=== PATIENT | female | born 1970 | race Caucasian/White ===

== ENCOUNTER → 2016-12-02 | Outpatient (REF) | payer OTHER ==
[~2016-12-02] MED LIST: /ACETCOD3T OR; /ADVA50050 IN; /PANT40TA OR; ACTO45TA OR; CYCLOBENZAPRINE PO; FURO20TA PO; IBUP600T OR; JANUVIA PO; LEXAPRO OR; LISI2.5T OR; METFORMIN PO; SIMV40TA2 OR; SINGULAR PO; VENTAER IN; VICO5TAB OR; [UNRECOGNIZED DRUG - OTHER] PO
[2016-12-02 12:11] LABS: ALBUMIN 3.8 GM/DL (3.2-5.2); ALBUMIN/GLOBULIN RATIO 1.36 (1.00-1.93); ALKALINE PHOSPHATASE 81 U/L (45-117); ALT/SGPT 30 U/L (12-78); ANION GAP 7 MEQ/L (8-16); AST/SGOT 15 U/L (15-37); BILIRUBIN,TOTAL 0.6 MG/DL (0.2-1.0); BLOOD UREA NITROGEN 13 MG/DL (7-18); CALCIUM LEVEL 8.8 MG/DL (8.5-10.1); CARBON DIOXIDE LEVEL 26 MEQ/L (21-32); CHLORIDE LEVEL 104 MEQ/L (98-107); CHOLESTEROL LEVEL 181 MG/DL (<200); CREATININE FOR GFR 0.69 MG/DL (0.55-1.02); GLOMERULAR FILTRATION RATE > 60.0 (>58); GLUCOSE, FASTING 177 MG/DL (70-105); POTASSIUM SERUM 4.4 MEQ/L (3.5-5.1); SODIUM LEVEL 137 MEQ/L (136-145); TOTAL PROTEIN 6.6 GM/DL (6.4-8.2); TRIGLYCERIDES LEVEL 213 MG/DL (<150)
== END ==
LOC: M SFHCCLAY 08:16
PROVIDERS: ATTEND Family Medicine
DX: E78.2 Mixed hyperlipidemia (principal); I10 Essential (primary) hypertension

== ENCOUNTER → 2017-02-01 | Outpatient (REF) | payer OTHER ==
[2017-02-01 12:42] LABS: BASO # 0.1 K/mm3 (0.0-0.2); BASO % 1.1 % (0.0-1.0); EOS # 0.2 K/mm3 (0.0-0.50); EOS % 2.1 % (0.0-3.0); LARGE UNSTAINED CELL # 0.1 K/mm3 (0.0-0.4); LARGE UNSTAINED CELL % 1.5 % (0.0-4.0); LYMPH # 2.6 K/mm3 (1.5-4.5); MEAN CORPUSCULAR HEMOGLOBIN 28.9 pg (27.0-33.0); MONO # 0.4 K/mm3 (0.0-0.8); MONO % 5.3 % (0.0-5.0); NEUTROPHILS # 3.9 K/mm3 (1.8-7.7); PLATELET COUNT, AUTOMATED 258 k/mm3 (150-450); RED CELL DISTRIBUTION WIDTH 13.1 % (11.5-14.5); WHITE BLOOD COUNT 7.2 K/mm3 (4.0-10.0)
[2017-02-01 13:40] LABS: ERYTHROCYTE SEDIMENTATION RATE 8 mm/hr (0-20)
== END ==
LOC: M LABDRAW1 11:38
PROVIDERS: ATTEND Orthopaedic Surgery
DX: S50.02XA Contusion of left elbow, initial encounter (principal); Y92.89 Other specified places as the place of occurrence of the external cause; X58.XXXA Exposure to other specified factors, initial encounter; Y93.89 Activity, other specified; Y99.8 Other external cause status

== ENCOUNTER → 2017-02-03 | Outpatient (CLI) | payer OTHER ==
--- NOTE | 2017-02-03 15:25 | REP ---
MAXILLOFACIAL CT WITHOUT CONTRAST: HISTORY: Chronic maxillary sinusitis. The right frontal sinus is hypoplastic. Mucosal thickening is present in the maxillary sinuses. There is complete opacification of the right maxillary sinus. Minimal mucosal thickening is present in the left maxillary sinus. The remaining sinuses are clear. Mucosal thickening involves the osteomeatal units. The middle and inferior nasal turbinates are partially paradoxical. There is mild deviation of the nasal septum to the right. A spur is present arising from the right side of the nasal septum. The spur abuts the right inferior nasal turbinate. The cribriform plate and medial field of the orbits and optic canals are intact. The carotid canals form a segment of the posterolateral field of the sphenoid sinus. IMPRESSION: Sinus mucosal thickening as described above. Signed by Eric Hinton MD 02/03/2017 03:27 P
== END ==
LOC: M RAD 14:50
PROVIDERS: ATTEND Specialist
DX: J32.0 Chronic maxillary sinusitis (principal)

== ENCOUNTER → 2017-05-18 | Outpatient (CLI) | payer OTHER ==
[~2017-05-18] MED LIST changes: +ALBU17IN INH; +BASA100I SC; +BREO1INH INH; +BUSP10TA PO; +ESCI20TA PO; +GABA-282 PO; +GLYB5TA PO; +LISI2.5T3 PO; +METF500T13 PO; +MIRA0.12 PO; +MONT10TA2 PO; +PANT40TA2 PO; +SIMV80TA PO; +TIZA4CAP3 PO; +VICT18IN SC
[2017-05-18 13:35] LABS: ANION GAP 8 MEQ/L (8-16); BLOOD UREA NITROGEN 14 MG/DL (7-18); CALCIUM LEVEL 9.2 MG/DL (8.5-10.1); CARBON DIOXIDE LEVEL 22 MEQ/L (21-32); CHLORIDE LEVEL 103 MEQ/L (98-107); CREATININE FOR GFR 0.74 MG/DL (0.55-1.02); GLOMERULAR FILTRATION RATE > 60.0 (>58); GLUCOSE, FASTING 372 MG/DL (70-105); POTASSIUM SERUM 4.4 MEQ/L (3.5-5.1); SODIUM LEVEL 133 MEQ/L (136-145)
--- NOTE | 2017-05-19 13:23 | ECGEPIP ---
Stationary ECG Study [facility] Test Date: 2017-05-18 Pat Name: MADHAVI DAVE Department: Room: - Gender: F Email Specialist: RAMOS : 1970 Requested By: TESSY MARQUEZ Order Number: [id number] Reading MD: Wilbert Trent Measurements Intervals [place] Rate: 91 P: 62 MO: 135 QRS: 52 QRSD: 102 T: 50 QT: 358 QTc: 441 Interpretive Statements SINUS RHYTHM POSSIBLE LEFT ATRIAL ENLARGEMENT Poor R-wave progression. Poor R-wave progression new compared with 01/17/2012. Electronically Signed On 05-19-2017 13:23:20 EDT by Wilbert Trent
== END ==
LOC: M LAB 12:17
PROVIDERS: ATTEND Anesthesiology
DX: Z01.818 Encounter for other preprocedural examination (principal); E78.00 Pure hypercholesterolemia, unspecified; E11.9 Type 2 diabetes mellitus without complications; K21.9 Gastro-esophageal reflux disease without esophagitis; F32.9 Major depressive disorder, single episode, unspecified; J45.909 Unspecified asthma, uncomplicated

== ENCOUNTER → 2017-05-20 | Day surgery (SDC) | payer OTHER ==
[~2017-05-20] VITALS: Ht 167.6 cm; Wt 96.6 kg
[~2017-05-20] MED LIST changes: +ALBUTEROL SULFATE 2.5 MG/0.5 ML INH NEB SOLN As Ordered ONE; +ALBUTEROL SULFATE 2.5 MG/0.5 ML INH NEB SOLN INH ONE; +EPINEPHrine 1MG/ML INJ 30ML MD-VIAL As Ordered ONE; +EPINEPHrine INJ 1 MG/ML 1ML AMP As Ordered ONE; +HYDROmorphone HCL 1 MG/ML SYRINGE (J1170) IV PRN; +HYDROmorphone HCL 2 MG/ML 1ML VIAL (J1170) As Ordered ONE; +IBUPROFEN 800 MG TAB PO PRN; +LABETALOL HCL 100 MG/20 ML VIAL As Ordered ONE; +LIDOCAINE 2% INJ 100 MG/5 ML SDV (FOR ANES.) As Ordered ONE; +LIDOCAINE W/EPINEPHRINE 1% 20ML VIAL As Ordered ONE; +LR 1,000 ML IV ONE; +LR 1,000 ML IV SCH; +METHYLENE BLUE 0.5% (5MG/ML) 10 ML AMP (PROVAYBLUE)(Q9968 PER 1MG) As Ordered ONE; +MIDAZOLAM INJ 2 MG/2 ML VIAL (J2250) As Ordered ONE; +ONDANSETRON 4MG/2ML VIAL (J2405) As Ordered ONE; +ONDANSETRON 4MG/2ML VIAL (J2405) IV PRN; +OXYMETAZOLINE NASAL SPRAY (AFRIN) As Ordered ONE; +PERCOCET 5MG/325MG TAB PO PRN; +PROPOFOL 200 MG/20 ML VIAL As Ordered ONE; +ROCURONIUM BROMIDE 50 MG/5 ML VIAL/SYRINGE As Ordered ONE; +SUGAMMADEX SODIUM 500 MG/5 ML VIAL (BRIDION) As Ordered ONE; +dexameTHASONE 4 MG/ML 1ML VIAL (J1100) As Ordered ONE; +fentaNYL 100 MCG/2 ML INJECTION (J3010) As Ordered ONE
[2017-05-20] MEDS: LABETALOL HCL 100 MG/20 ML VIAL IV SCH ×4 (14:35→14:50)
[2017-05-20] MEDS: fentaNYL 100 MCG/2 ML INJECTION (J3010) IV PRN ×4 (14:40→14:55)
[2017-05-20 14:50] VITALS: BP 159/77
[2017-05-20] MEDS: PERCOCET 5MG/325MG TAB PO PRN ×2 (15:15→15:45)
[2017-05-20 17:40] VITALS: BP 159/79
--- NOTE | 2017-05-24 14:04 | RO ---
DATE OF PROCEDURE: 05/20/2017 PREOPERATIVE DIAGNOSES: 1. Chronic maxillary sinusitis. 2. Deviated septum. POSTOPERATIVE DIAGNOSES: 1. Chronic maxillary sinusitis. 2. Deviated septum. PROCEDURE: Septoplasty, then bilateral endoscope ethmoidectomy with maxillary antrostomy. SURGEON: Dr. Yogesh Hernandez DBA: ANESTHESIA: INDICATIONS: A 46-year-old with asthma presents with continued problems with chronic sinusitis with recurring infections and a CT scan demonstrating complete opacification of the right maxillary sinus, obstruction of the ostiomeatal complex on both sides. DESCRIPTION OF PROCEDURE: Satisfactory general endotracheal anesthesia administered. Pharyngeal pack placed. Nose prepared for surgery by placing cotton-soaked pledgets with Afrin solution into the nasal cavity bilaterally. 1% Xylocaine with 1:100,000 epinephrine used to inject nasal septum. Her septal deviation was completely into the right nasal cavity with the septum being juxtaposed to the right middle turbinate and lateral nasal wall. A Kaden incision was made on the left side of the nose. A mucoperichondrial flap and envelope was created on the left side of the nasal septum and carried down to the junction of the bony and cartilaginous septum. This was then with an elevator, and an envelope was then created on the right side of the septum. A Rafael scissors was used to make a cut high in the perpendicular plate in the midportion of the vomer, and a central segment of the bony septum was resected. Next, with the round knife on the [place] elevator, a strip of cartilage was resected from the floor of the nose, mobilizing the quadrilateral cartilage and creating a swinging door. Then, a central segment of cartilaginous septum was resected, preserving a 1 cm dorsal and caudal strut. Double-action rongeur was used to take down deflected portions of the perpendicular plate, as well. Finally, the maxillary crest spur was taken down after elevating mucoperiosteum off both sides of it with a chisel. A segment of the resected cartilage was morselized and placed back into the septal envelope. The incision was closed using an interrupted #5-0 chromic suture. Then, a #4-0 plain suture was placed in a eehb-tiz-eoyyn fashion through the two leaves of mucoperichondrium to appose them. Completing the septum surgery, endoscopic surgery was started by first preparing the nose with cotton-soaked pledgets with Afrin solution in the nasal cavity. First, surgery was performed on the right side. 1% Xylocaine with 1:100,000 epinephrine used to inject the lateral nasal wall of middle turbinate. The middle turbinate on the right side was actually quite atrophic. It was also markedly paradoxically bent into the uncinate and lateral nasal wall because it was so atrophic and thin from the constant pressure of the septum against it. It was elected to do a partial resection of the middle turbinate on the right to prevent lateralization later. The uncinate process was resected with the microdebrider. Marked inflammatory changes were found here. The ethmoidal bullae was then resected. The natural maxillary sinus ostia was obliterated by edematous mucosa; it was cannulated with a side suction, and then it was opened widely using combination of the side-biting forceps and the microdebrider. Once in the maxillary sinus, the appearance of the mucosa was hyperplastic and markedly edematous, mucosa filling most of the maxillary sinus. A good antrostomy was created to allow this to be ventilated. The ethmoidectomy was completed by removing remnants of uncinate process superiorly and opening superiorly at the region of the supraorbital ethmoid cell. Adrenaline pledgets were placed on the right side while an identical procedure was performed on the left with left inflammatory changes seen on the left side, and a complete ethmoidectomy and maxillary antrostomy was done without incident. Adrenaline pledgets were placed on this side as well. When these were removed, NasoPore packing was placed into each side of the nose. Pharyngeal pack was removed. The throat was suctioned. The patient was then awakened, extubated, and sent to recovery room in satisfactory position. She will be discharged on Percocet for pain, doxycycline 100 mg twice a day, and she will be seen back in the office in 3 days.
== END | disposition home or self-care (01) ==
LOC: M SDC 09:04
PROVIDERS: ATTEND Specialist
DX: J32.0 Chronic maxillary sinusitis (principal); J34.2 Deviated nasal septum; J45.909 Unspecified asthma, uncomplicated; E11.9 Type 2 diabetes mellitus without complications; K21.9 Gastro-esophageal reflux disease without esophagitis; I10 Essential (primary) hypertension; E78.00 Pure hypercholesterolemia, unspecified; M54.2 Cervicalgia; F32.9 Major depressive disorder, single episode, unspecified; Z79.899 Other long term (current) drug therapy; Z79.84 Long term (current) use of oral hypoglycemic drugs; Z90.710 Acquired absence of both cervix and uterus; Z72.0 Tobacco use

== ENCOUNTER → 2017-06-02 | Outpatient (REF) | payer OTHER ==
[~2017-06-02] MED LIST changes: -ALBUTEROL SULFATE 2.5 MG/0.5 ML INH NEB SOLN As Ordered ONE; -ALBUTEROL SULFATE 2.5 MG/0.5 ML INH NEB SOLN INH ONE; -EPINEPHrine 1MG/ML INJ 30ML MD-VIAL As Ordered ONE; -EPINEPHrine INJ 1 MG/ML 1ML AMP As Ordered ONE; -HYDROmorphone HCL 1 MG/ML SYRINGE (J1170) IV PRN; -HYDROmorphone HCL 2 MG/ML 1ML VIAL (J1170) As Ordered ONE; -IBUPROFEN 800 MG TAB PO PRN; -LABETALOL HCL 100 MG/20 ML VIAL As Ordered ONE; -LIDOCAINE 2% INJ 100 MG/5 ML SDV (FOR ANES.) As Ordered ONE; -LIDOCAINE W/EPINEPHRINE 1% 20ML VIAL As Ordered ONE; -LR 1,000 ML IV ONE; -LR 1,000 ML IV SCH; -METHYLENE BLUE 0.5% (5MG/ML) 10 ML AMP (PROVAYBLUE)(Q9968 PER 1MG) As Ordered ONE; -MIDAZOLAM INJ 2 MG/2 ML VIAL (J2250) As Ordered ONE; -ONDANSETRON 4MG/2ML VIAL (J2405) As Ordered ONE; -ONDANSETRON 4MG/2ML VIAL (J2405) IV PRN; -OXYMETAZOLINE NASAL SPRAY (AFRIN) As Ordered ONE; -PERCOCET 5MG/325MG TAB PO PRN; -PROPOFOL 200 MG/20 ML VIAL As Ordered ONE; -ROCURONIUM BROMIDE 50 MG/5 ML VIAL/SYRINGE As Ordered ONE; -SUGAMMADEX SODIUM 500 MG/5 ML VIAL (BRIDION) As Ordered ONE; -dexameTHASONE 4 MG/ML 1ML VIAL (J1100) As Ordered ONE; -fentaNYL 100 MCG/2 ML INJECTION (J3010) As Ordered ONE
[2017-06-02 12:55] LABS: ALBUMIN 3.5 GM/DL (3.2-5.2); ALBUMIN/GLOBULIN RATIO 1.25 (1.00-1.93); ALKALINE PHOSPHATASE 74 U/L (45-117); ALT/SGPT 37 U/L (12-78); ANION GAP 13 MEQ/L (8-16); AST/SGOT 19 U/L (15-37); BILIRUBIN,TOTAL 0.6 MG/DL (0.2-1.0); BLOOD UREA NITROGEN 13 MG/DL (7-18); CALCIUM LEVEL 8.8 MG/DL (8.5-10.1); CARBON DIOXIDE LEVEL 22 MEQ/L (21-32); CHLORIDE LEVEL 100 MEQ/L (98-107); CHOLESTEROL LEVEL 191 MG/DL (<200); CREATININE FOR GFR 0.62 MG/DL (0.55-1.02); FREE T4 0.95 NG/DL (0.76-1.46); GLOMERULAR FILTRATION RATE > 60.0 (>58); GLUCOSE, FASTING 131 MG/DL (70-105); POTASSIUM SERUM 3.8 MEQ/L (3.5-5.1); SODIUM LEVEL 135 MEQ/L (136-145); TOTAL PROTEIN 6.3 GM/DL (6.4-8.2); TRIGLYCERIDES LEVEL 175 MG/DL (<150)
== END ==
LOC: M SFHCCLAY 08:34
PROVIDERS: ATTEND Family Medicine
DX: E78.2 Mixed hyperlipidemia (principal); E07.9 Disorder of thyroid, unspecified

== ENCOUNTER → 2018-08-04 | Outpatient (REF) | payer OTHER ==
[2018-08-04 13:08] LABS: CREATININE FOR GFR 0.71 MG/DL (0.55-1.30); GLOMERULAR FILTRATION RATE > 60.0 (>58)
[2018-08-04 13:08] LABS: BLOOD UREA NITROGEN 18 MG/DL (7-18)
== END ==
LOC: M LABDRAW1 10:28
DX: M47.22 Other spondylosis with radiculopathy, cervical region (principal)

== ENCOUNTER 2019-10-22 15:11 | Emergency (ER) | payer OTHER ==
[~2019-10-22] VITALS: Ht 167.6 cm; Wt 86.4 kg
[~2019-10-22 15:11] MED LIST changes: -/ACETCOD3T OR; -/ADVA50050 IN; -/PANT40TA OR; +ACET1TAB16 OR; +ADVA1AER2 IN; -GABA-282 PO; +GABA-843 PO; +LEXA1TAB OR; -LEXAPRO OR; +LISI-1046 PO; -LISI2.5T3 PO; -PANT40TA2 PO; +PANT40TA3 PO; +PROT1TAB2 OR; -SIMV80TA PO; +SIMV80TA13 PO; +TIZA4CAP PO; -TIZA4CAP3 PO
[2019-10-22] MEDS ORDERED: POTA10CA32 (15:38)
[2019-10-22] MEDS ORDERED: DICL100T89 (15:38)
[2019-10-22] MEDS ORDERED: [UNRECOGNIZED DRUG - CODE] (15:38)
[2019-10-22] MEDS ORDERED: HYDR-3716 (15:38)
[2019-10-22] MEDS ORDERED: VITA2000 (15:38)
[2019-10-22] MEDS ORDERED: TIZA4TAB4 (15:38)
[2019-10-22] MEDS ORDERED: METH750T2 (15:38)
[2019-10-22] MEDS ORDERED: GABA600T4 (15:38)
[2019-10-22] MEDS ORDERED: FLUT1BLS4 (15:38)
[2019-10-22] MEDS ORDERED: MELO15TA28 (15:38)
[2019-10-22] MEDS ORDERED: NORCO, ANEXSIA 5/325MG TABLET (HYDROcodone/ACETAMINOPHEN) PO ONE (16:15)
[2019-10-22] MEDS ORDERED: PERCOCET 5MG/325MG TAB PO ONE (16:15)
[2019-10-22] MEDS ORDERED: BACLOFEN 10 MG TAB PO ONE (16:15)
[2019-10-22] MEDS ORDERED: BACL10TA2 PO (17:02)
[2019-10-22 17:13] VITALS: BP 122/73
== END 2019-10-22 17:16 | disposition home or self-care (01) ==
LOC: M ED 15:11
DX: M54.9 Dorsalgia, unspecified (principal); G89.29 Other chronic pain; M51.9 Unspecified thoracic, thoracolumbar and lumbosacral intervertebral disc disorder; E11.9 Type 2 diabetes mellitus without complications; I10 Essential (primary) hypertension; J45.909 Unspecified asthma, uncomplicated; M46.92 Unspecified inflammatory spondylopathy, cervical region; F17.210 Nicotine dependence, cigarettes, uncomplicated; Z79.899 Other long term (current) drug therapy; Z79.84 Long term (current) use of oral hypoglycemic drugs

== ENCOUNTER 2020-11-28 11:14 | Emergency (ER) | payer OTHER ==
[~2020-11-28] VITALS: Ht 167.6 cm; Wt 87.6 kg
[~2020-11-28 11:14] MED LIST changes: +BACL10TA2 PO; +DICL100T89; -ESCI20TA PO; +ESCI20TA16 PO; +FLUT1BLS4; +GABA-282 PO; -GABA-843 PO; +GABA600T4; -GLYB5TA PO; +GLYB5TAB6 PO; +HYDR-3716; -LISI-1046 PO; +LISI2.5T2 PO; +MELO15TA28; +METH-1165; +MONT10TA10 PO; -MONT10TA2 PO; +PANT40TA29 PO; -PANT40TA3 PO; +POTA10CA32; +TIZA4TAB4; +VITA200031; +[UNRECOGNIZED DRUG - CODE]
--- OUTSIDE RECORDS SUMMARY | 2020-11-28 11:22 | CCD | Continuity of Care Document ---
Author Author [facility] Address [address] [place] [address] Phone Care Team Providers Care Oil Agent Name Role Phone Carmel PLATT PCP Allergies, Adverse Reactions, Alerts No known allergies. Medications No medication information available. Problems No problem information available. Procedures Procedure Date Performed Status CHEST 1 VIEW September 08, 2020 completed BRAIN W/O CONTRAST September 08, 2020 completed Relevant Diagnostic Tests and/or Laboratory Data Laboratory Results Test Date/Time Result Interpretation Reference Range Result Co mment Performing Site White Blood Count September 09, 2020 1:12am 11.5 4.0-10 .0 [facility], [address] [place] [address] Red Blood Count September 09, 2020 1:12am 4.64 4.00-5.5 0 [facility], [address] [place] [address]18 Hemoglobin September 09, 2020 1:12am 13.2 12.0-16.0 [facility], [address] [facility] [address] Hematocrit September 09, 2020 1:12am 38.6 36.0-48.8 [facility], [address] [place] [address]16 Mean Corpuscular Volume September 09, 2020 1:12am 83.2 80-96 [facility], [address] [facility] [address] Mean Corpuscular Hemoglobin September 09, 2020 1:12am 28.4 27.0-31.0 [facility], [address] [facility] [address] Mean Corpuscular Hgb Concent Diff September 09, 2020 1:12am 34.2 32.0-36.0 [facility], [address] [place] [address] Red Cell Distribution Width September 09, 2020 1:12am 13.3 10.0-14.5 [facility], [address] [place] [address] Platelet Count September 09, 2020 1:12am 198 172-450 [facility], [address] [place] [address] Mean Platelet Volume September 09, 2020 1:12am 8.8 9.0 -13.0 [facility], [address] [place] [address] Granulocytes % (Auto) September 09, 2020 1:12am 88.5 50 -80.0 [facility], [address] [place] [address] Immature Granulocytes % September 09, 2020 1:12am 0.1 0.0-0.2 [facility], [address] [facility] [address] Lymphocytes % September 09, 2020 1:12am 8.4 25.0-50.0 [facility], [address] [facility] [address] Monocytes % September 09, 2020 1:12am 2.7 2.0-10.0 [facility], [address] [facility] [address] Eosinophils % September 09, 2020 1:12am 0.1 0-5.0 [facility], [address] [facility] [address] Basophils % September 09, 2020 1:12am 0.2 0.0-2.0 [facility], [address] [facility] [address] Granulocytes # September 09, 2020 1:12am 10.2 2.0-8.00 [facility], [address] [facility] [address] Immature Granulocytes # September 09, 2020 1:12am 0.0 0.0-0.2 [facility], [address] [facility] [address] Lymphocytes # September 09, 2020 1:12am 1.0 1.0-5.0 [facility], [address] [facility] [address] Monocytes # September 09, 2020 1:12am 0.3 0.10-1.20 [facility], [address] [facility] [address] Eosinophils # September 09, 2020 1:12am 0.0 0.0-0.5 [facility], [address] [facility] [address] Basophils # September 09, 2020 1:12am 0.0 0.0-0.2 [facility], [address] [facility] [address] Prothrombin Time September 08, 2020 7:42am 9.9 9.1-11. 6 [facility], [address] [facility] [address] INR International Normalized Ratio September 08, 2020 7:42am 0.95 0.87-1.06 [facility], [address] [facility] [address] Partial Thromboplastin Time - [place] September 08, 2020 7:42am 21.6 21.2-27.3 [facility], [address] [facility] [address] Urine Color September 08, 2020 2:24pm [facility], [address] [facility] [address] Urine Appearance September 08, 2020 2:24pm CLEAR [facility], [address] [facility] 98977 Urine Glucose September 08, 2020 2:24pm 500 NEGATIVE [facility], [address] [facility] 170[address] Urine Bilirubin September 08, 2020 2:24pm NEGATIVE NEGATIVE [facility], [address] [facility] [address] Urine Ketones September 08, 2020 2:24pm NEGATIVE NEGATIVE [facility], [address] [facility] [address] Specific [place] September 08, 2020 2:24pm 1.020 1.001-1 .035 [facility], [address] [facility] [address] Urine Blood September 08, 2020 2:24pm NEGATIVE NEGATIVE [facility], [address] [facility] 339[address] Urine pH September 08, 2020 2:24pm 6.5 5.0-9.0 [facility], [address] [facility] [address]75[address] Urine Protein September 08, 2020 2:24pm NEGATIVE NEGATIVE [facility], [address] [facility] [address]395 Urine Urobilinogen September 08, 2020 2:24pm NORMAL(0.2-1) 0 -1 [facility], [address] [facility] [address] Urine Nitrite September 08, 2020 2:24pm NEGATIVE NEGATIVE [facility], [address] [facility] 6[address] Urine Leukocyte Esterase September 08, 2020 2:24pm NEGATIVE NEGATIVE [facility], [address] [facility] [address]18[address] Glucose Level September 09, 2020 1:12am 269 74-106 [facility], [address] [facility] [address] Lactic Acid Level September 08, 2020 11:06am 2.2 0.4-2 .0 [facility], [address] [place] [address] Blood Urea Nitrogen September 09, 2020 1:12am 11 7-18 [facility], [address] [place] [address]809 Creatinine September 09, 2020 1:12am 0.9 0.6-1.0 [facility], [address] [place] [address] 11440 Sodium Level September 09, 2020 1:12am 139 136-145 [facility], [address] [facility] [address] Potassium Level September 09, 2020 1:12am 4.7 3.5-5.1 [facility], [address] [place] [address] Chloride Level September 09, 2020 1:12am 105 98-107 [facility], [address] [place] [address] 29025 Carbon Dioxide Level September 09, 2020 1:12am 21 21- 32 [facility], [address] [facility] [address] Calcium Level September 09, 2020 1:12am 8.2 8.5-10.1 [facility], [address] [place] [address] Anion Gap September 09, 2020 1:12am 13.0 5-12 [facility], [address] [place] [address]67 Estimated GFR (MDRD) September 09, 2020 1:12am 67 GFR IS CALCULATED IN mL/min/1.73m2 NORMAL FUNCTION: >90MILDLY DECREASED: 60-89MILDY TO MODERATELY DECREASED: 45-59 MODERATELY TO SEVERELY DECREASED: 30-44SEVERELY DECREASED: 15-29RENAL FAILURE: <15 [facility], [address] [facility] [address] Aspartate Amino Transf (AST/SGOT) September 09, 2020 1:12am 23 15-37 [facility], [address] [facility] [address] Alanine Aminotransferase (ALT/SGPT) September 09, 2020 1:12am 34 12-78 [facility], [address] [facility] [address] Alkaline Phosphatase September 09, 2020 1:12am 68 46- 116 [facility], [address] [facility] 8[address] Total Bilirubin September 09, 2020 1:12am 0.9 0.2-1.0 [facility], [address] [place] [address]337 Total Protein September 09, 2020 1:12am 6.6 6.4-8.2 [facility], [address] [facility] [address] Albumin September 09, 2020 1:12am 3.2 3.4-5.0 [facility], [address] [facility] 40295 Lipase September 08, 2020 7:42am 99 73-393 [facility], [address] [facility] [address]608 Troponin I September 08, 2020 7:42am < 0.017 0.0-0.056 [facility], [address] [place] [address]8717 Thyroid Stimulating Hormone (TSH) September 08, 2020 7:42am 1.93 0.36-3.74 [facility], [address] [place] [address]62 Magnesium Level September 08, 2020 7:42am 1.7 1.8-2.4 [facility], [address] [place] [address]654 Free Thyroxine September 08, 2020 7:42am 1.10 0.76-1.46 [facility], [address] [place] [address]75 Urine Amphetamine Screen September 08, 2020 2:24pm NEGATIVE <1000 ng/mL [facility], [address] [place] [address] Urine Marijuana (THC) Screen September 08, 2020 2:24pm NEGATIVE <50 ng/mL [facility], [address] [facility] [address] Methylenedioxymethamphetamine (MDMA September 08, 2020 2:24pm NEGAT JOSE E <500 ng/mL [facility] [address] Urine Barbiturates Screen September 08, 2020 2:24pm NEGATIVE <300 ng/mL [facility], [address] [facility] [address] Urine Phencyclidine (PCP) Prelim September 08, 2020 2:24pm NEGATIVE <25 ng/mL [facility], [address] [facility] [address] Propoxyphene Screen September 08, 2020 2:24pm NEGATIVE <300 ng/mL [facility], [address] [facility] 8[address] Urine Cocaine Screen September 08, 2020 2:24pm NEGATIVE <30 0 ng/mL [facility], [address] [facility] 795[address] Urine Opiates Screen September 08, 2020 2:24pm NEGATIVE <30 0 ng/mL [facility], [address] [facility] [address] Oxycodone Screen September 08, 2020 2:24pm NEGATIVE <100 ng /mL [facility], [address] [place] [address] Urine Tricyclic Antidepressants September 08, 2020 2:24pm NEGATIVE <1000 ng/mL IF A NEGATIVE RESULT IS OBTAINED AND ING ESTION OF TRICYCLICANTIDEPRESSANTS IS SUSPECTED, A SERUM SAMPLE SHOULD BEOBTAINED AND TESTED USING AN APPROPRIATE METHOD. [facility], [address] [place] [address] Urine Benzodiazepines Screen September 08, 2020 2:24pm NEGATIVE <300 ng/mL THESE TESTS ARE PERFORMED USING AN IMMUNOASSAY FOR THEQUALITATIVE DETERMINATION OF THE PRESENCE OF THE MAJORMETABOLITES OF DRUGS OF ABUSE. THESE TESTS ARE ONLY ASCREENING AND NOT CONFIRMATORY. CLINICAL CONSIDERATION ANDPROFESSIONAL JUDGMENT MUST BE APPLIED TO ANY DRUG OF ABUSETEST RESULT. [facility], [address] [facility] [address] B-Type Natriuretic Peptide September 08, 2020 7:42am 52 0-125 [facility], [address] [place] [address] Adenovirus (PCR) September 08, 2020 7:50am Not Detected Not [facility], [address] [place] [address] Coronavirus Type 229E (PCR) September 08, 2020 7:50am Not Detected Not [facility], [address] [place] [address] Coronavirus Type HKU1 (PCR) September 08, 2020 7:50am Not Detected Not [facility], [address] [facility] [address] Coronavirus Type NL63 (PCR) September 08, 2020 7:50am Not Detected Not [facility], [address] [facility] [address] Coronavirus Type OC43 (PCR) September 08, 2020 7:50am Not Detected Not [facility], [address] [facility] [address] Coronavirus (COVID-19)(PCR) September 08, 2020 7:50am Not Detected Not [facility], [address] [facility] [address] Human Metapneumovirus (PCR) September 08, 2020 7:50am Not Detected Not [facility], [address] [facility] 6[address]14 Rhinovirus (PCR) September 08, 2020 7:50am Not Detected Not [facility], [address] [facility] [address] Influenza Type A (RT-PCR) September 08, 2020 7:50am Not Detected Not [facility], [address] [facility] [address] Influenza Type B (RT-PCR) September 08, 2020 7:50am Not Detected Not [facility], [address] [facility] [address] Parainfluenza Type 1 (PCR) September 08, 2020 7:50am Not Detected Not [facility], [address] [facility] [address]65 Parainfluenza Type 2 (PCR) September 08, 2020 7:50am Not Detected Not [facility], [address] [facility] 48298 Parainfluenza Type 3 (PCR) September 08, 2020 7:50am Not Detected Not [facility], [address] [facility] 8[address]74 Parainfluenza Type 4 (PCR) September 08, 2020 7:50am Not Detected Not [facility], [address] [facility] 9[address]98 Respiratory Syncytial Virus (PCR) September 08, 2020 7:50am Not Detec karey Not [facility], [address] [facility] [address] Bordetella parapertussis DNA (PCR) September 08, 2020 7:50am Not Dete cted Not [facility], [address] [facility] [address]257 Bordetella pertussis DNA (PCR) September 08, 2020 7:50am Not Detected Not [facility], [address] [facility] [address] Chlamydia pneumoniae September 08, 2020 7:50am Not Detected Not [facility], [address] [facility] [address] Mycoplasma pneumoniae September 08, 2020 7:50am Not Detected Not The Above results have been determined by using the [employer] (acquired by [employer] FilmArray system.FilmArray is an automated in vitro diagnostic system thatutilizes nested multiplex Polymerase Chain Reaction (PCR)and high-resolution melting analysis to detect and identifymultiple nucleic acid targets from clinical specimens. [facility], [address] [facility] [address] Blood Culture (LAB) September 08, 2020 7:59am SENT TO [facility], [address] [place] [address] Diagnostic Imaging Reports Report Dictated Date/Time Dictated By Status PS360 TEMPLATE September 08, 2020 8:19am JULIA RUTLEDGE Patient Name: MADHAVI DAVE Unit#: [id number] Rad#: [id number] : 72 Status: OSMAR Cramer MD: AKASH WOLFE Room/Bed Sex: F Property Management Intern: Manuela Montejo Date: 09/08/20 Report #: [id number] Signed - BRAIN W/O CONTRAST ORIGINAL REPORT DATE OF EXAMINATION: 09/08/2020 12:34 EST BRAIN W/O CONTRAST HISTORY: Dizziness TECHNIQUE: This CT exam was performed using the following dose reduction techniques: automatic exposure control, adjustment of mA and/or kV according to the patient's size, and use of iterative reconstruction technique. Standard contiguous axial spiral imaging was obtained from the skull base through the vertex without contrast administration and with coronal reformatting. FINDINGS: BRAIN: Basilar cisterns and ventricles appear normal. No space occupying lesions, intracerebral edema, or any signs of mass effects are noted. Base of the skull appears normal. IMPRESSION: Unremarkable CT scan of brain. Incidentally noted is some mucoperiosteal thickening of the sphenoid sinus consistent with chronic sphenoid sinusitis. Electronically signed in PS360 by: Julia Rut[place] M.D. 09/08/2020 13:20 EST PS360 TEMPLATE September 08, 2020 8:37am JULIA RUTLEDGE compl eted Patient Name: MADHAVI DAVE Unit#: [id number] Rad#: [id number] : 72 Status: OSMAR Cramer MD: AKASH WOLFE Room/Bed Sex: Giorgi Property Management Intern: Brittani Woods Date: 09/08/20 Report #: [id number] Signed - CHEST 1 VIEW ORIGINAL REPORT DATE OF EXAMINATION: 09/08/2020 12:26 EST CHEST 1 VIEW HISTORY: Dizziness TECHNIQUE: Single frontal radiograph of chest COMPARISON: 04/11/2020 FINDINGS: No evidence of focal consolidation, pneumothorax or large pleural effusion. Lungs are clear. Mediastinal structures are unremarkable. No aggressive osseous lesions. IMPRESSION: No focal consolidation. Electronically signed in PS360 by: Julia [place] M.D. 09/08/2020 13:37 EST Health Concerns No known health concerns documented Chief Complaint and Reason for Visit Reason for Visit HYPOTENSION, ORTHOSTATIC HYP OTENSION,SIDE EFFECTS Encounters Encounter Location(s) Arrival/Admit Date Discharge/Depart Date Provider(s) Discharged Inpatient [facility] September 08, 2020 7:12 am September 09, 2020 4:20am TIMMY PATEL V Assessments No Assessments Information Available Functional Status No Functional Status information available Goals No Goals Information Available Immunizations Immunization Event Date Not Given Reason Dose Number Hr Shared Services Consultant Lot Number Vaccine Information Statement (VIS) Detail Mental Status No Mental Status Information Available Medical Equipment No Medical Equipment Information available Insurance Providers Guarantor MADHAVI DAVE Address [address] [place] [address] Contact Info. Home Phone: Payer Policy Id Coverage Id Subscriber's Name Subscriber Id Effect jose e Date Expiration Date [employer] [id number] MADHAVI DAVE [birth year] Social History Assigned Sex Female Vital Signs No vital signs result information available.
--- OUTSIDE RECORDS SUMMARY | 2020-11-28 11:22 | CCD | Continuity of Care Document ---
Author Maral Garcia M.D. Organization Unknown Address [address] [place] [address] Phone [phone] Care Team Providers Care Onion Farmer Name Role Phone KatyaglHakan zambrano COMMUNITY DEVELOPMENT MANAGER-Robina AUTM [phone] Problems Active Problems Provider Date Restless legs Barbara Dumont M.D. Onset: 05/28/2020 Periodic limb movement disorder Barbara Dumont M.D. Onset: 0 05/28/2020 Disorders of initiating and maintaining sleep Yusuf Chen Onset: 05/28/2020 Low back pain Barbara Dumont M.D. Onset: 05/28/2020 Spondylolysis Barbara Dumont M.D. Onset: 05/28/2020 Type 2 diabetes mellitus with diabetic polyneuropathy Barbara Dumont M.D. Onset: 05/28/2020 Chronic tension-type headache Barbara Dumont M.D. Onset: 12/2019 Migraine without aura, not refractory Barbara Dumont M.D. On set: 10/01/2020 Social History Type Date Description Comments Sex Unknown Tobacco Use Start: Unknown Light tobacco smoker (10 or fewe r cigarettes/day) Allergies, Adverse Reactions, Alerts Description No Known Drug Allergies Medications Active Medications SIG Qnty Indications Ordering Provide r Date Topiramate 100mg Tablets 1 po qhs 30tabs Barbara Dumont M.D. 10/01/2020 Trazodone HCL 100mg Tablets half or 1 tab by mouth every night at bedtime 30tabs Barbara Dumont M.D. 10/01/2020 Neupro 8mg/24HR Patches 24HR apply 1 patch to the skin daily for 24 hours. 90units Barbara Dumont M.D. 05/28/2020 Lexapro 20mg Tablets 1 by thee th qhs. Unknown History Medications Topiramate 50mg Tablets Take 1/2 Tablet By Mouth AT Bedtime For 1 Week Then 1 Tablet AT Bedtime For 1 Week Then Take 2 Tablets AT Bedtime 60tabs Barbara Dumont M.D. 07/09/2020 - 10/01/2020 Immunizations Description No Information Available Vital Signs Date Vital Result Comment 05/28/2020 9:50am BP Systolic 120 mmHg BP Diastolic 70 mmHg Heart Rate 66 /min Respiratory Rate 14 /min Height 66 inches 5'6" Weight 178.00 lb BMI (Body Mass Index) 28.7 kg/m2 [place] Body Weight 130 lb Results Test Acquired Date Facility Test Result H/L Range Note Laboratory test finding 06/11/2020 [facility] Ferritin 24 ng/mL 8-252 1 Rheumatoid Factor Screen NEGATIVE Negative 2 Erythrocyte Sedimentation Rate 7 mm/hr 0-20 3 Iron Profile 06/11/2020 [facility] Fe 55 g/dL 50-170 Tibc 419 g/dL 250-450 Sat 13 % Low 20-50 Laboratory test finding 06/11/2020 [facility] Ceruloplasmin 28.3 mg/dL 19.0-39.0 4 Vitamin B12 And Folate 06/11/2020 [facility] VB12 514 pg/mL 232-1245 Fol 15.0 ng/mL >3.0 5 Laboratory test finding 06/11/2020 [facility] Lead, Blood (Adult) <1 g/dL 0-4 6 Jill W/Reflex If Positive Negative Negative 7 Serum Protein Electrophoresis 06/11/2020 [facility] Petp 6.5 g/dL 6.0-8.5 Pealb 3.8 g/dL 2.9-4.4 Pea1g 0.2 g/dL 0.0-0.4 Pea2g 0.9 g/dL 0.4-1.0 Pebg 1.1 g/dL 0.7-1.3 Pegg 0.5 g/dL 0.4-1.8 Pems Not Observed g/dL Not Observed Petg 2.7 g/dL 2.2-3.9 Peagr 1.4 0.7-1.7 Pepn Comment . 8 Laboratory test finding 06/11/2020 [facility] Mercury, Blood 1.0 ug/L 0.0-14.9 9 Vitamin E(Alpha Tocopherol) 10.4 mg/L 7.0-25.1 10 Copper, Serum 116 g/dL 72-166 11 Vitamin B6 3.9 ug/L 2.0-32.8 12 Vit. B1, Whole Blood 159.7 nmol/L 66.5-200.0 13 1 FAX [phone] FAX [phone] FAX [phone] Performed at: [address] [id number] Lead Level Designer: Peg Booker MD, Phone: [phone] 5 A serum folate concentration of less than 3.1 ng/mL is considered to represent clinical deficiency. 6 Analysis by inductively coup led plasma/mass spectrometry (ICP/MS) Environmental Exposure: WHO Recommendation <20 Occupational Exposure: OSHA Lead Std 40 LAURA 30 Detection Limit = 1 Performed at: [address] [id number] Lead Level Designer: Peg Booker MD, Phone: [phone] 7 Performed at: [address] [id number] Lead Level Designer: Peg Booker MD, Phone: [phone] 8 Protein electrophoresis scan will follow via computer, mail, or cotton washer delivery. Performed at: [address] [id number] Lead Level Designer: Peg Booker MD, Phone: [phone] 9 Environmental Exposure: <15 .0 Occupational Exposure: LAURA - Inorganic Mercury: 15.0 Detection Limit = 1.0 Performed at: [address] [id number] Lead Level Designer: Talia Walden MD, Phone: [phone] 10 Test(s) 728004-Wry. B1, Whol e Blood was developed and its performance characteristics determined by [facility]. It has not been cleared or approved by the Food and Drug Administration. 11 Detection Limit = 5 Performed at: [address] [id number] Lead Level Designer: Talia Walden MD, Phone: [phone] 12 Performed at: [address] [id number] Lead Level Designer: Talia Walden MD, Phone: [phone] 13 Performed at: [address] [id number] Lead Level Designer: Talia Walden MD, Phone: [phone] Procedures Date Code Description Status 06/02/2020 44071 Nerve Conduction 11-12 Studies C ompleted 06/02/2020 66107 Needle Electromyography Complete , Five Or More Muscles Studied Completed 06/02/2020 44673 Needle Electromyography Complete , Five Or More Muscles Studied Completed Medical Devices Description No Information Available Encounters Type Date Location Provider Dx Diagnosis Office Visit 10/01/2020 1:45p Main office - [place] Yusuf Chen G25.81 Restless legs syndrome G47.61 Periodic limb movement disor сергей F51.01 Primary insomnia G44.221 Chronic tension-type headach e, intractable G43.009 Migraine w/o aura, not intra ctable, w/o status migrainosus Office Visit 07/09/2020 11:30a Main office - [place] Yusuf Chen G25.81 Restless legs syndrome G47.61 Periodic limb movement disor сергей F51.01 Primary insomnia E11.42 Type 2 diabetes mellitus wit h diabetic polyneuropathy M54.5 Low back pain M43.06 Spondylolysis, lumbar region G44.221 Chronic tension-type headach e, intractable Office Visit 05/28/2020 9:30a Main office - [place] Yusuf Chen G25.81 Restless legs syndrome G47.61 Periodic limb movement disor сергей F51.01 Primary insomnia E11.42 Type 2 diabetes mellitus wit h diabetic polyneuropathy M54.5 Low back pain M43.06 Spondylolysis, lumbar region Assessments Date Code Description Provider 10/01/2020 G25.81 Restless legs syndrome Barbara Hernández i, M.D. 10/01/2020 G47.61 Periodic limb movement disorder Barbara Dumont M.D. 10/01/2020 F51.01 Primary insomnia Artemio Chen 10/01/2020 G44.221 Chronic tension-type headache, i ntractable Barbara Dumnot M.D. 10/01/2020 G43.009 Migraine without aur a, not intractable, without status migrainosus Barbara Dumont M.D. 07/09/2020 G25.81 Restless legs syndrome Barbara Hernández i, M.D. 07/09/2020 G47.61 Periodic limb movement disorder Barbara Dumont M.D. 07/09/2020 F51.01 Primary insomnia Artemio Chen 07/09/2020 E11.42 Type 2 diabetes mellitus with di abetic polyneuropathy Barbara Dumont M.D. 07/09/2020 M54.5 Low back pain Barbara Dumont M.D. 07/09/2020 M43.06 Spondylolysis, lumbar region Lana Dumont M.D. 07/09/2020 G44.221 Chronic tension-type headache, i ntractable Barbara Dumont M.D. 06/02/2020 G60.9 Hereditary and idiopathic neurop athy, unspecified Barbara Dumont M.D. 06/02/2020 M54.16 Radiculopathy, lumbar region Lana Dumont M.D. 05/28/2020 G25.81 Restless legs syndrome Barbara Hernández i, M.D. 05/28/2020 G47.61 Periodic limb movement disorder Barbara Dumont M.D. 05/28/2020 F51.01 Primary insomnia Artemio Chen 05/28/2020 E11.42 Type 2 diabetes mellitus with di abetic polyneuropathy Barbara Dumont M.D. 05/28/2020 M54.5 Low back pain Barbara Dumont M.D. 05/28/2020 M43.06 Spondylolysis, lumbar region Lana Dumont M.D. Plan of Treatment Future Appointment(s):* 12/09/2020 12:45 pm - Barbara Dumont M.D. at Main office - [place] Functional Status Description No Information Available Mental Status Description No Information Available Referrals Refer to Dr Reason for Referral Status Appt Date Barbara Dumont M.D. Created [facility] [address] [place] [address] [phone]
--- OUTSIDE RECORDS SUMMARY | 2020-11-28 11:22 | CCD | Continuity of Care Document ---
Author Author Maral GLASS MD Organization Unknown Address [address], [address] [place] [address] Phone [phone] Care Team Providers Care Sea Captain Name Role Phone Lucas Le MD [facility] [phone] Problems Active Problems Provider Date Headache [facility] [place] Onset: 10/29/2019 Diabetes mellitus [facility] [place] Onset: 10/29/2019 Social History Type Date Description Comments Sex Unknown ETOH Use Denies alcohol use Tobacco Use Reviewed: 01/08/20 Heavy tobacco smoker (more than 10 cigarettes/day) 1ppd for 30yrs Recreational Drug Use Denies Drug Use Smoking Status Reviewed: 01/08/20 Heavy tobacco smoker (more than 10 cigarettes/day) 1ppd for 30yrs Allergies, Adverse Reactions, Alerts Description No Known Drug Allergies Medications Active Medications SIG Qnty Indications Ordering Provide r Date Metformin HCL ER 750mg Tablets ER 24HR Take 1 Tablet By Mouth Three Times A Day With Evening Meal Unknown Glyburide 5mg Tablets Take One Tablet By Mouth Two Times A Day With Meals Unknown Pantoprazole Sodium 40mg Tablets D R Take One Tablet By Mouth Twice A Day Unknown Neupro 3mg/24HR Patches 24HR Apply 1 Patch To The Skin Once A Day Unknown 0 Fluticasone Propionate/Salmeterol Diskus 100-50mcg/Dose Aerosol Inhale One puff By Mouth Twice A Day Unknown Vitamin D3 50mcg (1999 Ut) Capsule s Take One Capsule By Mouth Every Day Unknown 0 Gabapentin 600mg Tablets Take One Tablet By Mouth Three Times A Day Unknown Meloxicam 15mg Tablets Take 1 Tablet By Mouth Once A Day Unknown Tizanidine HCL 4mg Tablets Take One Tablet By Mouth Three Times A Day Needed Unknown Tramadol HCL 50mg Tablets Unknown Ibuprofen 800mg Tablets take one tabet three times a day Unknown Acidophilus 100mg Capsules 1 by mouth every day Unknown Potassium Chloride ER 10Meq Tablet s ER 1 by mouth every day Unknown Multi Vitamin Daily Tablets 1 by mouth every day Unknown Ventolin HFA 108(90Base) mcg/Act A erosol inhale 2 puff by inhalation route every 4 - 6 hours needed Unknown Immunizations Description No Information Available Vital Signs Date Vital Result Comment 01/08/2020 9:27am Height 66 inches 5'6" Weight 194.00 lb BMI (Body Mass Index) 31.3 kg/m2 BP Systolic 143 mmHg BP Diastolic 86 mmHg Heart Rate 78 /min Respiratory Rate 18 /min 11/05/2019 10:08am Height 66 inches 5'6" Weight 190.00 lb BMI (Body Mass Index) 30.7 kg/m2 BP Systolic 137 mmHg BP Diastolic 84 mmHg Heart Rate 84 /min Body Temperature 98.0 F Body Temperature 36.7 C Respiratory Rate 18 /min Results Description No Information Available Procedures Description No Information Available Medical Devices Description No Information Available Encounters Description No Information Available Assessments Description No Information Available Plan of Treatment 01/08/2020 - Gareth Glass MD* M51.16 Intervertebral disc disorders with radiculopathy, lumbar region* Comments:* Maral Gilman is a 49-year-old woman who presents to the clinic today for evaluation of L3-4, lumbar disc herniation with spinal canal stenosis and worsening lumbar radiculopathy. Today, she reports improvement in her back pain with 10-12 sessions of physical therapy. She reports her leg pain has resolved completely. Recommended her to use pain cream and pain patches to help with her pain. Encouraged her to continue doing daily exercises and gradually resume normal activities. Advised her to wear lumbar braces while working and standing for prolonged hours. Informed her that she can resume work from 01/09/2020 without any restrictions. She was discharged from our care. She will follow up with us on an as needed basis. Patient was in agreement with the above treatment plan. The patient was seen and evaluated by Elizabeth eMndoza, Nurse Practitioner in collaboration with Gareth Glass MD. Functional Status Description No Information Available Mental Status Description No Information Available Referrals Description No Information Available
--- OUTSIDE RECORDS SUMMARY | 2020-11-28 11:22 | CCD | Continuity of Care Document ---
Author Maral Garcia M.D. Organization Unknown Address [address] [place] [address] Phone [phone] Care Team Providers Care Continuity Editor Name Role Phone KatyaglHakan zambrano PRODUCTION MACHINE OPERATOR-Robina AUTM [phone] Problems Active Problems Provider Date Restless legs [...] lb BMI (Body Mass Index) 28.7 kg/m2 [place] Body Weight 130 lb Results Test Acquired Date Facility Test Result H/L Range Note Laboratory test finding 06/11/2020 [facility] Ferritin 24 ng/mL 8-252 1 Rheumatoid Factor Screen NEGATIVE Negative 2 Erythrocyte Sedimentation Rate 7 mm/hr 0-20 3 Iron Profile 06/11/2020 [facility] Fe 55 g/dL 50-170 Tibc 419 g/dL 250-450 Sat 13 % Low 20-50 Laboratory test finding 06/11/2020 [facility] Ceruloplasmin 28.3 mg/dL 19.0-39.0 4 Vitamin B12 And Folate 06/11/2020 [facility] VB12 514 pg/mL 232-1245 Fol 15.0 ng/mL >3.0 5 Laboratory test finding 06/11/2020 [facility] Lead, Blood (Adult) <1 g/dL 0-4 6 Jill W/Reflex If Positive Negative Negative 7 Serum Protein Electrophoresis 06/11/2020 [facility] Petp 6.5 g/dL 6.0-8.5 Pealb 3.8 g/dL 2.9-4.4 Pea1g 0.2 g/dL 0.0-0.4 Pea2g 0.9 g/dL 0.4-1.0 Pebg 1.1 g/dL 0.7-1.3 Pegg 0.5 g/dL 0.4-1.8 Pems Not Observed g/dL Not Observed Petg 2.7 g/dL 2.2-3.9 Peagr 1.4 0.7-1.7 Pepn Comment . 8 Laboratory test finding 06/11/2020 [facility] Mercury, Blood 1.0 ug/L 0.0-14.9 9 Vitamin E(Alpha Tocopherol) 10.4 mg/L 7.0-25.1 10 Copper, Serum 116 g/dL 72-166 11 Vitamin B6 3.9 ug/L 2.0-32.8 12 Vit. B1, Whole Blood 159.7 nmol/L 66.5-200.0 13 1 FAX [phone] FAX [phone] FAX [phone] Performed at: [address] [id number] Milk Route Deliverer: Peg Booker MD, Phone: [phone] 5 A serum folate concentration of less than 3.1 ng/mL is considered to represent clinical deficiency. 6 Analysis by inductively coup led plasma/mass spectrometry (ICP/MS) Environmental Exposure: WHO Recommendation <20 Occupational Exposure: OSHA Lead Std 40 LAURA 30 Detection Limit = 1 Performed at: [address] [id number] Milk Route Deliverer: Peg Booker MD, Phone: [phone] 7 Performed at: [address] [id number] Milk Route Deliverer: Peg Booker MD, Phone: [phone] Protein electrophoresis scan will follow via computer, mail, or yard switcher delivery. Performed at: [address] [id number] Milk Route Deliverer: Peg Booker MD, Phone: [phone] 9 Environmental Exposure: <15 .0 Occupational Exposure: LAURA - Inorganic Mercury: 15.0 Detection Limit = 1.0 Performed at: [address] [id number] Milk Route Deliverer: Talia Walden MD, Phone: [phone] Test(s) 959859-Ohm. B1, Whol e Blood was developed and its performance characteristics determined by [facility]. It has not been cleared or approved by the Food and Drug Administration. 11 Detection Limit = 5 Performed at: [address] [id number] Milk Route Deliverer: Talia Walden MD, Phone: [phone] 12 Performed at: [address] [id number] Milk Route Deliverer: Talia Walden MD, Phone: [phone] 13 Performed at: [address] [id number] Milk Route Deliverer: Talia Walden MD, Phone: [phone] Procedures Date Code Description Status 06/02/2020 12697 Nerve Conduction 11-12 Studies C ompleted 06/02/2020 47289 Needle Electromyography Complete , Five Or More Muscles Studied Completed 06/02/2020 29399 Needle Electromyography Complete , Five Or More Muscles Studied Completed Medical Devices Description No Information Available Encounters Type Date Location Provider Dx Diagnosis Office Visit 10/01/2020 1:45p Main office - [place] Yusuf Chen G25.81 Restless legs syndrome G47.61 Periodic limb movement disor сергей F51.01 Primary insomnia G44.221 Chronic tension-type headach e, intractable G43.009 Migraine w/o aura, not intra ctable, w/o status migrainosus Office Visit 07/09/2020 11:30a Main office - [place] Yusuf Chen G25.81 Restless legs syndrome G47.61 Periodic limb movement disor сергей F51.01 Primary insomnia E11.42 Type 2 diabetes mellitus wit h diabetic polyneuropathy M54.5 Low back pain M43.06 Spondylolysis, lumbar region G44.221 Chronic tension-type headach e, intractable Office Visit 05/28/2020 9:30a Main office - [place] Yusuf Chen G25.81 Restless legs syndrome G47.61 [...] tension-type headache, i ntractable Barbara Dumont M.D. 10/01/2020 G43.009 Migraine without aur a, [...] region Lana Dumont M.D. Plan of Treatment No Information Available Functional Status Description No Information Available Mental Status Description No Information Available Referrals Refer to Dr Reason for Referral Status Appt Date Barbara Dumont M.D. Created [facility] [address] [place] [address] [phone]
--- OUTSIDE RECORDS SUMMARY | 2020-11-28 11:23 | CCD ---
Author Author [facility] er Organization [facility] er Address Unknown Phone Unavailable Care Team Providers Care Tamping Machine Operator Road Forms Name Role Phone Glendy Carpenter Unavailable PROBLEMS Type Condition ICD9-CM Code [id number] Code Onset Dates Condition S tatus SNOMED Code Notes Problem S/P coronary artery stent placement Z95.5 Acti ve 714534275 Problem Obesity (BMI 30-39.9) E66.9 Active 327251942 Problem Type 2 diabetes mellitus wit h other circulatory complication, without long-term current use of insulin E11.59 Active 440 02246 Problem Hyperlipidemia, unspecified hyperlipidemia type E7 8.5 Active 58593718 Problem Coronary artery disease invo lving [place] coronary artery of [place] heart, angina presence unspecified I25.10 Active 4 98355902 Problem Chronic obstructive pulmonary disease, unspecified COPD ty pe J44.9 Active 26574538 ALLERGIES No Known Allergies ENCOUNTERS from 1971 to 2020-09-08 Encounter Location Date Provider Diagnosis [facility] Card[facility] - [address] [facility] [address] [place] [address] Aug, Glendy Pauline IMMUNIZATIONS No Information SOCIAL HISTORY Tobacco Use: Social History Observation Description Date Details (start date - stop date) Current Smoker Sex Assigned At : Social History Observation Description Sex Assigned At Unknown Alcohol Screen (Audit-C) Question Answer Notes Did you have a drink containing alcohol in the past year? No Points 0 Interpretation Negative Tobacco Use/Smoking Question Answer Notes Patient is a current smoker How many cigarettes a day do you smoke? 6-10 How often do you smoke cigarettes? every day REASON FOR REFERRAL No Information VITAL SIGNS No information MEDICATIONS Medication SIG (Take, Route, Frequency, Duration) Start Date En d Date Status GlyBURIDE 5 MG 1 tablet with breakfast or t he first main meal of the day Orally twice a day Active Clopidogrel Bisulfate 75 MG 1 tablet Orally Once a day for 30 day(s ) Active Neupro 3 MG/24HR 1 patch to skin Transdermal Once a day for 30 day( s) Active Lipitor 80 MG 1 tablet Orally Once a day for 30 day(s) Active Tizanidine HCl 4 MG 2 tabs Orally Three times a day Active Aspir-Low 81 MG 1 tablet Orally Once a day for 30 day(s) Active MetFORMIN HCl ER 750 MG 1 tablet with evening meal Orally three soy moses day Active Fentanyl 12 MCG/HR 1 patch to skin Transdermal Active Pantoprazole Sodium 40 MG 1 tablet Orally Once a day for 30 day(s) Active Saline Mist [place] 0.65 % 2 sprays in each nostril as needed Nasally every 2 hrs Active Topiramate 100 MG 1 tablet Orally Once a day for 30 day(s) Active Daily Vitamin - 1 tablet Orally Once a day for 30 day(s) Active Tramadol HCl 100 MG 1 tablet at bedtime Orally Once a day Active Metoprolol Tartrate 25 MG 1 tablet with food Orally Twice a day for 30 day(s) Active Montelukast Sodium 10 MG 1 tablet Orally Once a day for 30 day(s) Active TraMADol HCl ER (Biphasic) 200 MG 1 tablet Orally Once a day Active Methocarbamol 750 MG 1 tablet Orally three times a day Active Nitroglycerin 0.4 MG as directed Sublingual Active Mobic 15 MG 1 tablet Orally Once a day for 30 day(s) Active Fluticasone-Salmeterol 100-50 MCG/DOSE as directed Inhalation Active Gabapentin 800 MG 1 tablet Orally three times a day Active Ventolin HFA 90 MCG/ACT 1 puff as needed Inhalation every 4 hrs Active Vitamin D-3 25 MCG (1000 UT) as directed Orally Active Potassium Chloride 10 MEQ/100ML as directed Intravenous Active Levothyroxine Sodium 100 MCG 1 tablet in the morning o n an empty stomach Orally Once a day for 30 day(s) Active Acidophilus Probiotic Blend - as directed Orally Active PROCEDURES No Information RESULTS No Results REASON FOR VISIT No Information MEDICAL (GENERAL) HISTORY Type Description Date Medical History asthma Medical History depression Medical History nstemi with stenting Medical History diabetes Medical History acid reflucx Medical History hypertension Surgical History No Surgical history information Hospitalization History [facility] 04/2020 [place] No Information Health Concerns No Information MEDICAL EQUIPMENT No Information MENTAL STATUS No Information FUNCTIONAL STATUS No Information ASSESSMENTS No Information PLAN OF TREATMENT No Information Insurance Providers Payer Name Payer Address Payer Phone Insured Name Patient Relati onship to Insured Coverage Start Date Coverage End Date [facility] [address] [facility] 12 [phone] Maral Gilman self
--- OUTSIDE RECORDS SUMMARY | 2020-11-28 11:23 | CCD ---
Author Author [facility] er Organization [facility] er Address Unknown Phone Unavailable Care Team Providers Care Instrument Assembly Supervisor Name Role Phone Glendy Carpenter Unavailable PROBLEMS Type Condition ICD9-CM Code [id number] Code Onset Dates Condition S tatus SNOMED Code Notes Problem S/P coronary artery stent placement Z95.5 Acti ve 131437608 Problem Obesity (BMI 30-39.9) E66.9 Active 256684965 Problem Type 2 diabetes mellitus wit h other circulatory complication, without long-term current use of insulin E11.59 Active 440 57524 Problem Hyperlipidemia, unspecified hyperlipidemia type E7 8.5 Active 10480291 Problem Coronary artery disease invo lving [place] coronary artery of [place] heart, angina presence unspecified I25.10 Active 4 90426720 Problem Chronic obstructive pulmonary disease, unspecified COPD ty pe J44.9 Active 08056510 ALLERGIES No Known Allergies ENCOUNTERS from 1971 to 2020-09-07 Encounter Location Date Provider Diagnosis [facility] Cardiology - [address] [facility] [address] [place] [address] Aug, Glendy Pauline IMMUNIZATIONS No Information SOCIAL [...] day for 30 day(s) Active Saline Mist [place] 0.65 % 2 sprays in each nostril [...] Information RESULTS No Results REASON FOR VISIT Needs call back from office MEDICAL (GENERAL) HISTORY Type Description Date Medical History asthma Medical History depression Medical History nstemi with stenting Medical History diabetes Medical History acid reflucx Medical History hypertension Surgical History No Surgical history information Hospitalization History [facility] 04/2020 [place] No Information Health Concerns No Information MEDICAL EQUIPMENT No Information MENTAL STATUS No Information FUNCTIONAL STATUS No Information ASSESSMENTS No Information PLAN OF TREATMENT No Information Insurance Providers Payer Name Payer Address Payer Phone Insured Name Patient Relati onship to Insured Coverage Start Date Coverage End Date [facility] [address] [facility] 12 [phone] Maral Gilman self
--- OUTSIDE RECORDS SUMMARY | 2020-11-28 11:26 | CCD ---
Author Author [facility] Organization [facility] Address Unknown Phone Unavailable Care Team Providers Care Account Development Representative Name Role Phone AIDEN, AKASH PA Unavailable Unavailable AIDEN, AKASH PA Unavailable Unavailable AIDEN, AKASH PA Unavailable Unavailable AIDEN, AKASH PA Unavailable Unavailable AIDEN, AKASH PA Unavailable Unavailable AIDEN, AKASH PA Unavailable Unavailable AIDEN, AKASH PA Unavailable Unavailable AIDEN, AKASH PA Unavailable Unavailable AIDEN, AKASH PA Unavailable Unavailable AIDEN, AKASH PA Unavailable Unavailable AIDEN, AKASH PA Unavailable Unavailable AIDEN, AKASH PA Unavailable Unavailable AIDEN, AKASH PA Unavailable Unavailable AIDEN, AKASH PA Unavailable Unavailable AIDEN, AKASH PA Unavailable Unavailable Cristina LE M.D. Unavailable Unavailable Cristina LE M.D. Unavailable Unavailable Cristina LE M.D. Unavailable Unavailable Cristina LE M.D. Unavailable Unavailable Cristina LE M.D. Unavailable Unavailable Cristina LE M.D. Unavailable Unavailable Cristina LE M.D. Unavailable Unavailable Cristina LE M.D. Unavailable Unavailable Cristina LE M.D. Unavailable Unavailable Cristina LE M.D. Unavailable Unavailable Cristina LE M.D. Unavailable Unavailable Cristina LE M.D. Unavailable Unavailable Cougler, S Hakan SALES AND MARKETING REPRESENTATIVE Unavailable Unavailable Cougler, S Hakan SALES AND MARKETING REPRESENTATIVE Unavailable Unavailable Cougler, S Hakan SALES AND MARKETING REPRESENTATIVE Unavailable Unavailable Cougler, S Hakan SALES AND MARKETING REPRESENTATIVE Unavailable Unavailable Cougler, S Hakan SALES AND MARKETING REPRESENTATIVE Unavailable Unavailable Cougler, S Hakan SALES AND MARKETING REPRESENTATIVE Unavailable Unavailable Cougler, S Hakan SALES AND MARKETING REPRESENTATIVE Unavailable Unavailable Cougler, S Hakan SALES AND MARKETING REPRESENTATIVE Unavailable Unavailable Cougler, S Hakan SALES AND MARKETING REPRESENTATIVE Unavailable Unavailable Cougler, S Hakan SALES AND MARKETING REPRESENTATIVE Unavailable Unavailable Cougler, S Hakan SALES AND MARKETING REPRESENTATIVE Unavailable Unavailable Cougler, S Hakan SALES AND MARKETING REPRESENTATIVE Unavailable Unavailable Cougler, S Hakan SALES AND MARKETING REPRESENTATIVE Unavailable Unavailable Cougler, S Hakan SALES AND MARKETING REPRESENTATIVE Unavailable Unavailable Cougler, S Hakan SALES AND MARKETING REPRESENTATIVE Unavailable Unavailable Cougler, S Hakan SALES AND MARKETING REPRESENTATIVE Unavailable Unavailable Cougler, S Hakan SALES AND MARKETING REPRESENTATIVE Unavailable Unavailable Cougler, S Hakan SALES AND MARKETING REPRESENTATIVE Unavailable Unavailable Cougler, S Hakan SALES AND MARKETING REPRESENTATIVE Unavailable Unavailable Cougler, S Hakan SALES AND MARKETING REPRESENTATIVE Unavailable Unavailable Cougler, S Hakan SALES AND MARKETING REPRESENTATIVE Unavailable Unavailable Cougler, S Hakan SALES AND MARKETING REPRESENTATIVE Unavailable Unavailable Cougler, S Hakan SALES AND MARKETING REPRESENTATIVE Unavailable Unavailable Cougler, S Hakan SALES AND MARKETING REPRESENTATIVE Unavailable Unavailable Cougler, S Hakan SALES AND MARKETING REPRESENTATIVE Unavailable Unavailable Cougler, S Hakan SALES AND MARKETING REPRESENTATIVE Unavailable Unavailable Cougler, S Hakan SALES AND MARKETING REPRESENTATIVE Unavailable Unavailable Cougler, S Hakan SALES AND MARKETING REPRESENTATIVE Unavailable Unavailable Cougler, S Hakan SALES AND MARKETING REPRESENTATIVE Unavailable Unavailable Cougler, S Hakan SALES AND MARKETING REPRESENTATIVE Unavailable Unavailable Cougler, S Hakan SALES AND MARKETING REPRESENTATIVE Unavailable Unavailable Cougler, S Hakan SALES AND MARKETING REPRESENTATIVE Unavailable Unavailable Cougler, S Hakan SALES AND MARKETING REPRESENTATIVE Unavailable Unavailable Cougler, S Hakan SALES AND MARKETING REPRESENTATIVE Unavailable Unavailable Cougler, S Hakan SALES AND MARKETING REPRESENTATIVE Unavailable Unavailable Cougler, S Hakan SALES AND MARKETING REPRESENTATIVE Unavailable Unavailable Cougler, S Hakan SALES AND MARKETING REPRESENTATIVE Unavailable Unavailable Cougler, S Hakan SALES AND MARKETING REPRESENTATIVE Unavailable Unavailable Cougler, S Hakan SALES AND MARKETING REPRESENTATIVE Unavailable Unavailable Mignon Smith MD Unavailable Unavailable Mignon Smith MD Unavailable Unavailable Mignon Smith MD Unavailable Unavailable Mignon Smith MD Unavailable Unavailable Mignon Smith MD Unavailable Unavailable Mignon Smith MD Unavailable Unavailable Mignon Smith MD Unavailable Unavailable Mignon Smith MD Unavailable Unavailable Mignon Smith MD Unavailable Unavailable Mcneill Washington PA Unavailable Unavailable Mcneill Washington PA Unavailable Unavailable Mcneill Washington PA Unavailable Unavailable Mcneill Washington PA Unavailable Unavailable Mcneill, Washington PA Unavailable Unavailable Mcneill, Washington PA Unavailable Unavailable Mcneill, Washington PA Unavailable Unavailable Mcneill, Washington PA Unavailable Unavailable Mcneill, Washington PA Unavailable Unavailable Mcneill, Washington PA Unavailable Unavailable Mcneill, Washington PA Unavailable Unavailable Mcneill, [place] PA Unavailable Unavailable DIDI, S LUIZ SALES AND MARKETING REPRESENTATIVE Unavailable Unavailable DIDI, S LUIZ SALES AND MARKETING REPRESENTATIVE Unavailable Unavailable DIDI, S LUIZ SALES AND MARKETING REPRESENTATIVE Unavailable Unavailable DIDI, S LUIZ SALES AND MARKETING REPRESENTATIVE Unavailable Unavailable DIDI, S LUIZ SALES AND MARKETING REPRESENTATIVE Unavailable Unavailable DIDI, S LUIZ SALES AND MARKETING REPRESENTATIVE Unavailable Unavailable DIDI, S LUIZ SALES AND MARKETING REPRESENTATIVE Unavailable Unavailable DIDI, S LUIZ SALES AND MARKETING REPRESENTATIVE Unavailable Unavailable DIDI, S LUIZ SALES AND MARKETING REPRESENTATIVE Unavailable Unavailable DIDI, S LUIZ SALES AND MARKETING REPRESENTATIVE Unavailable Unavailable DIDI, S LUIZ SALES AND MARKETING REPRESENTATIVE Unavailable Unavailable DIDI, S LUIZ SALES AND MARKETING REPRESENTATIVE Unavailable Unavailable DIDI, S LUIZ SALES AND MARKETING REPRESENTATIVE Unavailable Unavailable DIDI, S LUIZ SALES AND MARKETING REPRESENTATIVE Unavailable Unavailable DIDI, S LUIZ SALES AND MARKETING REPRESENTATIVE Unavailable Unavailable DIDI, S LUIZ SALES AND MARKETING REPRESENTATIVE Unavailable Unavailable DIDI, S LUIZ SALES AND MARKETING REPRESENTATIVE Unavailable Unavailable DIDI, S LUIZ SALES AND MARKETING REPRESENTATIVE Unavailable Unavailable DIDI, S LUIZ SALES AND MARKETING REPRESENTATIVE Unavailable Unavailable DIDI, S LUIZ SALES AND MARKETING REPRESENTATIVE Unavailable Unavailable DIDI, S LUIZ SALES AND MARKETING REPRESENTATIVE Unavailable Unavailable DIDI, S LUIZ SALES AND MARKETING REPRESENTATIVE Unavailable Unavailable DIDI, S LUIZ SALES AND MARKETING REPRESENTATIVE Unavailable Unavailable DIDI, S LUIZ SALES AND MARKETING REPRESENTATIVE Unavailable Unavailable DIDI, S LUIZ SALES AND MARKETING REPRESENTATIVE Unavailable Unavailable Sherrie Ayala MD Unavailable Unavailable Sherrie Ayala MD Unavailable Unavailable Sherrie Ayala MD Unavailable Unavailable Sherrie Ayala MD Unavailable Unavailable Sherrie Ayala MD Unavailable Unavailable Sherrie Ayala MD Unavailable Unavailable Sherrie Ayala MD Unavailable Unavailable Sherrie Ayala MD Unavailable Unavailable Sherrie Ayala MD Unavailable Unavailable Sherrie Ayala MD Unavailable Unavailable Sherrie Ayala MD Unavailable Unavailable Niels, Shubekchha Unavailable Unavailable Niels, Shubekchha Unavailable Unavailable SERGIO BIRCH MD Unavailable Unavailable SERGIO BIRCH MD Unavailable Unavailable SERGIO BIRCH MD Unavailable Unavailable SERGIO BIRCH MD Unavailable Unavailable SERGIO BIRCH MD Unavailable Unavailable SERGIO BIRCH MD Unavailable Unavailable SERGIO BIRCH MD Unavailable Unavailable SERGIO IBRCH MD Unavailable Unavailable SERGIO BIRCH MD Unavailable Unavailable SERGIO BIRCH MD Unavailable Unavailable SERGIO BIRCH MD Unavailable Unavailable SERGIO BIRCH MD Unavailable Unavailable SERGIO BIRCH MD Unavailable Unavailable SERGIO BIRCH MD Unavailable Unavailable SERGIO BIRCH MD Unavailable Unavailable SERGIO BIRCH MD Unavailable Unavailable SERGIO BIRCH MD Unavailable Unavailable SERGIO BIRCH MD Unavailable Unavailable SERGIO BIRCH MD Unavailable Unavailable SERGIO BIRCH MD Unavailable Unavailable SERGIO BIRCH MD Unavailable Unavailable SERGIO BIRCH MD Unavailable Unavailable SERGIO BIRCH MD Unavailable Unavailable SERGIO BIRCH MD Unavailable Unavailable SERGIO BIRCH MD Unavailable Unavailable SERGIO BIRCH MD Unavailable Unavailable SERGIO BIRCH MD Unavailable Unavailable SERGIO BIRCH MD Unavailable Unavailable Dombek-Lang, V Shanique MD Unavailable Unavailable Dombek-Lang, V Shanique MD Unavailable Unavailable Dombek-Lang, V Shanique MD Unavailable Unavailable Dombek-Lang, V Shanique MD Unavailable Unavailable Dombek-Lang, V Shanique MD Unavailable Unavailable Dombek-Lang, V Shanique MD Unavailable Unavailable Dombek-Lang, V Shanique MD Unavailable Unavailable Dombek-Lang, V Shanique MD Unavailable Unavailable Dombek-Lang, V Shanique MD Unavailable Unavailable Dombek-Lang, V Shanique MD Unavailable Unavailable Dombek-Lang, V Shanique MD Unavailable Unavailable Dombek-Lang, V Shanique MD Unavailable Unavailable Dombek-Lang, V Shanique MD Unavailable Unavailable Dombek-Lang, V Shanique MD Unavailable Unavailable Dombek-Lang, V Shanique MD Unavailable Unavailable Dombek-Lang, V Shanique MD Unavailable Unavailable Dombek-Lang, V Shanique MD Unavailable Unavailable Dombek-Lang, V Shanique MD Unavailable Unavailable Dombek-Lang, V Shanique MD Unavailable Unavailable Dombek-Lang, V Shanique MD Unavailable Unavailable Dombek-Lang, V Shanique MD Unavailable Unavailable Dombek-Lang, V Shanique MD Unavailable Unavailable Dombek-Lang, V Shanique MD Unavailable Unavailable Dombek-Lang, V Shanique MD Unavailable Unavailable Dombek-Lang, V Shanique MD Unavailable Unavailable Dombek-Lang, V Shanique MD Unavailable Unavailable Dombek-Lang, V Shanique MD Unavailable Unavailable Dombek-Lang, V Shanique MD Unavailable Unavailable Dombek-Lang, V Shanique MD Unavailable Unavailable Dombek-Lang, V Shanique MD Unavailable Unavailable Dombek-Lang, V Shanique MD Unavailable Unavailable Bhaskar Kelly MD Unavailable Unavailable Bhaskar Kelly MD Unavailable Unavailable Bhaskar Kelly MD Unavailable Unavailable Bhaskar Kelly MD Unavailable Unavailable Bhaskar Kelly MD Unavailable Unavailable RYAN, HUA BALJIT PA Unavailable Unavailable RYAN, HUA BALJIT PA Unavailable Unavailable RYAN, HUA BALJIT PA Unavailable Unavailable RYAN, HUA BALJIT PA Unavailable Unavailable RYAN, HUA BALJIT PA Unavailable Unavailable RYAN, HUA BALJIT PA Unavailable Unavailable RYAN, HUA BALJIT PA Unavailable Unavailable RYAN, HUA BALJIT PA Unavailable Unavailable RYAN, HUA BALJIT PA Unavailable Unavailable RYAN, HUA BALJIT PA Unavailable Unavailable RYAN, HUA BALJIT PA Unavailable Unavailable RYAN, HUA BALJIT PA Unavailable Unavailable RYAN, HUA BALJIT PA Unavailable Unavailable RYAN, HUA BALJIT PA Unavailable Unavailable RYAN, HUA BALJIT PA Unavailable Unavailable RYAN, HUA BALJIT PA Unavailable Unavailable RYAN, HUA BALJIT PA Unavailable Unavailable RYAN, HUA BALJIT PA Unavailable Unavailable RYAN, HUA BALJIT PA Unavailable Unavailable RYAN, HUA BALJIT PA Unavailable Unavailable RYAN, HUA BALJIT PA Unavailable Unavailable Pinas, Shakir DO Unavailable Unavailable Pinas, Shakir DO Unavailable Unavailable Luis, Shakir DO Unavailable Unavailable Luis, Shakir DO Unavailable Unavailable Luis, Shakir DO Unavailable Unavailable Lucho TRUONG MD Unavailable Unavailable Lucho TRUONG MD Unavailable Unavailable Lucho TRUONG MD Unavailable Unavailable Lucho TRUONG MD Unavailable Unavailable Lucho TRUONG MD Unavailable Unavailable Lucho TRUONG MD Unavailable Unavailable Lucho TRUONG MD Unavailable Unavailable Lucho TRUONG MD Unavailable Unavailable Lucho TRUONG MD Unavailable Unavailable Lucho TRUONG MD Unavailable Unavailable Lucho TRUONG MD Unavailable Unavailable Lucho TRUONG MD Unavailable Unavailable Lucho TRUONG MD Unavailable Unavailable Lucho TRUONG MD Unavailable Unavailable Lucho TRUONG MD Unavailable Unavailable Lucho TRUONG MD Unavailable Unavailable Lucho RTUONG MD Unavailable Unavailable Lucho TRUONG MD Unavailable Unavailable TRUONG, Lucho MCKENZIE MD Unavailable Unavailable TRUONG, L JONAH VASQUEZ Unavailable Unavailable TRUONG, L JONAH VASQUEZ Unavailable Unavailable TRUONG, L JONAH VASQUEZ Unavailable Unavailable TRUONG, L JONAH VASQUEZ Unavailable Unavailable TRUONG, L JONAH VASQUEZ Unavailable Unavailable TRUONG, L JONAH VASQUEZ Unavailable Unavailable TRUONG, L JONAH VASQUEZ Unavailable Unavailable TRUONG, L JONAH VASQUEZ Unavailable Unavailable TRUONG, L JONAH VASQUEZ Unavailable Unavailable TRUONG, L JONAH VASQUEZ Unavailable Unavailable TRUONG, L JONAH VASQUEZ Unavailable Unavailable TRUONG, L JONAH VASQUEZ Unavailable Unavailable TRUONG, L JONAH VASQUEZ Unavailable Unavailable TRUONG, L JONAH VASQUEZ Unavailable Unavailable TRUONG, L JONAH VASQUEZ Unavailable Unavailable TRUONG, L JONAH VASQUEZ Unavailable Unavailable TRUONG, L JONAH VASQUEZ Unavailable Unavailable TRUONG, L JONAH VASQUEZ Unavailable Unavailable TRUONG, L JONAH VASQUEZ Unavailable Unavailable TRUONG, L JONAH VASQUEZ Unavailable Unavailable TRUONG, L JONAH VASQUEZ Unavailable Unavailable TRUONG, L JONAH VASQUEZ Unavailable Unavailable TRUONG, L JONAH VASQUEZ Unavailable Unavailable Ricardo, Fatou Unavailable Unavailable Ricardo, Fatou Unavailable Unavailable Ricardo, Fatou Unavailable Unavailable Ricardo, Fatou Unavailable Unavailable Ricardo, Fatou Unavailable Unavailable Luis Daniel SALEH MD Unavailable Unavailable Luis Daniel SALEH MD Unavailable Unavailable Luis Daniel SALEH MD Unavailable Unavailable Luis Daniel SALEH MD Unavailable Unavailable Luis Daniel SALEH MD Unavailable Unavailable Luis Daniel SALEH MD Unavailable Unavailable Luis Daniel SALEH MD Unavailable Unavailable Luis Daniel SALEH MD Unavailable Unavailable Luis Daniel SALEH MD Unavailable Unavailable Luis Daniel SALEH MD Unavailable Unavailable Luis Daniel SALEH MD Unavailable Unavailable Luis Daniel SALEH MD Unavailable Unavailable Luis Daniel SALEH MD Unavailable Unavailable Luis Daniel SALEH MD Unavailable Unavailable Luis Daniel SALEH MD Unavailable Unavailable Luis Daniel SALEH MD Unavailable Unavailable Luis Daniel SALEH MD Unavailable Unavailable Luis Daniel SALEH MD Unavailable Unavailable Luis Daniel SALEH MD Unavailable Unavailable Luis Daniel SALEH MD Unavailable Unavailable Luis Daniel SALEH MD Unavailable Unavailable Luis Daniel SALEH MD Unavailable Unavailable Luis Daniel SALEH MD Unavailable Unavailable Luis Daniel SALEH MD Unavailable Unavailable Luis Daniel SALEH MD Unavailable Unavailable Luis Daniel SALEH MD Unavailable Unavailable Luis Daniel SALEH MD Unavailable Unavailable Luis Daniel SALEH MD Unavailable Unavailable Luis Daniel SALEH MD Unavailable Unavailable Luis Daniel SALEH MD Unavailable Unavailable Luis Daniel SALEH MD Unavailable Unavailable Luis Daniel SALEH MD Unavailable Unavailable Luis Daniel SALEH MD Unavailable Unavailable Luis Daniel SALEH MD Unavailable Unavailable Luis Daniel SALEH MD Unavailable Unavailable Luis Daniel SALEH MD Unavailable Unavailable Luis Daniel SALEH MD Unavailable Unavailable Luis Daniel SALEH MD Unavailable Unavailable Luis Daniel SALEH MD Unavailable Unavailable Luis Daniel SALEH MD Unavailable Unavailable Luis Daniel SALEH MD Unavailable Unavailable Luis Daniel SALEH MD Unavailable Unavailable Luis Daniel SALEH MD Unavailable Unavailable Luis Daniel SALEH MD Unavailable Unavailable Luis Daniel SALEH MD Unavailable Unavailable Luis Daniel SALEH MD Unavailable Unavailable Luis Daniel SALEH MD Unavailable Unavailable Luis Daniel SALEH MD Unavailable Unavailable Luis Daniel SALEH MD Unavailable Unavailable Luis Daniel SALEH MD Unavailable Unavailable Luis Daniel SALEH MD Unavailable Unavailable Luis Daniel SALEH MD Unavailable Unavailable Luis Daniel SALEH MD Unavailable Unavailable Luis Daniel SALEH MD Unavailable Unavailable Luis Daniel SALEH MD Unavailable Unavailable Luis Daniel SALEH MD Unavailable Unavailable Luis Daniel SALEH MD Unavailable Unavailable Luis Daniel SALEH MD Unavailable Unavailable Luis Daniel SALEH MD Unavailable Unavailable Luis Daniel SALEH MD Unavailable Unavailable Luis Daniel SALEH MD Unavailable Unavailable Luis Daniel SALEH MD Unavailable Unavailable Luis Daniel SALEH MD Unavailable Unavailable Luis Daniel SALEH MD Unavailable Unavailable Luis Daniel SALEH MD Unavailable Unavailable Luis Daniel SALEH MD Unavailable Unavailable Luis Daniel SALEH MD Unavailable Unavailable Luis Daniel SALEH MD Unavailable Unavailable Luis Daniel SALEH MD Unavailable Unavailable AIDEN, AKASH PA Unavailable Unavailable AIDEN, AKASH PA Unavailable Unavailable AIDEN, AKASH PA Unavailable Unavailable AIDEN, AKASH PA Unavailable Unavailable AIDEN, AKASH PA Unavailable Unavailable AIDEN, AKASH PA Unavailable Unavailable AIDEN, AKASH PA Unavailable Unavailable AIDEN, AKASH PA Unavailable Unavailable AIDEN, AKASH PA Unavailable Unavailable AIDEN, AKASH PA Unavailable Unavailable AIDEN, AKASH PA Unavailable Unavailable AIDEN, AKASH PA Unavailable Unavailable AIDEN, AKASH PA Unavailable Unavailable AIDEN, AKASH PA Unavailable Unavailable AIDEN, AKASH PA Unavailable Unavailable Radha Lovell MD Unavailable Unavailable Radha Lovell MD Unavailable Unavailable Radah Lovell MD Unavailable Unavailable Radha Lovell MD Unavailable Unavailable Radha Lovell MD Unavailable Unavailable Radha Lovell MD Unavailable Unavailable Radha Lovell MD Unavailable Unavailable Radha Lovell MD Unavailable Unavailable Radha Lovell MD Unavailable Unavailable Radha Lovell MD Unavailable Unavailable Radha Lovell MD Unavailable Unavailable Radha Lovell MD Unavailable Unavailable Radha Lovell MD Unavailable Unavailable Radha Lovell MD Unavailable Unavailable Radha Lovell MD Unavailable Unavailable Radha Lovell MD Unavailable Unavailable Radha Lovell MD Unavailable Unavailable Radha Lovell MD Unavailable Unavailable Radha Lovell MD Unavailable Unavailable Radha Lovell MD Unavailable Unavailable Radha Lovell MD Unavailable Unavailable Radha Lovell MD Unavailable Unavailable Radha Lovell MD Unavailable Unavailable Radha Lovell MD Unavailable Unavailable Radha Lovell MD Unavailable Unavailable Radha Lovell MD Unavailable Unavailable Radha Lovell MD Unavailable Unavailable Radha Lovell MD Unavailable Unavailable Radha Lovell MD Unavailable Unavailable Radha Lovell MD Unavailable Unavailable Radha Lovell MD Unavailable Unavailable Radha Lovell MD Unavailable Unavailable Radha Lovell MD Unavailable Unavailable Radha Lovell MD Unavailable Unavailable Radha Lovell MD Unavailable Unavailable Radha Lovell MD Unavailable Unavailable Radha Lovell MD Unavailable Unavailable Radha Lovell MD Unavailable Unavailable Radha Lovell MD Unavailable Unavailable Radha Lovell MD Unavailable Unavailable Radha Lovell MD Unavailable Unavailable Radha Lovell MD Unavailable Unavailable Radha Lovell MD Unavailable Unavailable Slezka, Vojtech MD Unavailable Unavailable Slezka, Vojtech MD Unavailable Unavailable Slezka, Vojtech MD Unavailable Unavailable Slezka, Vojtech MD Unavailable Unavailable Slezka, Vojtech MD Unavailable Unavailable Slezka, Vojtech MD Unavailable Unavailable Slezka, Vojtech MD Unavailable Unavailable Slezka, Vojtech MD Unavailable Unavailable Slezka, Vojtech MD Unavailable Unavailable Slezka, Vojtech MD Unavailable Unavailable Slezka, Vojtech MD Unavailable Unavailable Slezka, Vojtech MD Unavailable Unavailable Slezka, Vojtech MD Unavailable Unavailable Slezka, Vojtech MD Unavailable Unavailable Slezka, Vojtech MD Unavailable Unavailable CANUTE, W EDUARDO MD Unavailable Unavailable CANUTE, W EDUARDO MD Unavailable Unavailable CANUTE, W EDUARDO MD Unavailable Unavailable CANUTE, W EDUARDO MD Unavailable Unavailable CANUTE, W EDUARDO MD Unavailable Unavailable CANUTE, W EDUARDO MD Unavailable Unavailable CANUTE, W EDUARDO MD Unavailable Unavailable CANUTE, W EDUARDO MD Unavailable Unavailable CANUTE, W EDUARDO MD Unavailable Unavailable CANUTE, W EDUARDO MD Unavailable Unavailable CANUTE, W EDUARDO MD Unavailable Unavailable CANUTE, W EDUARDO MD Unavailable Unavailable CANUTE, W EDUARDO MD Unavailable Unavailable CANUTE, W EDUARDO MD Unavailable Unavailable CANUTE, W EDUARDO MD Unavailable Unavailable CANUTE, W EDUARDO MD Unavailable Unavailable CANUTE, W EDUARDO MD Unavailable Unavailable CANUTE, W EDUARDO MD Unavailable Unavailable CANUTE, W EDUARDO MD Unavailable Unavailable CANUTE, W EDUARDO MD Unavailable Unavailable CANUTE, W EDUARDO MD Unavailable Unavailable CANUTE, W EDUARDO MD Unavailable Unavailable CANUTE, W EDUARDO MD Unavailable Unavailable CANUTE, W EDUARDO MD Unavailable Unavailable CANUTE, W EDUARDO MD Unavailable Unavailable CANUTE, W EDUARDO MD Unavailable Unavailable CANUTE, W EDUARDO MD Unavailable Unavailable CANUTE, W EDUARDO MD Unavailable Unavailable CANUTE, W EDUARDO MD Unavailable Unavailable CANUTE, W EDUARDO MD Unavailable Unavailable CANUTE, W EDUARDO MD Unavailable Unavailable CANUTE, W EDUARDO MD Unavailable Unavailable CANUTE, W EDUARDO MD Unavailable Unavailable CANUTE, W EDUARDO MD Unavailable Unavailable CANUTE, W EDUARDO MD Unavailable Unavailable CANUTE, W EDUARDO MD Unavailable Unavailable CANUTE, W EDUARDO MD Unavailable Unavailable CANUTE, W EDUARDO MD Unavailable Unavailable CANUTE, W EDUARDO MD Unavailable Unavailable CANUTE, W EDUARDO MD Unavailable Unavailable CANUTE, W EDUARDO MD Unavailable Unavailable CANUTE, W EDUARDO MD Unavailable Unavailable CANUTE, W EDUARDO MD Unavailable Unavailable CANUTE, W EDUARDO MD Unavailable Unavailable CANUTE, W EDUARDO MD Unavailable Unavailable CANUTE, W EDUARDO MD Unavailable Unavailable CANUTE, W EDUARDO MD Unavailable Unavailable CANUTE, W EDUARDO MD Unavailable Unavailable CANUTE, W EDUARDO MD Unavailable Unavailable CANUTE, W EDUARDO MD Unavailable Unavailable CANUTE, W EDUARDO MD Unavailable Unavailable CANUTE, W EDUARDO MD Unavailable Unavailable CANUTE, W EDUARDO MD Unavailable Unavailable CANUTE, W EDUARDO MD Unavailable Unavailable CANUTE, W EDUARDO MD Unavailable Unavailable CANUTE, W EDUARDO MD Unavailable Unavailable CANUTE, W EDUARDO MD Unavailable Unavailable CANUTE, W EDUARDO MD Unavailable Unavailable CANUTE, W EDUARDO MD Unavailable Unavailable CANUTE, W EDUARDO MD Unavailable Unavailable CANUTE, W EDUARDO MD Unavailable Unavailable CANUTE, W EDUARDO MD Unavailable Unavailable CANUTE, W EDUARDO MD Unavailable Unavailable CANUTE, W EDUARDO MD Unavailable Unavailable CANUTE, W EDUARDO MD Unavailable Unavailable CANUTE, W EDUARDO MD Unavailable Unavailable CANUTE, W EDUARDO MD Unavailable Unavailable CANUTE, W EDUARDO MD Unavailable Unavailable CANUTE, W EDUARDO MD Unavailable Unavailable CANUTE, W EDUARDO MD Unavailable Unavailable CANUTE, W EDUARDO MD Unavailable Unavailable CANUTE, W EDUARDO MD Unavailable Unavailable CANUTE, W EDUARDO MD Unavailable Unavailable CANUTE, W EDUARDO MD Unavailable Unavailable CANUTE, W EDUARDO MD Unavailable Unavailable CANUTE, W EDUARDO MD Unavailable Unavailable CANUTE, W EDUARDO MD Unavailable Unavailable CANUTE, W EDUARDO MD Unavailable Unavailable CANUTE, W EDUARDO MD Unavailable Unavailable CANUTE, W EDUARDO MD Unavailable Unavailable CANUTE, W EDUARDO MD Unavailable Unavailable CANUTE, W EDUARDO MD Unavailable Unavailable CANUTE, W EDUARDO MD Unavailable Unavailable CANUTE, W EDUARDO MD Unavailable Unavailable CANUTE, W EDUARDO MD Unavailable Unavailable CANUTE, W EDUARDO MD Unavailable Unavailable CANUTE, W EDUARDO MD Unavailable Unavailable CANUTE, W EDUARDO MD Unavailable Unavailable CANUTE, W EDUARDO MD Unavailable Unavailable CANUTE, W EDUARDO MD Unavailable Unavailable CANUTE, W EDUARDO MD Unavailable Unavailable CANUTE, W EDUARDO MD Unavailable Unavailable CANUTE, W EDUARDO MD Unavailable Unavailable CANUTE, W EDUARDO MD Unavailable Unavailable CANUTE, W EDUARDO MD Unavailable Unavailable CANUTE, W EDUARDO MD Unavailable Unavailable Virgilio VASQUEZ, Reid VASQUEZ Unavailable [phone] Virgilio VASQUEZ, Reid VASQUEZ Unavailable [phone] Virgilio VASQUEZ, Reid VASQUEZ Unavailable [phone] Virgilio VASQUEZ, Reid VASQUEZ Unavailable [phone] Virgilio VASQUEZ, Reid VASQUEZ Unavailable [phone] Virgilio VASQUEZ, Reid VASQUEZ Unavailable [phone] Virgilio VASQUEZ, Reid VASQUEZ Unavailable [phone] Virgilio VASQUEZ, Reid VASQUEZ Unavailable [phone] Shawn Lorenz MD Unavailable Unavailable Shawn Lorenz MD Unavailable Unavailable Shawn Lorenz MD Unavailable Unavailable Shawn Lorenz MD Unavailable Unavailable Shawn Lorenz MD Unavailable Unavailable Shawn Lorenz MD Unavailable Unavailable Shawn Lorenz MD Unavailable Unavailable Shawn Lorenz MD Unavailable Unavailable Shawn Lorenz MD Unavailable Unavailable Shawn Lorenz MD Unavailable Unavailable Shawn Lorenz MD Unavailable Unavailable Shawn Lorenz MD Unavailable Unavailable Shawn Lorenz MD Unavailable Unavailable Siria, L Krystina SALES AND MARKETING REPRESENTATIVE Unavailable Unavailable Siria, L Krystina SALES AND MARKETING REPRESENTATIVE Unavailable Unavailable Siria, L Krystina SALES AND MARKETING REPRESENTATIVE Unavailable Unavailable Siria, L Krystina SALES AND MARKETING REPRESENTATIVE Unavailable Unavailable Siria, L Krystina SALES AND MARKETING REPRESENTATIVE Unavailable Unavailable Siria, L Krystina SALES AND MARKETING REPRESENTATIVE Unavailable Unavailable Siria, L Krystina SALES AND MARKETING REPRESENTATIVE Unavailable Unavailable Siria, L Krystina SALES AND MARKETING REPRESENTATIVE Unavailable Unavailable Siria, L Krystina SALES AND MARKETING REPRESENTATIVE Unavailable Unavailable Siria, L Krystina SALES AND MARKETING REPRESENTATIVE Unavailable Unavailable Siria, L Krystina SALES AND MARKETING REPRESENTATIVE Unavailable Unavailable Jepma, W Eric DO Unavailable Unavailable Jepma, W Eric DO Unavailable Unavailable Jepma, W Eric DO Unavailable Unavailable Jepma, W Eric DO Unavailable Unavailable Jepma, W Eric DO Unavailable Unavailable Jepma, W Eric DO Unavailable Unavailable Jepma, W Eric DO Unavailable Unavailable Jepma, W Eric DO Unavailable Unavailable Jepma, W Eric DO Unavailable Unavailable Jepma, W Eric DO Unavailable Unavailable Jepma, W Eric DO Unavailable Unavailable Jepma, W Eric DO Unavailable Unavailable Jepma, W Eric DO Unavailable Unavailable Jepma, W Eric DO Unavailable Unavailable Jepma, W Eric DO Unavailable Unavailable Jepma, W Eric DO Unavailable Unavailable Jepma, W Eric DO Unavailable Unavailable Jepma, W Eric DO Unavailable Unavailable Jepma, W Eric DO Unavailable Unavailable Jepma, W Eric DO Unavailable Unavailable Jepma, W Eric DO Unavailable Unavailable Jepma, W Eric DO Unavailable Unavailable Jepma, W Eric DO Unavailable Unavailable Jepma, W Eric DO Unavailable Unavailable Jepma, W Eric DO Unavailable Unavailable Jepma, W Eric DO Unavailable Unavailable Jepma, W Eric DO Unavailable Unavailable Jepma, W Eric DO Unavailable Unavailable Jepma, W Eric DO Unavailable Unavailable Jepma, W Eric DO Unavailable Unavailable Jepma, W Eric DO Unavailable Unavailable Jepma, W Eric DO Unavailable Unavailable Jepma, W Eric DO Unavailable Unavailable Jepma, W Eric DO Unavailable Unavailable Jepma, W Eric DO Unavailable Unavailable Jepma, W Eric DO Unavailable Unavailable Jepma, W Eric DO Unavailable Unavailable Jepma, W Eric DO Unavailable Unavailable Jepma, W Eric DO Unavailable Unavailable Jepma, W Eric DO Unavailable Unavailable Jepma, W Eric DO Unavailable Unavailable Jepma, W Eric DO Unavailable Unavailable Jepma, W Eric DO Unavailable Unavailable Jepma, W Eric DO Unavailable Unavailable Jepma, W Eric DO Unavailable Unavailable Jepma, W Eric DO Unavailable Unavailable Jepma, W Eric DO Unavailable Unavailable Jepma, W Eric DO Unavailable Unavailable Jepma, W Eric DO Unavailable Unavailable Jepma, W Eric DO Unavailable Unavailable Jepma, W Eric DO Unavailable Unavailable Jepma, W Eric DO Unavailable Unavailable Jepma, W Eric DO Unavailable Unavailable Jepma, W Eric DO Unavailable Unavailable Jepma, W Eric DO Unavailable Unavailable Jepma, W Eric DO Unavailable Unavailable Jepma, W Eric DO Unavailable Unavailable Jepma, W Eric DO Unavailable Unavailable Jepma, W Eric DO Unavailable [facility]available [facility] Unavailable Barbara Dumont MD Unavailable Unavailable Barbara Dumont MD Unavailable Unavailable Barbara Dumont MD Unavailable Unavailable Barbara Dumont MD Unavailable Unavailable Barbara Dumont MD Unavailable Unavailable Barbara Dumont MD Unavailable Unavailable Barbara Dumont MD Unavailable Unavailable Barbara Dumont MD Unavailable Unavailable Barbara Dumont MD Unavailable Unavailable Barbara Dumont MD Unavailable Unavailable Barbara Dumont MD Unavailable Unavailable Barbara Dumont MD Unavailable Unavailable Barbara Dumont MD Unavailable Unavailable Ali, Barbara MD Unavailable Unavailable Ali, Barbara MD Unavailable Unavailable Ali, Barbara MD Unavailable Unavailable Ali, Barbara MD Unavailable Unavailable Ali, Barbara MD Unavailable Unavailable Ali, Barbara MD Unavailable Unavailable Ali, Barbara MD Unavailable Unavailable Ali, Barbara MD Unavailable Unavailable Ali, Barbara MD Unavailable Unavailable Ali, Barbara MD Unavailable Unavailable Ali, Barbara MD Unavailable Unavailable Ali, Barbara MD Unavailable Unavailable Ali, Barbara MD Unavailable Unavailable Ali, Barbara MD Unavailable Unavailable Ali, Barbara MD Unavailable Unavailable Ali, Barbara MD Unavailable Unavailable Ali, Barbara MD Unavailable Unavailable Ali, Barbara MD Unavailable Unavailable Ali, Barbara MD Unavailable Unavailable Ali, Barbara MD Unavailable Unavailable Ali, Barbara MD Unavailable Unavailable Ali, Barbara MD Unavailable Unavailable Ali, Barbara MD Unavailable Unavailable Ali, Barbara MD Unavailable Unavailable Ali, Barbara MD Unavailable Unavailable Ali, Barbara MD Unavailable Unavailable Ali, Barbara MD Unavailable Unavailable Ali, Barbara MD Unavailable Unavailable Ali, Barbara MD Unavailable Unavailable Ali, Barbara MD Unavailable Unavailable Ali, Barbara MD Unavailable Unavailable Ali, Barbara MD Unavailable Unavailable Ali, Barbara MD Unavailable Unavailable Ali, Barbara MD Unavailable Unavailable Ali, Barbara MD Unavailable Unavailable Ali, Barbara MD Unavailable Unavailable DAWNA, 0000{ Unavailable Unavailable Re-disclosure Warning The records that you are about to access may contain information from federally-assisted alcohol or drug abuse programs. If such information is present, then the following federally mandated warning applies: This information has been disclosed to you from records protected by federal confidentiality rules (42 CFR part 2). The federal rules prohibit you from making any further disclosure of this information unless further disclosure is expressly permitted by the written consent of the person to whom it pertains or as otherwise permitted by 42 CFR part 2. A general authorization for the release of medical or other information is NOT sufficient for this purpose. The Federal rules restrict any use of the information to criminally investigate or prosecute any alcohol or drug abuse patient.The records that you are about to access may contain highly sensitive health information, the redisclosure of which is protected by Article 27-F of the [facility] Public Health law. If you continue you may have access to information: Regarding HIV / AIDS; Provided by facilities licensed or operated by the [facility] Office of Mental Health; or Provided by the [facility] Office for People With Developmental Disabilities. If such information is present, then the following [facility] mandated warning applies: This information has been disclosed to you from confidential records which are protected by state law. State law prohibits you from making any further disclosure of this information without the specific written consent of the person to whom it pertains, or as otherwise permitted by law. Any unauthorized further disclosure in violation of state law may result in a fine or alf sentence or both. A general authorization for the release of medical or other information is NOT sufficient authorization for further disc losure. Allergies and Adverse Reactions Type Description Substance Reaction Status Data Source(s ) Propensity to adverse reactions JUSTIN FLAVOR Justin Flavor Active [facility] Drug allergy Drug allergy No Known Allergies [facility] Family History Family Member Name Family Member Gender Family Member Status Date o f Status Description Data Source(s) Unknown Unknown Problem [facility] ([facility], ) Unknown Unknown Problem [facility] ) Unknown Unknown Problem [facility] ) Unknown Unknown Problem [facility] ) Unknown Unknown Problem [facility] ) Unknown Unknown Problem [facility] ([facility] ) Unknown Unknown Problem [facility] ([facility] ) Unknown Female Problem [facility] ([facility] ) Unknown Female Problem [facility] ([facility] ) Encounters Encounter Providers Location Date Indications Data Source(s ) Outpatient Attender: Reid Poole MD [facility]-[id number] 0 11/14/2020 02:39:00 PM [facility] - 11/14/2020 02:40:00 PM [facility] Patient discharged. Outpatient Attender: Hakan Dixon NP ER-RAD 10/28/2020 07:59:00 AM [facility] Outpatient Att[facility]: [id number] 12/18/2019 07:36:00 AM [facility] - 10/17/2020 07:37:00 AM [facility] Patient discharged. Outpatient Attender: LUCAS LE M.D. [facility]CPSOMP[facility] 10/09 12:59:00 PM [facility] - 10/09/2020 01:00:[address] [facility] Patient discharged. Outpatient Attender: Barbara Dumont MD Main office - [place] 10/01/2020 12:45:00 PM EST [facility] ([facility] Inpatient Attender: Shanique Kelly MDAttender: AKASH WOLFE PAAdmitter: Shanique Kelly MDReferrer: Hakan Dixon NP EMERGENCY ROOM-OBS UNIT 09/08/2020 06:18:00 PM EST - 09/09/2020 09:20:00 AM [facility] Patient discharged. Outpatient Attender: AKASH WOLFE PAConsultant: [facility] [id number] 09/08/2020 01:08:00 PM [facility] Inpatient Attender: Shawn Lorenz MDAtt jennifer: Sherrie Ayala MDAdmitter: Shawn Lorenz MD [id number] 09/05/2020 08:28:00 PM EDT - 09/07/2020 07:23:[address] [facility] Patient discharged. Emergency Attender: Shakir Smith DO CPSCAORT-ED 020 11:48:00 AM EDT - 09/05/2020 05:15:00 PM EDT CHEST PAIN; SOB [facility] CHEST PAIN; SOB Patient discharged. Outpatient Attender: Reid Poole MD CPSCAORT-[id number] 1 09:30:00 AM EDT [facility] Outpatient [address] [facility] [address] [place] [place] [address] 09/03/2020 12:00:00 AM EDT eCW1 ([facility]) Outpatient [address] [facility] [address] [place] [address] 09/03/2020 12:00:00 AM EDT eCW1 ([facility]) Outpatient [address] [facility] [address] [place] [address] 08/20/2020 12:00:00 AM EDT eCW1 ([facility]) Outpatient [address] [facility] [address] [place] [address] 08/14/2020 12:00:00 AM EDT eCW1 ([facility]) Outpatient [id number] 08/06/2020 03:24:[address] [facility] Outpatient Attender: Hakan Dixon NPReferrer: Mignon Le CPSCAORT-CARPD 07/16/2020 12:49:00 PM EDT - 07/16/2020 12:50:00 PM EDT I21.4 [facility] I21.4 Patient discharged. Outpatient Attender: Barbara Dumont MD Main office - [place] 07/09/2020 11:30:00 [facility] Outpatient Attender: Barbara Dumont MDReferrer: Hakan hernandez SALES AND MARKETING REPRESENTATIVE EMERGENCY ROOM-LABOTHPROV 06/11/2020 08:32:00 AM EDT - 06/11/2020 08:32:00 AM [facility] Outpatient Attender: Hakan Dixon NPReferrer: Jose Juan Dixon SALES AND MARKETING REPRESENTATIVE EMERGENCY ROOM-LABOTHPROV 06/11/2020 08:28:00 AM EDT - 06/11/2020 08:28:00 AM [facility] Outpatient Attender: Barbara Dumont MD Main office - [place] 05/28/2020 09:30:[facility] Attender: Radha ALEJO-SJP.GREG 05/07 12:00:00 AM EDT - 05/21/2020 04:21:[address] [facility] Outpatient Attender: Radha JOHNSONGREG-SJPDawsonGREG 04/08 12:00:00 AM EDT - 04/28/2020 10:36:[address] [facility] Outpatient Attender: LUCAS LE M.D. CPSCAORT-CPSOMP 04/22 07:26:00 AM EDT - 04/22/2020 07:27:00 AM EDT [facility] Patient discharged. Inpatient Attender: Priyanka Tai tender: Fatou Olsonttender: SERGIO BIRCH MDAdmitter: Fatou Silva [id number] 04/11/2020 08:04:25 PM EDT - 04/13/2020 02:55:[address] [facility] Patient discharged. Inpatient Attender: Shanique Kelly MDAttender: Washington Mcneill PAAdmitter: Shanique Kelly MDReferrer: Hakan Dixon NP EMERGENCY ROOM-2N 2019 09:45:00 AM EDT - 04/11/2020 05:50:00 PM EDT [facility] Patient discharged. Outpatient Attender: Krystina Beverly [facility] 03/07 01:45:00 PM EDT - 03/25/2020 [facility]46[facility] Attender: LUCAS LE M.D. [facility] 02/19 08:39:00 AM EDT - 02/20/2020 08:40:00 AM EDT [facility] Patient discharged. Outpatient Attender: LUCAS LE M.D. [facility] 01/22 12:31:00 PM EDT - 01/23/2020 12:32:00 PM EDT [facility] Patient discharged. Outpatient Attender: LUCAS LE M.D. [facility]-CPSGNPMC 01/21 07:36:00 AM EDT - 01/22/2020 07:37:00 AM EDT [facility] Patient discharged. Outpatient Attender: Hakan Dixon NPReferrer: Jose Juan Dixon NP EMERGENCY ROOM-LABOTHPROV 12/11/2019 08:28:00 AM EST - 12/11/2019 08:28:00 AM [facility] Outpatient Attender: Hakan Dixon NPReferrer: Jose Juan Dixon NP EMERGENCY ROOM-LABOTHPROV 11/22/2019 08:41:00 AM EST - 11/22/2019 08:41:00 AM [facility] Outpatient Attender: LUIZ TOLBERT NP 07:18:00 AM EST - 12/21/2019 02:35:00 PM [facility] Patient discharged. Outpatient Attender: LUIZ TOLBERT NPAttender: EDUARDO GLASS MD 11/06/2019 01:14:00 PM EST - 11/06/2019 12:00:00 AM EST [facility] Patient discharged. Outpatient Attender: PHOEBE SALEH MD 10/29/2019 12:37 :00 PM EST LOW BACK PAIN, CERVICALGIA [facility] LOW BACK PAIN, CERVICALGIA Outpatient Attender: DenisPedro Pablo GAMBOADAWNA 10/29/2019 12:37:00 PM E [facility] Outpatient Attender: LUCAS MONTOYACAORT-SDCLOC 019 02:14:00 PM EST - 10/25/2019 03:06:00 PM EST BULGING LUMBAR DISC [facility] BULGING LUMBAR DISC Patient discharged. Outpatient Attender: LUCAS MONTOYACAZULEYKA-IMACN 019 09:29:00 AM EST - 10/24/2019 09:30:00 AM EST BULGING LUMBAR DISC [facility] BULGING LUMBAR DISC Patient discharged. Outpatient Attender: LUCAS MONTOYACAZULEYKA-CPSOMPMC 10/15 10:05:00 AM EST - 10/15/2019 10:06:00 AM EST [facility] Patient discharged. Emergency Attender: BALJIT DAVIS PAReferrer: Eric medrano DO 10/02/2019 12:13:00 PM EST - 10/02/2019 01:30:00 PM EST [facility] Patient discharged. Outpatient Attender: LUCAS LE M.D. CPSCAZULEYKA-IMAPD 019 04:01:00 PM EST - 09/25/2019 04:02:00 PM EST M48.02 [facility] M48.02 Patient discharged. Outpatient Attender: LUCAS LE M.D. -SDCSDC 019 01:41:00 PM EST - 09/18/2019 03:55:00 PM EST LUMBAR FACET ARTHROPATHY [facility] LUMBAR FACET ARTHROPATHY Patient discharged. Outpatient Attender: LUCAS LE M.D. CPSCAORT-CPSGNSUR 09/18 03:42:[address] [facility] Outpatient Attender: Hakan Dixon NPReferrer: Eric Kelley 07/19/2019 03:00:00 PM EDT - 07/19/2019 03:00:00 PM EDT [facility] Emergency Attender: BALJIT DAVIS PAReferrer: Eric medrano DO 01/12/2017 10:45:00 AM EST - 01/12/2017 10:52:00 AM EST [facility] Outpatient Attender: JONAH CARBAJALeferrer: Eric Le O 05/21/2014 01:09:00 PM EDT [facility] Immunizations Vaccine Date Status Description Data Source(s) New in 2011. IIV4 09/07/2020 12:00:00 AM EDT completed Fl u Vaccine =>6MOS Quad Pres-Free 09/07/2020 [facility] Medications Medication Brand Name Start Date Product Form Dose Route Admi nistrative Instructions Pharmacy Instructions Status Indications Reaction Description Data Source(s) 750 mg 11/19/2020 12:00:00 AM EST tablet 90 TAKE ONE TABLET BY MOUTH THREE TIMES A DAY TAKE ONE TABLET BY MOUTH THREE TIMES A DAY SOLD: 11/20/2020 [facility] 25 mg 11/16/2020 12:00:00 AM EST tablet 180 TAKE ONE TABLET BY MOUTH TWICE A DAY TAKE ONE TABLET BY MOUTH TWICE A DAY SOLD: 11/20/2020 [facility] 12 mcg/hr 11/12/2020 12:00:00 AM EST patch 72 hour 10 APPLY 1 PATCH TO CLEAN, DRY SKIN FOR 72 HOURS THEN REMOVE, DISPOSE OF PROPERLY AND APPLY A NEW PATCH ON A DIFFERENT, CLEAN DRY SKIN SITE MAXIMUM DAILY DOSE = ONE PER 72 HOURS APPLY 1 PATCH TO CLEAN, DRY SKIN FOR 72 HOURS THEN REMOVE, DISPOSE OF PROPERLY AND APPLY A NEW PATCH ON A DIFFERENT, CLEAN DRY SKIN SITE MAXIMUM DAILY DOSE = ONE PER 72 HOURS SOLD: 11/13/2020 [facility] 1,000 mg 10/17/2020 12:00:00 AM EST tablet extended release 12 hr 60 TAKE ONE TABLET BY MOUTH TWICE A DAY TAKE ONE TABLET BY MOUTH TWICE A DAY SOLD: 11/20/2020 [facility] 875-125 mg 10/17/2020 12:00:00 AM EST tablet 20 TAKE ONE TABLET BY MOUTH EVERY 12 HOURS FOR 10 DAYS TAKE ONE TABLET BY MOUTH EVERY 12 HOURS FOR 10 DAYS SOLD: 10/17/2020 [facility] 1,000 mg 10/17/2020 12:00:00 AM EST tablet extended release 12 hr 60 TAKE ONE TABLET BY MOUTH TWICE A DAY TAKE ONE TABLET BY MOUTH TWICE A DAY SOLD: 10/20/2020 [facility] gabapentin 800 MG Oral Tablet GABAPENTIN 10/10/2020 12:00:00 AM EST ta blet 90 TAKE ONE TABLET BY MOUTH THREE TIMES A DAY TAKE ONE TABLET BY MOUTH THREE TIMES A DAY SOLD: 11/13/2020 [facility] gabapentin 800 MG Oral Tablet GABAPENTIN 10/10/2020 12:00:00 AM EST ta blet 90 TAKE ONE TABLET BY MOUTH THREE TIMES A DAY TAKE ONE TABLET BY MOUTH THREE TIMES A DAY SOLD: 10/14/2020 [facility] 12 mcg/hr 10/08/2020 12:00:00 AM EST patch 72 hour 10 APPLY 1 PATCH TO CLEAN, DRY SKIN FOR 72 HOURS THEN REMOVE, DISPOSE OF PROPERLY AND APPLY A NEW PATCH ON A DIFFERENT, CLEAN DRY SKIN SITE MAXIMUM DAILY DOSE = 1 PATCH EVERY 72 HOURS APPLY 1 PATCH TO CLEAN, DRY SKIN FOR 72 HOURS THEN REMOVE, DISPOSE OF PROPERLY AND APPLY A NEW PATCH ON A DIFFERENT, CLEAN DRY SKIN SITE MAXIMUM DAILY DOSE = 1 PATCH EVERY 72 HOURS SOLD: 10/14/2020 [facility] Trazodone Hydrochloride 100 MG Oral Tablet TRAZODONE HCL 10/03/2020 12:00:00 AM EST tablet 30 TAKE 1/2 OR 1 TABLET BY MOUT H EVERY NIGHT AT BEDTIME TAKE 1/2 OR 1 TABLET BY MOUTH EVERY NIGHT AT BEDTIME SOLD: 10/05/2020 [facility] Trazodone Hydrochloride 100 MG Oral Tablet TRAZODONE HCL 10/03/2020 12:00:00 AM EST tablet 30 TAKE 1/2 OR 1 TABLET BY MOUT H EVERY NIGHT AT BEDTIME TAKE 1/2 OR 1 TABLET BY MOUTH EVERY NIGHT AT BEDTIME SOLD: 11/04/2020 [facility] 100 mg 10/03/2020 12:00:00 AM EST tablet 30 TAKE ONE TABLET BY MOUTH EVERY DAY AT BEDTIME MAXIMUM DAILY DOSE = 1 TAKE ONE TABLET BY MOUTH EVERY DAY AT BEDTIME MAXIMUM DAILY DOSE = 1 SOLD: 10/05/2020 [facility] 100 mg 10/03/2020 12:00:00 AM EST tablet 30 TAKE ONE TABLET BY MOUTH EVERY DAY AT BEDTIME MAXIMUM DAILY DOSE = 1 TAKE ONE TABLET BY MOUTH EVERY DAY AT BEDTIME MAXIMUM DAILY DOSE = 1 SOLD: 11/04/2020 [facility] topiramate 100 MG Oral Tablet Topiramate 10/01/2020 12:00:00 AM EST ORAL active [facility] ([facility]) Trazodone Hydrochloride 100 MG Oral Tablet Trazodone HCL 10/01/2020 12:00:00 AM EST ORAL [facility] tizanidine 4 MG Oral Tablet TIZANIDINE HCL 09/26/2020 12:00:00 AM EST tablet 90 TAKE ONE TABLET BY MOUTH THREE TIMES A DAY TAKE ONE TA BLET BY MOUTH THREE TIMES A DAY SOLD: 09/27/2020 [facility] 500 mg 09/26/2020 12:00:00 AM EST tablet extended release 24 hr 180 TAKE ONE TABLET BY MOUTH TWICE A DAY WITH EVENING MEAL TAKE ONE TABLET BY MOUTH TWICE A DAY WITH EVENING MEAL SOLD: 09/27/2020 [facility] 150 mg 09/26/2020 12:00:00 AM EST tablet 1 TAKE ONE TABLET BY MOUTH NOW TAKE ONE TABLET BY MOUTH NOW SOLD: 09/27/2020 [facility] Metformin hydrochloride 500 MG Oral Tablet METFORMIN HCL 09/26/2020 12:00:00 AM EST tablet 180 TAKE ONE TABLET BY MOUTH TWI CE A DAY WITH A MEAL TAKE ONE TABLET BY MOUTH TWICE A DAY WITH A MEAL SOLD: 09/27/2020 [facility] montelukast 10 MG Oral Tablet MONTELUKAST SODIUM 09/25/2020 12:0 0:00 AM EST tablet 90 TAKE ONE TABLET BY MOUTH EVERY D AY TAKE ONE TABLET BY MOUTH EVERY DAY SOLD: 09/27/2020 [facility] 90 mcg/actuation 09/24/2020 12:00:00 AM EST HFA aerosol inha ler 18 INHALE 2 PUFFS BY MOUTH EVERY 4 HOURS NEEDED INHALE 2 PUFFS BY MOUTH EVERY 4 HOURS NEEDED SOLD: 11/20/2020 [facility] 90 mcg/actuation 09/24/2020 12:00:00 AM EST HFA aerosol inha ler 18 INHALE 2 PUFFS BY MOUTH EVERY 4 HOURS NEEDED INHALE 2 PUFFS BY MOUTH EVERY 4 HOURS NEEDED SOLD: 09/27/2020 [facility] 90 mcg/actuation 09/24/2020 12:00:00 AM EST HFA aerosol inha ler 18 INHALE 2 PUFFS BY MOUTH EVERY 4 HOURS NEEDED INHALE 2 PUFFS BY MOUTH EVERY 4 HOURS NEEDED SOLD: 10/14/2020 [facility] 90 mcg/actuation 09/24/2020 12:00:00 AM EST HFA aerosol inha ler 18 INHALE 2 PUFFS BY MOUTH EVERY 4 HOURS NEEDED INHALE 2 PUFFS BY MOUTH EVERY 4 HOURS NEEDED SOLD: 11/04/2020 [facility] 72 HR Fentanyl 0.012 MG/HR Transdermal P atch fentaNYL (DURAGESIC) 12 MCG/HR 1 patch fentaNYL (DURAGESIC) 12 MCG/HR 1 patch 09/09/2020 12:00:00 AM ES T 1 {patch} Transdermal active 1 patch, Transdermal, Administer over 72 Hours, Every 72 hours, First dose on Tue09/09/20 at 0000, For [address] [facility] Medication administered onsite 500 mg 09/09/2020 12:00:00 AM EST tablet 7 TAKE ONE TABLET BY MOUTH EVERY DAY TAKE ONE TABLET BY MOUTH EVERY DAY SOLD: 09/09/2020 [facility] 500 mg 09/09/2020 12:00:00 AM EST tablet 14 TAKE ONE TABLET BY MOUTH TWICE A DAY TAKE ONE TABLET BY MOUTH TWICE A DAY SOLD: 09/09/2020 [facility] 500 mg 09/08/2020 12:00:00 AM EST tablet extended release 12 hr 60 TAKE ONE TABLET BY MOUTH TWICE A DAY TAKE ONE TABLET BY MOUTH TWICE A DAY SOLD: 10/14/2020 [facility] 500 mg 09/08/2020 12:00:00 AM EST tablet extended release 12 hr 60 TAKE ONE TABLET BY MOUTH TWICE A DAY TAKE ONE TABLET BY MOUTH TWICE A DAY SOLD: 11/13/2020 [facility] 500 mg 09/08/2020 12:00:00 AM EST tablet extended release 12 hr 60 TAKE ONE TABLET BY MOUTH TWICE A DAY TAKE ONE TABLET BY MOUTH TWICE A DAY SOLD: 09/09/2020 [facility] 12 HR ranolazine 500 MG Extended Release Oral Tablet ranolazine (RANEXA) 12 hr tablet 500 mg ranolazine (RANEXA) 12 hr tablet 500 mg 09/07/2020 05: 00:00 PM EST 500 mg Oral active 500 mg, Oral, 2 times daily, First dose on Tue09/07/[address] [facility] Medication administered onsite sodium chloride 0.9% (NS) infusion 0119-5971-28 09/07/2020 04:00:00 P M EST Intravenous completed at 100 mL/hr, Intravenous, Continuous, Starting Tue09/07/20 at 1600, For 2 hours, Post-op [facility] Medication administered onsite iopamidol (ISOVUE-370) 76 % [id number] 09/07/2020 02:49:12 PM EST active As needed, Starting 09/07/20 at 1449, Intra-Procedu re [facility] Medication administered onsite heparin (porcine) injection 41003-613-77 09/07/2020 02:42:07 PM EST active As needed, Starting 09/07/20 at 1442, Intra-Procedure [facility] Medication administered onsite 4 ML Verapamil hydrochloride 2.5 MG/ML Injection verap alice (ISOPTIN) injection verapamil (ISOPTIN) injection 09/07/2020 02:41:45 PM EST active As needed, Starting 09/07/20 at 1441, Intra-Procedure [facility] Medication administered onsite lidocaine 1 % injection [id number] 09/07/2020 02:38:28 PM EST active As needed, Starting 09/07/20 at 1438, Intra-Procedure [facility] Medication administered onsite 2 ML Midazolam 1 MG/ML Injection midazolam (VERSED) in jection midazolam (VERSED) injection 09/07/2020 02:37:03 PM EST active As needed, Starting 09/07/20 at 1437, Intra-Procedure [facility] Medication administered onsite fentaNYL Citrate (PF) (SUBLIMAZE) injection [id number] 09/07/2020 02:36:49 PM EST active As neede d, Starting 09/07/20 at 1436, Intra-Procedure [facility] Medication administered onsite normal saline flush 0.9 % injection 3 mL [id number] 09/07/2020 02:00:00 PM EST 3 mL Intravenous active 3 mL , Intravenous, PROTOCOL, First dose on 09/07/20 at 1400, Pre-op
flush per protocol, D/C Main IV fluid if appropriate
[facility] Medication administered onsite normal saline flush 0.9 % injection 3 mL [id number] 09/07/2020 02:00:00 PM EST 3 mL Intravenous active 3 mL , Intravenous, Every 8 hours (scheduled), First dose on 09/07/20 at 1400, Pre-op
Rapid push positive pressure flushing shall be performed with a 10 cc normal saline syringe to check the PATENCY of a PIV site prior to any infusion therapy initiation unless resistance is met.
[facility] Medication administered onsite normal saline flush 0.9 % injection 3 mL [id number] 09/07/2020 02:00:00 PM EST 3 mL Intravenous active 3 mL , Intravenous, Every 8 hours (scheduled), First dose on 09/07/20 at 1400, Pre-op
Rapid push positive pressure flushing shall be performed with a 10 cc normal saline syringe to check the PATENCY of a PIV site prior to any infusion therapy initiation unless resistance is met.
[facility] Medication administered onsite sodium chloride 0.9% (NS) infusion [id number] 09/07/2020 11:00:00 AM EST 100 mL/h Intravenous active at 100 m L/hr, 100 mL/hr, Intravenous, Continuous, Starting 09/07/20 at 1100, Pre-op
Start two hours prior to scheduled start time
[facility] Medication administered onsite Acetaminophen 325 MG Oral Tablet acetaminophen (TYLENO L) 325 MG tablet 650 mg acetaminophen (TYLENOL) 325 MG tablet 650 mg 09/07/2020 10:26:38 AM EST 650 mg Oral active 650 mg, Or al, Every 4 hours PRN, headaches, and non cardiac pain, Starting 09/07/20 at 1026, Pre-op
"Maximum dose of acetaminophen is 4,000 mg from all sources in [address] hours."
[facility] Medication administered onsite 10 ML Atropine Sulfate 0.1 MG/ML Prefill ed Syringe atropine sulfate injection 0.5 mg atropine sulfate injection 0.5 mg 09/07/2020 10:26:38 AM EST 0.5 mg active 0.5 mg, Intrave nous Push, Every 5 min PRN, other, As needed, for heart rate less than 60 BPM and the patient is hemodynamically unstable and/or SBP is less than 90mmHg, Starting 09/07/20 at 1026, For 1 day, Pre-op
Not to exceed a total of 3 mg or 0.04 mg/kg.Max of [address]
[facility] Medication administered onsite Escitalopram 10 MG Oral Tablet escitalopram (LEXAPRO) tablet 20 mg escitalopram (LEXAPRO) tablet 20 mg 09/07/2020 09:00:00 AM EST 20 mg Oral active 20 mg, Oral, Daily, First dose on 09/07/[address] [facility] Medication administered onsite 12 HR ranolazine 500 MG Extended Release Oral Tablet ranolazine (RANEXA) 500 MG 12 hr tablet ranolazine (RANEXA) 500 MG 12 hr tablet 09/07/2020 12:00:00 AM EDT 500 mg Oral active Take 1 tablet (5 00 mg total) by mouth 2 (two) times a day [facility] topiramate 100 MG Oral Tablet topiramate (TOPAMAX) tab let 100 mg topiramate (TOPAMAX) tablet 100 mg 09/06/2020 09:00:00 PM EDT 100 mg Oral active 100 mg, Oral, Nightly, First dose on 09/06/20 at 2100
For administration and preparation considerations, refer to Hazardous Drugs in the Workplace Policy on Intranet.
[facility] Medication administered onsite Aspirin 81 MG Delayed Release Oral Tablet aspirin EC t ablet 81 mg aspirin EC tablet 81 mg 09/06/2020 09:00:00 AM EDT 81 mg Oral activ e 81 mg, Oral, Daily, First dose on 09/06/[address] [facility] Medication administered onsite Cholecalciferol 1000 UNT Oral Tablet Vit pozo D (CHOLECALCIFEROL) tablet 2,000 Units Vitamin D (CHOLECALCIFEROL) tablet 2,000 Units 09/06/2020 09 :00:00 AM EDT 2000 U Oral active 2,000 Units, Ora l, Daily, First dose on 09/06/[address] [facility] Medication administered onsite Metoprolol Tartrate 50 MG Oral Tablet me toprolol tartrate (LOPRESSOR) tablet 50 mg metoprolol tartrate (LOPRESSOR) tablet 50 mg 09/06/2020 09:00:00 AM EDT 50 mg Oral active 50 mg, Ora l, 2 times daily, First dose on 09/06/[address] [facility] Medication administered onsite heparin (porcine) injection 5,000 Units [id number] 09/06/20 09:00:00 AM EDT 5000 U Subcutaneous active 5,000 Units , Subcutaneous, Every 12 hours (scheduled), First dose on 09/06/20 at 0900
If platelet count is less than 100,000 or hematocrit is less than 30, or if there is a 5 point decrease in hematocrit, do not give the dose and call physician/designee.
[facility] Medication administered onsite pantoprazole 40 MG Delayed Release Oral Tablet pantoprazole (PROTONIX) EC tablet 40 mg pantoprazole (PROTONIX) EC tablet 40 mg 09/06/2020 09:00:00 AM E DT 40 mg Oral active Gastroesophageal Reflux Diseas e 40 mg, Oral, Daily, Indications: Gastroesophageal Reflux Disease, First dose on 09/06/[address] [facility] Gastroesophageal Reflux Disease Medication administered onsite clopidogrel 75 MG Oral Tablet clopidogrel (PLAVIX) tab let 75 mg clopidogrel (PLAVIX) tablet 75 mg 09/06/2020 09:00:00 AM EDT 75 mg Oral active 75 mg, Oral, Daily, First dose on 09/06/[address] [facility] Medication administered onsite Insulin Lispro 100 UNT/ML Injectable Jaky ution insulin lispro (HumaLOG) injection 1-6 Units insulin lispro (HumaLOG) injection 1-6 Units 0 08:00:00 AM EDT Subcutaneous active 1-6 Units, Subcutaneous, MEALSS, First dose on 09/06/20 at 0800
Frail 3 units Nutritional and Correction Insulin ScaleBlood Glucose (mg/dl) <70 start hypoglycemiaprotocolGlucose Eats >=50% Eats <50%Eats Nothing (mg/dl) of meal of mealor [id number] units 1 units 0 [id number]- 1703 units 2 units 0 [id number] units 2 units 1 gcvqu228- 2704 units 3 units 1 [id number] units 3 units 2 nemom020- 3705 units 4 units 2 -8120 units 4 units 3 units>420 call MD6 units 5 units 3 unitsTest glucose within 30 minutes of insulin administration.Administer insulin within 15 minutes (before or after) of the patient starting to eat.For patients that are NPO, use theNPO (correction) scale to cover POC glucose at 08:00, 12:00, 17:00.
[facility] Medication administered onsite ferrous sulfate 325 MG Oral Tablet ferrous sulfate tab let 325 mg ferrous sulfate tablet 325 mg 09/06/2020 07:00:00 AM EDT 325 mg Oral acti ve 325 mg, Oral, Daily with breakfast, First dose on 09/06/20 at 0700
Separate from antacids as far as possible.Take with food, do not crush
[facility] Medication administered onsite Levothyroxine Sodium 0.05 MG Oral Tablet levothyroxine (SYNTHROID, LEVOTHROID) tablet 100 mcg levothyroxine (SYNTHROID, LEVOTHROID) tablet 100 mcg 1 06:00:00 AM EDT 100 ug Oral active 100 mcg, Oral, Daily (0600), First dose on 09/06/[address] [facility] Medication administered onsite 600 mg 09/06/2020 12:00:00 AM EDT tablet 90 TAKE ONE TABLET BY MOUTH THREE TIMES A DAY TAKE ONE TABLET BY MOUTH THREE TIMES A DAY SOLD: 11/13/2020 [facility] 600 mg 09/06/2020 12:00:00 AM EDT tablet 90 TAKE ONE TABLET BY MOUTH THREE TIMES A DAY TAKE ONE TABLET BY MOUTH THREE TIMES A DAY SOLD: 10/14/2020 [facility] 600 mg 09/06/2020 12:00:00 AM EDT tablet 90 TAKE ONE TABLET BY MOUTH THREE TIMES A DAY TAKE ONE TABLET BY MOUTH THREE TIMES A DAY SOLD: 09/09/2020 [facility] Nitroglycerin 0.4 MG Sublingual Tablet n itroglycerin (NITROSTAT) SL tablet 0.4 mg nitroglycerin (NITROSTAT) SL tablet 0.4 mg 09/05/2020 11:31:26 P M EDT 0.4 mg Sublingual active 0.4 mg, S ublingual, Every 5 min PRN, chest pain, Starting 09/05/20 at 2331
May administer up to 3 doses per episode.
[facility] Medication administered onsite 60 ACTUAT formoterol fumarate 0.005 MG/A CTUAT / mometasone furoate 0.2 MG/ACTUAT Metered Dose Inhaler mometasone-formoterol (DULERA) 200-5 MCG/ACT inhaler 2 puff mometasone-formoterol (DULERA) 200-5 MCG/ACT inhaler 2 puff 09/05/2020 11:00:00 PM EDT 2 {puff} Inhalation active 2 pu ff, Inhalation, 2 times daily, First dose on Tue09/05/[address] [facility] Medication administered onsite 24 HR Rotigotine 0.0833 MG/HR Transderma l Patch rotigotine (NEUPRO) 2 MG/24HR 4 patch rotigotine (NEUPRO) 2 MG/24HR 4 patch 09/05/2020 11:00:00 PM EDT 4 {patch} Transdermal active 4 patch, Transdermal, Every 24 hours (relative), First dose on Tue09/05/[address] [facility] Medication administered onsite gabapentin 600 MG Oral Tablet gabapentin (NEURONTIN) t ablet 300 mg gabapentin (NEURONTIN) tablet 300 mg 09/05/2020 11:00:00 PM EDT 300 mg Oral active 300 mg, Oral, 3 times daily, First dose on 09/05/ [address] [facility] Medication administered onsite montelukast 10 MG Oral Tablet montelukast (SINGULAIR) tablet 10 mg montelukast (SINGULAIR) tablet 10 mg 09/05/2020 11:00:00 PM EDT 10 mg Oral active 10 mg, Oral, Nightly, First dose on Tue09/05/[address] [facility] Medication administered onsite atorvastatin 80 MG Oral Tablet atorvastatin (LIPITOR) tablet 80 mg atorvastatin (LIPITOR) tablet 80 mg 09/05/2020 11:00:00 PM EDT 80 mg Oral active 80 mg, Oral, Daily, First dose on Tue09/05/[address] [facility] Medication administered onsite magnesium sulfate 1 g in dextrose 5% infusion (premix) [id number] 09/05/2020 11:00:00 PM EDT 1 g Intravenous completed 1 g, Intravenous, at 200 mL/hr, Once, Tue09/05/20 at 2300, For [address] [facility] Medication administered onsite normal saline flush 0.9 % injection 3 mL [id number] 09/05/2020 10:00:00 PM EDT 3 mL Intravenous active 3 mL , Intravenous, Every 8 hours (scheduled), First dose on Tue09/05/20 at 2200
flush per protocol, D/C Main IV fluid if appropriate
[facility] Medication administered onsite Influenza Vac Split Quad injection 0.5 mL [id number] 09/05/2020 1 0:00:00 PM EDT 0.5 mL Intramuscular completed 0.5 mL , Intramuscular, During hospitalization, Tue09/05/20 at 2200, For [address] [facility] Medication administered onsite ondansetron (ZOFRAN) injection 4 mg [id number] 09/05/2020 08:46:4 4 PM EDT 4 mg Intravenous active 4 mg, In travenous, Every 6 hours PRN, nausea, vomiting, Starting Tue09/05/[address] [facility] Medication administered onsite Acetaminophen 325 MG Oral Tablet acetaminophen (TYLENO L) 325 MG tablet 650 mg acetaminophen (TYLENOL) 325 MG tablet 650 mg 09/05/2020 08:46:40 PM EDT 650 mg Oral aborted 650 mg, Or al, Every 8 hours PRN, mild pain (1-3), headaches, Starting Tue09/05/20 at 2046
"Maximum dose of acetaminophen is 4,000 mg from all sources in [address] hours."
[facility] Medication administered onsite 12 mcg/hr 09/02/2020 12:00:00 AM EDT patch 72 hour 10 APPLY 1 PATCH TO THE SKIN EVERY 72 HOURS MAXIMUM DAILY DOSE = 1 PATCH EVERY 3 DAYS APPLY 1 PATCH TO THE SKIN EVERY 72 HOURS MAXIMUM DAILY DOSE = 1 PATCH EVERY 3 DAYS SOLD: 09/09/2020 [facility] 50 mg 09/01/2020 12:00:00 AM EDT tablet 60 TAKE 1/2 TABLET BY MOUTH AT BEDTIME FOR 7 DAYS THEN 1 TABLET AT BEDTIME FOR 7 DAYS THEN 2 TABLETS AT BEDTIME TAKE 1/2 TABLET BY MOUTH AT BEDTIME FOR 7 DAYS THEN 1 TABLET AT BEDTIME FOR 7 DAYS THEN 2 TABLETS AT BEDTIME SOLD: 09/09/2020 [facility] 8 mg/24 hour 08/05/2020 12:00:00 AM EDT patch 24 hour 90 APPLY 1 PATCH TO THE SKIN DAILY MAXIMUM DAILY DOSE = 1 APPLY 1 PATCH TO THE SKIN DAILY MAXIMUM DAILY DOSE = 1 SOLD: 08/05/2020 [facility] 12 mcg/hr 07/23/2020 12:00:00 AM EDT patch 72 hour 10 APPLY ONE PATCH TO THE SKIN EVERY 72 HOURS. MAXIMUM DAILY DOSE = 1 PATCH EVERY 3 DAYS APPLY ONE PATCH TO THE SKIN EVERY 72 HOURS. MAXIMUM DAILY DOSE = 1 PATCH EVERY 3 DAYS SOLD: 07/27/2020 [facility] 100-50 mcg/dose 07/10/2020 12:00:00 AM EDT blister with justin ce 180 INHALE ONE PUFF BY MOUTH TWICE A DAY INHALE ONE PUFF BY MOUTH TWICE A DAY SOLD: 10/14/2020 [facility] 100-50 mcg/dose 07/10/2020 12:00:00 AM EDT blister with justin ce 180 INHALE ONE PUFF BY MOUTH TWICE A DAY INHALE ONE PUFF BY MOUTH TWICE A DAY SOLD: 07/13/2020 [facility] topiramate 50 MG Oral Tablet Topiramate 07/09/2020 12:00:00 AM EDT completed [facility] ([facility], ) 50 mg 07/09/2020 12:00:00 AM EDT tablet 60 TAKE 1/2 TABLET BY MOUTH AT BEDTIME FOR 1 WEEK THEN 1 TABLET AT BEDTIME FOR 1 WEEK THEN TAKE 2 TABLETS AT BEDTIME TAKE 1/2 TABLET BY MOUTH AT BEDTIME FOR 1 WEEK THEN 1 TABLET AT BEDTIME FOR 1 WEEK THEN TAKE 2 TABLETS AT BEDTIME SOLD: 07/10/2020 [facility] 50 mg 07/09/2020 12:00:00 AM EDT tablet 60 TAKE 1/2 TABLET BY MOUTH AT BEDTIME FOR 1 WEEK THEN 1 TABLET AT BEDTIME FOR 1 WEEK THEN TAKE 2 TABLETS AT BEDTIME TAKE 1/2 TABLET BY MOUTH AT BEDTIME FOR 1 WEEK THEN 1 TABLET AT BEDTIME FOR 1 WEEK THEN TAKE 2 TABLETS AT BEDTIME SOLD: 08/08/2020 [facility] 750 mg 07/04/2020 12:00:00 AM EDT tablet 90 TAKE ONE TABLET BY MOUTH THREE TIMES A DAY TAKE ONE TABLET BY MOUTH THREE TIMES A DAY SOLD: 10/14/2020 [facility] 750 mg 07/04/2020 12:00:00 AM EDT tablet 90 TAKE ONE TABLET BY MOUTH THREE TIMES A DAY TAKE ONE TABLET BY MOUTH THREE TIMES A DAY SOLD: 07/10/2020 [facility] 750 mg 07/04/2020 12:00:00 AM EDT tablet 90 TAKE ONE TABLET BY MOUTH THREE TIMES A DAY TAKE ONE TABLET BY MOUTH THREE TIMES A DAY SOLD: 09/09/2020 [facility] 750 mg 07/04/2020 12:00:00 AM EDT tablet 90 TAKE ONE TABLET BY MOUTH THREE TIMES A DAY TAKE ONE TABLET BY MOUTH THREE TIMES A DAY SOLD: 08/08/2020 [facility] 12 mcg/hr 06/20/2020 12:00:00 AM EDT patch 72 hour 10 APPLY ONE PATCH TO THE SKIN EVERY 72 HOURS MAXIMUM DAILY DOSE = 1 PATCH/72 HOURS APPLY ONE PATCH TO THE SKIN EVERY 72 HOURS MAXIMUM DAILY DOSE = 1 PATCH/72 HOURS SOLD: 06/24/2020 [facility] 30 gauge 06/13/2020 12:00:00 AM EDT misc 100 USE TWO TIMES A DAY DIRECTED USE TWO TIMES A DAY DIRECTED SOLD: 06/18/2020 [facility] 30 gauge 06/13/2020 12:00:00 AM EDT misc 100 USE TWO TIMES A DAY DIRECTED USE TWO TIMES A DAY DIRECTED SOLD: 09/24/2020 [facility] 30 gauge 06/13/2020 12:00:00 AM EDT misc 100 USE TWO TIMES A DAY DIRECTED USE TWO TIMES A DAY DIRECTED SOLD: 08/05/2020 [facility] 30 gauge 06/13/2020 12:00:00 AM EDT misc 100 USE TWO TIMES A DAY DIRECTED USE TWO TIMES A DAY DIRECTED SOLD: 11/13/2020 [facility] pantoprazole 40 MG Delayed Release Oral Tablet PANTOPRAZOLE SODIUM 06/06/2020 12:00:00 AM EDT tablet,delayed release (DR/EC) 180 T FLOWER ONE TABLET BY MOUTH TWICE A DAY TAKE ONE TABLET BY MOUTH TWICE A DAY SOLD: 09/09/2020 [facility] 15 mg 06/06/2020 12:00:00 AM EDT tablet 30 TAKE ONE TABLET BY MOUTH EVERY DAY TAKE ONE TABLET BY MOUTH EVERY DAY SOLD: 06/09/2020 [facility] 750 mg 06/06/2020 12:00:00 AM EDT tablet extended release 24 hr 270 TAKE ONE TABLET BY MOUTH THREE TIMES A DAY WITH MEALS TAKE ONE TABLET BY MOUTH THREE TIMES A DAY WITH MEALS SOLD: 06/09/2020 [facility] 90 mcg/actuation 06/06/2020 12:00:00 AM EDT HFA aerosol inha ler 18 INHALE TWO PUFFS BY MOUTH EVERY 4 HOURS NEEDED INHALE TWO PUFFS BY MOUTH EVERY 4 HOURS NEEDED SOLD: 09/09/2020 [facility] 90 mcg/actuation 06/06/2020 12:00:00 AM EDT HFA aerosol inha ler 18 INHALE TWO PUFFS BY MOUTH EVERY 4 HOURS NEEDED INHALE TWO PUFFS BY MOUTH EVERY 4 HOURS NEEDED SOLD: 08/22/2020 [facility] 100 mcg 06/06/2020 12:00:00 AM EDT tablet 90 TAKE ONE TABLET BY MOUTH EVERY MORNING ON EMPTY STOMACH TAKE ONE TABLET BY MOUTH EVERY MORNING O N EMPTY STOMACH SOLD: 06/09/2020 [facility] 5 mg 06/06/2020 12:00:00 AM EDT tablet 180 TAKE 1 TABLET BY MOUTH TWO TIMES A DAY. TAKE THE FIRST TABLET WITH BREAKFAST OR THE FIRST MAIN MEAL OF THE DAY. TAKE 1 TABLET BY MOUTH TWO TIMES A DAY. TAKE THE FIRST TABLET WITH BREAKFAST OR THE FIRST MAIN MEAL OF THE DAY. SOLD: 09/09/2020 [facility] 15 mg 06/06/2020 12:00:00 AM EDT tablet 30 TAKE ONE TABLET BY MOUTH EVERY DAY TAKE ONE TABLET BY MOUTH EVERY DAY SOLD: 10/14/2020 [facility] 24 HR Metformin hydrochloride 750 MG Extended Release Oral T ablet METFORMIN HCL 06/06/2020 12:00:00 AM EDT tablet extended release 24 hr 270 TAKE ONE TABLET BY MOUTH THREE TIMES A DAY WITH MEALS TAKE ONE TABLET BY MOUTH THREE TIMES A D AY WITH MEALS SOLD: 09/09/2020 [facility] 15 mg 06/06/2020 12:00:00 AM EDT tablet 30 TAKE ONE TABLET BY MOUTH EVERY DAY TAKE ONE TABLET BY MOUTH EVERY DAY SOLD: 11/13/2020 [facility] 15 mg 06/06/2020 12:00:00 AM EDT tablet 30 TAKE ONE TABLET BY MOUTH EVERY DAY TAKE ONE TABLET BY MOUTH EVERY DAY SOLD: 07/10/2020 [facility] 100 mcg 06/06/2020 12:00:00 AM EDT tablet 90 TAKE ONE TABLET BY MOUTH EVERY MORNING ON EMPTY STOMACH TAKE ONE TABLET BY MOUTH EVERY MORNING O N EMPTY STOMACH SOLD: 09/09/2020 [facility] 2.5 mg /3 mL (0.083 %) 06/06/2020 12:00:00 AM EDT solu tion for nebulization 225 INHALE THE CONTENTS OF ONE VIAL VIA NEBU LIZER EVERY 4 HOURS NEEDED INHALE THE CONTENTS OF ONE VIAL VIA NEBULIZER EVERY 4 HOURS NEEDED SOLD: 06/09/2020 [facility] 40 mg 06/06/2020 12:00:00 AM EDT tablet,delayed release (DR/EC) 180 TAKE ONE TABLET BY MOUTH TWICE A DAY TAKE ONE TABLET BY MOUTH TWICE A DAY SOLD: 06/09/2020 [facility] Escitalopram 20 MG Oral Tablet ESCITALOPRAM OXALATE 06/06/2020 1 2:00:00 AM EDT tablet 90 TAKE ONE TABLET BY MOUTH EVERY D AY TAKE ONE TABLET BY MOUTH EVERY DAY SOLD: 06/09/2020 [facility] 90 mcg/actuation 06/06/2020 12:00:00 AM EDT HFA aerosol inha ler 18 INHALE TWO PUFFS BY MOUTH EVERY 4 HOURS NEEDED INHALE TWO PUFFS BY MOUTH EVERY 4 HOURS NEEDED SOLD: 08/05/2020 [facility] 90 mcg/actuation 06/06/2020 12:00:00 AM EDT HFA aerosol inha ler 18 INHALE TWO PUFFS BY MOUTH EVERY 4 HOURS NEEDED INHALE TWO PUFFS BY MOUTH EVERY 4 HOURS NEEDED SOLD: 07/04/2020 [facility] 15 mg 06/06/2020 12:00:00 AM EDT tablet 30 TAKE ONE TABLET BY MOUTH EVERY DAY TAKE ONE TABLET BY MOUTH EVERY DAY SOLD: 09/09/2020 [facility] 5 mg 06/06/2020 12:00:00 AM EDT tablet 180 TAKE 1 TABLET BY MOUTH TWO TIMES A DAY. TAKE THE FIRST TABLET WITH BREAKFAST OR THE FIRST MAIN MEAL OF THE DAY. TAKE 1 TABLET BY MOUTH TWO TIMES A DAY. TAKE THE FIRST TABLET WITH BREAKFAST OR THE FIRST MAIN MEAL OF THE DAY. SOLD: 06/09/2020 [facility] 90 mcg/actuation 06/06/2020 12:00:00 AM EDT HFA aerosol inha ler 18 INHALE TWO PUFFS BY MOUTH EVERY 4 HOURS NEEDED INHALE TWO PUFFS BY MOUTH EVERY 4 HOURS NEEDED SOLD: 07/18/2020 [facility] Escitalopram 20 MG Oral Tablet ESCITALOPRAM OXALATE 06/06/2020 1 2:00:00 AM EDT tablet 90 TAKE ONE TABLET BY MOUTH EVERY D AY TAKE ONE TABLET BY MOUTH EVERY DAY SOLD: 09/09/2020 [facility] 90 mcg/actuation 06/06/2020 12:00:00 AM EDT HFA aerosol inha ler 18 INHALE TWO PUFFS BY MOUTH EVERY 4 HOURS NEEDED INHALE TWO PUFFS BY MOUTH EVERY 4 HOURS NEEDED SOLD: 06/09/2020 [facility] 15 mg 06/06/2020 12:00:00 AM EDT tablet 30 TAKE ONE TABLET BY MOUTH EVERY DAY TAKE ONE TABLET BY MOUTH EVERY DAY SOLD: 08/08/2020 [facility] 125 mcg (5,000 unit) 06/05/2020 12:00:00 AM EDT tablet 30 TAKE ONE TABLET BY MOUTH EVERY DAY TAKE ONE TABLET BY MOUTH EVERY DAY SOLD: 06/09/2020 [facility] 125 mcg (5,000 unit) 06/05/2020 12:00:00 AM EDT tablet 30 TAKE ONE TABLET BY MOUTH EVERY DAY TAKE ONE TABLET BY MOUTH EVERY DAY SOLD: 11/13/2020 [facility] 125 mcg (5,000 unit) 06/05/2020 12:00:00 AM EDT tablet 30 TAKE ONE TABLET BY MOUTH EVERY DAY TAKE ONE TABLET BY MOUTH EVERY DAY SOLD: 08/08/2020 [facility] 125 mcg (5,000 unit) 06/05/2020 12:00:00 AM EDT tablet 30 TAKE ONE TABLET BY MOUTH EVERY DAY TAKE ONE TABLET BY MOUTH EVERY DAY SOLD: 07/10/2020 [facility] 125 mcg (5,000 unit) 06/05/2020 12:00:00 AM EDT tablet 30 TAKE ONE TABLET BY MOUTH EVERY DAY TAKE ONE TABLET BY MOUTH EVERY DAY SOLD: 10/14/2020 [facility] 125 mcg (5,000 unit) 06/05/2020 12:00:00 AM EDT tablet 30 TAKE ONE TABLET BY MOUTH EVERY DAY TAKE ONE TABLET BY MOUTH EVERY DAY SOLD: 09/09/2020 [facility] 8 mg/24 hour 05/28/2020 12:00:00 AM EDT patch 24 hour 30 APPLY ONE PATCH TO THE SKIN DAILY FOR 24 HOURS MAXIMUM DAILY DOSE = 1 APPLY ONE PATCH TO THE SKIN DAILY FOR 24 HOURS MAXIMUM DAILY DOSE = 1 SOLD: 07/04/2020 [facility] 24 HR Rotigotine 0.333 MG/HR Transdermal Patch [Neupro] Neup ro 05/28/2020 12:00:00 AM EDT active M [facility] ([facility], ) 8 mg/24 hour 05/28/2020 12:00:00 AM EDT patch 24 hour 30 APPLY ONE PATCH TO THE SKIN DAILY FOR 24 HOURS MAXIMUM DAILY DOSE = 1 APPLY ONE PATCH TO THE SKIN DAILY FOR 24 HOURS MAXIMUM DAILY DOSE = 1 SOLD: 06/03/2020 [facility] 12 mcg/hr 05/21/2020 12:00:00 AM EDT patch 72 hour 10 APPLY 1 PATCH TRANSDERMALLY EVERY 72 HOURS MAXIMUM DAILY DOSE = 1 EVERY 72 HOURS APPLY 1 PATCH TRANSDERMALLY EVERY 72 HOURS MAXIMUM DAILY DOSE = 1 EVERY 72 HOURS SOLD: 05/22/2020 [facility] 25 mg 05/20/2020 12:00:00 AM EDT tablet 180 TAKE ONE TABLET BY MOUTH TWICE A DAY TAKE ONE TABLET BY MOUTH TWICE A DAY SOLD: 05/22/2020 [facility] 25 mg 05/20/2020 12:00:00 AM EDT tablet 180 TAKE ONE TABLET BY MOUTH TWICE A DAY TAKE ONE TABLET BY MOUTH TWICE A DAY SOLD: 08/19/2020 [facility] atorvastatin 80 MG Oral Tablet ATORVASTATIN CALCIUM 05/19/2020 1 2:00:00 AM EDT tablet 90 TAKE ONE TABLET BY MOUTH EVERY D AY TAKE ONE TABLET BY MOUTH EVERY DAY SOLD: 05/22/2020 [facility] 80 mg 05/19/2020 12:00:00 AM EDT tablet 90 TAKE ONE TABLET BY MOUTH EVERY DAY TAKE ONE TABLET BY MOUTH EVERY DAY SOLD: 08/19/2020 [facility] atorvastatin 80 MG Oral Tablet atorvastatin (LIPITOR) 80 MG tablet atorvastatin (LIPITOR) 80 MG tablet 05/19/2020 12:00:00 AM EDT 80 mg Oral active Take 1 tablet (80 mg total) by mouth daily [facility] Metoprolol Tartrate 25 MG Oral Tablet me toprolol tartrate (LOPRESSOR) 25 MG tablet metoprolol tartrate (LOPRESSOR) 25 MG tablet 05/19/2020 12:0 0:00 AM EDT 25 mg Oral active Take 1 tablet (2 5 mg total) by mouth 2 (two) times a day [facility] 80 mg 05/19/2020 12:00:00 AM EDT tablet 90 TAKE ONE TABLET BY MOUTH EVERY DAY TAKE ONE TABLET BY MOUTH EVERY DAY SOLD: 11/20/2020 [facility] gabapentin 800 MG Oral Tablet GABAPENTIN 04/23/2020 12:00:00 AM EDT ta blet 90 TAKE ONE TABLET BY MOUTH THREE TIMES A DAY TAKE ONE TABLET BY MOUTH THREE TIMES A DAY SOLD: 06/03/2020 [facility] gabapentin 800 MG Oral Tablet GABAPENTIN 04/23/2020 12:00:00 AM EDT ta blet 90 TAKE ONE TABLET BY MOUTH THREE TIMES A DAY TAKE ONE TABLET BY MOUTH THREE TIMES A DAY SOLD: 05/02/2020 [facility] gabapentin 800 MG Oral Tablet GABAPENTIN 04/23/2020 12:00:00 AM EDT ta blet 90 TAKE ONE TABLET BY MOUTH THREE TIMES A DAY TAKE ONE TABLET BY MOUTH THREE TIMES A DAY SOLD: 07/04/2020 [facility] 12 mcg/hr 04/22/2020 12:00:00 AM EDT patch 72 hour 10 APPLY 1 PATCH TO THE SKIN ONCE EVERY 72 HOURS MAXIMUM DAILY DOSE = 1 PATCH PER 72 HOURS APPLY 1 PATCH TO THE SKIN ONCE EVERY 72 HOURS MAXIMUM DAILY DOSE = 1 PATCH PER 72 HOURS SOLD: 04/22/2020 [facility] gabapentin 600 MG Oral Tablet gabapentin (NEURONTIN) 6 00 MG tablet gabapentin (NEURONTIN) 600 MG tablet 04/22/2020 12:00:00 AM EDT 600 mg Oral active Take 600 mg by mouth 3 (three) times a day [facility] Metformin hydrochloride 500 MG Oral Tablet metFORMIN ( GLUCOPHAGE) 500 MG tablet metFORMIN (GLUCOPHAGE) 500 MG tablet 04/15/2020 12:00:00 AM EDT 750 m g Oral active Take 1.5 tablets (750 mg tot al) by mouth 3 (three) times a day [facility] 81 mg 04/14/2020 12:00:00 AM EDT tablet,chewable 30 CHEW ONE TABLET BY MOUTH EVERY DAY CHEW ONE TABLET BY MOUTH EVERY DAY SOLD: 05/13/2020 [facility] 81 mg 04/14/2020 12:00:00 AM EDT tablet,chewable 30 CHEW ONE TABLET BY MOUTH EVERY DAY CHEW ONE TABLET BY MOUTH EVERY DAY SOLD: 04/15/2020 [facility] 81 mg 04/14/2020 12:00:00 AM EDT tablet,chewable 30 CHEW ONE TABLET BY MOUTH EVERY DAY CHEW ONE TABLET BY MOUTH EVERY DAY SOLD: 06/12/2020 [facility] 81 mg 04/14/2020 12:00:00 AM EDT tablet,chewable 30 CHEW ONE TABLET BY MOUTH EVERY DAY CHEW ONE TABLET BY MOUTH EVERY DAY SOLD: 07/13/2020 [facility] 81 mg 04/14/2020 12:00:00 AM EDT tablet,chewable 30 CHEW ONE TABLET BY MOUTH EVERY DAY CHEW ONE TABLET BY MOUTH EVERY DAY SOLD: 09/17/2020 [facility] Aspirin 81 MG Chewable Tablet aspirin 81 MG chewable t ablet aspirin 81 MG chewable tablet 04/14/2020 12:00:00 AM EDT 81 mg Oral ac tive Chew 1 tablet (81 mg total) daily [facility] 81 mg 04/14/2020 12:00:00 AM EDT tablet,chewable 30 CHEW ONE TABLET BY MOUTH EVERY DAY CHEW ONE TABLET BY MOUTH EVERY DAY SOLD: 10/17/2020 [facility] 81 mg 04/14/2020 12:00:00 AM EDT tablet,chewable 30 CHEW ONE TABLET BY MOUTH EVERY DAY CHEW ONE TABLET BY MOUTH EVERY DAY SOLD: 08/12/2020 [facility] clopidogrel 75 MG Oral Tablet clopidogrel (PLAVIX) 75 MG tablet clopidogrel (PLAVIX) 75 MG tablet 04/14/2020 12:00:00 AM EDT 75 mg Oral active Take 1 tablet (75 mg total) by mouth daily [facility] clopidogrel 75 MG Oral Tablet clopidogrel (PLAVIX) tab let 75 mg clopidogrel (PLAVIX) tablet 75 mg 04/13/2020 09:00:00 AM EDT 75 mg Oral active 75 mg, Oral, Daily, First dose on Tue04/13/20 at 0900, Post-op
May begin the same day
[facility] Medication administered onsite 75 mg 04/13/2020 12:00:00 AM EDT tablet 30 TAKE ONE TABLET BY MOUTH EVERY DAY TAKE ONE TABLET BY MOUTH EVERY DAY SOLD: 08/12/2020 [facility] 75 mg 04/13/2020 12:00:00 AM EDT tablet 30 TAKE ONE TABLET BY MOUTH EVERY DAY TAKE ONE TABLET BY MOUTH EVERY DAY SOLD: 05/13/2020 [facility] 75 mg 04/13/2020 12:00:00 AM EDT tablet 30 TAKE ONE TABLET BY MOUTH EVERY DAY TAKE ONE TABLET BY MOUTH EVERY DAY SOLD: 04/13/2020 [facility] 25 mg 04/13/2020 12:00:00 AM EDT tablet 60 TAKE ONE TABLET BY MOUTH TWICE A DAY TAKE ONE TABLET BY MOUTH TWICE A DAY SOLD: 04/13/2020 [facility] 75 mg 04/13/2020 12:00:00 AM EDT tablet 30 TAKE ONE TABLET BY MOUTH EVERY DAY TAKE ONE TABLET BY MOUTH EVERY DAY SOLD: 11/20/2020 [facility] 75 mg 04/13/2020 12:00:00 AM EDT tablet 30 TAKE ONE TABLET BY MOUTH EVERY DAY TAKE ONE TABLET BY MOUTH EVERY DAY SOLD: 06/12/2020 [facility] 75 mg 04/13/2020 12:00:00 AM EDT tablet 30 TAKE ONE TABLET BY MOUTH EVERY DAY TAKE ONE TABLET BY MOUTH EVERY DAY SOLD: 07/13/2020 [facility] 75 mg 04/13/2020 12:00:00 AM EDT tablet 30 TAKE ONE TABLET BY MOUTH EVERY DAY TAKE ONE TABLET BY MOUTH EVERY DAY SOLD: 10/17/2020 [facility] 75 mg 04/13/2020 12:00:00 AM EDT tablet 30 TAKE ONE TABLET BY MOUTH EVERY DAY TAKE ONE TABLET BY MOUTH EVERY DAY SOLD: 09/17/2020 [facility] atorvastatin 80 MG Oral Tablet atorvastatin (LIPITOR) 80 MG tablet atorvastatin (LIPITOR) 80 MG tablet 04/13/2020 12:00:00 AM EDT 80 mg Oral active Take 1 tablet (80 mg total) by mouth daily [facility] Nitroglycerin 0.4 MG Sublingual Tablet n itroglycerin (NITROSTAT) 0.4 MG SL tablet nitroglycerin (NITROSTAT) 0.4 MG SL tablet 04/13/2020 12:00:00 A M EDT 0.[address] 1 t ablet (0.4 mg total) under the tongue every 5 (five) minutes as needed for chest pain [facility] Metoprolol Tartrate 25 MG Oral Tablet me toprolol tartrate (LOPRESSOR) 25 MG tablet metoprolol tartrate (LOPRESSOR) 25 MG tablet 04/13/2020 12:0 0:00 AM EDT 25 mg Oral active Take 1 tablet (2 5 mg total) by mouth 2 (two) times a day [facility] 0.4 mg 04/13/2020 12:00:00 AM EDT tablet, sublingual 25 PLACE ONE TABLET UNDER THE TONGUE EVERY 5 MINUTES FOR UP TO 3 DOSES NEEDED FOR CHEST PAIN. IF CHEST PAIN STILL PERSISTS CONTACT [address] ONE TABLET UNDER THE TONGUE EVERY 5 MINUTES FOR UP TO 3 DOSES NEEDED FOR CHEST PAIN. IF CHEST PAIN STILL PERSISTS CONTACT 911 SOLD: 04/13/2020 [facility] atorvastatin 80 MG Oral Tablet ATORVASTATIN CALCIUM 04/13/2020 1 2:00:00 AM EDT tablet 30 TAKE ONE TABLET BY MOUTH EVERY D AY TAKE ONE TABLET BY MOUTH EVERY DAY SOLD: 04/13/2020 [facility] Nitroglycerin 0.02 MG/MG Topical Ointmen t nitroglycerin (NITROSTAT) 2 % ointment 1 inch nitroglycerin (NITROSTAT) 2 % ointment 1 inch 04/12/20 20 06:00:00 PM EDT 1 g Topical aborted 1 inch ( 1 g), Topical, Every 6 hours (scheduled), First dose on 04/12/20 at 1800
1 inch = [address]
[facility] Medication administered onsite Morphine Sulfate (PF) injection 2 mg [id number] 04/12/2020 04:00: 00 PM EDT 2 mg Intravenous completed 2 mg, In travenous, Once, 04/12/20 at 1600, For [address] [facility] Medication administered onsite normal saline flush 0.9 % injection 3 mL [id number] 04/12/2020 02:00:00 PM EDT 3 mL Intravenous active 3 mL , Intravenous, Every 8 hours (scheduled), First dose on 04/12/20 at 1400, Pre-op
Rapid push positive pressure flushing shall be performed with a 10 cc normal saline syringe to check the PATENCY of a PIV site prior to any infusion therapy initiation unless resistance is met.
[facility] Medication administered onsite normal saline flush 0.9 % injection 3 mL [id number] 04/12/2020 02:00:00 PM EDT 3 mL Intravenous active 3 mL , Intravenous, PROTOCOL, First dose on 04/12/20 at 1400, Pre-op
flush per protocol, D/C Main IV fluid if appropriate
[facility] Medication administered onsite normal saline flush 0.9 % injection 3 mL [id number] 04/12/2020 02:00:00 PM EDT 3 mL Intravenous active 3 mL , Intravenous, Every 8 hours (scheduled), First dose on 04/12/20 at 1400, Pre-op
Rapid push positive pressure flushing shall be performed with a 10 cc normal saline syringe to check the PATENCY of a PIV site prior to any infusion therapy initiation unless resistance is met.
[facility] Medication administered onsite Morphine Sulfate (PF) injection 2 mg [id number] 04/12/2020 02:00: 00 PM EDT 2 mg Intravenous completed 2 mg, In travenous, Once, 04/12/20 at 1400, For [address] [facility] Medication administered onsite Aspirin 81 MG Chewable Tablet aspirin chewable tablet 81 mg aspirin chewable tablet 81 mg 04/12/2020 02:00:00 PM EDT 81 mg Oral activ e 81 mg, Oral, Daily, First dose on 04/12/20 at 1400, Post-op
D/C any prior aspirin order
[facility] Medication administered onsite sodium chloride 0.9% (NS) infusion [id number] 04/12/2020 02:00:00 P M EDT Intravenous completed at 100 mL/hr, Intravenous, Continuous, Starting 04/12/20 at 1400, For 5 hours, Post-op [facility] Medication administered onsite Acetaminophen 325 MG Oral Tablet acetaminophen (TYLENO L) 325 MG tablet 650 mg acetaminophen (TYLENOL) 325 MG tablet 650 mg 04/12/2020 01:20:14 PM EDT 650 mg Oral active 650 mg, Or al, Every 4 hours PRN, headaches, and non cardiac pain, Starting 04/12/20 at 1320, Post-op
"Maximum dose of acetaminophen is 4,000 mg from all sources in 24 hours."
[facility] Medication administered onsite Nitroglycerin 0.4 MG Sublingual Tablet n itroglycerin (NITROSTAT) SL tablet 0.4 mg nitroglycerin (NITROSTAT) SL tablet 0.4 mg 04/12/2020 01:20:14 P M EDT 0.4 mg Sublingual active 0.4 mg, S ublingual, Every 5 min PRN, chest pain, Starting 04/12/20 at 1320, Post-op
May administer every 5 minutes for 3 doses and call cardio lab MD.
[facility] Medication administered onsite iopamidol (ISOVUE-370) 76 % [id number] 04/12/2020 12:38:50 PM EDT active As needed, Starting 04/12/20 at 1238, Intra-Procedur e [facility] Medication administered onsite 1 ML heparin sodium, porcine 1000 UNT/ML Injection hep gaudencio (porcine) injection heparin (porcine) injection 04/12/2020 11:41:42 AM EDT active As needed, Starting 04/12/20 at 1141, Intra-Procedure [facility] Medication administered onsite 4 ML Verapamil hydrochloride 2.5 MG/ML Injection verap alice (ISOPTIN) injection verapamil (ISOPTIN) injection 04/12/2020 11:41:34 AM EDT active As needed, Starting 04/12/20 at 1141, Intra-Procedure [facility] Medication administered onsite lidocaine 1 % injection [id number] 04/12/2020 11:40:26 AM EDT active As needed, Starting 04/12/20 a t 1140, Intra-Procedure [facility] Medication administered onsite 2 ML Midazolam 1 MG/ML Injection midazolam (VERSED) in jection midazolam (VERSED) injection 04/12/2020 11:35:07 AM EDT active As needed, Starting 04/12/20 at 1135, Intra-Procedure [facility] Medication administered onsite fentaNYL Citrate (PF) (SUBLIMAZE) injection [id number] 04/12/2020 11:34:55 AM EDT active As neede d, Starting 04/12/20 at 1134, Intra-Procedure [facility] Medication administered onsite Alprazolam 0.5 MG Oral Tablet ALPRAZolam (XANAX) table t 0.5 mg ALPRAZolam (XANAX) tablet 0.5 mg 04/12/2020 11:00:00 AM EDT 0.5 mg Oral completed 0.5 mg, Oral, Once, 04/12/20 at 1100, For 1 dose
If first dose does not help with anxiety, prior to cath lab technologist
[facility] Medication administered onsite Aspirin 81 MG Chewable Tablet aspirin chewable tablet 81 mg aspirin chewable tablet 81 mg 04/12/2020 10:00:00 AM EDT 81 mg Oral abort ed 81 mg, Oral, Daily, First dose on 04/12/[address] [facility] Medication administered onsite clopidogrel 75 MG Oral Tablet clopidogrel (PLAVIX) tab let 75 mg clopidogrel (PLAVIX) tablet 75 mg 04/12/2020 10:00:00 AM EDT 75 mg Oral aborted 75 mg, Oral, Daily, First dose on 04/12/[address] [facility] Medication administered onsite Metoprolol Tartrate 25 MG Oral Tablet me toprolol tartrate (LOPRESSOR) tablet 25 mg metoprolol tartrate (LOPRESSOR) tablet 25 mg 04/12/2020 09:00:00 AM EDT 25 mg Oral active 25 mg, Ora l, 2 times daily, First dose on 04/12/20 at 0900
Hold for HR less than 60 or SBP less than [address]
[facility] Medication administered onsite meloxicam 7.5 MG Oral Tablet meloxicam (MOBIC) tablet 15 mg meloxicam (MOBIC) tablet 15 mg 04/12/2020 09:00:00 AM EDT 15 mg Oral activ e 15 mg, Oral, Daily, First dose on 04/12/[address] [facility] Medication administered onsite 24 HR Rotigotine 0.0833 MG/HR Transderma l Patch rotigotine (NEUPRO) 2 MG/24HR 1 patch rotigotine (NEUPRO) 2 MG/24HR 1 patch 04/12/2020 09:00:00 AM EDT 1 {patch} Transdermal active 1 patch, Transdermal, Daily, First dose on 04/12/[address] [facility] Medication administered onsite pantoprazole 40 MG Delayed Release Oral Tablet pantoprazole (PROTONIX) EC tablet 40 mg pantoprazole (PROTONIX) EC tablet 40 mg 04/12/2020 09:00:00 AM E DT 40 mg Oral active Gastroesophageal Reflux Diseas e 40 mg, Oral, Daily, Indications: Gastroesophageal Reflux Disease, First dose on 04/12/[address] [facility] Gastroesophageal Reflux Disease Medication administered onsite Insulin Lispro 100 UNT/ML Injectable Jaky ution insulin lispro (HumaLOG) injection 1-6 Units insulin lispro (HumaLOG) injection 1-6 Units 0 08:00:00 AM EDT Subcutaneous active 1-6 Units, Subcutaneous, MEALSS, First dose on 04/12/20 at 0800
Frail 3 units Nutritional and Correction Insulin ScaleBlood Glucose (mg/dl) <70 start hypoglycemiaprotocolGlucose Eats >=50% Eats <50%Eats Nothing (mg/dl) of meal of mealor [id number] units 1 units 0 [id number]- 1703 units 2 units 0 [id number] units 2 units 1 ogggr740- 2704 units 3 units 1 mcyev450-1593 units 3 units 2 zygjy639- 3705 units 4 units 2 zjefv015-1763 units 4 units 3 units>420 call MD6 units 5 units 3 unitsTest glucose within 30 minutes of insulin administration.Administer insulin within 15 minutes (before or after) of the patient starting to eat.For patients that are NPO, use theNPO (correction) scale to cover POC glucose at 08:00, 12:00, 17:00.
[facility] Medication administered onsite 60 ACTUAT formoterol fumarate 0.005 MG/A CTUAT / mometasone furoate 0.2 MG/ACTUAT Metered Dose Inhaler mometasone-formoterol (DULERA) 200-5 MCG/ACT inhaler 2 puff mometasone-formoterol (DULERA) 200-5 MCG/ACT inhaler 2 puff 04/12/2020 08:00:00 AM EDT 2 {puff} Inhalation active 2 puff, Inhalation, 2 times daily, First dose on 04/12/[address] [facility] Medication administered onsite gabapentin 600 MG Oral Tablet gabapentin (NEURONTIN) t ablet 600 mg gabapentin (NEURONTIN) tablet 600 mg 04/12/2020 06:00:00 AM EDT 600 mg Oral active 600 mg, Oral, 3 times daily, First dose on Tue04/12/[address] [facility] Medication administered onsite Albuterol 0.83 MG/ML Inhalant Solution a lbuterol (PROVENTIL) nebulizer solution 2.5 mg albuterol (PROVENTIL) nebulizer solution 2.5 mg 2019 01:59:59 AM EDT 2.5 mg active 2.5 mg, Nebulization, Every 4 hours PRN, wheezing, shortness of breath, Starting 04/12/[address] [facility] Medication administered onsite 72 HR Fentanyl 0.012 MG/HR Transdermal P atch fentaNYL (DURAGESIC) 12 MCG/HR 1 patch fentaNYL (DURAGESIC) 12 MCG/HR 1 patch 04/12/2020 12:00:00 AM ED T 1 {patch} Transdermal active 1 patch, Transdermal, Administer over 72 Hours, Every 72 hours, First dose on Tue04/12/20 at 0000, For [address] [facility] Medication administered onsite atorvastatin 40 MG Oral Tablet atorvastatin (LIPITOR) tablet 40 mg atorvastatin (LIPITOR) tablet 40 mg 04/11/2020 11:00:00 PM EDT 40 mg Oral active 40 mg, Oral, Daily, First dose on Tue04/11/[address] [facility] Medication administered onsite normal saline flush 0.9 % injection 3 mL [id number] 04/11/2020 11:00:00 PM EDT 3 mL Intravenous active 3 mL , Intravenous, Every 8 hours (scheduled), First dose on Tue04/11/20 at 2300
Rapid push positive pressure flushing shall be performed with a 10 cc normal saline syringe to check the PATENCY of a PIV site prior to any infusion therapy initiation unless resistance is met.
[facility] Medication administered onsite 2 ML Metoclopramide 5 MG/ML Prefilled Sy ringe metoclopramide (REGLAN) injection 10 mg metoclopramide (REGLAN) injection 10 mg 04/11/2020 10:30:42 PM E DT 10 mg Intravenous active 10 mg, I ntravenous, Every 6 hours PRN, for Nausea/Vomiting not relieved by zofran, Starting Tue04/11/[address] [facility] Medication administered onsite ondansetron (ZOFRAN) injection 4 mg [id number] 04/11/2020 10:30:4 1 PM EDT 4 mg Intravenous active 4 mg, In travenous, Every 4 hours PRN, nausea, vomiting, Starting Tue04/11/[address] [facility] Medication administered onsite 500 ML heparin sodium, porcine 50 UNT/ML Injection heparin infusion 25,000 units in 500 mL 0.45% NaCl heparin infusion 25,000 units in 500 mL 0.45% NaCl 04/11/2020 09:00:00 PM EDT 13.6 U/kg/h Intravenous abort ed 13.6 Units/kg/hr 85.8 kg (23.3376 mL/hr, rounded to 23.3 mL/hr), Intravenous, at 23.3 mL/hr, Continuous, Starting Tue04/11/20 at 2100
For Cardiac/BridgeaPTT (seconds) Heparin Dose (weight based)< 34 Bolus: 60 units/kg IV (Maximum bolus: 5,000 units) and increase infusion 3 units/kg/hr IV34 - 50 Bolus: 30 units/kg IV (Maximum bolus: 5,000 units) and increase infusion 2 units/kg/hr IV50.1 - 58 No bolus. Increase infusion 1 unit/kg/hr IV58.1 - 87 Therapeutic, No Gfnbxy54.1 - 97 Decrease infusion 1 unit/kg/hr IV 97.1 - 110Hold infusion for 30 minutes & decrease infusion 2 units/kg/hr IV> 110 Call MD if patient is bleeding. Hold infusion for 60 minutes & decrease infusion 3 units/kg/hr IVInitial heparin IV infusion rate:Do not exceed 1000 units/hr or 12 units/kg/hr initially (whichever is less)Infuse this medication only through single port tubing (SmartSite Infusion Set ref [id number]). Medication and tubing is to be discarded if infusion off for [address]
[facility] Medication administered onsite 1 ML heparin sodium, porcine 1000 UNT/ML Injection heparin (porcine) injection 100-5,000 Units heparin (porcine) injection 100-5,000 Units 04/11/2020 08:40:09 PM EDT Intravenous aborted 100- 5,000 Units, Intravenous, As needed, other, Starting Tue04/11/20 at 2040
Round dose to nearest 100 unitsaPTT:< 34 Bolus: 60 units/kg IV (Maximum bolus: 5,000 units) 34 - 50 Bolus: 30 units/kg IV (Maximum bolus: 5,000 units)
[facility] Medication administered onsite montelukast 10 MG Oral Tablet MONTELUKAST SODIUM 03/26/2020 12:0 0:00 AM EDT tablet 90 TAKE 1 TABLET BY MOUTH ONCE A DAY TAKE 1 TABLET BY MOUTH ONCE A DAY SOLD: 06/24/2020 [facility] montelukast 10 MG Oral Tablet MONTELUKAST SODIUM 03/26/2020 12:0 0:00 AM EDT tablet 90 TAKE 1 TABLET BY MOUTH ONCE A DAY TAKE 1 TABLET BY MOUTH ONCE A DAY SOLD: 03/27/2020 [facility] 12 mcg/hr 03/23/2020 12:00:00 AM EDT patch 72 hour 10 APPLY 1 PATCH TO THE SKIN EVERY 72 HOURS MAXIMUM DAILY DOSE = 1 PATCH PER 72 HOURS APPLY 1 PATCH TO THE SKIN EVERY 72 HOURS MAXIMUM DAILY DOSE = 1 PATCH PER 72 HOURS SOLD: 03/23/2020 [facility] 600 mg 03/18/2020 12:00:00 AM EDT tablet 90 TAKE ONE TABLET BY MOUTH THREE TIMES A DAY TAKE ONE TABLET BY MOUTH THREE TIMES A DAY SOLD: 04/15/2020 [facility] 600 mg 03/18/2020 12:00:00 AM EDT tablet 90 TAKE ONE TABLET BY MOUTH THREE TIMES A DAY TAKE ONE TABLET BY MOUTH THREE TIMES A DAY SOLD: 05/13/2020 [facility] 600 mg 03/18/2020 12:00:00 AM EDT tablet 90 TAKE ONE TABLET BY MOUTH THREE TIMES A DAY TAKE ONE TABLET BY MOUTH THREE TIMES A DAY SOLD: 07/13/2020 [facility] 600 mg 03/18/2020 12:00:00 AM EDT tablet 90 TAKE ONE TABLET BY MOUTH THREE TIMES A DAY TAKE ONE TABLET BY MOUTH THREE TIMES A DAY SOLD: 06/12/2020 [facility] 600 mg 03/18/2020 12:00:00 AM EDT tablet 90 TAKE ONE TABLET BY MOUTH THREE TIMES A DAY TAKE ONE TABLET BY MOUTH THREE TIMES A DAY SOLD: 03/20/2020 [facility] 600 mg 03/18/2020 12:00:00 AM EDT tablet 90 TAKE ONE TABLET BY MOUTH THREE TIMES A DAY TAKE ONE TABLET BY MOUTH THREE TIMES A DAY SOLD: 08/08/2020 [facility] BLOOD SUGAR DIAGNOSTIC 03/13/2020 12:00:00 AM EDT strip 100 USE DIRECTED TWO TIMES A DAY USE DIRECTED TWO TIMES A DAY SOLD: 03/20/2020 [facility] BLOOD SUGAR DIAGNOSTIC 03/13/2020 12:00:00 AM EDT strip 100 USE DIRECTED TWO TIMES A DAY USE DIRECTED TWO TIMES A DAY SOLD: 10/14/2020 [facility] BLOOD SUGAR DIAGNOSTIC 03/13/2020 12:00:00 AM EDT strip 100 USE DIRECTED TWO TIMES A DAY USE DIRECTED TWO TIMES A DAY SOLD: 07/04/2020 [facility] BLOOD SUGAR DIAGNOSTIC 03/13/2020 12:00:00 AM EDT strip 100 USE DIRECTED TWO TIMES A DAY USE DIRECTED TWO TIMES A DAY SOLD: 05/13/2020 [facility] BLOOD SUGAR DIAGNOSTIC 03/13/2020 12:00:00 AM EDT strip 100 USE DIRECTED TWO TIMES A DAY USE DIRECTED TWO TIMES A DAY SOLD: 08/22/2020 [facility] 33 gauge 03/12/2020 12:00:00 AM EDT misc 100 USE DIRECTED TWO TIMES A DAY USE DIRECTED TWO TIMES A DAY SOLD: 03/13/2020 [facility] 33 gauge 03/12/2020 12:00:00 AM EDT misc 100 USE DIRECTED TWO TIMES A DAY USE DIRECTED TWO TIMES A DAY SOLD: 05/02/2020 [facility] 2.5 mg /3 mL (0.083 %) 03/12/2020 12:00:00 AM EDT solu tion for nebulization 75 INHALE 1 VIAL VIA NEBULIZER EVERY 4 HOUR S NEEDED INHALE 1 VIAL VIA NEBULIZER EVERY 4 HOURS NEEDED SOLD: 03/13/2020 [facility] Albuterol 0.83 MG/ML Inhalant Solution a lbuterol (PROVENTIL) (2.5 MG/3ML) 0.083% nebulizer solution albuterol (PROVENTIL) (2.5 MG/3ML) 0.083 % nebulizer solution 03/12/2020 12:00:00 AM EDT 2.5 mg active Take 2.5 mg by nebulization every 6 (six) hours as needed for shortness of breath [facility] 90 mcg/actuation 03/12/2020 12:00:00 AM EDT HFA aerosol inha ler 18 INHALE TWO PUFFS BY MOUTH EVERY 4 HOURS NEEDED INHALE TWO PUFFS BY MOUTH EVERY 4 HOURS NEEDED SOLD: 03/13/2020 [facility] Levothyroxine Sodium 0.1 MG Oral Tablet levothyroxine (SYNTHROID, LEVOTHROID) 100 MCG tablet levothyroxine (SYNTHROID, LEVOTHROID) 100 MCG tablet 0 03/11/2020 12:00:00 AM EDT 100 ug Oral active Take 100 mcg by mouth daily [facility] BLOOD-GLUCOSE METER 03/09/2020 12:00:00 AM EDT misc 1 USE DIRECTED TWO TIMES A DAY USE DIRECTED TWO TIMES A DAY SOLD: 03/09/2020 [facility] 24 HR Metformin hydrochloride 750 MG Ext ended Release Oral Tablet metFORMIN (GLUCOPHAGE-XR) 750 MG 24 hr tablet metFORMIN (GLUCOPHAGE-XR) 750 MG 24 hr tablet 02/25/2020 12:00:00 AM EDT 750 mg Oral active Take 750 mg by mouth 3 (three) times a day [facility] 12 mcg/hr 02/22/2020 12:00:00 AM EDT patch 72 hour 9 APPLY ONE PATCH TO THE SKIN EVERY 72 HOURS MAXIMUM DAILY DOSE = 1 PATCH EVERY 3 DAYS APPLY ONE PATCH TO THE SKIN EVERY 72 HOURS MAXIMUM DAILY DOSE = 1 PATCH EVERY 3 DAYS SOLD: 02/26/2020 [facility] 100 mg 02/20/2020 12:00:00 AM EDT tablet extended release 24 hr 30 TAKE ONE TABLET BY MOUTH EVERY DAY WITH FOOD OR MILK TAKE ONE TABLET BY MOUTH EVERY DAY WITH FOOD OR MILK SOLD: 02/21/2020 [facility] 750 mg 02/20/2020 12:00:00 AM EDT tablet 90 TAKE ONE TABLET BY MOUTH THREE TIMES A DAY TAKE ONE TABLET BY MOUTH THREE TIMES A DAY SOLD: 02/21/2020 [facility] gabapentin 800 MG Oral Tablet GABAPENTIN 02/20/2020 12:00:00 AM EDT ta blet 90 TAKE ONE TABLET BY MOUTH THREE TIMES A DAY TAKE ONE TABLET BY MOUTH THREE TIMES A DAY SOLD: 02/21/2020 [facility] 100 mcg 01/30/2020 12:00:00 AM EDT tablet 30 TAKE 1 TABLET BY MOUTH ONCE IN THE MORNING ON AN EMPTY STOMACH TAKE 1 TABLET BY MOUTH ONCE IN THE MORNI NG ON AN EMPTY STOMACH SOLD: 02/03/2020 [facility] 100 mcg 01/30/2020 12:00:00 AM EDT tablet 30 TAKE 1 TABLET BY MOUTH ONCE IN THE MORNING ON AN EMPTY STOMACH TAKE 1 TABLET BY MOUTH ONCE IN THE MORNI NG ON AN EMPTY STOMACH SOLD: 03/13/2020 [facility] 5-325 mg 01/28/2020 12:00:00 AM EDT tablet 60 TAKE 1 TABLET BY MOUTH TWO TIMES A DAY NEEDED MAXIMUM DAILY DOSE = 2 TABLETS TAKE 1 TABLET BY MOUTH TWO TIMES A DAY NEEDED MAXIMUM DAILY DOSE = 2 TABLETS SOLD: 01/30/2020 [facility] 100 mg 01/24/2020 12:00:00 AM EDT tablet extended release 24 hr 30 TAKE ONE TABLET BY MOUTH EVERY DAY WITH FOOD OR MILK TAKE ONE TABLET BY MOUTH EVERY DAY WITH FOOD OR MILK SOLD: 01/30/2020 [facility] 100 mg 01/24/2020 12:00:00 AM EDT tablet extended release 24 hr 30 TAKE ONE TABLET BY MOUTH EVERY DAY WITH FOOD OR MILK TAKE ONE TABLET BY MOUTH EVERY DAY WITH FOOD OR MILK SOLD: 05/13/2020 [facility] 100 mg 01/24/2020 12:00:00 AM EDT tablet extended release 24 hr 30 TAKE ONE TABLET BY MOUTH EVERY DAY WITH FOOD OR MILK TAKE ONE TABLET BY MOUTH EVERY DAY WITH FOOD OR MILK SOLD: 03/09/2020 [facility] 100 mg 01/24/2020 12:00:00 AM EDT tablet extended release 24 hr 30 TAKE ONE TABLET BY MOUTH EVERY DAY WITH FOOD OR MILK TAKE ONE TABLET BY MOUTH EVERY DAY WITH FOOD OR MILK SOLD: 04/13/2020 [facility] 750 mg 01/23/2020 12:00:00 AM EDT tablet 90 TAKE ONE TABLET BY MOUTH THREE TIMES A DAY TAKE ONE TABLET BY MOUTH THREE TIMES A DAY SOLD: 05/02/2020 [facility] 750 mg 01/23/2020 12:00:00 AM EDT tablet 90 TAKE ONE TABLET BY MOUTH THREE TIMES A DAY TAKE ONE TABLET BY MOUTH THREE TIMES A DAY SOLD: 03/27/2020 [facility] 750 mg 01/23/2020 12:00:00 AM EDT tablet 90 TAKE ONE TABLET BY MOUTH THREE TIMES A DAY TAKE ONE TABLET BY MOUTH THREE TIMES A DAY SOLD: 01/30/2020 [facility] 750 mg 01/23/2020 12:00:00 AM EDT tablet 90 TAKE ONE TABLET BY MOUTH THREE TIMES A DAY TAKE ONE TABLET BY MOUTH THREE TIMES A DAY SOLD: 02/26/2020 [facility] 100 mg 12/28/2019 12:00:00 AM EST tablet extended release 24 hr 30 TAKE ONE TABLET BY MOUTH EVERY DAY WITH FOOD OR MILK TAKE ONE TABLET BY MOUTH EVERY DAY WITH FOOD OR MILK SOLD: 01/30/2020 [facility] 100 mg 12/28/2019 12:00:00 AM EST tablet extended release 24 hr 30 TAKE ONE TABLET BY MOUTH EVERY DAY WITH FOOD OR MILK TAKE ONE TABLET BY MOUTH EVERY DAY WITH FOOD OR MILK SOLD: 01/01/2020 [facility] 100 mg 12/28/2019 12:00:00 AM EST tablet extended release 24 hr 30 TAKE ONE TABLET BY MOUTH EVERY DAY WITH FOOD OR MILK TAKE ONE TABLET BY MOUTH EVERY DAY WITH FOOD OR MILK SOLD: 04/13/2020 [facility] 100 mg 12/28/2019 12:00:00 AM EST tablet extended release 24 hr 30 TAKE ONE TABLET BY MOUTH EVERY DAY WITH FOOD OR MILK TAKE ONE TABLET BY MOUTH EVERY DAY WITH FOOD OR MILK SOLD: 03/09/2020 [facility] 3 mg/24 hour 12/25/2019 12:00:00 AM EST patch 24 hour 30 APPLY ONE PATCH TO THE SKIN EVERY DAY APPLY ONE PATCH TO THE SKIN EVERY DAY SOLD: 05/17/2020 [facility] 3 mg/24 hour 12/25/2019 12:00:00 AM EST patch 24 hour 30 APPLY ONE PATCH TO THE SKIN EVERY DAY APPLY ONE PATCH TO THE SKIN EVERY DAY SOLD: 03/11/2020 [facility] 100-50 mcg/dose 12/25/2019 12:00:00 AM EST blister with justin ce 180 INHALE ONE PUFF BY MOUTH TWICE A DAY INHALE ONE PUFF BY MOUTH TWICE A DAY SOLD: 04/13/2020 [facility] 100-50 mcg/dose 12/25/2019 12:00:00 AM EST blister with justin ce 180 INHALE ONE PUFF BY MOUTH TWICE A DAY INHALE ONE PUFF BY MOUTH TWICE A DAY SOLD: 01/01/2020 [facility] 3 mg/24 hour 12/25/2019 12:00:00 AM EST patch 24 hour 30 APPLY ONE PATCH TO THE SKIN EVERY DAY APPLY ONE PATCH TO THE SKIN EVERY DAY SOLD: 01/01/2020 [facility] 125 mcg (5,000 unit) 11/30/2019 12:00:00 AM EST tablet 30 TAKE ONE TABLET BY MOUTH EVERY DAY TAKE ONE TABLET BY MOUTH EVERY DAY SOLD: 12/03/2019 [facility] 100 mcg 11/23/2019 12:00:00 AM EST tablet 30 TAKE ONE TABLET BY MOUTH EVERY MORNING ON AN EMPTY STOMACH TAKE ONE TABLET BY MOUTH EVERY MORNING O N AN EMPTY STOMACH SOLD: 01/01/2020 [facility] 100 mcg 11/23/2019 12:00:00 AM EST tablet 30 TAKE ONE TABLET BY MOUTH EVERY MORNING ON AN EMPTY STOMACH TAKE ONE TABLET BY MOUTH EVERY MORNING O N AN EMPTY STOMACH SOLD: 11/24/2019 [facility] 5 mg 11/04/2019 12:00:00 AM EST tablet 180 TAKE 1 TABLET BY MOUTH TWO TIMES A DAY TAKE 1 TABLET BY MOUTH TWO TIMES A DAY SOLD: 11/06/2019 [facility] 5 mg 11/04/2019 12:00:00 AM EST tablet 180 TAKE 1 TABLET BY MOUTH TWO TIMES A DAY TAKE 1 TABLET BY MOUTH TWO TIMES A DAY SOLD: 02/26/2020 [facility] 200 mg 10/30/2019 12:00:00 AM EST tablet extended release 24 hr 30 TAKE 1 TABLET BY MOUTH ONCE A DAY MAXIMUM DAILY DOSE = 1 TABLET TAKE 1 TABLET BY MOUTH ONCE A DAY MAXIMUM DAILY DOSE = 1 TABLET SOLD: 10/30/2019 [facility] 10 mg 10/23/2019 12:00:00 AM EST tablet 90 TAKE ONE TABLET BY MOUTH THREE TIMES A DAY TAKE ONE TABLET BY MOUTH THREE TIMES A DAY SOLD: 10/24/2019 [facility] 4 mg 10/15/2019 12:00:00 AM EST tablets,dose pack 21 USE DIRECTED USE DIRECTED SOLD: 10/15/2019 [facility] 7.5-325 mg 10/15/2019 12:00:00 AM EST tablet 45 TAKE ONE TABLET BY MOUTH THREE TIMES A DAY NEEDED MAXIMUM DAILY DOSE = 3 TAKE ONE TABLET BY MOUTH THREE TIMES A DAY NEEDED MAXIMUM DAILY DOSE = 3 SOLD: 10/15/2019 [facility] 500 mg 10/06/2019 12:00:00 AM EST tablet 360 TAKE TWO TABLETS BY MOUTH TWICE A DAY TAKE TWO TABLETS BY MOUTH TWICE A DAY SOLD: 10/06/2019 [facility] 5-325 mg 10/02/2019 12:00:00 AM EST tablet 18 TAKE ONE TABLET BY MOUTH EVERY 4-6 HOURS NEEDED FOR PAIN MAXIMUM DAILY DOSE = 6 TAKE ONE TABLET BY MOUTH EVERY 4-6 HOURS NEEDED FOR PAIN MAXIMUM DAILY DOSE = 6 SOLD: 10/02/2019 [facility] 600 mg 09/06/2019 12:00:00 AM EDT tablet 90 TAKE ONE TABLET BY MOUTH THREE TIMES A DAY TAKE ONE TABLET BY MOUTH THREE TIMES A DAY SOLD: 11/08/2019 [facility] 600 mg 09/06/2019 12:00:00 AM EDT tablet 90 TAKE ONE TABLET BY MOUTH THREE TIMES A DAY TAKE ONE TABLET BY MOUTH THREE TIMES A DAY SOLD: 12/11/2019 [facility] 600 mg 09/06/2019 12:00:00 AM EDT tablet 90 TAKE ONE TABLET BY MOUTH THREE TIMES A DAY TAKE ONE TABLET BY MOUTH THREE TIMES A DAY SOLD: 10/11/2019 [facility] 600 mg 09/06/2019 12:00:00 AM EDT tablet 90 TAKE ONE TABLET BY MOUTH THREE TIMES A DAY TAKE ONE TABLET BY MOUTH THREE TIMES A DAY SOLD: 02/20/2020 [facility] 600 mg 09/06/2019 12:00:00 AM EDT tablet 90 TAKE ONE TABLET BY MOUTH THREE TIMES A DAY TAKE ONE TABLET BY MOUTH THREE TIMES A DAY SOLD: 01/11/2020 [facility] 100 mg 09/04/2019 12:00:00 AM EDT tablet extended release 24 hr 30 TAKE ONE TABLET BY MOUTH EVERY DAY WITH FOOD OR MILK TAKE ONE TABLET BY MOUTH EVERY DAY WITH FOOD OR MILK SOLD: 12/04/2019 [facility] 750 mg 09/04/2019 12:00:00 AM EDT tablet 90 TAKE ONE TABLET BY MOUTH THREE TIMES A DAY TAKE ONE TABLET BY MOUTH THREE TIMES A DAY SOLD: 11/06/2019 [facility] 750 mg 09/04/2019 12:00:00 AM EDT tablet 90 TAKE ONE TABLET BY MOUTH THREE TIMES A DAY TAKE ONE TABLET BY MOUTH THREE TIMES A DAY SOLD: 12/04/2019 [facility] 750 mg 09/04/2019 12:00:00 AM EDT tablet 90 TAKE ONE TABLET BY MOUTH THREE TIMES A DAY TAKE ONE TABLET BY MOUTH THREE TIMES A DAY SOLD: 10/06/2019 [facility] 100 mg 09/04/2019 12:00:00 AM EDT tablet extended release 24 hr 30 TAKE ONE TABLET BY MOUTH EVERY DAY WITH FOOD OR MILK TAKE ONE TABLET BY MOUTH EVERY DAY WITH FOOD OR MILK SOLD: 10/09/2019 [facility] 100 mg 09/04/2019 12:00:00 AM EDT tablet extended release 24 hr 30 TAKE ONE TABLET BY MOUTH EVERY DAY WITH FOOD OR MILK TAKE ONE TABLET BY MOUTH EVERY DAY WITH FOOD OR MILK SOLD: 11/06/2019 [facility] 750 mg 08/03/2019 12:00:00 AM EDT tablet extended release 24 hr 90 TAKE 1 TABLET BY MOUTH THREE TIMES A DAY WITH EVENING MEAL TAKE 1 TABLET BY MOUTH THREE TIMES A DAY WITH EVENING MEAL SOLD: 11/22/2019 [facility] 750 mg 08/03/2019 12:00:00 AM EDT tablet extended release 24 hr 90 TAKE 1 TABLET BY MOUTH THREE TIMES A DAY WITH EVENING MEAL TAKE 1 TABLET BY MOUTH THREE TIMES A DAY WITH EVENING MEAL SOLD: 10/24/2019 [facility] 750 mg 08/03/2019 12:00:00 AM EDT tablet extended release 24 hr 90 TAKE 1 TABLET BY MOUTH THREE TIMES A DAY WITH EVENING MEAL TAKE 1 TABLET BY MOUTH THREE TIMES A DAY WITH EVENING MEAL SOLD: 02/26/2020 [facility] 1.5 mg/0.5 mL 08/01/2019 12:00:00 AM EDT pen injector 6 INJECT 1 SYRINGE UNDER THE SKIN ONCE A WEEK INJECT 1 SYRINGE UNDER THE SKIN ONCE A WEEK SOLD: 10/15/2019 [facility] 3 mg/24 hour 06/14/2019 12:00:00 AM EDT patch 24 hour 30 APPLY 1 PATCH TO THE SKIN ONCE A DAY APPLY 1 PATCH TO THE SKIN ONCE A DAY SOLD: 11/22/2019 [facility] 3 mg/24 hour 06/14/2019 12:00:00 AM EDT patch 24 hour 30 APPLY 1 PATCH TO THE SKIN ONCE A DAY APPLY 1 PATCH TO THE SKIN ONCE A DAY SOLD: 10/24/2019 [facility] 50 mcg (2,000 unit) 05/16/2019 12:00:00 AM EDT capsule 30 TAKE ONE CAPSULE BY MOUTH EVERY DAY TAKE ONE CAPSULE BY MOUTH EVERY DAY SOLD: 01/21/2020 [facility] 50 mcg (2,000 unit) 05/16/2019 12:00:00 AM EDT capsule 30 TAKE ONE CAPSULE BY MOUTH EVERY DAY TAKE ONE CAPSULE BY MOUTH EVERY DAY SOLD: 12/21/2019 [facility] Cholecalciferol 2000 UNT Oral Capsule 50 mcg (2,000 un it) CHOLECALCIFEROL (VITAMIN D3) 05/16/2019 12:00:00 AM EDT capsule 30 T FLOWER ONE CAPSULE BY MOUTH EVERY DAY TAKE ONE CAPSULE BY MOUTH EVERY DAY SOLD: 02/21/2020 [facility] 50 mcg (2,000 unit) 05/16/2019 12:00:00 AM EDT capsule 30 TAKE ONE CAPSULE BY MOUTH EVERY DAY TAKE ONE CAPSULE BY MOUTH EVERY DAY SOLD: 10/24/2019 [facility] 50 mcg (2,000 unit) 05/16/2019 12:00:00 AM EDT capsule 30 TAKE ONE CAPSULE BY MOUTH EVERY DAY TAKE ONE CAPSULE BY MOUTH EVERY DAY SOLD: 11/22/2019 [facility] 50 mcg (2,000 unit) 05/16/2019 12:00:00 AM EDT capsule 30 TAKE ONE CAPSULE BY MOUTH EVERY DAY TAKE ONE CAPSULE BY MOUTH EVERY DAY SOLD: 03/20/2020 [facility] 50 mcg (2,000 unit) 05/16/2019 12:00:00 AM EDT capsule 30 TAKE ONE CAPSULE BY MOUTH EVERY DAY TAKE ONE CAPSULE BY MOUTH EVERY DAY SOLD: 04/22/2020 [facility] buspirone hydrochloride 10 MG Oral Tablet busPIRone (B USPAR) 10 MG tablet busPIRone (BUSPAR) 10 MG tablet 09/28/2016 12:00:00 AM EST aborted TAKE ONE TABLET BY MOUTH BEFORE BEDTIME [facility] Diclofenac Sodium 50 MG Delayed Release Oral Tablet diclofenac (VOLTAREN) 50 MG EC tablet diclofenac (VOLTAREN) 50 MG EC tablet 100 mg Oral aborted Take 100 mg by mouth 2 (two) times a day [facility] 24 HR Rotigotine 0.125 MG/HR Transdermal Patch Rotigotine (NEUPRO) 3 MG/24HR PT24 Rotigotine (NEUPRO) 3 MG/24HR PT24 [address] 3 mg on the skin daily [facility] potassium chloride (KLOR-CON) 20 MEQ packet [id number] 10 meq Oral aborted Take 10 mEq by mouth 2 (two) soy es a day [facility] tramadol hydrochloride 50 MG Oral Tablet traMADol (ULT CHASE) 50 MG tablet traMADol (ULTRAM) 50 MG tablet 200 mg Oral aborted Take 200 mg [address] mouth daily [facility] Metformin hydrochloride 500 MG Oral Tablet metFORMIN ( GLUCOPHAGE) 500 MG tablet metFORMIN (GLUCOPHAGE) 500 MG tablet 750 mg Oral a borted Take 750 mg by mouth 3 (three) times a day 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 [id number] [facility] MEDICAID [id number] Dara [id number] [facility] MEDICAID [id number] [facility] MEDICAID [id number] S [id number] [facility] MEDICAID [id number] S [id number] [facility] MEDICAID [id number] S [id number] [facility](MCAID) O [id number] S [id number] [facility] HEA [id number] S [id number] [facility] COMMUNITY PL [id number] S [id number] [facility] Community Plan Commercial [id number] Self [id number] [place] Part [place] [id number] Self [id number] [facility] Community Plan Medigap Part B [id number] Self [id number] [facility] Community Plan Commercial [id number] Self [id number] [facility] [id number] [facility] [id number] [facility] [id number] [facility] Community Plan Commercial [id number] Self [id number] ANSI-Medicaid [id number] ANSI-Medicaid [id number] ANSI-Medicaid [id number] ANSI-Medicaid [id number] ANSI-Medicaid [id number] ANSI-Medicaid [id number] [facility] Community Plan Commercial [id number] Self [id number] [facility] Community Plan Commercial [id number] Self [id number] [facility] Community Plan Commercial [id number] Self [id number] [facility] Community Plan Commercial [id number] Self [id number] ANSI-Medicaid [id number] ANSI-Medicaid [id number] ANSI-Medicaid [id number] [facility] Community Plan Commercial [id number] Self [id number] [facility] Community Plan Commercial [id number] Self [id number] [facility] Community Plan Commercial [id number] Self [id number] [facility] MEDICAID PRISCILLA HMO [id number] S [id number] Hmo Blue Option/Medicaid Health Maintenance Organization (HMO) VYT2 [id number] Self [id number] [facility]/MCR Health Maintenance Organization (HMO) [id number] Self [id number] [facility] Community Plan Commercial [id number] Self [id number] [facility] Community Plan Commercial [id number] Self [id number] [employer] Blue Option/Medicaid Health Maintenance Organization (HMO) VYT2 [id number] Self [id number] [facility]/MCR Health Maintenance Organization (HMO) [id number] Self [id number] [employer] Blue Option/Medicaid Health Maintenance Organization (HMO) VYT2 [id number] Self [id number] [facility] Health Maintenance Organization (HMO) [id number] Self [id number] [employer] Blue Option/Medicaid Health Maintenance Organization (HMO) VYT2 [id number] Self [id number] [facility]/MCR Health Maintenance Organization (HMO) [id number] Self [id number] [facility] Community Plan Commercial [id number] Self [id number] [facility] Community Plan Commercial [id number] Self [id number] [facility] COMMUNITY PLAN MCDHMO [id number] SP [id number] [employer] Blue Option/Medicaid Health Maintenance Organization (HMO) VYT2 [id number] Self [id number] [facility]/MCR Health Maintenance Organization (HMO) [id number] Self [id number] [employer] Blue Option/Medicaid Health Maintenance Organization (HMO) VYT2 [id number] Self [id number] [facility]/M[facility] Health Maintenance Organization (HMO) [id number] Self [id number] [employer] Blue Option/Medicaid Health Maintenance Organization (HMO) VYT2 [id number] Self [id number] [facility] Health Maintenance Organization (HMO) [id number] Self [id number] [employer] Blue Option/Medicaid Health Maintenance Organization (HMO) VYT2 [id number] Self [id number] [facility]/M[facility] Health Maintenance Organization (HMO) [id number] Self [id number] [employer] Blue Option/Medicaid Health Maintenance Organization (HMO) VYT2 [id number] Self [id number] [facility]/MCR Health Maintenance Organization (HMO) [id number] Self [id number] [employer] Blue Option/Medicaid Health Maintenance Organization (HMO) VYT2 [id number] Self [id number] [facility] Health Maintenance Organization (HMO) [id number] Self [id number] [facility] Community Plan Commercial [id number] Self [id number] [facility] Community Plan Commercial [id number] Self [id number] [facility] Community Plan Commercial [id number] Self [id number] [facility] Community Plan Commercial [id number] Self [id number] [facility] COMMUNITY PLAN MCDHMO [id number] SP [id number] [facility] Community Plan Commercial [id number] Self [id number] [employer] Blue Option/Medicaid Health Maintenance Organization (HMO) VYT2 [id number] Self [id number] [facility]/MCR Health Maintenance Organization (HMO) [id number] Self [id number] [facility] Community Plan Commercial [id number] Self [id number] Hmo Blue Option/Medicaid Health Maintenance Organization (HMO) VYT2 [id number] Self [id number] [facility]/MCR Health Maintenance Organization (HMO) [id number] Self [id number] [employer] Blue Option/Medicaid Health Maintenance Organization (HMO) 302/802 Self 302/802 [facility] Health Maintenance Organization (HMO) Self [facility] Community Plan Commercial Self UH I [id number] Self [id number] [place] Self BLUE CROSS PEDROZA PLAN [id number] SP [id number] [facility] HMO [id number] S [id number] HMO BLUE [id number] SP [id number] Problems, Conditions, and Diagnoses Code Display Name Description Problem Type Effective Dates Data Source(s) 834750564 Migraine without aura, not refractory Mi graine without aura, not refractory Problem 10/01/2020 12:00:00 AM EST MOI ([facility] ) F17.210 Continuous dependence on cigarette smoki ng Continuous dependence on cigarette smoking [id number] 09/05/2020 12:00:[address] [facility] Z79.899 Polypharmacy Polypharmacy [id number] 09/05/2020 12:00:[address] [facility] I20.0 Unstable angina Unstable angina [id number] 09/05/2020 12:0 0:[address] [facility] R51.9 Headache Headache [id number] 09/05/2020 12:00:[address] [facility] I25.10 Coronary artery disease invo lving [place] coronary artery of [place] heart without angina pectoris Coronary artery disease involving [place] coronary artery of [place] heart without angina pectoris [id number] 09/05/2020 12:00:[address] [facility] 207173988 Chronic tension-type headache Chronic tension-type hea dache Problem 07/09/2020 12:00:00 AM EDT MEDLYNN ([facility], ) J44.9 [id number] Chronic obstructive pulmonary di sease, unspecified COPD type Problem 07/01/2020 12:00:00 AM EDT eCW1 ([facility]) I25.10 [id number] Coronary artery dise ase involving [place] coronary artery of [place] heart, angina presence unspecified Problem 07/01/2020 12:00:0 0 AM EDT eCW1 ([facility]) E78.5 87153727 Hyperlipidemia, unspecified hyperlipidemi a type Problem 07/01/2020 12:00:00 AM EDT eCW1 ([facility]) E11.59 74329347 Type 2 diabetes oumou itus with other circulatory complication, without long-term current use of insulin Problem 07/01/2020 12:00:00 AM EDT eCW1 ([facility]) E66.9 202500031 Obesity (BMI 30-39.9) Problem 07/01/2020 12: 00:00 AM EDT eCW1 ([facility]) Z95.5 123001024 S/P coronary artery stent placement Probl em 07/01/2020 12:00:00 AM EDT eCW1 ([facility]) Type 2 diabetes mellitus with diabetic p olyneuropathy Type 2 diabetes mellitus with diabetic polyneuropathy Problem 05/28/2020 12:00:00 AM EDT MED ENT ([facility]) 369645245 Spondylolysis Spondylolysis Problem 05/28/2020 12:00:00 AM EDT MEDENT ([facility]) 532481560 Low back pain Low back pain Problem 05/28/2020 12:00:00 AM EDT MEDENT ([facility]) 352438599 Disorders of initiating and maintaining sleep Disorders of initiating and maintaining sleep Problem 05/28/2020 12:00:00 AM EDT MEDENT ([facility]) 062214222 Periodic limb movement disorder Periodic limb mo vement disorder Problem 05/28/2020 12:00:00 AM EDT MEDENT ([facility]) 72926411 Restless legs Restless legs Problem 05/28/2020 12:00:00 AM EDT MEDENT ([facility]) R51.9 Acute intractable headache Acute intractable headache 19594125 05/21/2020 12:00:[address] [facility] E66.9 Obesity (BMI 30-39.9) Obesity (BMI 30-39.9) 37492914 04/12/2020 12:00:[address] [facility] E11.9 DM (diabetes mellitus) DM (diabetes mellitus) 99814364 04/11/2020 12:00:[address] [facility] I10 HTN (hypertension) HTN (hypertension) 53148371 0 12:00:[address] [facility] R07.9 Chest pain Chest pain 97846108 04/11/2020 12:00:[address] [facility] R79.89 Elevated troponin Elevated troponin 42065520 04/11/2020 12:00:[address] [facility] G89.29 Chronic pain Chronic pain 53495221 04/11/2020 12:00:[address] [facility] Z72.0 Tobacco abuse Tobacco abuse 53818772 04/11/2020 12:00:[address] [facility] K21.9 GERD (gastroesophageal reflux disease) G ERD (gastroesophageal reflux disease) 60171748 04/11/2020 12:00:[address] [facility] J44.9 COPD (chronic obstructive pulmonary dise ase) COPD (chronic obstructive pulmonary disease) 47812280 04/11/2020 12:00:[address] [facility] E78.5 HLD (hyperlipidemia) HLD (hyperlipidemia) 04865223 04/11/2020 12:00:[address] [facility] 71871973 Diabetes mellitus Diabetes mellitus Problem 10/29/2019 12:00:00 AM EST MEDENT ([facility]) 20027801 Headache Headache Problem 10/29/2019 12:00:00 AM ES T MEDENT ([facility]) J32.0 Chronic maxillary sinusitis CHRONIC MAXILLARY SINUSITI S Diagnosis 10/28/2020 07:59:00 AM [facility] R90.82 White matter disease, unspecified WHITE MATTER D ISEASE, UNSPECIFIED Diagnosis 10/28/2020 07:59:00 AM [facility] R93.0 Abnormal findings on diagnos tic imaging of skull and head, not elsewhere classified ABNORMAL FINDINGS ON DX IMAGING OF SKULL AND HEAD, Diagnosis 10/28/2020 07:59:00 AM [facility] I21.4 Non-ST elevation (NSTEMI) myocardial inf arction NON-ST ELEVATION (NSTEMI) MYOCARDIAL INF Diagnosis 10/28/2020 07:59:00 AM [facility] nadeen R51.9 HEADACHE, UNSPECIFIED HEADACHE, UNSPECIFIED Diagnosis 10/28/2020 07:59:00 AM [facility] Z95.5 Presence of coronary angioplasty implant and graft PRESENCE OF CORONARY ANGIOPLASTY IMPLANT AND GRAFT Diagnosis 09/08/2020 06:18:00 PM [facility] Z53.20 Procedure and treatment not carried out because of patient's decision for unspecified reasons PROC/TRTMT NOT CRD OUT BEC PT DECISION FOR UNSP RE Diagnosis 09/08/2020 06:18:00 PM [facility] Z79.899 Other alf (current) drug therapy 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) DRUG THERAPY Diagnosis 09/08/2020 06:18:00 PM [facility] Z79.84 PENITENTIARY (CURRENT) USE OF ORAL HYPOGLYC EMIC DRUGS PENITENTIARY (CURRENT) USE OF ORAL HYPOGLYCEMIC DRUGS Diagnosis 09/08/2020 06:18:00 PM [facility] Z79.1 halfway (current) use of non-steroidal anti-inflammatories (NSAID) ELECTRIC METER TESTER HELPER (CURRENT) USE OF NON-STEROIDAL NON-INFLA Diagnosis 09/08/20 20 06:18:00 PM [facility] Z79.51 intermodal dispatcher (current) use of inhaled stero ids ELECTRIC METER TESTER HELPER (CURRENT) USE OF INHALED STEROIDS Diagnosis 09/08/2020 06:18:00 PM [facility] Z79.82 halfway (current) use of aspirin ELECTRIC METER TESTER HELPER (CU RRENT) USE OF ASPIRIN Diagnosis 09/08/2020 06:18:00 PM [facility] Z79.01 intermodal dispatcher (current) use of anticoagulant s PENITENTIARY (CURRENT) USE OF ANTICOAGULANTS Diagnosis 09/08/2020 06:18:00 PM [facility] Z59.0 Homelessness HOMELESSNESS Diagnosis 09/08/2020 06:18:00 P M [facility] Z20.828 Contact with and (suspected) exposure to other viral communicable diseases CONTACT W AND EXPOSURE TO OTH VIRAL COMMUNICABLE D Diagnosis 09/08/2020 06:18:00 PM [facility] F17.210 Nicotine dependence, cigarettes, uncompl icated NICOTINE DEPENDENCE, CIGARETTES, UNCOMPLICATED Diagnosis 09/08/2020 06:18:00 PM [facility] I10 Essential (primary) hypertension ESSENTIAL (PRIMARY) H YPERTENSION Diagnosis 09/08/2020 06:18:00 PM [facility] E78.00 PURE HYPERCHOLESTEROLEMIA, UNSPECIFIED P URE HYPERCHOLESTEROLEMIA, UNSPECIFIED Diagnosis 09/08/2020 06:18:00 PM [facility] E11.9 Type 2 diabetes mellitus without complic ations TYPE 2 DIABETES MELLITUS WITHOUT COMPLICATIONS Diagnosis 09/08/2020 06:18[facility] J44.9 Chronic obstructive pulmonary disease, u nspecified CHRONIC OBSTRUCTIVE PULMONARY DISEASE, UNSPECIFIED Diagnosis 09/08/2020 06:18:00 PM [facility] I95.9 Hypotension, unspecified HYPOTENSION, UNSPECIFIED Diag nosis 09/08/2020 06:18:00 PM [facility] R42 Dizziness and giddiness DIZZINESS AND GIDDINESS Diagno sis 09/08/2020 06:18:00 PM [facility] I20.0 Unstable angina Unstable angina Diagnosis 09/05/2020 08:2 8:[address] [facility] I20.9 Angina pectoris, unspecified Angina pectoris, unspecif ied Diagnosis 09/05/2020 08:28:[address] [facility] Z79.899 Other alf (current) drug therapy O THER PENITENTIARY (CURRENT) DRUG THERAPY Diagnosis 09/05/2020 11:48:00 AM EDT [facility] Z79.82 halfway (current) use of aspirin ELECTRIC METER TESTER HELPER (CU RRENT) USE OF ASPIRIN Diagnosis 09/05/2020 11:48:00 AM EDT [facility] Z79.84 intermodal dispatcher (current) use of oral hypoglyc emic drugs PENITENTIARY (CURRENT) USE OF ORAL HYPOGLYCEMIC DRUGS Diagnosis 09/05/2020 11:48:00 AM EDT [facility] F17.210 Nicotine dependence, cigarettes, uncompl icated NICOTINE DEPENDENCE, CIGARETTES, UNCOMPLICATED Diagnosis 09/05/2020 11:48:00 AM EDT [facility] Z95.5 Presence of coronary angioplasty implant and graft PRESENCE OF CORONARY ANGIOPLASTY IMPLANT AND GRAFT Diagnosis 09/05/2020 11:48:00 AM EDT [facility] J45.909 Unspecified asthma, uncomplicated UNSPECIFIED THMA, UNCOMPLICATED Diagnosis 09/05/2020 11:48:00 AM T [facility] E11.9 Type 2 diabetes mellitus without complic ations TYPE 2 DIABETES MELLITUS WITHOUT COMPLICATIONS Diagnosis 09/05/2020 11:48:00 AM EDT [facility] I51.9 Heart disease, unspecified HEART DISEASE, UNSPECIFIED Diagnosis 09/05/2020 11:48:00 AM EDT [facility] I10 Essential (primary) hypertension ESSENTIAL (PRIMARY) H YPERTENSION Diagnosis 09/05/2020 11:48:00 AM EDT [facility] I20.0 Unstable angina UNSTABLE ANGINA Diagnosis 09/05/2020 11:4 8:00 AM [facility] I37.1 Nonrheumatic pulmonary valve insufficien cy NONRHEUMATIC PULMONARY VALVE INSUFFICIENCY Diagnosis 07/16/2020 12:49:00 PM EDT [facility] I34.0 Nonrheumatic mitral (valve) insufficienc y NONRHEUMATIC MITRAL (VALVE) INSUFFICIENCY Diagnosis 07/16/2020 12:49:00 PM EDT [facility] I21.4 Non-ST elevation (NSTEMI) myocardial inf arction NON-ST ELEVATION (NSTEMI) MYOCARDIAL INFARCTION Diagnosis 07/16/2020 12:49:00 PM EDT [facility] G62.9 Polyneuropathy, unspecified POLYNEUROPATHY, UNSPECIFIE D Diagnosis 06/11/2020 08:32:00 AM [facility] G25.81 Restless legs syndrome RESTLESS LEGS SYNDROME Diagnosi s 06/11/2020 08:32:00 AM [facility] G90.09 Other idiopathic peripheral autonomic ne uropathy OTHER IDIOPATHIC PERIPHERAL AUTONOMIC NE Diagnosis 06/11/2020 08:32:00 AM [facility] D64.9 Anemia, unspecified ANEMIA, UNSPECIFIED Diagnosis 0 06/11/2020 08:32:00 AM [facility] I21.4 Non-ST elevation (NSTEMI) myocardial inf arction NON-ST ELEVATION (NSTEMI) MYOCARDIAL INFARCTION Diagnosis 06/11/2020 08:28:00 AM [facility] E66.9 Obesity, unspecified OBESITY, UNSPECIFIED Diagnosis 06/11/2020 08:28:00 AM [facility] E03.9 Hypothyroidism, unspecified HYPOTHYROIDISM, UNSPECIFIE D Diagnosis 06/11/2020 08:28:00 AM [facility] E78.5 Hyperlipidemia, unspecified HYPERLIPIDEMIA, UNSPECIFIE D Diagnosis 06/11/2020 08:28:00 AM [facility] Z72.0 Tobacco use Tobacco use Diagnosis 05/21/2020 03:24:[address] [facility] J44.9 Chronic obstructive pulmonary disease, u nspecified Chronic obstructive pulmonary disease, u Diagnosis 05/21/2020 03:24:[address] [facility] E11.9 Type 2 diabetes mellitus without complic ations Type 2 diabetes mellitus without complic Diagnosis 05/21/2020 03:24:[address] [facility] I10 Essential (primary) hypertension Essential (primary) h ypertension Diagnosis 05/21/2020 03:24:[address] [facility] E78.2 Mixed hyperlipidemia Mixed hyperlipidemia Diagnosis 05/21/2020 03:24:[address] [facility] I25.10 Atherosclerotic heart diseas e of [place] coronary artery without angina pectoris Atherosclerotic heart disease of [place] Diagnosis 05/21/2020 03:24:[address] [facility] R51 Headache Headache Diagnosis 05/21/2020 03:24:[address] [facility] I21.4 Non-ST elevation (NSTEMI) myocardial inf arction Non-ST elevation (NSTEMI) myocardial inf Diagnosis 04/11/2020 08:04:[address] [facility] E78.01 Familial hypercholesterolemia Familial hypercholestero lemia Diagnosis 04/11/2020 08:04:[address] [facility] E11.65 Type 2 diabetes mellitus with hyperglyce mnoa Type 2 diabetes mellitus with hyperglyce Diagnosis 04/11/2020 08:04:[address] [facility] R79.89 Other specified abnormal findings of blo od chemistry Other specified abnormal findings of blo Diagnosis 04/11/2020 08:04:25 PM EDT [facility] E83.42 Hypomagnesemia HYPOMAGNESEMIA Diagnosis 04/11/2020 09:45: 00 AM [facility] R07.89 Other chest pain OTHER CHEST PAIN Diagnosis 04/11/2020 09 :45:00 AM [facility] Z68.32 Body mass index (BMI) 32.0-32.9, adult B RAJAN [place] INDEX (BMI) 32.0-32.9, ADULT Diagnosis 11/22/2019 08:41:00 AM [facility] E55.9 Vitamin D deficiency, unspecified VITAMIN D DEFI CIENCY, UNSPECIFIED Diagnosis 11/22/2019 08:41:00 AM [facility] M54.5 Low back pain LOW BACK PAIN Diagnosis 11/08/2019 08:22:00 AM [facility] Z53.8 Procedure and treatment not carried out for other reasons PROCEDURE AND TREATMENT NOT CARRIED OUT FOR OTHER REASONS Diagnosis 10/25/2019 02:14:[address] [facility] M51.26 Other intervertebral disc displacement, lumbar region OTHER INTERVERTEBRAL DISC DISPLACEMENT, LUMBAR REGION Diagnosis 2018 09:29:[address] [facility] M51.06 Intervertebral disc disorders with myelo jayant, lumbar region INTERVERTEBRAL DISC DISORDERS WITH MYELOPATHY, LUM Diagnosis 12:13:00 PM [facility] M51.17 Intervertebral disc disorders with radic ulopathy, lumbosacral region INTVRT DISC DISORDERS W RADICULOPATHY, LUMBOSACRAL Diagnosis 12:13:00 PM [facility] M53.3 Sacrococcygeal disorders, not elsewhere classified SACROCOCCYGEAL DISORDERS, NOT ELSEWHERE CLASSIFIED Diagnosis 10/02/2019 12:13:00 PM [facility] Surgeries/Procedures Procedure Description Date Indications Data Source(s) GLUC BLD GLUC MNTR DEV CLEARED FDA SPEC HOME USE POCT GLUCOSE Routine 09/07/2020 4:14 PM EST 09/07/2020 09:14:00 PM [facility] CARDIAC CATHETERIZATION CARDIAC CATHETERIZATION Routine 09/07/2020 2:49 PM EST Unstable angina 09/07/2020 07:49:56 PM [facility] Unstable angina [facility] Unstable angina GLUC BLD GLUC MNTR DEV CLEARED FDA SPEC HOME USE POCT GLUCOSE Routine 09/07/2020 12:55 PM EST 09/07/2020 05:55:00 PM [facility] THROMBOPLASTIN TIME PARTIAL PLASMA/WHOLE BLOOD APTT Routine 09/07/2020 10:39 AM EST 09/07/2020 03:39:00 PM [facility] PROTHROMBIN TIME PROTIME-INR Routine 09/07/2020 10:39 AM EST 09/07/2020 03:39:00 PM [facility] GLUC BLD GLUC MNTR DEV CLEARED FDA SPEC HOME USE POCT GLUCOSE Routine 09/07/2020 9:04 AM EST 09/07/2020 02:04:00 PM [facility] BLOOD COUNT COMPLETE AUTOMATED CBC Timed 09/07/2020 4:35 A M EST 09/07/2020 09:35:00 AM [facility] BASIC METABOLIC PANEL CALCIUM TOTAL BASIC METABOLIC PANEL Timed 09/07/2020 4:35 AM EST 09/07/2020 09:35:00 AM [facility] GLUC BLD GLUC MNTR DEV CLEARED FDA SPEC HOME USE POCT GLUCOSE Routine 09/06/2020 6:29 PM EDT 09/06/2020 10:29:[address] [facility] GLUC BLD GLUC MNTR DEV CLEARED FDA SPEC HOME USE POCT GLUCOSE Routine 09/06/2020 12:23 PM EDT 09/06/2020 04:23:[address] [facility] BLOOD COUNT COMPLETE AUTOMATED CBC Timed 09/06/2020 5:49 A M EDT 09/06/2020 09:49:[address] [facility] BASIC METABOLIC PANEL CALCIUM TOTAL BASIC METABOLIC PANEL Timed 09/06/2020 5:49 AM EDT 09/06/2020 09:49:00 AM EDT [facility] ECG ROUTINE ECG W/LEAST 12 LDS TRCG ONLY W/O I&R ECG 12-LEAD Routine 09/06/2020 3:50 AM EDT 09/06/2020 07:50:[address] [facility] TROPONIN QUANTITATIVE TROPONIN I Timed 09/05/2020 11:13 PM EDT 09/06/2020 03:13:[address] [facility] DRUG SCR QUAL 1 DRUG CLASS METH EA DRUG CLASS URINE TOX SCREEN Add-On 09/05/2020 10:04 PM EDT 09/06/2020 02:04:[address] [facility] URNLS DIP STICK/TABLET RGNT AUTO W/O MICROSCOPY URINALYSIS W/O MICRO Routine 09/05/2020 10:04 PM EDT 09/06/2020 02:04:[address] [facility] NT PRO BNP NT PRO BNP Routine 09/05/2020 9:18 PM EDT 09/06/2020 01:18:[address] [facility] TROPONIN QUANTITATIVE TROPONIN I Timed 09/05/2020 9:18 PM EDT 09/06/2020 01:18:[address] [facility] THROMBOPLASTIN TIME PARTIAL PLASMA/WHOLE BLOOD APTT Routine 09/05/2020 9:18 PM EDT 09/06/2020 01:18:00 AM EDT [facility] PROTHROMBIN TIME PROTIME-INR Routine 09/05/2020 9:18 PM EDT 09/06/2020 01:18:[address] [facility] BLOOD COUNT COMPLETE AUTO&AUTO DIFRNTL WBC COUNT CBC AND DIFFER ENTIAL Routine 09/05/2020 9:18 PM EDT 09/06/2020 01:18:[address] [facility] BLOOD TYPING ABO TYPE AND SCREEN Routine 09/05/2020 9:18 PM EDT 09/06/2020 01:18:[address] [facility] GONADOTROPIN CHORIONIC QUALITATIVE HCG, SERUM, QUALITATIVE STAT 09/05/2020 9:18 PM EDT 09/06/2020 01:18:00 AM EDT [facility] THYROID STIMULATING HORMONE TSH TSH Routine 09/05/2020 9:18 PM EDT 09/06/2020 01:18:00 AM EDT [facility] MAGNESIUM MAGNESIUM Routine 09/05/2020 9:18 PM EDT 09/06/2020 01:18:[address] [facility] COMPREHENSIVE METABOLIC PANEL COMPREHENSIVE METABOLIC PANEL STA T 09/05/2020 9:18 PM EDT 09/06/2020 01:18:00 AM EDT [facility] GLUC BLD GLUC MNTR DEV CLEARED FDA SPEC HOME USE POCT GLUCOSE Routine 09/05/2020 9:00 PM EDT 09/06/2020 01:00:[address] [facility] ECG ROUTINE ECG W/LEAST 12 LDS TRCG ONLY W/O I&R ECG 12-LEAD Routine 09/05/2020 8:48 PM EDT 09/06/2020 12:48:[address] [facility] CT HEAD/BRAIN W/O CONTRAST MATERIAL CT HEAD/BRAIN W/O DYE 12:00:00 AM EDT [facility] [address] X-RAY EXAM CHEST 1 VIEW 09/05/2020 12:00:00 AM EDT [facility] ECG ROUTINE ECG W/LEAST 12 LDS TRCG ONLY W/O I&R ELECTROCARD IOGRAM TRACING 09/05/2020 12:00:00 AM EDT [facility] Non-covered item or service NON-COVERED ITEM OR SERVICE 08/09 12:00:00 AM EDT [facility] Injection, morphine sulfate, up to 10 mg 09/05/2020 12 :00:00 AM EDT [facility] THER PROPH/DX NJX IV PUSH SINGLE/1ST SBST/DRUG THER/PROPH/DI AG INJ IV PUSH 09/05/2020 12:00:00 AM EDT [facility] EMERGENCY DEPT VISIT HIGH SEVERITY&THREAT FUNCJ EMERGENCY DE PT VISIT 09/05/2020 12:00:00 AM EDT [facility] Needle electromyography, each extremity, with related paraspinal areas, when performed, done with nerve conduction, amplitude and latency/velocity study; complete, five or more muscles studied, innervated by three or more nerves or four or more spinal levels (list separately in addition to the code for primary procedure). 06/02/2020 12:00:00 AM EDT [facility] ([facility], ) Needle electromyography, each extremity, with related paraspinal areas, when performed, done with nerve conduction, amplitude and latency/velocity study; complete, five or more muscles studied, innervated by three or more nerves or four or more spinal levels (list separately in addition to the code for primary procedure). 06/02/2020 12:00:00 AM EDT [facility] ([facility], ) Nerve Conduction 11-12 Studies 06/02/2020 12:00:00 AM EDT [facility] ([facility], ) CMB CMB STAT 04/13/2020 12:54 PM EDT 04/13/20 20 04:54:[address] [facility] CREATINE KINASE MB FRACTION ONLY CKMB STAT 04/13/2020 12:54 PM EDT 04/13/2020 04:54:00 PM EDT [facility] GLUC BLD GLUC MNTR DEV CLEARED FDA SPEC HOME USE POCT GLUCOSE Routine 04/13/2020 12:28 PM EDT 04/13/2020 04:28:[address] [facility] DUPLEX SCAN EXTRACRANIAL ART COMPL BI STUDY US CAROTID BILA TERAL Pending Discharge 04/13/2020 11:33 AM EDT 04/13/2020 03:33:[address] [facility] GLUC BLD GLUC MNTR DEV CLEARED FDA SPEC HOME USE POCT GLUCOSE Routine 04/13/2020 8:01 AM EDT 04/13/2020 12:01:[address] [facility] CMB CMB STAT 04/13/2020 7:21 AM EDT 04/13/20 20 11:21:[address] [facility] CREATINE KINASE MB FRACTION ONLY CKMB Timed 04/13/2020 7:21 AM EDT 04/13/2020 11:21:00 AM EDT [facility] ECG ROUTINE ECG W/LEAST 12 LDS TRCG ONLY W/O I&R ECG 12-LEAD Routine 04/13/2020 4:49 AM EDT 04/13/2020 08:49:[address] [facility] BLOOD COUNT COMPLETE AUTOMATED CBC Routine 04/13/2020 4:25 A M EDT 04/13/2020 08:25:00 AM EDT [facility] BASIC METABOLIC PANEL CALCIUM TOTAL BASIC METABOLIC PANEL Routi ne 04/13/2020 4:25 AM EDT 04/13/2020 08:25:00 AM EDT [facility] GLUC BLD GLUC MNTR DEV CLEARED FDA SPEC HOME USE POCT GLUCOSE Routine 04/12/2020 6:29 PM EDT 04/12/2020 10:29:[address] [facility] CMB CMB Timed 04/12/2020 3:52 PM EDT 04/12/20 20 07:52:[address] [facility] CREATINE KINASE MB FRACTION ONLY CKMB Timed 04/12/2020 3:52 PM EDT 04/12/2020 07:52:00 PM EDT [facility] ECG ROUTINE ECG W/LEAST 12 LDS TRCG ONLY W/O I&R ECG 12-LEAD Routine 04/12/2020 3:34 PM EDT 04/12/2020 07:34:[address] [facility] GLUC BLD GLUC MNTR DEV CLEARED FDA SPEC HOME USE POCT GLUCOSE Routine 04/12/2020 3:26 PM EDT 04/12/2020 07:26:[address] [facility] ECG ROUTINE ECG W/LEAST 12 LDS TRCG ONLY W/O I&R ECG 12-LEAD Routine 04/12/2020 1:25 PM EDT 04/12/2020 05:25:[address] [facility] CARDIAC CATHETERIZATION CARDIAC CATHETERIZATION Routine 04/12/2020 12:38 PM EDT Elevated troponin 04/12/2020 04:38:39 PM EDT Elevated troponin [facility] Elevated troponin GLUC BLD GLUC MNTR DEV CLEARED FDA SPEC HOME USE POCT GLUCOSE Routine 04/12/2020 10:29 AM EDT 04/12/2020 02:29:[address] [facility] DRUG SCR QUAL 1 DRUG CLASS METH EA DRUG CLASS DRUGS O F ABUSE, URINE (STAT, ER/INPATIENT) Routine 04/12/2020 5:51 AM EDT 04/12/2020 0 9:51:[address] [facility] TROPONIN QUANTITATIVE TROPONIN I Routine 04/12/2020 4:49 AM EDT 04/12/2020 08:49:[address] [facility] THROMBOPLASTIN TIME PARTIAL PLASMA/WHOLE BLOOD APTT Routine 04/12/2020 4:49 AM EDT 04/12/2020 08:49:00 AM EDT [facility] BLOOD COUNT COMPLETE AUTOMATED CBC Routine 04/12/2020 4:49 A M EDT 04/12/2020 08:49:00 AM EDT [facility] BASIC METABOLIC PANEL CALCIUM TOTAL BASIC METABOLIC PANEL Routi ne 04/12/2020 4:49 AM EDT 04/12/2020 08:49:00 AM EDT [facility] TROPONIN QUANTITATIVE TROPONIN I Timed 04/12/2020 1:27 AM EDT 04/12/2020 05:27:[address] [facility] NT PRO BNP NT PRO BNP Routine 04/11/2020 9:51 PM EDT 04/12/2020 01:51:[address] [facility] TROPONIN QUANTITATIVE TROPONIN I Timed 04/11/2020 9:51 PM EDT 04/12/2020 01:51:[address] [facility] THROMBOPLASTIN TIME PARTIAL PLASMA/WHOLE BLOOD APTT Routine 04/11/2020 9:51 PM EDT 04/12/2020 01:51:00 AM EDT [facility] BLOOD COUNT COMPLETE AUTO&AUTO DIFRNTL WBC COUNT CBC AND DIFFER ENTIAL STAT 04/11/2020 9:51 PM EDT 04/12/2020 01:51:[address] [facility] GONADOTROPIN CHORIONIC QUALITATIVE HCG, SERUM, QUALITATIVE STAT 04/11/2020 9:51 PM EDT 04/12/2020 01:51:00 AM EDT [facility] THYROID STIMULATING HORMONE TSH TSH Routine 04/11/2020 9:51 PM EDT 04/12/2020 01:51:00 AM EDT [facility] LIPOPROTEIN DIRECT MEASUREMENT LDL CHOLESTEROL LDL CHOLESTEROL, DIRECT Routine 04/11/2020 9:51 PM EDT 04/12/2020 01:51:[address] [facility] HEMOGLOBIN GLYCOSYLATED A1C HEMOGLOBIN A1C Routine 04/11/2020 9:51 PM EDT 04/12/2020 01:51:00 AM EDT [facility] LIPID PANEL LIPID PANEL Routine 04/11/2020 9:51 PM EDT 04/12/2020 01:51:[address] [facility] COMPREHENSIVE METABOLIC PANEL COMPREHENSIVE METABOLIC PANEL STA T 04/11/2020 9:51 PM EDT 04/12/2020 01:51:00 AM EDT [facility] ECG ROUTINE ECG W/LEAST 12 LDS W/I&R ECG 12-LEAD Routine 04/11/2020 8:18 PM EDT 04/12/2020 12:18:37 AM EDT [facility] Results ID Date Data Source [id number] 11/06/2020 05:59:00 PM EST [facility] Name Value Range Interpretation Code Description Data Ashley rce(s) Supporting Document(s) Respiratory specimen severe acute respir atory syndrome coronavirus 2 (SARS-CoV-2) RNA [facility] This [facility] was ordered by HanoverErnesto griffin and reported by [facility]. ID Date Data Source [id number] 10/30/2020 11:14:00 AM EST [facility] Exam Number: [id number] OF EXAMINATIO N: 10/28/2020LEXISCAN NUCLEAR STRESS TESTINDICATION: Non-STEMIFINDINGS:Baseline EKG shows normal sinus rhythm at 72 beats per minute.Baseline blood pressure is 100/69 mmHg. The patient was given 0.4 mgof intravenous Lexiscan over 10 seconds. The peak heart rate was 98beats per minute. Blood pressure in response to the intravenousLexiscan was 100/57 mmHg. The patient complained of 3 out of 10 chestpain which resolved spontaneously within the next 2 minutes intorecovery. There were no diagnostic ST-T wave changes. There were noarrhythmias noted.IMPRESSION:No diagnostic ST-T waves with intravenous Lexiscan. The patient deniedchest pain.Nuclear scan images with results to follow.DATE OF EXAMINATION: 10/28/2020NUCLEAR PART OF LEXISCAN NUCLEAR STRESS TESTTECHNIQUE:Nuclear stress images were obtained with intravenous administration of32.35 MCI Cardiolite immediately following the vasodilator. Restredistribution images were obtained with intravenous administration of10.98 MCI of Cardiolite.INTERPRETATION:1. The left ventricular ejection fraction on gated SPECT stress imagesis 71 % and on gated SPECT rest images is 68 %.2. Left ventricle size and wall motion is normal.3. There is no evidence of transient ischemic dilatation. T.i.d. ratiois 1.014. Stress and rest nuclear images do not show any evidence ofsignificant reversible myocardial perfusion defects.CONCLUSION:There is no evidence of significant inducible ischemia on lexiscannuclear stress test. LV ejection fraction is 71% on gated SPECT stressimages..Electronically signed in PS360 by: Hussain Estrada MD,MPH,FAC10/30/2020 11:02 EST Reported By: - HUSSAIN ESTRADA MD Signed By: HUSSAIN ESTRADA MD Name Value Range Interpretation Code Description Data Ashley rce(s) Supporting Document(s) ID Date Data Source [id number] 10/28/2020 11:34:00 AM EST [facility] Exam Number: [id number] OF EXAMINATIO N: 10/28/2020LEXISCAN NUCLEAR STRESS TESTINDICATION: Non-STEMIFINDINGS:Baseline EKG shows normal sinus rhythm at 72 beats per minute.Baseline blood pressure is 100/69 mmHg. The patient was given 0.4 mgof intravenous Lexiscan over 10 seconds. The peak heart rate was 98beats per minute. Blood pressure in response to the intravenousLexiscan was 100/57 mmHg. The patient complained of 3 out of 10 chestpain which resolved spontaneously within the next 2 minutes intorecovery. There were no diagnostic ST-T wave changes. There were noarrhythmias noted.IMPRESSION:No diagnostic ST-T waves with intravenous Lexiscan.Nuclear scan images with results to follow.DATE OF EXAMINATION: 10/28/2020NUCLEAR PART OF LEXISCAN NUCLEAR STRESS TESTTECHNIQUE:Nuclear stress images were obtained with intravenous administration of32.35 MCI Cardiolite immediately following the vasodilator. Restredistribution images were obtained with intravenous administration of10.98 MCI of Cardiolite.INTERPRETATION:1. The left ventricular ejection fraction on gated SPECT stress imagesis 71 % and on gated SPECT rest images is 68 %.2. Left ventricle size and wall motion is normal.3. There is no evidence of transient ischemic dilatation. T.i.d. ratiois 1.014. Stress and rest nuclear images do not show any evidence ofsignificant reversible myocardial perfusion defects.CONCLUSION:There is no evidence of significant inducible ischemia on lexiscannuclear stress test. LV ejection fraction is 71% on gated SPECT stressimages..Electronically signed in PS360 by: Hussain Estrada MD,MPH,FAC10/28/2020 11:22 EST Reported By: - HUSSAIN ESTRADA MD Signed By: HUSSAIN ESTRADA MD Name Value Range Interpretation Code Description Data Ashley rce(s) Supporting Document(s) ID Date Data Source [id number] 10/28/2020 08:59:00 AM EST [facility] nadeen Exam Number: [id number] OF EXAMINATIO N: 10/28/2020 8:03 ESTMRI BRAIN W/0 FOL BY W/ CONTRHISTORY: Frequent headachesMulti-echo, multiplanar imaging of the brain was obtained withsupplemental pre and post contrast enhanced T1 weighted images. .Ventricles and sulci are normal in size and appear symmetrical. Thereare no enhancing intra or extra-axial lesions. There is no mass effector midline shift. Posterior fossa structures appear normal. 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 This may also be seen withmigraine.Incidentally noted is severe chronic right maxillary and mild chronicleft maxillary sinusitisElectronically signed in PS360 by: Julia Garza M.D. 10/28/20208:47 EST Reported By: Laura GARZA M.D. Signed By: Telma GARZA M.D. Name Value Range Interpretation Code Description Data Ashley rce(s) Supporting Document(s) ID Date Data Source [id number] 09/05/2020 10:00:00 AM EDT [facility] Name: MADHAVI DAVE [facility] Rec #: [id number] [birth year] : 1970 Age/Sex: 49F Date of Service: 09/05/20 DISPOSITION SUMMARY Discharge Summary [facility] Name:Madhavi Dave Emergency Department Age:49 yrs Sex:Female :1970 Arrival:09/05/2020 10:00 Departure Date09/13/2020 Departure Time15:04 Private MD: Outcome: Discharge Location: Home/Self Care Condition: Good Chief Complaint: Diagnosis: [employer] unavailable, see scanned chart Prescriptions: Custom Notes: Attending Physician: Shakir Smith DO Private MD: Mid Level Provider: Orders: Discharge Instruction: Disposition Documents, Medication Reconciliation Name Value Range Interpretation Code Description Data Ashley rce(s) Supporting Document(s) ID Date Data Source [id number] 09/05/2020 10:00:00 AM [facility] Name: MADHAVI DAVE [facility] Rec #: [id number] 06 : 1970 Age/Sex: 49F Date of Service: 09/05/20 PHYSICIAN CHART Chart has not been started yet Name Value Range Interpretation Code Description Data Ashley rce(s) Supporting Document(s) ID Date Data Source [id number] 09/05/2020 10:00:00 AM [facility] Name: MADHAVI DAVE [facility] Rec #: [id number] 06 : 1970 Age/Sex: 49F Date of Service: 09/05/20 NURSE CHART Chart has not been started yet Name Value Range Interpretation Code Description Data Ashley rce(s) Supporting Document(s) ID Date Data Source [id number] 09/09/2020 06:55:00 AM [facility] TSYSORDER [id number] Name Value Range Interpretation Code Description Data [facility](s) Supporting Document(s) GLUCOSE 269 mg/dL 74-106 H [facility] BLOOD UREA NITROGEN 11 mg/dL 7-18 [facility] ital CREATININE 0.9 mg/dL 0.6-1.0 [facility] SODIUM 139 mmol/L 136-145 [facility] POTASSIUM 4.7 mmol/L 3.5-5.1 [facility] CHLORIDE 105 mmol/L 98-107 [facility] CO2 21 mmol/L 21-32 [facility] CALCIUM 8.2 mg/dL 8.5-10.1 [facility] ANION GAP 13.0 mmol/L 5-12 H [facility] GLOMERULAR FILTRATION RATE 67 mL/min [facility] GFR IS CALCULATED IN mL/min/1.73m2 RORY L FUNCTION: >90MILDLY DECREASED: 60-89MILDY TO MODERATELY DECREASED: 45-59 MODERATELY TO SEVERELY DECREASED: 30-44SEVERELY DECREASED: 15-29RENAL FAILURE: <15 AST 23 U/L 15-37 [facility] ALT 34 U/L 12-78 [facility] ALKALINE PHOSPHATASE 68 U/L 46-116 [facility] TOTAL BILIRUBIN 0.9 mg/dL 0.2-1.0 [facility] TOTAL PROTEIN 6.6 g/dl 6.4-8.2 [facility] [facility] ALBUMIN 3.2 gm/dL 3.4-5.0 L [facility] ID Date Data Source [id number] 09/09/2020 06:26:00 AM [facility] TSYSORDER [id number] Name Value Range Interpretation Code Description Data [facility](s) Supporting Document(s) WHITE BLOOD COUNT 11.5 K/mm3 4.0-10.0 [facility] RED BLOOD COUNT 4.64 M/mm3 4.00-5.50 [facility] HEMOGLOBIN 13.2 gm/dL 12.0-16.0 [facility] HEMATOCRIT 38.6 % 36.0-48.8 [facility] MEAN CELL VOLUME 83.2 fl 80-96 [facility] MEAN CORPUSCULAR HEMOGLOBIN 28.4 pg 27.0-31.0 [facility] MEAN CORPUSCULAR HGB CONC 34.2 g/dl 32.0-36.0 [facility] RED CELL DISTRIBUTION WIDTH 13.3 % 10.0-14.5 [facility] PLATELET COUNT 198 K/mm3 172-450 [facility] MEAN PLATELET VOLUME 8.8 fl 9.0-13.0 L [facility] GRAN % 88.5 % 50-80.0 H [facility] IG% 0.1 % 0.0-0.2 [facility] LYMPH % 8.4 % 25.0-50.0 L [facility] MONO % 2.7 % 2.0-10.0 [facility] EOS % 0.1 % 0-5.0 [facility] BASO % 0.2 % 0.0-2.0 [facility] GRAN # 10.2 K/mm3 2.0-8.00 H [facility] IG# 0.0 K/mm3 0.0-0.2 [facility] LYMPH # 1.0 K/mm3 1.0-5.0 [facility] MONO # 0.3 K/mm3 0.10-1.20 [facility] EOS # 0.0 K/mm3 0.0-0.5 [facility] BASO # 0.0 K/mm3 0.0-0.2 [facility] ID Date Data Source [id number] 09/08/2020 10:56:00 PM EST [facility] l Name Value Range Interpretation Code Description Data Ashley rce(s) Supporting Document(s) URINE AMPHETAMINES NEGATIVE <1000 ng/mL [facility] THC,URINE NEGATIVE <50 ng/mL [facility] MDMA NEGATIVE <500 ng/mL [facility] URINE BARBITURATES NEGATIVE <300 ng/mL [facility] ital PCP,URINE NEGATIVE <25 ng/mL [facility] PROPOXYPHENE NEGATIVE <300 ng/mL [facility] COCAINE, URINE NEGATIVE <300 ng/mL [facility] URINE,OPIATES NEGATIVE <300 ng/mL [facility] OXYCODONE URINE NEGATIVE <100 ng/mL [facility] l URINE,TCA NEGATIVE <1000 ng/mL [facility] IF A NEGATIVE RESULT IS OBTAINED AND ING ESTION OF TRICYCLICANTIDEPRESSANTS IS SUSPECTED, A SERUM SAMPLE SHOULD BEOBTAINED AND TESTED USING AN APPROPRIATE METHOD. URINE BENZODIAZEPINES NEGATIVE <300 ng/mL [facility] ospital THESE TESTS ARE PERFORMED USING AN IMMU NOASSAY FOR THEQUALITATIVE DETERMINATION OF THE PRESENCE OF THE MAJORMETABOLITES OF DRUGS OF ABUSE. THESE TESTS ARE ONLY ASCREENING AND NOT CONFIRMATORY. CLINICAL CONSIDERATION ANDPROFESSIONAL JUDGMENT MUST BE APPLIED TO ANY DRUG OF ABUSETEST RESULT. ID Date Data Source [id number] REFLEX 09/08/2020 09:31:00 PM [facility] ital TSYSORDER [id number] Name Value Range Interpretation Code Description Data Ashley rce(s) Supporting Document(s) URINE COLOR. [facility] URINE APPEARANCE CLEAR [facility] URINE GLUCOSE (UA) 500 mg/dL NEGATIVE [facility] URINE BILIRUBIN NEGATIVE NEGATIVE [facility] URINE KETONE NEGATIVE mg/dL NEGATIVE [facility] SPECIFIC GRAVITY,URINE 1.020 1.001-1.035 [facility] URINE BLOOD NEGATIVE NEGATIVE [facility] PH,URINE 6.5 5.0-9.0 [facility] URINE PROTEIN NEGATIVE mg/dL NEGATIVE [facility] URINE UROBILINOGEN NORMAL(0.2-1) mg/dL 0-1 [facility] URINE NITRATE NEGATIVE NEGATIVE [facility] URINE LEUKOCYTE ESTERASE NEGATIVE NEGATIVE [facility] ID Date Data Source [id number] 09/08/2020 04:35:00 PM [facility] l TSYSORDER [id number] Name Value Range Interpretation Code Description Data Ashley rce(s) Supporting Document(s) LACTIC ACID 2.2 mmol/L 0.4-2.0 H [facility] ID Date Data Source [id number] 09/08/2020 01:43:00 PM EST [facility] l DATE OF EXAMINATION: 09/08/2020 12:26 EST CHEST 1 VIEW HISTORY: Dizziness TECHNIQUE: Single frontal radiograph of chest COMPARISON: 04/11/2020 FINDINGS: No evidence of focal consolidation, pneumothorax or large pleural effusion.Lungs are clear. Mediastinal structures are unremarkable. No aggressive osseouslesions. IMPRESSION: No focal consolidation. Electronically signed in PS360 by: Julia Garza M.D. 09/08/2020 13:37 EST Name Value Range Interpretation Code Description Data Ashley rce(s) Supporting Document(s) ID Date Data Source [id number] 09/08/2020 01:25:00 PM [facility] DATE OF EXAMINATION: 09/08/2020 12:34 ES T BRAIN W/O CONTRAST HISTORY: Dizziness TECHNIQUE: This CT exam was performed using the following dose reduction techniques:automatic exposure control, adjustment of mA and/or kV according to thepatient's size, and use of iterative reconstruction technique. Standard contiguous axial spiral imaging was obtained from the skull basethrough the vertex without contrast administration and with coronalreformatting. FINDINGS: BRAIN: Basilar cisterns and ventricles appear normal. No space occupyinglesions, intracerebral edema, or any signs of mass effects are noted. Base ofthe skull appears normal. IMPRESSION: Unremarkable CT scan of brain. Incidentally noted is some mucoperiostealthickening of the sphenoid sinus consistent with chronic sphenoid sinusitis. Electronically signed in PS360 by: Julia Garza M.D. 09/08/2020 13:20 EST Name Value Range Interpretation Code Description Data Ashley rce(s) Supporting Document(s) ID Date Data Source [id number] 09/08/2020 01:11:[address] [facility] Name Value Range Interpretation Code Description Data Ashley rce(s) Supporting Document(s) EKG [facility] KQJGRt5zHpCHWxVru4GwXzMsANBrHE0uzfn7Q9N8pKSjD3YpvVZpt0nqO2LiT8FuBWRkGMDKQF7VzZOz jb2 [file] uCOSKHWDX33MEeD5KHJp1eVNFhBbMlNBDOPQNPDlrm fHe4KTbEDJOGGFX6ArnQELMSZkUAKVJtdzrvReSxptpEEMUbfKJcR4B6I6cP536vjAEJSJX3GidvXjjS 4InmEdhDEVfUBQO1nKoZ2lZLJyCfm9U2iC+SeCuMVAJDzkbUfnKNKgHjWQL3tjY00bxwgz/lNCUZJJPE nFTvJXRHspl6LM+qdqWobvGFSZIDX3yAR2mj0zUwhH xtPL89U3PM1omLVUiNT6W9CpiGv6sNyTjRpUQFvsMTTu7ILaE+eRhPRzUgh6FdyOxFI73bBwIfEufj0F eL/GPrDRBf6mFDnItadrkHEEIyUziPbBJi6N8tmdh91u7u86XNTGvSgnD8WYK7uXATwX8ZAbf2PqC+Di bDxqJO51wruLufpVNKfQwPd/5mbnPqtXVOJ0/KWIHr vQC96S9GZdGrguhihpB1nUU/behg5vRWXeCrxLqEO1XelZc15bVNiVGhsR8x2NPBvVN9hvyGwGWLwkfe FVBdRUTWJEU0dARpCuPPRSL3tPKoHsFDQHA4tUVfTkWqFyHQqIvvmImct+xdEjIi0CUoSx7hqQ6vo/9f doCe1XF/+1Fklfh7HTAxeGRfnlLk6JkZXGFgmgGe3M 9G+CFW18tR/4uWaiU5lrV64Hr1gS4mQJmBhzENhlgfnWVZw/RK/0A0ss5saMjuGPhs+wlCtcv6B0hzws CTa0EJ8HjflO9y6febweyazxG/xzC5wn/9+Zwqz4OPIMI/rdAeH/axUNs+V/ABGDcMHFawcKn6eZ1oo4 pCo9rracBd1l+o4fwiylOq04R3/C7s/16Y+PvU/rod puller/ [file] Ptqz/Zw928/DS4YCo7M44ok41NZ7Yz7k7QDqn61cP4 8xDNxnsZLrdnMMiYLd6QuMbfmFagy3gh+Dwlm5mUyyQ/NX2yE3/ats/9Wo3TFPOlJszDjpsQirTDxcTF 0RYxnc80M1Tveekc2pgUHt6x+x50G66djwQ+Gkud2kkd3kvq7hve4zSYwQwg+/e9y9d+CYjqPYsFdZl/ eRTp0AqSy93BmE43gWm/bkIuFT/fBU9hrQ1cosZuWt sWpZgq09XEs5Tlk+fVJUsVQGoyIybc6xPayxyr7cF9AulgTQbKS63aEkifP3W6gVKG7smjHan19UMCcs Rncsc4ZD+dKuQy5tBzWgxgzyAUm9hL5hh01kTcqtJb8m19M3KUm6sAEQm8R+d9i4M661bq8p+qyJ8rz8 Rq2e/Guew3XO9GdMTk0u89WsY7Pp8s/IZqlzprpGhq ie/UvFD5ny6FcBDwfV8n6YvP5Nc2Mg7HiOAdu39ZYejeCKi/dnPHj7jpdL9HJYXIDu8jNeEzdssfUd83 yRAY0q8lX+sY7vtsz5v2X2/ZuN4L2iNBOSy3ERuI3MMCuJ8uLnn3VHLBaLLJ5WGZQjmGiOiB9O2szudU FXD+jfLbuUvfyhIYGYy8EvZw1m7Yout+Cu5443wr79 VYfURVe04OW4r/BZl/j1WvkpGVSp66CIcnDiK4Gygrcz41Iqvg2VVKX1wGD21slJ6z8ME1PuWq9ITZbO b8THp56kAf6ierDs3p4Edgo44gIblxnkCek5Ewng/r6aJ6r+Yq6rmVwlmDV/aiB7gOmX0yyQisVcJWOM Génesis+6qYBrbUHLFmX+8bRH4n9sFRM7JaUXsaSIr6Qfz [file] QnAoVmTq0z9GUksz3fFq1jl/+puty/ENd/qi53zW+s4D1gao/3O/R4v03Bk/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+pk1ADWZha37hUIveI x8yMzjKDMpJK2y84oDepei1PooWOIKWqTLRBgq6xknrAolfBi9I1v0OmmSFniR8q4riwg6uADEjv8Y16 0u0fszgWpMa487eOj/g0h6hB7Hqlrcu+c2bNK26Qku pu6eCR5jFuuIAL5IfBD/krglrEva4DT6c6M9R6lyz+O/LW+/dlL13cvV3iVsU+3Vyt+PvVr5e/qTp22P fEgh0vdfVLPrD0qv5w/BonpaH91RkSxo+DmnNG394T7t6t9qb5NAKM/ChCbpWAitthhWC6drFGcDfduB 8+9qA340V59aub7b1gLujAH+1fGTV/pXaQfSXmVbpX 4eh14iii0cs/6FKq3aes6vl52EI/Michael/x0xsw60D+uZ8yW5XWl3/5+HmABVuABPIENuOdjN/vqLh8ds0 [file] HsHgw4EeS3FPrnOVOBGy== ID Date Data Source [id number] 09/14/2020 07:14:00 AM EST [facility] Name Value Range Interpretation Code Description Data Ashley rce(s) Supporting Document(s) [facility] ID Date Data Source [id number] 09/08/2020 12:50:00 PM EST [facility] Name Value Range Interpretation Code Description Data Ashley rce(s) Supporting Document(s) SARS COV2 TRP [facility] This lab was ordered by [facility] and reported by [facility]. ID Date Data Source [id number] 09/08/2020 01:59:00 PM EST [facility] TSYSORDER [id number] Name Value Range Interpretation Code Description Data Ashley rce(s) Supporting Document(s) Adenovirus Not Detected Detected Not [facility] Coronavirus 229E Not Detected Detected Not R [facility] Coronavirus HKU1 Not Detected Detected Not R [facility] Coronavirus NL63 Not Detected Detected Not [facility] Coronavirus OC43 Not Detected Detected Not [facility] Sars Cov 2 Not Detected Detected [facility] Metapneumovirus Not Detected Detected Not [facility] Human Rhinovirus Not Detected Detected Not [facility] Influenza A Not Detected Detected Not [facility] Influenza B Not Detected Detected Not [facility] Parainfluenza Virus 1 Not Detected Detected Not [facility] Parainfluenza Virus 2 Not Detected Detected Not [facility] Parainfluenza Virus 3 Not Detected Detected Not [facility] Parainfluenza Virus 4 Not Detected Detected Not [facility] Respiratory Syncytial Virus Not Detected Detected Not [facility] Bordetella parapertus ([id number]) Not Detected Detected Not [facility] Bordetella pertussis (ptxP) Not Detected Detected Not [facility] Chlamydia pneumoniae Not Detected Detected Not [facility] Mycoplasma pneumoniae Not Detected Detected Not [facility] The Above results have been determined b y using the [employer] FilmArray system.FilmArray is an automated in vitro diagnostic system thatutilizes nested multiplex Polymerase Chain Reaction (PCR)and high-resolution melting analysis to detect and identifymultiple nucleic acid targets from clinical specimens. ID Date Data Source [id number] 09/14/2020 07:14:00 AM EST [facility] Name Value Range Interpretation Code Description Data Ashley rce(s) Supporting Document(s) [facility] ID Date Data Source [id number] 09/08/2020 01:29:00 PM EST [facility] TSYSORDER [id number] Name Value Range Interpretation Code Description Data Ashley rce(s) Supporting Document(s) FREE T4 1.10 ng/dL 0.76-1.46 [facility] ID Date Data Source [id number] 09/08/2020 01:29:00 PM EST [facility] TSYSORDER [id number] Name Value Range Interpretation Code Description Data Ashley rce(s) Supporting Document(s) TSH 1.93 uIU/mL 0.36-3.74 [facility] ID Date Data Source [id number] 09/08/2020 01:27:00 PM EST [facility] TSYSORDER [id number] Name Value Range Interpretation Code Description Data Ashley rce(s) Supporting Document(s) PARTIAL THROMBOPLASTIN TIME 21.6 SECONDS 21.2-27.3 [facility] ID Date Data Source [id number] 09/08/2020 01:27:00 PM EST [facility] TSYSORDER [id number] Name Value Range Interpretation Code Description Data Ashley rce(s) Supporting Document(s) PROTHROMBIN TIME (PATIENT) 9.9 SECONDS 9.1-11.6 [facility] INR 0.95 0.87-1.06 [facility] ID Date Data Source [id number] 09/08/2020 01:24:00 PM EST [facility] TSYSORDER [id number] Name Value Range Interpretation Code Description Data Ashley rce(s) Supporting Document(s) B-TYPE NATRIURETIC PEPTIDE 52 pg/ml 0-125 [facility] ID Date Data Source [id number] 09/08/2020 01:24:00 PM EST [facility] TSYSORDER [id number] Name Value Range Interpretation Code Description Data Ashley rce(s) Supporting Document(s) LIPASE 99 U/L 73-393 [facility] ID Date Data Source [id number] 09/08/2020 01:23:00 PM EST [facility] TSYSORDER [id number] Name Value Range Interpretation Code Description Data Ashley rce(s) Supporting Document(s) LACTIC ACID 2.9 mmol/L 0.4-2.0 H [facility] ID Date Data Source [id number] 09/08/2020 12:56:00 PM EST [facility] TSYSORDER [id number] Name Value Range Interpretation Code Description Data Ashley rce(s) Supporting Document(s) WHITE BLOOD COUNT 9.1 K/mm3 4.0-10.0 [facility] 5.09 M/mm3 4.00-5.50 [facility] HEMOGLOBIN 14.5 gm/dL 12.0-16.0 [facility] HEMATOCRIT 41.3 % 36.0-48.8 [facility] MEAN CELL VOLUME 81.1 fl 80-96 [facility] MEAN CORPUSCULAR HEMOGLOBIN 28.5 pg 27.0-31.0 [facility] MEAN CORPUSCULAR HGB CONC 35.1 g/dl 32.0-36.0 [facility] RED CELL DISTRIBUTION WIDTH 13.0 % 10.0-14.5 [facility] PLATELET COUNT 239 K/mm3 172-450 [facility] MEAN PLATELET VOLUME 8.6 fl 9.0-13.0 L [facility] pital GRAN % 86.6 % 50-80.0 H [facility] IG% 0.1 % 0.0-0.2 [facility] LYMPH % 7.3 % 25.0-50.0 L [facility] MONO % 5.3 % 2.0-10.0 [facility] EOS % 0.4 % 0-5.0 [facility] BASO % 0.3 % 0.0-2.0 [facility] GRAN # 7.9 K/mm3 2.0-8.00 [facility] IG# 0.0 K/mm3 0.0-0.2 [facility] LYMPH # 0.7 K/mm3 1.0-5.0 L [facility] MONO # 0.5 K/mm3 0.10-1.20 [facility] EOS # 0.0 K/mm3 0.0-0.5 [facility] BASO # 0.0 K/mm3 0.0-0.2 [facility] ID Date Data Source [id number] 09/08/2020 01:24:00 PM [facility] TSYSORDER [id number] Name Value Range Interpretation Code Description Data Ashley rce(s) Supporting Document(s) MAGNESIUM 1.7 mg/dL 1.8-2.4 L [facility] ID Date Data Source [id number] 09/08/2020 01:24:00 PM [facility] TSYS[facility] [id number] Name Value Range Interpretation Code Description Data Ashley rce(s) Supporting Document(s) TROPONIN I < 0.017 ng/mL 0.0-0.056 [facility] ID Date Data Source [id number] 09/08/2020 01:24:00 PM [facility] TSYSORDER [id number] Name Value Range Interpretation Code Description Data Ashley rce(s) Supporting Document(s) GLUCOSE 275 mg/dL 74-106 H [facility] BLOOD UREA NITROGEN 14 mg/dL 7-18 [facility] ital CREATININE 0.9 mg/dL 0.6-1.0 [facility] SODIUM 134 mmol/L 136-145 L [facility] POTASSIUM 4.4 mmol/L 3.5-5.1 [facility] CHLORIDE 99 mmol/L 98-107 [facility] CO2 23 mmol/L 21-32 [facility] CALCIUM 9.1 mg/dL 8.5-10.1 [facility] ANION GAP 12.0 mmol/L 5-12 [facility] GLOMERULAR FILTRATION RATE 67 mL/min [facility] GFR IS CALCULATED IN mL/min/1.73m2 RORY L FUNCTION: >90MILDLY DECREASED: 60-89MILDY TO MODERATELY DECREASED: 45-59 MODERATELY TO SEVERELY DECREASED: 30-44SEVERELY DECREASED: 15-29RENAL FAILURE: <15 AST 22 U/L 15-37 [facility] ALT 39 U/L 12-78 [facility] ALKALINE PHOSPHATASE 81 U/L 46-116 [facility] pital TOTAL BILIRUBIN 1.4 mg/dL 0.2-1.0 H [facility] TOTAL PROTEIN 7.7 g/dl 6.4-8.2 [facility] ALBUMIN 4.1 gm/dL 3.4-5.0 [facility] ID Date Data Source [id number] 09/08/2020 05:52:[address] [facility] Name Value Range Interpretation Code Description Data Ashley rce(s) Supporting Document(s) EKG [facility] COICXe1hXzZTUaHod1NkPgUqHFKeOI8vmwm8R7Q9oLUkL4KbcZRjl1yfE1EvA8UhSXAnICJIYK8SrIKz jb2 [file] pCXNHEZHE86FJsA0RUKw3sCVLzWbSxOPDKSLMUIjup rBk6NZvMEHVJRQR0CepSXOQIUtMYJNOihlmrYlCxkrcNOXImkYAfA4W8U9fT163lcXFZWAG5HendAnqM 5UfwUvaDBWeHMCF5eCtZ2gPAJhDlb8P4vG+SdEfIQMVLjcmNcdEBTiLvVGE3qpX93jmxku/lNCUZJJPE mDJcMFFZanq2YC+vumVjiqIINAURV3oPS1rd0uPspZ cuOA53E2SO1hfNCDsMR2F2UmvTq9uMlFqNcDZMzaOAMz3ALgK+wTcYRzFix3ViwMvLH55qSjGrSsup4N eL/NHgOUJn3hQHtQpgyxjBHFTjRxeOxKAu7F6hizl01p2c76UZFTkFjjG6FPP4nTIKkT3LSro1EbB+Di uVykGB00jduMjubQMLoQuMm/4vpxBffUUNK2/KWIHr lUV99Z3DCpUlgfxnlqL9tZM/aeef8vYPZjNamXmJW5SsgUl95qXHnTZkaD6u5FMOeOT0ixhQdIYAcrad ZMMlHADAPAO5eVUzAgYJAWJ9wJGlWhOSFUM2vTDdYpKsPkOHcMolmWdxy+ooYlKi6ZNdHe6feA0si/9f quEs7UA/+1Fxqpk3UAUhcEMyfxKh9BkGCKDpweJb5U 9G+TER86sQ/7dWinL0szT99Cr4aX3uUQoZnqWYxzjosGVSt/RK/9I8sz4vmTvsQIps+gcVvpe1G0klka LXx3XA2CcpzN8t7wctfxylkvX/xzC5wn/9+Grvg3QPKZG/rdAeH/axUNs+V/GIPTqVZYiasQh8nH0cf8 mDt8bguqWq7o+g1tfdbqDv25U2/C7s/16Y+PvU/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/ [file] Ptqz/Zw928/FK8WPo0V01vc61EW5Zn0x1SJmk35pW6 8eTFiccDFabaCXsQDn9KeLchbYhka6qq+Nfld0jRvfZ/NX2yE3/ats/0Ee7NRYHfGogLiizZbiRVmlSM 4LIpow23U7Xylcrr7nePJw3t+z24O74jnqV+Jeua0pap0qim6xkp0hQIpBqs+/e9y9d+CYjqPYsFdZl/ rQKn2PwIb79NgC81dRg/bkIuFT/qDQ5euC7fzaLlGg pUrRlq81WLz9Nsp+wQZQfVWBomVbkw1hOekbby0kV8NqwsDLcEK24jOktiB1Q5zGFE9xjfLvp29KJTyc Yegui3DZ+nZxMp1mVlFcmykeZPa0cK6nr46rGsyjZi6p75V6GHq6jJHXa6H+g6p6J514xo4f+wtL7ts5 Rq2e/Ivhm5GL1PiCYa3n00JaW9Wt2i/IZqlzprpGhq ie/WhYW9qo6SzABkkJ1i2MyV8Hb9Jd2AbJGfa59KEnymYLq/flGRg8qyaS3BQXNRQi7oUrUcpgwfDi91 kEQK8x7aL+dF1yrhu1k3X8/SsE4Z9eXEHBb0IUeK4JDAqR8rSap7YFHOeNCW1OOMVysKrZtW9D3iliuY FXD+ixQlnVrrzkZOTLt6HhGu3y6Llij+Ad2053sx64 YPnPPDc23YX7d/BZl/g2RuzeUFDe68MAyeUfS9Gdnxcm24Stnv0NNHY9gIA73zhP2c3CA8YyPj9SJJoX s9PNb24jVm9xvgLq1w4Esbo44hFoksjbShj7Fuhs/r6aJ6r+My1zcUxqnKE/yvW0aGjT9vjYomEuJYFH Génesis+6qYBrbUHLFmX+5dHB6v4sZVS5YdHYnsZQd3Qac [file] SwWzEeZh5s0GLqtk0kKg8ze/+puty/ENd/qi53zW+n0A0zxu/3O/Y3j36Bs/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+qg2VTMVyt55wOMhvN l9oUwfBLJzBB1n10pFndrs3WhxSVZVBuIDZTyd4spvxWogzKt8B1o9ZdlOVvhU4p3vjxa8mYEZiq7A75 9g8jjhpHjNo742cUx/l4i3aE7Wsnxkq+g6kRO21Dji ne2sNY0zImvCFF1VpVE/xzymjBrl8BJ1k7R6K4ryy+O/LW+/hnL14qfY7fTxX+3Vyt+PvVr5e/qTp22P nUdw6dmaNVAuQ1vq4y/VotlmU06IgPxi+AcqKG989G5b5q4tz8YDGC/DbZnqDRsvrtqDN6fgBCiQofrP 8+2vH612X69oki7w2fWvxMP+1fGTV/pXaQfSXmVbpX 7id44zcr3kf/3JCa6tkb6ob23FV/Michael/g6wuo61F+dH3mV6CPv3/5+HmABVuABPIENuOdjN/bsOg4mm5 [file] CjAwMDAwMDAyOTggMDAwMDAgbiAKMDAwMDAwMDQwOS WyFKNeSQCcNBgsYSTtYFSeWOGkXUMfIBWtGS6eXrBpWQEuJAM6CRBnFYKqZSJwgrPCDYDyBAPnXId6KE FxCUMyFPDfPUwhICTkOEPnVPG9UOUvUUIlYU0cIaInMSAeJJI4LjDdDWZfGZBcrsVASIUcBCNmWMY9Ww WsBAYcKVPuKNfhKDBhABHdMWlmELMqIUNfAS3xWuWv GCThTAObWDtyQKUhVCIluaJWABAyPFSuUVPmRbChRAFjKSPcFCjvINPlHVPqQPB1QMIuXVPfIT2rYdKa WZRuBIS3EMpcIKXgGOGklzDTOLTrEHEsGHuaOSZoUYWyBZKfLQcfLWDcCPUzPHP3VUNdFMTzFA4lZnMz RDRwETRhYAZeFaH5NfZoPrOWkHKmrUzjdst3YLpbC3 z8NSQtBHavIY6mxkEtWWQuPqvpPa9jrIO2THLaDotIQe1Pw5ZzieC5xxBjQzBjZVE7PoHhGI3R ID Date Data Source [id number] 09/07/2020 04:16:07 PM EST [facility] Name Value Range Interpretation Code Description Data Ashley rce(s) Supporting Document(s) POC NOVA GLU 172 mg/dL (70-99) [facility] [place] [facility] CLINICAL STAFF ID Date Data Source [id number] 09/07/2020 02:56:[address] [facility] Name Value Range Interpretation Code Description Data Ashley rce(s) Supporting Document(s) &PDF [facility] MVYXBj5aRxWWMfFa91/ABMgaEEKeo7GxJEjgLNk1RPmmBRZdQ5KndVuaWJKCOx3WAsbQLF7PRFFwCCLv waW [file] ICAgICAgICAgICAgICAgICAgICAgICAgICAgICAgIC AgICAgICAgICAgICAgICAgICAgICAgICANCiAgICAgICAgICAgICAgICAgICAgICAgICAgICAgICAgIC AgICAgICAgICAgICAgICAgICAgICAgICAgICAgICAgICAgICAgICAgICAgICAgICAgICAgICAgICAgIC AgICAgICANCiAgICAgICAgICAgICAgICAgICAgICAg ICAgICAgICAgICAgICAgICAgICAgICAgICAgICAgICAgICAgICAgICAgICAgICAgICAgICAgICAgICAg ICAgICAgICAgICAgICAgICANCiAgICAgICAgICAgICAgICAgICAgICAgICAgICAgICAgICAgICAgICAg ICAgICAgICAgICAgICAgICAgICAgICAgICAgICAgIC AgICAgICAgICAgICAgICAgICAgICAgICAgICANCiAgICAgICAgICAgICAgICAgICAgICAgICAgICAgIC AgICAgICAgICAgICAgICAgICAgICAgICAgICAgICAgICAgICAgICAgICAgICAgICAgICAgICAgICAgIC AgICAgICAgICANCiAgICAgICAgICAgICAgICAgICAg ICAgICAgICAgICAgICAgICAgICAgICAgICAgICAgICAgICAgICAgICAgICAgICAgICAgICAgICAgICAg ICAgICAgICAgICAgICAgICAgICANCiAgICAgICAgICAgICAgICAgICAgICAgICAgICAgICAgICAgICAg ICAgICAgICAgICAgICAgICAgICAgICAgICAgICAgIC AgICAgICAgICAgICAgICAgICAgICAgICAgICAgICANCiAgICAgICAgICAgICAgICAgICAgICAgICAgIC AgICAgICAgICAgICAgICAgICAgICAgICAgICAgICAgICAgICAgICAgICAgICAgICAgICAgICAgICAgIC AgICAgICAgICAgICANCiAgICAgICAgICAgICAgICAg ICAgICAgICAgICAgICAgICAgICAgICAgICAgICAgICAgICAgICAgICAgICAgICAgICAgICAgICAgICAg ICAgICAgICAgICAgICAgICAgICAgICANCiAgICAgICAgICAgICAgICAgICAgICAgICAgICAgICAgICAg ICAgICAgICAgICAgICAgICAgICAgICAgICAgICAgIC AgICAgICAgICAgICAgICAgICAgICAgICAgICAgICAgICANCjw/bXOxB5gciKWzhgQ9U9bdUr3SMj8ARX 5uq2HdLFWnBOvkmiEoFckUAuZvFTYxMapCBkf2JMcmSS3ZuPNlD7FzL5AvXEohHX5UKAPpOCCwfHQqJS FuWSBoMbL7ELKjSZwzOT9IiTUxGMqtXJBjIPEoHnAv NTJsOOMyIYBbWQJqXXVFAV7FQnEhV8BlzK68CWXJDb8+TFvadfJbKovLDqI5IMDdn7FdFSv3OU7UDLWq Cxhht1MiCnfxSESXYFxpGM8LCUB9YXK0VNHbMa3UJQHuC634bdEzIF6GBl2CIyTzPV4ycd5BTcdyJWOv KunIFqw0ATsrRK0CbONwZOkUeGMbAQ33fjyWIeXxD5 Hev6DwEwP7IVSmUwRoRLuxBUAoEAvexuUcbPXsOFpmLN0QPKZejxEdIiFcFNJAPOb+Qx2EFC5rt5YqRG qqORUnKD9swf7VYBeIAxMpF0P7uEVdO0O0WVjyEt0DVTTaFIGuYlNnIVDXFSwvEF3RMU3qxpN4WJ1FwN SpINDiGAQjaZLbJIu0B64mqUXkQBwhJR8BOPE+Frederick+ Wd8GTIRlGICzSMNbIdVnXZDTWrEcR8FlT2XOo7DnN6EaLT16dJhbqfPyRHqsJF0NYQ6bRIXtAYPUMS2Z hBCeaP9ylzTnPdCxHOFACtQvQ46dpOFmIPVlVTR1BGYgRk5TYHEtJ0OrenMiyUdksfWuRXRdAOIGLS9Q PPuzzbJmvROxwKcpVH87zBfjKS2QDe3XVnErDP4zry 3ZeWYsBn0ANMZjCE7YPTLqNLGyWYXfENL9YTHdZrAiVFfmKSRjAHPuOFR7IGDdBCZsUE0YCcOpJMJiHi giYSNtREVpWMSevk3VZHSfJGE1UMZpQXTwFPJqUHFsLWgzNCCnDEQfZDt8VWOnUZCoSU7IIyDaLDVmTR SfZuBmTOJlVQBfgi9ZVMXrEIIaNaHpUMYaTHGlEQQe AKttTBOzBTT3JUR8MZMhJJFkAB1ETzHrVOViQLUbYFOzKYGiPOWnig3TBKKbTBTtGuD6VPWvEBAxFVWv ALbxFJXnNQI9JUU8XFTwQQCtZM7LUdOsIEGlBNd5JmBmCYRmAMAyvp2DASEnCDQrXABqKwKhMJSbVDXl DWfxZMDsXTU7OHw9KTShGITiUV5XPtJwRRQlXVo2IQ FzTWRvGZSisf2WARHeMEAjPZx1PsYxBHFrRVSwNObhFPJvTMPtIEQ5YHDvCNYdKM7EYrJvSDVvTUNyEb gnXPBwDLSaom8UIHGbWASxWMSuJHBbDDUeJUMgQJlhLHJeHIY7ZAW0EWTpDZOjUU2AOkSlJODqJvP9Ep ZyALSmRDWews8RSPEdNFTqTnDnGEJzYLVdPTNnZPfa XGKiUMJ8TLHsWHIjFTEjZN1LPoMiRNFjEFm3NWLfQIUcPWVbye3HOEEqAAI1FcF9LyBdHZLkSATlLFmn PMTnLMW3GepsMVTwRINyVI2JKeTlHHPcUlbnOxenYQAiPTKakk0IVBViNYJ5DRL9ZGJjGOOkVGPoQCjv TMBfYSW2Dsj8PWAqBBFfPN2NSgZtRTotTGMCJhg3QR cfO6f9NMCsLR3PB7Zux0XyVgvrGFURXBtnQU5jlnThQKViCe5PK0oYVzwlJAUcHAQfY6D2CQB8EPI4RC ooFqHdSAsiVYu1BAT1CH5qLVB3UEA5HIZeTNWnDalpEVRpA9JhFXBxKYW6DdX8GXH5OdRqKB9CJy5UYc A8RWR0dACrBf4OJzq3YDVCTuSmSX0YUHo= ID Date Data Source [id number] 09/07/2020 12:56:34 PM EST [facility] Name Value Range Interpretation Code Description Data Ashley rce(s) Supporting Document(s) POC NOVA GLU 195 mg/dL (70-99) H [facility] [place] [facility] CLINICAL STAFF ID Date Data Source [id number] 09/07/2020 11:31:24 AM EST Lab [facility] Name Value Range Interpretation Code Description Data Ashley rce(s) Supporting Document(s) PT 10.3 s (9.2-11.9) [facility] INR 0.98 [facility] SUGGESTED THERAPEUTIC RANGES USING INR F ORSTABILIZED ANTICOAGULATED PATIENTS:STANDARD DOSE THERAPY INR 2.0-3.0 DVT, PE, PREVENT DVT OR EMBOLISMHIGH DOSE THERAPY INR 2.5-3.5 PREVENT EMBOLISM FROM MECHANICAL HEART VALVE ID Date Data Source [id number] 09/07/2020 11:31:24 AM EST [facility] Name Value Range Interpretation Code Description Data Ashley rce(s) Supporting Document(s) APTT 26.7 s (22.0-34.3) [facility] ID Date Data Source [id number] 09/07/2020 10:07:21 AM EST [facility] NT INFORMATIONPatient MRN Name Date of Age Gend*PT [id number] Madhavi Dave 1970 49 years F OBSPT Location Admission Date/Time Visit ID Attending [id number] 09/05/202027 --- Shawn Lorenz MD([id number]) EPI ID CSN Admitting Provider [id number] Sherrie Ayala MD([id number]) [facility] DISCHARGE SUMMARYPatient Name: Madhavi Dave of : 1970 Age 49 yearsPrimary Physician: Hakan Dixon NP PCP Aefpdeovi Date: 09/05/2020 Discharge Date:She will be discharged from [facility] to [facility] Diagnoses:Principal Problem: Unstable anginaActive Problems: HTN (hypertension) DM (diabetes mellitus) HLD (hyperlipidemia) COPD (chronic obstructive pulmonary disease) GERD (gastroesophageal reflux disease) Chronic pain Obesity (BMI 30-39.9) Coronary artery disease involving upper [place] coronary artery of upper matt[place]oni heartwithout angina pectoris Headache Polypharmacy Continuous dependence on cigarette smokingDischarge Medications:Current Discharge Medication ListCONTINUE these medications which have NOT CHANGED Detailsalbuterol (PROVENTIL HFA;VENTOLIN HFA) 108 (90 Base) MCG/ACT inhaler Inhale 2puffs every 4 (four) hours as needed for wheezingalbuterol (PROVENTIL) (2.5 MG/3ML) 0.083% nebulizer solution Take 2.5 mg bynebulization every 6 (six) hours as needed for shortness of breathaspirin EC 81 MG EC tablet Take 81 mg by mouth dailyatorvastatin (LIPITOR) 80 MG tablet Take 1 tablet (80 mg total) by mouth dailyQty: 90 tablet, Refills: 2Cholecalciferol 50 MCG (2000 UT) TABS Take 2,000 Units by mouth dailyclop idogrel (PLAVIX) 75 MG tablet Take 1 tablet (75 mg total) by mouth dailyQty: 30 tablet, Refills: 11escitalopram (LEXAPRO) 20 MG tablet Take 20 mg by mouth dailyfentaNYL (DURAGESIC) 12 MCG/HR Place 1 patch on the skin every third dayferrous sulfate 325 (65 FE) MG tablet Take 325 mg by mouth daily with breakfastfluticasone-salmeterol (ADVAIR) 100-50 MCG/DOSE DISKUS Inhale 1 puff 2 (two)times a dayfurosemide (LASIX) 20 MG tablet Take 20 mg by mouth daily as needed (forswelling)gabapentin (NEURONTIN) 600 MG tablet Take 600 mg by mouth 3 (three) times a dayglyBURIDE (DIABETA) 5 MG tablet Take 5 mg by mouth dailyLactobacillus (ACIDOPHILUS) 100 MG CAPS Take 1 capsule by mouth dailylevothyroxine (SYNTHROID, LEVOTHROID) 100 MCG tablet Take 100 mcg by mouth dailyloratadine (CLARITIN) 10 MG tablet Take 10 mg by mouth 2 (two) times a daymeloxicam (MOBIC) 15 MG tablet Take 15 mg by mouth dailymetFORMIN (GLUCOPHAGE-XR) 750 MG 24 hr tablet Take 750 mg by mouth 3 (three)times a daymethocarbamol (ROBAXIN) 750 MG tablet Take 750 mg by mouth 3 (three) times a daymetoprolol tartrate (LOPRESSOR) 25 MG tablet Take 1 tablet (25 mg total) bymouth 2 (two) times a dayQty: 180 tablet, Refills: 1montelukast (SINGULAIR) 10 MG tablet Take 10 mg by mouth nightlyMultiple Vitamins-Calcium (ONE-A-DAY WOMENS PO) Take 1 tablet by mouth dailynitroglycerin (NITROSTAT) 0.[address] 1 tablet (0.4 mg total) underthe tongue every 5 (five) minutes as needed for chest painQty: 30 tablet, Refills: 0pantoprazole (PROTONIX) 40 MG tablet Take 40 mg by mouth dailypotassium chloride SA (K-DUR,KLOR-CON) 10 MEQ tablet Take 10 mEq by mouth dailyRotigotine (NEUPRO) 8 MG/24HR PT24 Place 8 mg on the skin dailytiZANidine (ZANAFLEX) 4 MG tablet Take 8 mg by mouth 3 (three) times a day asneeded (for muscle spasms)topiramate (TOPAMAX) 50 MG tablet Take 100 mg by mouth dailytraMADol (ULTRAM-ER) 200 MG 24 hr tablet Take 200 mg by mouth daily as neededfor painFollow Up Instructions:The patient was given an after visit summary.Patient will follow up with PCP in 3-7 days.Cardiology call to scheduleItems needing special attention:Follow-up CBC BMP with PCPBrief Hospital Course:In summary this is a 49-year-old female with history of CAD st atus post PCI inJune 2019 who transferred from outside facility for unstable angina troponinsare negative she has intermittent chest pain ongoing for a few weeks otherwiseno other issues patient endorses chronic pain and she is being managed as anoutpatient by her PCP she does have a multitude of other issues includingcoronary artery disease as mentioned before, essential hypertension, diabetestype 2, hypothyroidism, COPD, neuropathy, tobacco abuse and dependence, GERD,obesity with BMI of 30.70, chronic headaches, polypharmacyDue to her risk factors cardiology was consulted plans for cardiaccatheterization todayPatient on clinical assessment does not endorse any chest pain at the currenttimePatient will proceed with cardiac catheterization if negative we will proceedwith discharging her and she can follow-up with her primary care provider andcardiologist as an outpatientAddendum on September 07, 2020Patient ended up staying due to delay in cardiac catheterizationShe will be proceeding for cardia c catheterization today further planning willdepend on cardiac catheter resultsPatient seen and examined today complaining of intermittent chest pain pressurein the center of her chestDuring my encounter she did not have any symptomatology however she reportedthat she did have some pain yesterdayWe will await further results from cardiac catheterization her symptomatologymight be explained by GERD however I think is crucial at this point to proceedwith cathDischarge Exam:Blood Pressure: BP: 126/71 Pulse: Heart Rate: 57Temperature: Temp: 97.8 F Respirations: Resp: 16Admission Weight: Weight: 86.3 kg (190 lb 3.2 oz) O2 Saturation: SpO2: 98 %Discharge Weight: Weight: 86.3 kg (190 lb 3.2 oz) BMI: Body mass index is 30.7kg/m .Physical Exam General alert oriented x3 chronically ill female HEENT normocephalic atraumatic Lungs decreased breath sounds bilateral bases Heart S1-S2 heard Abdomen soft, non-tender, non-distended, no organomegaly or masses Musculoskeletal no edema Neuro mental status, speech normal, alert and oriented [id number] Pertinent Findings: Patient with chronic pain-she is managed by per herPCPDiagnostics:Procedures:Pending cardiac catheterization if negative will proceed with dischargeConsultants:CardiologyRecent Labs:BMP:Lab ResultsComponent Value Date NA 138 09/07/2020 K 4.6 09/07/2020 CL 107 09/07/2020 CO2 26 09/07/2020 ANIONGAP 5 (L) 09/07/2020 CALCIUM 9.1 09/07/2020 GLU 252 (H) 09/07/2020 BUN 18 09/07/2020 CREATININE 0.79 09/07/2020 GFRAA >60 09/07/2020 GFRNONAA >60 09/07/2020Cardiac:Lab ResultsComponent Value Date TROPONINI <0.05 09/05/2020 PROBNP 129 (H) 09/05/2020CBC with Diff:Lab ResultsComponent Value Date WBC 8.2 09/07/2020 RBC 5.09 09/07/2020 HGB 14.9 09/07/2020 HCT 42.5 09/07/2020 MCV 83.4 09/07/2020 MCH 29.3 09/07/2020 MCHC 35.2 09/07/2020 RDW 14.1 09/07/2020 PLT 288 09/07/2020 MPV 6.9 (L) 09/07/2020 LYMPHOPCT 45.2 09/05/2020 MONOPCT 6.4 09/05/2020 EOSPCT 1.8 09/05/2020 BASOPCT 1.5 09/05/2020 NEUTROABS 3.5 09/05/2020 MONOABS 0.5 09/05/2020 BASOSABS 0.1 09/05/2020HgbA1c:Lab ResultsComponent Value Date HGBA1C 9.4 (H) 04/11/2020Hyperlipidemia:Lab Re sultsComponent Value Date CHOL 188 06/11/2020 TRIG 103 06/11/2020 HDL 54 06/11/2020 CHOLHDL 8.0 04/11/2020 LDLCALC 113 06/11/2020Thyroid:Lab ResultsComponent Value Date TSH 3.056 09/05/2020 TSH 3.17 06/11/2020Shawn Lorenz MD10:05 AMTotal time spent for discharge on date of discharge: 40 minutes Name Value Range Interpretation Code Description Data Ashley rce(s) Supporting Document(s) ID Date Data Source [id number] 09/07/2020 09:05:30 AM EST [facility] Name Value Range Interpretation Code Description Data Ashley rce(s) Supporting Document(s) POC NOVA GLU 233 mg/dL (70-99) H [facility] CLINICAL STAFF ID Date Data Source [id number] 09/07/2020 06:12:30 AM EST [facility] Name Value Range Interpretation Code Description Data Ashley rce(s) Supporting Document(s) SODIUM 138 mmol/L (136-145) [facility] POTASSIUM 4.6 mmol/L (3.6-5.2) [facility] CHLORIDE 107 mmol/L (100-108) [facility] CO2 26 mmol/L (22-31) [facility] ANION GAP 5 mmol/L (7-16) L [facility] UREA NITROGEN 18 mg/dL (7-24) [facility] CREATININE 0.79 mg/dL (0.60-1.00) [facility] BUN/CREAT RATIO 22.8 RATIO (10.0-20.0) H [facility] GLUCOSE 252 mg/dL (70-99) H [facility] CALCIUM 9.1 mg/dL (8.4-10.2) [facility] GFR >60 ml/min/1.73m2 (>59) [facility] GFR ( AMER) >60 ml/min/1.73m2 (>59) [facility] GFR INTERPRETATION [facility] --NORMAL KIDNEY FUNCTION OR MILD DISEASE - GFR >OR= 60CHRONIC KIDNEY DISEASE - GFR 15 - 59RENAL FAILURE - GFR <15 Est. GFR calculation based on the MDRDstudy equation, which assumes a steadystate for creatinine. Est. GFR should notbe used for medication dosing. ID Date Data Source [id number] 09/07/2020 05:48:56 AM EST [facility] Name Value Range Interpretation Code Description Data Ashley rce(s) Supporting Document(s) WBC 8.2 10*3/uL (4.1-11.0) [facility] RBC 5.09 10*6/uL (4.00-5.40) [facility] HGB 14.9 g/dL (12.0-16.0) [facility] HCT 42.5 % (36.0-47.0) [facility] PERFORMED AT [address] [place] [address] [address] [place] [address] MCV 83.4 fL (80.0-95.0) [facility] MCH 29.3 pg (27.0-32.0) [facility] MCHC 35.2 g/dL (32.0-36.0) [facility] RDW 14.1 % (10.5-14.5) [facility] PLT 288 10*3/uL (150-450) [facility] MPV 6.9 fL (7.1-10.7) L [facility] ID Date Data Source [id number] 09/06/2020 06:41:13 PM EDT [facility] Name Value Range Interpretation Code Description Data Ashley rce(s) Supporting Document(s) POC NOVA GLU 204 mg/dL (70-99) H [facility] CLINICAL STAFF ID Date Data Source [id number] 09/06/2020 12:24:35 PM EDT [facility] Name Value Range Interpretation Code Description Data Ashley rce(s) Supporting Document(s) POC NOVA GLU 197 mg/dL (70-99) H [facility] CLINICAL STAFF ID Date Data Source [id number] 09/06/2020 09:15:53 AM EDT [facility]PAT[facility] NT INFORMATIONPatient MRN Name Date of Age Gend*PT [id number] Madhavi Dave 1970 49 years F OBSPT Location Admission Date/Time Visit ID Attending [id number] 09/05/202027 --- Shawn Lorenz MD([id number]) EPI ID CSN Admitting Provider [id number] Sherrie Ayala MD([id number]) [facility] DISCHARGE SUMMARYPatient Name: Madhavi Dave of : 1970 Age 49 yearsPrimary Physician: Hakan Dixon NP PCP Cqkqnvhjc Date: 09/05/2020 Discharge Date:She will be discharged from [facility] to [facility] Diagnoses:Principal Problem: Unstable anginaActive Problems: HTN (hypertension) DM (diabetes mellitus) HLD (hyperlipidemia) COPD (chronic obstructive pulmonary disease) GERD (gastroesophageal reflux disease) Chronic pain Obesity (BMI 30-39.9) Coronary artery disease involving upper [place] coronary artery of upper [place] heartwithout angina pectoris Headache Polypharmacy Continuous dependence on cigarette smokingDischarge Medications:Current Discharge Medication ListCONTINUE these medications which have NOT CHANGED Detailsaspirin EC 81 MG EC tablet Take 81 mg by mouth dailyferrous sulfate 325 (65 FE) MG tablet Take 325 mg by mouth daily with breakfastRotigotine (NEUPRO) 8 MG/24HR PT24 Place on the skintopiramate (TOPAMAX) 50 MG tablet Take 100 mg by mouth dailyalbuterol (PROVENTIL HFA;VENTOLIN HFA) 108 (90 Base) MCG/ACT inhaler Inhale 2puffs every 4 (four) hours as needed for wheezingalbuterol (PROVENTIL) (2.5 MG/3ML) 0.083% nebulizer solution as neededatorvastatin (LIPITOR) 80 MG tablet Take 1 tablet (80 mg total) by mouth dailyQty: 90 tablet, Refills: 2busPIRone (BUSPAR) 10 MG tablet TAKE ONE TABLET BY MOUTH BEFORE BEDTIMECholecalciferol 50 MCG (2000 UT) TABS Take 2,000 Units by mouth dailyclopidogrel (PLAVIX) 75 MG tablet Take 1 tablet (75 mg total) by mouth dailyQty: 30 tablet, Refills: 11escitalopram (LEXAPRO) 20 MG tablet TAKE ONE TABLET BY MOUTH EVERY DAYfentaNYL (DURAGESIC) 12 MCG/HR Place 1 patch on the skin every third dayfluticasone-salmeterol (ADVAIR) 100-50 MCG/DOSE DISKUS Inhale 1 puff 2 (two)times a dayfurosemide (LASIX) 20 MG tablet Take 20 mg by mouthgabapentin (NEURONTIN) 800 MG tabletglyBURIDE (DIABETA) 5 MG tablet Take 5 mg by mouth dailyLactobacillus (ACIDOPHILUS) 100 MG CAPS Take by mouthlevothyroxine (SYNTHROID, LEVOTHROID) 100 MCG tablet Take 1 tablet by mouthdailyloratadine (CLARITIN) 10 MG tablet TAKE ONE TABLET BY MOUTH EVERY DAYmeloxicam (MOBIC) 15 MG tablet Take 15 mg by mouth dailymetFORMIN (GLUCOPHAGE-XR) 750 MG 24 hr tablet Take 1 tablet by mouth 3 (three)times a daym ethocarbamol (ROBAXIN) 750 MG tablet Take 750 mg by mouth 3 (three) times a daymetoprolol tartrate (LOPRESSOR) 25 MG tablet Take 1 tablet (25 mg total) bymouth 2 (two) times a dayQty: 180 tablet, Refills: 1montelukast (SINGULAIR) 10 MG tablet Take 10 mg by mouth nightlyMultiple Vitamins-Calcium (ONE-A-DAY WOMENS PO) Take by mouthnitroglycerin (NITROSTAT) 0.[address] 1 tablet (0.4 mg total) underthe tongue every 5 (five) minutes as needed for chest painQty: 30 tablet, Refills: 0pantoprazole (PROTONIX) 40 MG tablet Take 40 mg by mouth dailypotassium chloride SA (K-DUR,KLOR-CON) 10 MEQ tablet Take 10 mEq by mouth dailytiZANidine (ZANAFLEX) 4 MG tablet Take 8 mg by mouth 3 (three) times a daytraMADol (ULTRAM-ER) 200 MG 24 hr tablet Take 200 mg by mouth dailyFollow Up Instructions:The patient was given an after visit summary.Patient will follow up with PCP in 3-7 days.Cardiology call to scheduleItems needing special attention:Follow-up CBC BMP with PCPBrief Hospital Course:In summary zuleika lazcano is a 49-year-old female with history of CAD status post PCI inJ2019 who transferred from outside facility for unstable angina troponinsare negative she has intermittent chest pain ongoing for a few weeks otherwiseno other issues patient endorses chronic pain and she is being managed as anoutpatient by her PCP she does have a multitude of other issues includingcoronary artery disease as mentioned before, essential hypertension, diabetestype 2, hypothyroidism, COPD, neuropathy, tobacco abuse and dependence, GERD,obesity with BMI of 30.70, chronic headaches, polypharmacyDue to her risk factors cardiology was consulted plans for cardiaccatheterization todayPatient on clinical assessment does not endorse any chest pain at the currenttimePatient will proceed with cardiac catheterization if negative we will proceedwith discharging her and she can follow-up with her primary care provider andcardiologist as an outpatientDischarge Exam:Blood Pressure: BP: 138/72 Pulse: Heart Rate: 62Temperature: Temp: 97.5 F Respirations: Resp: 16Admission Weight: Weight: 86.3 kg (190 lb 3.2 oz) O2 Saturation: SpO2: 96 %Discharge Weight: Weight: 86.3 kg (190 lb 3.2 oz) BMI: Body mass index is 30.7kg/m .Physical Exam General alert, chronically ill , in no apparent distress HEENT Normal Lungs decreased breath sounds bilateral bases Heart regular rate and rhythm Abdomen soft, non-tender, non-distended, no organomegaly or masses Musculoskeletal negative Neuro mental status, speech normal, alert and oriented [id number] Pertinent Findings: Patient with chronic pain-she is managed by per herPCPDiagnostics:Procedures:Pending cardiac catheterization if negative will proceed with dischargeConsultants:CardiologyRecent Labs:BMP:Lab ResultsComponent Value Date NA 139 09/06/2020 K 4.4 09/06/2020 CL 109 (H) 09/06/2020 CO2 20 (L) 09/06/2020 ANIONGAP 10 09/06/2020 CALCIUM 8.4 09/06/2020 GLU 223 (H) 09/06/2020 BUN 14 09/06/2020 CREATININE 0.58 (L) 09/06/2020 GFRAA >60 09/06/2020 GFRNONAA > 60 09/06/2020Cardiac:Lab ResultsComponent Value Date TROPONINI <0.05 09/05/2020 PROBNP 129 (H) 09/05/2020CBC with Diff:Lab ResultsComponent Value Date WBC 7.5 09/06/2020 RBC 4.83 09/06/2020 HGB 14.1 09/06/2020 HCT 40.2 09/06/2020 MCV 83.4 09/06/2020 MCH 29.2 09/06/2020 MCHC 35.0 09/06/2020 RDW 14.1 09/06/2020 PLT 251 09/06/2020 MPV 7.0 (L) 09/06/2020 LYMPHOPCT 45.2 09/05/2020 MONOPCT 6.4 09/05/20 20 EOSPCT 1.8 09/05/2020 BASOPCT 1.5 09/05/2020 NEUTROABS 3.5 09/05/2020 MONOABS 0.5 09/05/2020 BASOSABS 0.1 09/05/2020HgbA1c:Lab ResultsComponent Value Date HGBA1C 9.4 (H) 04/11/2020Hyperlipidemia:Lab ResultsComponent Value Date CHOL 188 06/11/2020 TRIG 103 06/11/2020 HDL 54 06/11/2020 CHOLHDL 8.0 04/11/2020 LDLCALC 113 06/11/2020Thyroid:Lab ResultsComponent Value Date TSH 3.056 09/05/2020 TSH 3.17 06/11/2020Shawn Lorenz MD9:11 AMTotal time spent for discharge on date of discharge: 40 minutes Name Value Range Interpretation Code Description Data Ashley rce(s) Supporting Document(s) ID Date Data Source [id number] 09/06/2020 08:26:35 AM EDT [facility] NT INFORMATIONPatient MRN Name Date of Age Gend*PT [id number] Madhavi Dave 1970 49 years F OBSPT Location Admission Date/Time Visit ID Attending [id number] 09/05/202027 --- Shawn Lorenz MD([id number]) EPI ID CSN Admitting Provider [id number] Sherrie Ayala MD([id number])Cardiology ConsultName: Madhavi Dave Gender: femaleDate of : 1970 Age: 49 yearsDate/Time of Admit: 09/05/2020 8:28 PM Code Status: Full CodePrimary Care ProviderReferring Physician: Lottie José MDCurrent HistoryReason for consultation: Unstable angina with progressive worsening of chestpain and patient known to have CAD status post drug-eluting stent placements toLAD and RCA in April 2020Chief Complaint: Several types of chest pain but more importantly progressiveburning type mid retrosternal chest painHPI:This patient is a 49 years female who has been complaining from progressiveburning type chest pain located in the mid retrosternal area and associated withleft arm numbness over the last few months but definitely worse in the last 2weeks. Has seen her acute coordinator recently who sent her [facility] the local [facility]and [facility] with diagnosis of unstable angina for thepurpose of repeating cardiac catheterization. Earlier in April patient presentedwith similar symptoms and had undergone cardiac catheterization which resultedin resolution of the symptoms at least for few weeks after that some of thesymptoms returned and usually resolved with regular nitroglycerin, howeveraccording the patient more recently the symptoms are more persistent and hasincreased in quality severity and duration. She denied associated shortness ofbreath, palpitations, dizziness or syncope. Unfortunately, patient continues tosmoke cigarettes, she stated that she had reduced her smoking from 2 packs to1/2 pack a day. She refuses to quit other than using gradual reduction. Shestated that she has been compliant fully with taking her medications asprescribed.Review of Systems General Denies fever or chills, admits to fatigue HEENT Denies any sudden loss or change of vision. Denies sore throat. Respiratory Denies hemoptysis or cough Hematology Denies easy bruising or bleeding GI Denies melena or hematemesis. MS admits to various musculoskeletal aches and pains Neuro Denies localized weakness. Admits to headaches Psych Denies depression or anxiety. Endo Denies polyuria or polydipsia. Denies dysuria or hematuriaPast HistoryPast Medical History:Diagnosis Date COPD (chronic obstructive pulmonary disease) CT Head 05/23/2020 without constrast, no acute abnormality Depression DM (diabetes mellitus) GERD (gastroesophageal reflux disease) Headache HLD (hyperlipidemia) HTN (hypertension) Intervertebral disc disease Lumbar radiculopathy SciaticaPast Surgical History:Procedure Laterality Date CARDIAC CATHETERIZATION N/A 04/12/2020 Procedure: Left heart cath; Surgeon: Felipe Piña MD; Laterality: N/A; CARDIAC CATHETERIZATION N/A 04/12/2020 Procedure: Coronary angiography; Surgeon: Felipe Piña MD; Laterality:N/A; CARDIAC CATHETERIZATION N/A 04/12/2020 Procedure: Left ventriculography; Surgeon: Felipe Piña MD; Laterality:N/A; CARDIAC CATHETERIZATION N/A 04/12/2020 Procedure: Percutaneous coronary intervention; Surgeon: Felipe Piña MD;Laterality: N/A; CARPAL TUNNEL RELEASE SECTION HYSTERECTOMY SPINE SURGERYFamily HistoryProblem Relation Age of Onset Coronary artery disease Mother Hypertension Mother Coronary artery disease Father Hypertension Father Diabetes Father Stroke Father Heart failure Sister Diabetes Sister Hyperlipidemia Sister COPD Brother Coronary artery disease BrotherSocial HistorySocioeconomic History Marital status: Spouse name: Not on file Number of children: Not on file Years of education: Not on file Highest education level: Not on fileOccupational History Occupation: DisabilitySocial Needs Financial resource strain: Not on file Food insecurity: Worry: Not on file Inability: Not on file Transportation needs: Medical: Not on file Non-medical: Not on fileTobacco Use Smoking status: Current Every Day Smoker Packs/day: 2.00 Years: 35.00 Pack years: 70.00 Types: Cigarettes Smokeless tobacco: Never UsedSubstance and Sexual Activity Alcohol use: Not Currently Drug use: Not Currently Sexual activity: Not on fileLifestyle Physical activity: Days per week: Not on file Minutes per session: Not on file Stress: Not on fileRelationships Social connections: Talks on phone: Not on file Gets together: Not on file Attends yarsanism service: Not on file Active member of club or organization: Not on file Attends meetings of clubs or organizations: Not on file Relationship status: Not on file Intimate partner violence: Fear of current or ex partner: Not on file Emotionally abused: Not on file Physically abused: Not on file Forced sexual activity: Not on fileOther Topics Concern Not on fileSocial History Narrative Patient has not been able to return to work since her heart attackMedications and AllergiesALLERGIES/SENSITIVITIES: [place] flavorNo current facility-administered medications on file prior to encounter.Current Outpatient Medications on File Prior to EncounterMedication Sig aspirin EC 81 MG EC tablet Take 81 mg by mouth daily ferrous sulfate 325 (65 FE) MG tablet Take 325 mg by mouth daily withbreakfast Rotigotine (NEUPRO) 8 MG/24HR PT24 Place on the skin topiramate (TOPAMAX) 50 MG tablet Take 100 mg by mouth daily albuterol (PROVENTIL HFA;VENTOLIN HFA) 108 (90 Base) MCG/ACT inhaler Inhale 2puffs every 4 (four) hours as needed for wheezing albuterol (PROVENTIL) (2.5 MG/3ML) 0.083% nebulizer solution as needed atorvastatin (LIPITOR) 80 MG tablet Take 1 tablet (80 mg total) by mouth daily busPIRone (BUSPAR) 10 MG tablet TAKE ONE TABLET BY MOUTH BEFORE BEDTIME Cholecalciferol 50 MCG (2000 UT) TABS Take 2,000 Units by mouth daily clopidogrel (PLAVIX) 75 MG tablet Take 1 tablet (75 mg total) by mouth daily escitalopram (LEXAPRO) 20 MG tablet TAKE ONE TABLET BY MOUTH EVERY DAY fentaNYL (DURAGESIC) 12 MCG/HR Place 1 patch on the skin every third day fluticasone-salmeterol (ADVAIR) 100-50 MCG/DOSE DISKUS Inhale 1 puff 2 (two)times a day furosemide (LASIX) 20 MG tablet Take 20 mg by mouth gabapentin (NEURONTIN) 800 MG tablet glyBURIDE (DIABETA) 5 MG tablet Take 5 mg by mouth daily Lactobacillus (ACIDOPHILUS) 100 MG CAPS Take by mouth levothyroxine (SYNTHROID, LEVOTHROID) 100 MCG tablet Take 1 tablet by mouthdaily loratadine (CLARITIN) 10 MG tablet TAKE ONE TABLET BY MOUTH EVERY DAY meloxicam (MOBIC) 15 MG tablet Take 15 mg by mouth daily metFORMIN (GLUCOPHAGE-XR) 750 MG 24 hr tablet Take 1 tablet by mouth 3 (three)times a day methocarbamol (ROBAXIN) 750 MG tablet Take 750 mg by mouth 3 (three) times aday metoprolol tartrate (LOPRESSOR) 25 MG tablet Take 1 tablet (25 mg total) bymouth 2 (two) times a day montelukast (SINGULAIR) 10 MG tablet Take 10 mg by mouth nightly Multiple Vitamins-Calcium (ONE-A-DAY WOMENS PO) Take by mouth nitroglycerin (NITROSTAT) 0.[address] 1 tablet (0.4 mg total) underthe tongue every 5 (five) minutes as needed for chest pain pantoprazole (PROTONIX) 40 MG tablet Take 40 mg by mouth daily potassium chloride SA (K-DUR,KLOR-CON) 10 MEQ tablet Take 10 mEq by mouthdaily tiZANidine (ZANAFLEX) 4 MG tablet Take 8 mg by mouth 3 (three) times a day traMADol (ULTRAM-ER) 200 MG 24 hr tablet Take 200 mg by mouth dailyScheduled Meds: aspirin EC 81 mg Oral Daily atorvastatin 80 mg Oral Daily clopidogrel 75 mg Oral Daily [START ON 09/09/2020] fentaNYL 1 patch Transdermal Q72H ferrous sulfate 325 mg Oral Daily with breakfast gabapentin 300 mg Oral TID heparin (porcine) 5,000 Units Subcutaneous Q12H NORAH Influenza Vac Split Quad 0.5 mL Intramuscular During hospitalization insulin lispro 1-6 Units Subcutaneous With meals sliding scale levothyroxine 100 mcg Oral Daily metoprolol tartrate 50 mg Oral BID mometasone-formoterol 2 puff Inhalation RTBID montelukast 10 mg Oral Nightly normal saline flush 3 mL Intravenous Q8H NORAH pantoprazole 40 mg Oral Daily rotigotine 4 patch Transdermal Q24H topiramate 100 mg Oral Nightly Vitamin D 2,000 Units Oral DailyContinuous Infusions:PRN Meds:.acetaminophen, nitroglycerin, ondansetronPhysicalBMI: Body mass index is 30.7 kg/m .Blood Pressure: BP: 138/72 Pulse: Heart Rate: 62Temperature: Temp: 97.5 F Respirations: Resp: 16Admission Weight: Weight: 86.3 kg (190 lb 3.2 oz) O2 Saturation: SpO2: 96 %Physical Exam General Pleasant, comfortable HEENT Eyes no conjunctival pallor or icterus. Mouth is moist, normal mucousmembranes. Neck no JVD, no thyromegaly or lymphadenopathy Chest Tenderness not similar to her burning pain is present on palpation Respiratory Lungs clear to auscultation, no rales or wheezing, no use ofaccessory muscle noted with breathing CVS Heart normal S1and S2, no murmurs, clicks, or gallops. PMI is notdev iated. Carotids normal upstroke, no bruits.Abdominal aorta is normal size. No abdominal bruits.Peripheral pulses are 2+and equal bilaterally in all extremities. GI Soft, non-tender, non-distended, no palpable HSM, bowel sounds are present. Musculoskeletal No abnormal kyphoscoliosis or chest wall deformity Neuro Alert, orientedx3, mood and affects are normal Derm No rashes, or ulcers Extremeties No edema, no significant varicosity.DiagnosticsLabBMP:Lab ResultsComponent Value Date NA 139 09/06/2020 K 4.4 09/06/2020 CL 109 (H) 09/06/2020 CO2 20 (L) 09/06/2020 ANIONGAP 10 09/06/2020 CALCIUM 8.4 09/06/2020 GLU 223 (H) 09/06/2020 BUN 14 09/06/2020 CREATININE 0.58 (L) 09/06/2020 GFRAA >60 09/06/2020 GFRNONAA >60 09/06/2020Cardiac:Lab ResultsComponent Value Date TROPONINI <0.05 09/05/2020 PROBNP 129 (H) 09/05/2020CBC with Diff:Lab ResultsComponent Value Date WBC 7.5 09/06/2020 RBC 4.83 09/06/2020 HGB 14.1 09/06/2020 HCT 40.2 09/06/2020 MCV 83.4 09/06/2020 MCH 29.2 09/06/2020 MCHC 35.0 09/06/2020 RDW 14.1 09/06/2020 PLT 251 09/06/2020 MPV 7.0 (L) 09/06/2020 LYMPHOPCT 45.2 09/05/2020 MONOPCT 6.4 09/05/2020 EOSPCT 1.8 09/05/2020 BASOPCT 1.5 09/05/2020 NEUTROABS 3.5 09/05/2020 MONOABS 0.5 09/05/2020 BASOSABS 0.1 09/05/2020CMP:Lab ResultsComponent Value Date NA 139 09/06/2020 K 4.4 09/06/2020 CL 109 (H) 09/06/2020 CO2 20 (L) 09/06/2020 ANIONGAP 10 09/06/2020 BUN 14 09/06/2020 CREATININE 0.58 (L) 09/06/2020 BCR 24.1 (H) 09/06/2020 GLU 223 (H) 09/06/2020 CALCIUM 8.4 09/06/2020 ALBUMIN 3.5 09/05/2020 GLOB 2.8 09/05/2020 AGRC 1.3 09/05/2020 ALKPHOS 70 09/05/2020 LABBILI 0.7 09/05/2020 AST 15 09/05/2020 ALT 28 09/05/2020 GFRAA >60 09/06/2020 GFRNONAA >60 09/06/2020HgbA1c:Lab ResultsComponent Value Date HGBA1C 9.4 (H) 04/11/2020Hyperlipidemia:Lab ResultsComponent Value Date CHOL 188 06/11/2020 TRIG 103 06/11/2020 HDL 54 06/11/2020 CHOLHDL 8.0 04/11/2020 LDLCALC 113 06/11/2020Liver Functions:Lab ResultsComponent Value Date LABBILI 0.7 09/05/2020 ALKPHOS 70 09/05/2020 ALT 28 09/05/2020 AST 15 09/05/2020 ALBUMIN 3.5 09/05/2020Magnesium:Lab ResultsComponent Value Date MG 1.6 (L) 09/05/2020Thyroid:Lab ResultsComponent Value Date TSH 3.056 09/05/2020 TSH 3.17 06/11/2020Imaging/Testing:Cardiac catheterization . Critical hazy stenosis of the mid right coronary artery probably culprit ofthe current event status post successful drug-eluting stent placement.2. Severe proximal and mid LAD stenosis with true bifurcation lesion to thediagonal and critical hazy lesion in the more distal LAD status postintervention with drug-eluting stent placement in [place] fashion involving theproximal diagonal and the proximal and mid LAD with final kissing balloonangioplasty. At the end of the procedure there was slow flow to a small septaland complaints of chest pain.3. Preserved left ventricular systolic function.4. Right radial access.EKG: Normal sinus rhythm, normal EKG no significant change among various EKGsAssessment & PlanPrincipal Problem: Unstable anginaActive Problems: HTN (hypertension) DM (diabetes mellitus) HLD (hyperlipidemia) COPD (chronic obstructive pulmonary disease) GERD (gastroesophageal reflux disease) Chronic pain Obesity (BMI 30- 39.9) Coronary artery disease involving upper [place] coronary artery of upper [place]oni heartwithout angina pectoris Headache Polypharmacy Continuous dependence on cigarette smokingRecommendations:Patient is known to have complex coronary artery disease you already hadmultiple stents in April, unfortunately she continued to smoke cigarettesalthough she reduced her total smoking to half pack per day, she has beencounseled about the importance of absolute abstinence from all tobacco productsand the importance of taking her medications as prescribed. She however has aconfusing picture and may have unstable angina. She stated that her burningtype of chest pain was similar to her pain prior to the stent which has resolvedafter the stent and has reoccurred a month later on and off and usually resolvesnitroglycerin but more recently it has been progressive and associated withradiation to her left arm. She also have other types of aches and painsincluding sharp chest pains. Patient has other pains which require painmanagement and those pains may be related to that.I have recommended to the patient to proceed with cardiac catheterization withpossible intervention, I have explained to her that she has the option toproceed with medical therapy or no therapy and I have informed her that her riskof cardiac catheterization is again the same as her previous procedure andinclude but not limited to myocardial infarction, stroke, , bleeding withpossible need for blood transfusion, infection, possible need for emergencybypass surgery or other intervention, possible renal failure with possible needfor dialysis etc... Additional risk secondary to repeat procedure was morepossible local complicatio ns has also been explained, patient verbalizedunderstanding of above and wanted to proceed with cardiac catheterization.Signature: FERNANDO Maate: September 06, 2020Time: 8:16 AM Name Value Range Interpretation Code Description Data Ashley rce(s) Supporting Document(s) ID Date Data Source [id number] 09/06/2020 08:08:25 AM EDT [facility] Name Value Range Interpretation Code Description Data Ashley rce(s) Supporting Document(s) SODIUM 139 mmol/L (136-145) [facility] POTASSIUM 4.4 mmol/L (3.6-5.2) [facility] CHLORIDE 109 mmol/L (100-108) H [facility] CO2 20 mmol/L (22-31) L [facility] ANION GAP 10 mmol/L (7-16) [facility] UREA NITROGEN 14 mg/dL (7-24) [facility] CREATININE 0.58 mg/dL (0.60-1.00) L [facility] BUN/CREAT RATIO 24.1 RATIO (10.0-20.0) H [facility] GLUCOSE 223 mg/dL (70-99) H [facility] CALCIUM 8.4 mg/dL (8.4-10.2) [facility] GFR >60 ml/min/1.73m2 (>59) [facility] GFR ( AMER) >60 ml/min/1.73m2 (>59) [facility] GFR INTERPRETATION [facility] --NORMAL KIDNEY FUNCTION OR MILD DISEASE - GFR >OR= 60CHRONIC KIDNEY DISEASE - GFR 15 - 59RENAL FAILURE - GFR <15 Est. GFR calculation based on the MDRDstudy equation, which assumes a steadystate for creatinine. Est. GFR should notbe used for medication dosing. ID Date Data Source [id number] 09/06/2020 07:31:47 AM EDT [facility] Name Value Range Interpretation Code Description Data Ashley rce(s) Supporting Document(s) WBC 7.5 10*3/uL (4.1-11.0) [facility] RBC 4.83 10*6/uL (4.00-5.40) [facility] HGB 14.1 g/dL (12.0-16.0) [facility] HCT 40.2 % (36.0-47.0) [facility] PERFORMED AT [address] [place] [address] [place] [address] MCV 83.4 fL (80.0-95.0) [facility] MCH 29.2 pg (27.0-32.0) [facility] MCHC 35.0 g/dL (32.0-36.0) [facility] RDW 14.1 % (10.5-14.5) [facility] PLT 251 10*3/uL (150-450) [facility] MPV 7.0 fL (7.1-10.7) L [facility] ID Date Data Source [id number] 09/06/2020 05:47:[address] [facility] Name Value Range Interpretation Code Description Data Ashley rce(s) Supporting Document(s) EKG [facility] GKXIEq2pOgNNCtFio2VsKkBeMLAdMZ6tuqy7M7F7tAYrF6JvcIBff5cuJ8SvF2GbCBXzKEXLLN2RtUDj jb2 [file] 1v59q7WfEu/b5Hrd+Zf+sDx/n87AaNgd/0lvHaE4/andrés/OC4/yyMg55gxhvyFQ6TG2kVun+dWULvurvb7 [file] 3I5b/qPE0yr61z1S/yUqSuBs7hUK36DtXfKc/n [file] iM6p4z4TT9cILjYNoJtD7kHtmpX7fw4Xflb/SnU740o6uE2/ezBAHWKh3j8GwrTbymjs1vHOkVCAQ/Plugger Man yq0/Raf8+l4QLzqb6P/awit8Inmjp60MdvfxwRC2t5 sCiy7MuW/+/A0XICx4XEzZonImg7Llz25d44A5u/Inna+wuc658d6tNUcy9tnJsyF+B8PqAbVx33XUo96 [file] ayBTZXJpZXMpIAogICAgICAgICAgICAvUHJvZHVjZX NkDZ9AU9XvPNVjPQHXGLX7z7IhGPGfmtbzitomYv8zugPlVoh+YpkwUQRnx7JkTPxvM8D7rGWtH8CrN1 GsZO7VlPRuWVrkQLShWTTpVBDuG344fbLuAA8+AZ4du9BoUieaOWWHPWDvUZElQSPcXXD3MvJdWKQmVF KfSTYcBvT0NjMoBbIPVBLuVVE2OvPiWWZgBIKeJQHo EJteDNFxKLMgNJvcFEAvWHAfRB2nFrPjWTOzVWKhLMIfYZSaCMUujhSTMMCgCZNeIOPgKKN4ZGBeVDSu WWxpIMQsNWBhQUP8QHIzVCNyJW9nAqHiZPKhVCNiYufwJILqJBUvdcRZEBLdLYJyWOU9UtDbVYHtZPMa POooINMiZGOiRkj9VGQwKIZeOQ1hPpKoLCOtLHG3YY teRAPnDPJdzcCAYPNxICLdWODfFrIhFCSaMJDyZTccQQWuFCHkSuCiTBXpZWYnOG3cSuCiMBShXUJ8SJ BlPDJhJYEaipDGCWRoEBWzWVs4FISxMOVzCNBhWJwvMMKaDOKaRGE2TQYdUFTsLU8zKvWoNMBbWUBvAA FoBXUvTAEbysVCJXDtUWHyYRG2WVVcLGMaMOQcUZdt XIOrIIWjBzv2EDJdMCGgGC1oRbYnUACgBYB3QSQmEOIjJEIthqVMKHOyVUZ0JrZ5GsMhROEnIRNzBTfz RGRuSCYxYoV2KGYiVRYpXF2uDuXaPMDuRDQ3TtNbXFKjEQHwrpTJGLWsMNBqXKH9DtCxOJMiWROnRJsi FSVoYMSfRGAtRQU9CIA9PMDlYhRbSExyVEXIIKhFF0 OfztEbJzOXX3erCj0rRiBdAMCVI8Kfm2BsDJWdLTLWSn7+EpJ6ADF1vUUdPkk8SmW5OXeaTQPNAj== ID Date Data Source [id number] 09/06/2020 05:47:[address] [facility] Name Value Range Interpretation Code Description Data Ashley rce(s) Supporting Document(s) EKG [facility] SKGSJi0fHeLBUwLck9MqKdWcZDDdBP4pmnt8N3M5vHXkZ1WaeBKmd6cqS4MsS0EyDOAhVWHBYP4VsADk jb2 [file] MDAgbiAKMDAwMDAwMTYwOSAwMDAwMCBuIAowMDAwMD TaGlG1IHEiIQGgZT3hTgYbYPJtJTX8ECRaBNSkEAKvhaWDRRWgHBNrSRNiHFB9WHZgYSSeTQz5uwJgaM XkVek6Lt7QvEwyRQP1Vp0HxgYuGRIoKEJNWx8Sh188ZFEsVDHDIpb+PgpzdGFydHhyZWYKNTMzMzkKJS VFT0Y= ID Date Data Source [id number] 09/06/2020 02:49:02 AM EDT [facility] NT INFORMATIONPatient MRN Name Date of Age Gend*PT [id number] Madhavi Dave 1970 49 years F OBSPT Location Admission Date/Time Visit ID Attending [id number] 09/05/202027 --- Shawn Lorenz MD([id number]) EPI ID CSN Admitting Provider [id number] Sherrie Ayala MD([id number]) Attestation signed by Sherrie Ayala MD at 09/06/2020 2:49 AMPlan of care discussed. Agree with H&P by Aries Espana NP.Signature: FERNANDO Elaineate: September 06, 2020Time: 2:48 AM ADMISSION HISTORY AND PHYSICALName: Madhavi Dave Gender: femaleDate of : 1970 Age: 49 yearsDate/Time of Admit: 09/05/2020 8:28 PM Code Status: Full CodePrimary Care Provider / Referring Physician: Hakan Dixon NPInformant:Current HistoryChief Complaint: Patient transfers [facility] with unstable anginaHPI:This patient is a 49 years female with medical history of CAD s/p BESSIE to RCA,BESSIE to proximal, diagonal, and mid LAD. She was discharged on 1 year ofantiplatelet therapy in April 2020. She also has history of uncontrolled T2DM,dyslipidemia, COPD/chronic tobacco abuse, and chronic back pain on chronic painmedications. She transfers from [facility] with unstable angina.Patient reports that after her stents in April of 2020, she had been doing welluntil 2 weeks later when she started to experience on and off burning sensationin her chest occurring at rest and with activity. She also occasionally hasstabbing sensations and sometimes feels like someone is sitting on her chest.Her symptoms last seconds up to a minute and occur very frequently. Occasionallydana gets woken up from sleep by stabbing sensations in her chest. Associatedsymptoms are shortness of breath, occasional diaphoresis, nausea no vomiting,lightheadedness, and ongoing fatigue. She has taken occasional nitroglycerin Slfor her chest pressure/stabbing/heaviness with relief. She was seen by hecardiologist this morning and given her medical history, recent stents, andongoing symptoms she was referred to the emergency room for further evaluation.She also reports an ongoing headache associated with memory loss, loss ofappetite, and fatigue ongoing for months. She is presently followed by aneurologist and was recently started on Topiramate nightly.Work-up in [facility] was as follows:COVID-19 test negativeH&h 14.7/41.7, platlets 306, WBC 9.24, Na 139, K 3.9, hcg negative. Chest x-ray:no focal infiltrate or pneumothorax, no free air under the diaphrag. EKG: normalsinus rhythm and no acute ischemic changes.Troponin < 0.015.Madhavi Dave has strong family history of heart disease including in bothparents and all of her siblings. She has long standing history of smoking andhas been able to cut down to half pack per day. She continues to work on smokingcessation. She denies illicit drug use and alcohol use. 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 Negative for claudication, cyanosis,dyspnea on exertion, irregular heartbeat, leg swelling, near-syncope, orthopnea,palpitations, paroxysmal nocturnal dyspnea and syncope.Respiratory: Positive for shortness of breath. Negative for cough, hemoptysis,sleep disturbances due to breathing, snoring, sputum production and wheezing.Endocrine: Negative.Hematologic/Lymphatic: Negative.Skin: Negative.Musculoskeletal: Chronic back painGastrointestinal: Negative for bloating, abdominal pain, anorexia, change inbowel habit, bowel incontinence, constipation, diarrhea, dysphagia, excessiveappetite, flatus, heartburn, hematemesis, hematochezia, hemorrhoids, jaundice,melena, nausea and vomiting.Genitourinary: Negative for bladder incontinence, dysuria, flank pain,frequency, genital sores, hematuria, hesitancy, incomplete emptying, noctur ia,pelvic pain and urgency.Neurological: Positive for light-headedness (during episodes of chest pain).Negative for aphonia, brief paralysis, difficulty with concentration,disturbances in coordination, excessive daytime sleepiness, dizziness, focalweakness, headaches, loss of balance, numbness, paresthesias, seizures, sensorychange, tremors, vertigo and weakness.Psychiatric/Behavioral: Negative.Allergic/Immunologic: Negative.Past HistoryPast Medical History:Diagnosis Date COPD (chronic obstructive pulmonary disease) CT Head 05/23/2020 without constrast, no acute abnormality Depression DM (diabetes mellitus) GERD (gastroesophageal reflux disease) Headache HLD (hyperlipidemia) HTN (hypertension) Intervertebral disc disease Lumbar radiculopathy SciaticaPast Surgical History:Procedure Laterality Date CARDIAC CATHETERIZATION N/A 04/12/2020 Procedure: Left heart cath; Surgeon: Felipe Piña MD; Laterality: N/A; CARDIAC CATHETERIZATION N/A 04/12/2020 Procedure: Coronary angiography; Surgeon: Felipe Piña MD; Laterality:N/A; CARDIAC CATHETERIZATION N/A 04/12/2020 Procedure: Left ventriculography; Surg roxann: Felipe Piña MD; Laterality:N/A; CARDIAC CATHETERIZATION N/A 04/12/2020 Procedure: Percutaneous coronary intervention; Surgeon: Felipe Piña MD;Laterality: N/A; CARPAL TUNNEL RELEASE SECTION HYSTERECTOMY SPINE SURGERYFamily HistoryProblem Relation Age of Onset Coronary artery disease Mother Hypertension Mother Coronary artery disease Father Hypertension Father Diabetes Father Stroke Father Heart failure Sister Diabetes Sister Hyperlipidemia Sister COPD Brother Coronary artery disease BrotherSocial HistorySocial History Narrative Not on fileSocial HistorySocioeconomic History Marital status: Spouse name: Not on file Number of children: Not on file Years of education: Not on file Highest education level: Not on fileOccupational History Occupation: DisabilitySocial Needs Financial resource strain: Not on file Food insecurity: Worry: Not on file Inability: Not on file Transportation needs: Medical: Not on file Non-medical: Not on fileTobacco Use Smoking status: Current Every Day Smoker Packs/day: 2.00 Years: 35.00 Pack years: 70.00 Types: Cigarettes Smokeless tobacco: Never UsedSubstance and Sexual Activity Alcohol use: Not Currently Drug use: Not Currently Sexual activity: Not on fileLifestyle Physical activity: Days per week: Not on file Minutes per session: Not on file Stress: Not on fileRelationships Social connections: Talks on phone: Not on file Gets together: Not on file Attends yarsanism service: Not on file Active member of club or organization: Not on file Attends meetings of clubs or organizations: Not on file R elationship status: Not on file Intimate partner violence: Fear of current or ex partner: Not on file Emotionally abused: Not on file Physically abused: Not on file Forced sexual activity: Not on fileOther Topics Concern Not on fileSocial History Narrative Not on fileMedications and AllergiesALLERGIES/SENSITIVITIES:AllergiesAllergen Reactions [place] Flavor HivesScheduled Meds: [START ON 09/06/2020] aspirin EC 81 mg Oral Daily atorvastatin 80 mg Oral Daily [START ON 09/06/2020] clopidogrel 75 mg Oral Daily [START ON 09/09/2020] fentaNYL 1 patch Transdermal Q72H [START ON 09/06/2020] ferrous sulfate 325 mg Oral Daily with breakfast gabapentin 300 mg Oral TID [START ON 09/06/2020] heparin (porcine) 5,000 Units Subcutaneous Q12H NORAH Influenza Vac Split Quad 0.5 mL Intramuscular During hospitalization [START ON 09/06/2020] insulin lispro 1-6 Units Subcutaneous With mealssliding scale [START ON 09/06/2020] levothyroxine 100 mcg Oral Daily magnesium sulfate 1 g Intravenous Once [START ON 09/06/2020] metoprolol tartrate 50 mg Oral BID mometasone-formoterol 2 puff Inhalation RTBID montelukast 10 mg Oral Nightly normal saline flush 3 mL Intravenous Q8H [facility] [START ON 09/06/2020] pantoprazole 40 mg Oral Daily rotigotine 4 patch Transdermal Q24H [START ON 09/06/2020] topiramate 100 mg Oral Nightly [START ON 09/06/2020] Vitamin D 2,000 Units Oral DailyContinuous Infusions:PRN Meds:.acetaminophen, nitroglycerin, ondansetronPhysicalBlood Pressure: BP: 124/57 Pulse: Heart Rate: 64Temperature: Temp: 97.9 F Respirations: Resp: 16Admission Weight: Weight: 86.3 kg (190 lb 3.2 oz) O2 Saturation: SpO2: 97 %Today's Weight: Weight: 86.3 kg (190 lb 3.2 oz)Physical ExamPhysical ExamConstitutional: She is oriented to person, place, and time. She appearswell-developed and well-nourished. No distress.Somnolent, [id number]:Head: Normocephalic and atraumatic.Right Ear: External ear normal.Left Ear: External ear normal.Nose: Nose normal.Eyes: Pupils are equal, round, and reactive to light. Conjunctivae and EOM arenormal. Right eye exhibits no discharge. Left eye exhibits no discharge. Noscleral icterus.Neck: Normal range of motion. Neck supple. No JVD present. No tracheal deviationpresent. No thyromegaly present.Cardiovascular: Normal rate, regular rhythm, normal heart sounds and intactdistal pulses. Exam reveals no gallop and no friction rub.No murmur heard.Pulmonary/Chest: Effort normal and breath sounds normal. No stridor. Nor espiratory distress. She has no wheezes. She has no rales. She exhibits notenderness.Abdominal: Soft. Bowel sounds are normal. She exhibits no distension and nomass. There is no tenderness. There is no rebound and no guarding.Musculoskeletal: Normal range of motion. She exhibits no edema, tenderness ordeformity.Lymphadenopathy: She has no cervical adenopathy.Neurological: She is alert and oriented to person, place, and time. She hasnormal reflexes. No cranial nerve deficit. Coordination normal.Skin: Skin is warm and dry. No rash noted. She is not diaphoretic. No erythema.No pallor.Psychiatric: She has a normal mood and affect. Her behavior is normal.DiagnosticsCBC with Diff:Lab ResultsComponent Value Date WBC 7.8 09/05/2020 RBC 4.82 09/05/2020 HGB 14.0 09/05/2020 HCT 40.2 09/05/2020 MCV 83.6 09/05/2020 MCH 29.0 09/05/2020 MCHC 34.7 09/05/2020 RDW 13.8 09/05/2020 PLT 274 09/05/2020 MPV 6.8 (L) 09/05/2020 LYMPHOPCT 45.2 09/05/2020 MONOPCT 6.4 09/05/2020 EOSPCT 1.8 09/05/2020 BASOPCT 1.5 09/05/2020 NEUTROABS 3.5 09/05/2020 MONOABS 0.5 09/05/2020 BASOSABS 0.1 09/05/2020CMP:Lab ResultsComponent Value Date NA 141 09/05/2020 K 3.8 09/05/2020 CL 110 (H) 09/05/2020 CO2 23 09/05/2020 ANIONGAP 8 09/05/2020 BUN 12 09/05/2020 CREATININE 0.58 (L) 09/05/2020 BCR 20.7 (H) 09/05/2020 GLU 133 (H) 09/05/2020 CALCIUM 8.3 (L) 09/05/2020 ALBUMIN 3.5 09/05/2020 GLOB 2.8 09/05/2020 AGRC 1.3 09/05/2020 ALKPHOS 70 09/05/2020 LABBILI 0.7 09/05/2020 AST 15 09/05/2020 ALT 28 09/05/2020 GFRAA >60 09/05/2020 GFRNONAA >60 09/05/2020Assessment & PlanThis is a pleasant 49-year-old female patient with history of CAD s/p PCI inJ2019, who transfers from [facility] with unstable angina. Troponin was negativex1. On and off chest pain ongoing for few weeks associated withlightheadedness, shortness of breath, nausea, diaphoresis, relieved with nitrosublingualUnstable anginaWork-up in [facility] was negativeAdmission EKG revealed sinus bradycardia and no acute ischemic changesVital signs are stableAdmit to telemetryTrend troponinContinue Plavix, aspirin, metoprolol, statin, nitro as needed for chest painKeep n.p.o. and cardiology consultation in a.m.Coronary artery disease involving upper [place] coronary artery of upper [place] heartS/p multiple PCIHTN (hypertension)Metoprolol 25 mg b.i.dDM (diabetes mellitus)Hold PO agentsStart frail scale insulin and adjust as necessaryHypothyroidismLevothyroxine 100 mcg dailyHyperlipidemiaAtorvastatin 80 mg dailyCOPD (chronic obstructive pulmonary disease)StableContinue Duonebs, ICSMontelukast 10 mg nightlyNeuropathyRotigotine 8 mg patch Q 24HGabapentin 300 mg t.i.dContinuous dependence on cigarette smokingHas made effort towards decreasing smoking. Presently, smokes half pack per day.She will continue her efforts to quit smokingIn-patient smoking cessation consultGERD (gastroesophageal reflux disease)Pantoprazole 40 mg dailyChronic painDana has a new fentanyl patch 12 mcg which she placed on this amHold all other narcotics and continue fentanyl patch every 72 hrObesity (BMI 30-39.9)Supportive careHeadacheChronicFollowed by neurologistContinue Topiramate 100 mg nightlyPolypharmacyDVT pxHeparin subcutaneouslyCODE STATUS: FULL CODEAdvance Directives DiscussionI had a face to face discussion today with Patient regarding advance directives.We discussed the patient's code status wishes and the differences between whatit means to be full code, DNR, or DNR/DNI. (A DNR patient can still beelectively intubated in a non-cardiac arrest situation. A DNR/DNI will not beintubated in any circumstance.)Questions which were addressed included: Advance DirectivesAt this time their wishes are for the patient to be made Full Code. This hasbeen entered into the chart.Other topics discussed today included Patient's values and goals of careDetails of this discussion were as follows: Advance DirectivesForms completed today includenoneI spent < or = 15 minutes during the above discussion which was additional timespent separate from the hospital visit.D/W ature: [place] NPDate: September 05, 2020Time: 11:36 PM Name Value Range Interpretation Code Description Data Ashley rce(s) Supporting Document(s) ID Date Data Source [id number] 09/06/2020 12:46:36 AM EDT [facility] Name Value Range Interpretation Code Description Data Ashley rce(s) Supporting Document(s) TROPONIN I <0.05 ng/mL (<0.05) [facility] [place] Less than 0.05: Myocardial injury unlike lyGreater than or equal to 0.05: Highly suggestive of myocardial injuryCorrelation with rise and/or fall ofserial troponins, clinical symptomsand ECG changes is necessary. ID Date Data Source [id number] 09/06/2020 01:19:26 AM EDT [facility] Name Value Range Interpretation Code Description Data Ashley rce(s) Supporting Document(s) AMPHETAMINES,URINE (NEG) [facility] BARBITURATES,URINE (NEG) [facility] BENZODIAZEPINE,URINE (NEG) [facility] CANNABINOIDS,URINE (NEG) [facility] COCAINE,URINE (NEG) [facility] OPIATES,URINE (NEG) A [facility] NOTE: Oxycodone is not sufficientlydetec karey by this screening assay. A moresensitive assay is available upon request. PHENCYCLIDINE,URINE (NEG) [facility] PLEASE NOTE: [facility] [place] ARE REPORTED POSITIVE WHEN THE RESULT SEXCEED THE THRESHOLD (CUTOFF) INDICATED. ALIST OF POTENTIAL INTERFERENCES FOR EACHMETHOD CAN BE MADE AVAILABLE UPON REQUEST.CONFIRMATION OF A POSITIVE SCREEN CAN BE PERFORMED BY A REFERENCE LABORATORY IFREQUEST IS MADE WITHIN 48 HRS.* * * * * * * * * * * * * * *THIS ASSAY IS NOT INTENDED TO BE USED FORMONITORING MEDICATION COMPLIANCE. ID Date Data Source [id number] 09/05/2020 10:33:32 PM EDT [facility] Name Value Range Interpretation Code Description Data Ashley rce(s) Supporting Document(s) COLOR [facility] APPEARANCE [facility] SPEC GRAV URINE 1.021 (1.003-1.030) [facility] PH URINE 7.0 (5.0-7.5) [facility] LEUK ESTERASE (NEG) [facility] NITRITE URINE (NEG) [facility] PROTEIN URINE (NEG) [facility] GLUCOSE URINE (NEG) [facility] KETONE URINE (NEG) A [facility] PATRICK UROBILINOGEN 1.0 mg/dL (0-1.0) [facility] BILIRUBIN URINE (NEG) [facility] BLOOD/HGB URINE (NEG) [facility] ID Date Data Source [id number] 09/05/2020 10:41:19 PM EDT [facility] Name Value Range Interpretation Code Description Data Ashley rce(s) Supporting Document(s) HCG, QUAL. SERUM (NEG) [facility] ID Date Data Source [id number] 09/05/2020 10:37:53 PM EDT [facility] SPEC EXP DATE 09/08/2020PATI ENT ABO/Rh A POSITIVEANTIBODY SCREEN NEGATIVETESTING SITE PERFORMED AT [address] [place] [address] [place] [address] Name Value Range Interpretation Code Description Data Ashley rce(s) Supporting Document(s) TYPE AND SCREEN [facility] ID Date Data Source [id number] 09/05/2020 10:29:41 PM EDT [facility] Name Value Range Interpretation Code Description Data Ashley rce(s) Supporting Document(s) TROPONIN I <0.05 ng/mL (<0.05) [facility] [place] Less than 0.05: Myocardial injury unlike lyGreater than or equal to 0.05: Highly suggestive of myocardial injuryCorrelation with rise and/or fall ofserial troponins, clinical symptomsand ECG changes is necessary. ID Date Data Source [id number] 09/05/2020 10:29:41 PM EDT [facility] Name Value Range Interpretation Code Description Data Ashley rce(s) Supporting Document(s) TSH,ULTRASENSITIVE @ 3.056 mIU/L (0.360-4.170) [facility] PERFORMED AT [address] [place] [address] [facility] [place] [address] ID Date Data Source [id number] 09/05/2020 10:29:41 PM EDT [facility] Name Value Range Interpretation Code Description Data Ashley rce(s) Supporting Document(s) SODIUM 141 mmol/L (136-145) [facility] POTASSIUM 3.8 mmol/L (3.6-5.2) [facility] CHLORIDE 110 mmol/L (100-108) H [facility] CO2 23 mmol/L (22-31) [facility] ANION GAP 8 mmol/L (7-16) [facility] UREA NITROGEN 12 mg/dL (7-24) [facility] CREATININE 0.58 mg/dL (0.60-1.00) L [facility] BUN/CREAT RATIO 20.7 RATIO (10.0-20.0) H [facility] GLUCOSE 133 mg/dL (70-99) H [facility] CALCIUM 8.3 mg/dL (8.4-10.2) L [facility] TOTAL PROTEIN 6.3 g/dL (6.4-8.2) L [facility] ALBUMIN 3.5 g/dL (3.5-4.6) [facility] GLOBULIN 2.8 g/dL (2.7-4.3) [facility] ALB/GLOB RATIO 1.3 RATIO [facility] ALKALINE PHOSPHATASE 70 U/L (45-117) [facility] BILIRUBIN,TOTAL 0.7 mg/dL (0.0-1.0) [facility] PLEASE NOTE:Total bilirubin results may be falselyelevated in patients taking Eltrombopag. AST (SGOT) 15 U/L (11-39) [facility] ALT (SGPT) 28 U/L (12-78) [facility] GFR >60 ml/min/1.73m2 (>59) [facility] GFR ( AMER) >60 ml/min/1.73m2 (>59) [facility] GFR INTERPRETATION [facility] --NORMAL KIDNEY FUNCTION OR MILD DISEASE - GFR >OR= 60CHRONIC KIDNEY DISEASE - GFR 15 - 59RENAL FAILURE - GFR <15 Est. GFR calculation based on the MDRDstudy equation, which assumes a steadystate for creatinine. Est. GFR should notbe used for medication dosing. ID Date Data Source [id number] 09/05/2020 10:29:41 PM EDT [facility] Name Value Range Interpretation Code Description Data Ashley rce(s) Supporting Document(s) NT PRO BNP 129 pg/mL (0-125) H [facility] ID Date Data Source [id number] 09/05/2020 10:19:25 PM EDT [facility] Name Value Range Interpretation Code Description Data Ashley rce(s) Supporting Document(s) MAGNESIUM 1.6 mg/dL (1.7-2.4) L [facility] ID Date Data Source [id number] 09/05/2020 09:59:12 PM EDT [facility] Name Value Range Interpretation Code Description Data Ashley rce(s) Supporting Document(s) PT 10.7 s (9.2-11.9) [facility] INR 1.02 [facility] PIMENTEL SUGGESTED THERAPEUTIC RANGES USING INR F ORSTABILIZED ANTICOAGULATED PATIENTS:STANDARD DOSE THERAPY INR 2.0-3.0 DVT, PE, PREVENT DVT OR EMBOLISMHIGH DOSE THERAPY INR 2.5-3.5 PREVENT EMBOLISM FROM MECHANICAL HEART VALVE ID Date Data Source [id number] 09/05/2020 09:59:12 PM EDT [facility] Name Value Range Interpretation Code Description Data Ashley rce(s) Supporting Document(s) APTT 25.4 s (22.0-34.3) [facility] ID Date Data Source [id number] 09/05/2020 09:51:15 PM EDT [facility] Name Value Range Interpretation Code Description Data Ashley rce(s) Supporting Document(s) WBC 7.8 10*3/uL (4.1-11.0) [facility] [place] RBC 4.82 10*6/uL (4.00-5.40) [facility] HGB 14.0 g/dL (12.0-16.0) [facility] HCT 40.2 % (36.0-47.0) [facility] PERFORMED AT [address] [place] [address] [place] [address] MCV 83.6 fL (80.0-95.0) [facility] MCH 29.0 pg (27.0-32.0) [facility] MCHC 34.7 g/dL (32.0-36.0) [facility] RDW 13.8 % (10.5-14.5) [facility] PLT 274 10*3/uL (150-450) [facility] MPV 6.8 fL (7.1-10.7) L [facility] NEUT % 45.1 % (35.0-75.0) [facility] LYMPH % 45.2 % (16.0-52.0) [facility] MONO % 6.4 % (0.0-8.0) [facility] EOS % 1.8 % (0.0-5.0) [facility] BASO % 1.5 % (0.0-4.0) [facility] NEUT # 3.5 10*3/uL (1.8-7.7) [facility] LYMPH # 3.5 10*3/uL (1.2-4.8) [facility] MONO # 0.5 10*3/uL (0.0-0.8) [facility] Eosinophils [#/volume] in Blood by Automated count 0.1 10*3/uL (0.0-0 .5) [facility] BASO # 0.1 10*3/uL (0.0-0.2) [facility] ID Date Data Source [id number] 09/05/2020 09:55:12 PM EDT [facility] Name Value Range Interpretation Code Description Data Ashley rce(s) Supporting Document(s) POC NOVA GLU 162 mg/dL (70-99) H [facility]FORMED BY [facility]ICAL STAFF ID Date Data Source [id number] 09/21/2020 09:28:00 AM [facility] Name: MADHAVI DAVE : 1970 A ge/Sex: 49F Ordering Provider: DO Milton Mccollum Rec #: [id number] Reg Status: REG POV Room #: Date of Service: 09/05/20 Report Number: [id number] cc:Hakan Dixon NP; Shakir Smith DO Send Report To: [id number] CT/CT Head No Contrast Reason for exam: HEADACHE TECHNIQUE: Axial computed tomography images of the head/brain without intravenous contrast. COMPARISON: None provided. FINDINGS: BRAIN: No acute intraparenchymal hemorrhage. No mass lesion. No CT evidence for acute territorial infarct. No midline shift or extra-axial collections. VENTRICLES: No hydrocephalus. ORBITS: The orbits are unremarkable. SINUSES AND MASTOIDS: The paranasal sinuses and mastoid air cells are clear. s/pmedial antrectomy. BONES: No fracture. SOFT TISSUES: Unremarkable. Impression No acute intracranial abnormality. s/p medial antrectomy. Electronically signed on Sep 05, 2020 3:39:03 PM EDT by: Jia Marinelli MD Diplomate, [place] [employer] While performing the above CT exam, the following dose reduction techniques wereused: *Automated exposure control *Adjustment of the mA and/or kV according to patient size *Use of iterative reconstruction technique CT Dose in mSv: 1.24 Contrast Agent in ml: Method of Administration: REPORT SIGNATURE ON FILE Reported By: Jia Marinelli MD 09/21/2028 Dictation Date/Time: 09/05/20 1539 Transcribed Date/Time: 09/21/20927 Ladle Operator: DAJA Name Value Range Interpretation Code Description Data Ashley rce(s) Supporting Document(s) ID Date Data Source [id number] 09/20/2020 07:46:00 AM [facility] Name: MADHAVI DAVE : 1970 A ge/Sex: 49F Ordering Provider: Shakir Smith DO Med Rec #: [id number] Reg Status: REG POV Room #: Date of Service: 09/05/20 Report Number: [id number] cc:Hakan Dixon NP; Shakir Smith DO Send Report To: [id number] XRP/XR Chest Xray Portable Reason for exam: CHEST PAIN FINDINGS: Lungs clear. Heart and mediastinum within normal limits with no signsof any acute disease identified. IMPRESSION: No acute disease noted. Fluoroscopy time in seconds: Number of Exposures: Time Portable Image Performed: 1245 Contrast Agent in ml: Method of Administration: REPORT SIGNATURE ON FILE Reported By: Bruce Wang MD <Electronically signed by Rachael Wang MD> 09/22/20 1130 Dictation Date/Time: 09/06/20 1248 Transcribed Date/Time: 09/20/20 0746 Ladle Operator: DAJA Name Value Range Interpretation Code Description Data Ashley rce(s) Supporting Document(s) ID Date Data Source [id number] 09/11/2020 07:52:00 PM [facility] Name: MADHAVI DAVE : 1970 A ge/Sex: 49F Ordering Provider: Shakir Smith DO Med Rec #: [id number] Reg Status:REG ER Room #: Date of Service: 09/05/20 Report Number: [id number] cc: Hakan Dixon NP; Shakir Smith DO Send Report To: Reason for exam: Baseline EKG filing date on [employer] was delayed due to 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 Interpretation of EKG read by was available on [employer] EKG-software on time. SINUS RHYTHM NORMAL ECG WARNING: DATA QUALITY MAY AFFE CT INTERPRETATION Physician Lidding Machine Operator: Dr. Reid Poole M.D. ECG HEART RATE: 60 /min ECG RR INTERVAL: 990 ms ECG P DURATION: 126 ms ECG QRS DURATION: 89 ms ECG OR INTERVAL: 147 ms ECG QT INTERVAL: 445 ms ECG QTC INTERVAL: 445 ms Q-T dispersion: ms ECG P AXIS: 55 deg ECG QRS AXIS: 44 deg ECG T AXIS: 53 deg REPORT SIGNATURE ON FILE 10/09/20 0118 Reported By: Reid Poole MD <<Signature on File>> Exam Date/Time: 09/05/20 1204 Order #: [id number] Dictation Date/Time: 09/11/201951 Transcribed Date/Time: 09/11/201951 Ladle Operator: ELVIA Name Value Range Interpretation Code Description Data Ashley rce(s) Supporting Document(s) ID Date Data Source [id number] 11/06/2020 02:43:00 PM EST [facility] First test? UNKNOWNEmployed in [facility] re? NOSymptomatic per CDC? YESHospitalized? NOICU? NOResident in congregated care? ex retirement, [facility] NO? NO Name Value Range Interpretation Code Description Data Ashley rce(s) Supporting Document(s) SARS-CoV-2 RNA Negative Normal (applies to non-numeric r esults) [facility] Negative results should be treated as pr esumptive and, if inconsistent with clinical signs and symptoms or necessary for patient management, should be tested with different authorized or cleared molecular tests. Negative results do not preclude SARS-CoV-2 infection and should not be used as the sole basis for patient management decisions. Negative results should be considered in the context of a patients recent exposures, history and the presence of clinical signs and symptoms consistent with COVID-19. This test has not been FDA cleared or approved; this test has been authorized by FDA under an Emergency Use Authorization for use by laboratories certified under the Clinical Laboratory Improvement Amendments of 1988 (CLIA), 42 U.S.C. 263a, to perform moderate complexity/high complexity tests and at the Point of Care (POC), i.e., in patient care settings operating under a CLIA Certificate of Waiver, Certificate of Compliance, or Certificate of Accreditation. Factsheets for healthcare providers: https://www.fda.gov/media/539728/download Factsheets for patients: https://www.fda.gov/media/251454/download The ID NOW Instrument is a rapid molecular in vitro diagnostic test utilizing an isothermal nucleic acid amplification technology intended for the qualitative detection of nucleic acid from the SARS-CoV-2 viral RNA. THIS IS A STATE REPORTABLE COMMUNICABLE DISEASE. Manual entry verified by Erica Austin 11/06/20 1442 ID Date Data Source [id number] 07/16/2020 12:51:00 PM EDT [facility] Name: MADHAVI DAVE : 1970 A ge/Sex: 49F Ordering Provider: Hakan Dixon NP Med Rec #: [id number] Reg Status:DEP REF Room #: Date of Service: 07/16/20 Report Number: [id number] cc: Hakan Dixon NP Send Report To: Echocardiogram Complete Ordering Phys: Leonid DIXON NP, Referring Phys: Leonid DIXON NP, Exam Location: Echo Lab Exam Date: 07/16/2020 12:53 Ht (in): 66 Wt (lb): 187 Tech/RN: Awais Gonzalez RDCS Indications: NSTEMI - OUT PT BP 100 / 64 Rhythm: Technical Quality: Contrast: Total Dose (mL): MEASUREMENTS (Male / Female) Normal Values 2D ECHO Measurement LV Diastolic Diameter PLAX 4.3 cm 4.2 - 6.0 / 3.9 - 5.4 cm IVS Diastolic Thickness 1.1 cm 0.6 - 1.1 / 0.6 - 1.0 cm LVPW Diastolic Thickness 1.1 cm 0.6 - 1.1 / 0.6 - 1.0 LV Relative Wall Thickness 0.5 Aortic Root Diameter 3.1 cm Aortic Root Diameter Index 1.5 cm/m2 LA Systolic Diameter LX 3.7 cm 3.0 - 4.1 / 2.7 - 3.9 cm LV Diastolic Volume MOD BP 84.1 ml LV Systolic Volume MOD BP 34.6 ml LV Ejection Fraction MOD BP 58.9 % >= 55 % LV Diastolic Volume MOD 4C 89.8 ml LV Systolic Volume MOD 4C 37.3 ml LV Ejection Fraction MOD 4C 58.5 % LV Diastolic Volume MOD 2C 73.8 ml LV Systolic Volume MOD 2C 30.7 ml LV Ejection Fraction MOD 2C 58.4 % LV Diastolic Length 4C 7.9 cm LV Systolic Length 4C 7 cm LV Diastolic Area 4C 29.3 cm2 LV Systolic Area 4C 17.4 cm2 LV Ejection Fraction 4C AL 60.4 % LV Diastolic Area 2C 27.3 cm2 LV Diastolic Length 2C 8.5 cm LV Systolic Area 2C 16 cm2 LV Systolic Length 2C 7.4 cm LV Ejection Fraction 2C AL 60.6 % LA Volume Index 20.9 cm3/m2 16 - 28 cm3/m2 RV Internal Dim ED PLAX 3.6 cm Ascending Aorta Diameter 3 cm DOPPLER Measurement AV Peak Velocity 129 cm/s AV Peak Gradient 6.7 mmHg LVOT Peak Velocity 93.3 cm/s LVOT Peak Gradient 3.5 mmHg Mitral E Point Velocity 72.4 cm/s Mitral A Point Velocity 77.1 cm/s Mitral E to A Ratio 0.94 MV Area PHT 3.7 cm2 MV Deceleration Time 197 ms PV Peak Velocity 96.4 cm/s PV Peak Gradient 3.7 mmHg Mitral E to LV E' Lateral Ratio 6.7 LV E' Septal Velocity 7 cm/s Mitral E to LV E' Septal Ratio 10.4 FINDINGS Left Ventricle: Normal LV size and wall thickness. Normal LV-systolic function with EF >55%. No apparent significant regional wall motion abnormalities. Diastolic function can not be evaluated due to E/A fusion; Right Ventricle: Normal RV size and function; Right Atrium: RA is normal size Left Atrium: LA is normal size; Mitral Valve: Mitral valve leaflets are normal and open well; no mitral stenosis, trace physiologic mitral regurgitation; Aortic Valve: The aortic valve is not well visualized; No aortic stenosis, no aortic regurgitation ; Tricuspid Valve: Tricuspid valve leaflets are thin and pliable and are opening well; No Tricuspid stenosis, mild Tricuspid regurgitation; Doppler envelope of the TR-jet is inadequate to assess RVSP; Pulmonic Valve: Pulmonic valve is not well visualized; No pulmonic stenosis, mild physiologic pulmonic regurgitation; Pericardium: No pericardial effusion. Aorta: Normal aortic root size; Normal size aortic root and proximal ascending aorta. CONCLUSIONS 2-D, M-mode, and Doppler echocardiogram; Normal LV size and wall thickness. Normal LV- systolic function with EF >55%. No apparent significant regional wall motion abnormalities. Diastolic function can not be evaluated due to E/A fusion; LA is normal size; No hemodynamically significant valvular abnormalities; Normal RV size and function; RA is normal size. No pericardial effusion. REPORT SIGNATURE ON FILE 07/19/20 0351 Reported By: Reid Poole MD <Electronically signed by Reid Poole MD in OV> Exam Date/Time: 07/16/201250 Order #: [id number] Dictation Date/Time: 07/16/20 1253 Transcribed Date/Time: Ladle Operator: Name Value Range Interpretation Code Description Data Ashley rce(s) Supporting Document(s) ID Date Data Source [id number] 06/11/2020 09:13:00 AM EDT [facility] ([facility], ) Name Value Range Interpretation Code Description Data Ashley rce(s) Supporting Document(s) Mercury [Mass/volume] in Blood 1.0 ug/L 0.0-14.9 [facility] ([facility], ) <content>Environmental Exposure: <15.0< /content>
<content>Occupational Exposure:</content>
<content>LAURA - Inorganic Mercury: 15.0</content>
<content>Detection Limit = 1.0</content>
<content>Performed at: [facility]</content>
<content>[address] [place] [id number]</content>
<content>Emergency Care Tech: Talia Walden MD, Phone: [phone]</content>
<content></content> Alpha tocopherol [Mass/volume] in Serum or Plasma 10.4 mg/L 7.0-25.1 [facility] ([facility], ) Test(s) 692430-Ofe. B1, Whole Blood was developed and its performance characteristics determined by [facility]. It has not been cleared or approved by the Food and Drug Administration. Copper [Mass/volume] in Serum or Plasma 116 ug/dL 72-166 [facility] ([facility], ) Detection Limit = 5 Performed at: [place] [id number] Emergency Care Tech: Talia Walden MD, Phone: [phone] Thiamine [Mass/volume] in Blood 159.7 nmol/L 66.5-200.0 [facility] ([facility], ) Performed at: [place] [id number] Emergency Care Tech: Talia Walden MD, Phone: [phone] Pyridoxine [Mass/volume] in Serum or Plasma 3.9 ug/L 2.0-32.8 [facility] ([facility]) Performed at: [place] [id number] Emergency Care Tech: Talia Walden MD, Phone: [phone] ID Date Data Source [id number] 06/11/2020 09:13:00 AM EDT [facility] ([facility]) Name Value Range Interpretation Code Description Data Ashley rce(s) Supporting Document(s) Petp 6.5 g/dL 6.0-8.5 [facility] ([facility], ) Pea1g 0.2 g/dL 0.0-0.4 [facility] ([facility], ) Pea2g 0.9 g/dL 0.4-1.0 [facility] ([facility], ) Pealb 3.8 g/dL 2.9-4.4 [facility] ([facility], ) Pegg 0.5 g/dL 0.4-1.8 [facility] ([facility], ) Pebg 1.1 g/dL 0.7-1.3 [facility] ([facility], ) Petg 2.7 g/dL 2.2-3.9 [facility] ([facility], ) Peagr 1.4 0.7-1.7 [facility] ([facility], ) Pems Laboratory test result [facility] ([facility]) Pepn Laboratory test result [facility] ([facility]) Protein electrophoresis scan will follow via computer, mail, or complaint evaluation supervisor delivery. Performed at: [facility] [id number] Emergency Care Tech: Peg Booker MD, Phone: [phone] ID Date Data Source [id number] 06/11/2020 09:13:00 AM EDT [facility] ([facility]) Name Value Range Interpretation Code Description Data Ashley rce(s) Supporting Document(s) Nuclear IgG Ab [Units/volume] in Serum by Flow cytomet ry (FC) Laboratory test result [facility] ([facility]) Performed at: [address] [id number] Emergency Care Tech: Peg Booker MD, Phone: [phone] Lead [Mass/volume] in Blood Laboratory test result 0-4 [facility] ([facility]) <content>Analysis by inductively coupled plasma/mass</content>
<content>spectrometry (ICP/MS)</content>
<content>Environmental Exposure:</content>
<content>WHO Recommendation <20</content>
<content>Occupational Exposure:</content>
<content>OSHA Lead Std 40</content>
<content>LAURA 30</content>
<content>Detection Limit = 1</content>
<content>Performed at: [facility]</content>
<content>[address] [place] [id number]</content>
<content>Emergency Care Tech: Peg Booker MD, Phone: [phone]</content>
<content></content> ID Date Data Source [id number] 06/11/2020 09:13:00 AM EDT [facility] ([facility]) Name Value Range Interpretation Code Description Data Ashley rce(s) Supporting Document(s) VB12 514 pg/mL [id number] [facility] ([facility]) Fol 15.0 ng/mL [facility] ([facility]) A serum folate concentration of less asaf n 3.1 ng/mL is considered to represent clinical deficiency. ID Date Data Source [id number] 06/11/2020 09:13:00 AM [facility]T [facility] Name Value Range Interpretation Code Description Data Ashley rce(s) Supporting Document(s) Ceruloplasmin [Mass/volume] in Serum or Plasma 28.3 mg/dL 19.0-39.0 [facility] ([facility]) Performed at: RN - [facility] [address] [id number] Emergency Care Tech: Peg Booker MD, Phone: [phone] ID Date Data Source [id number] 06/11/2020 09:13:00 AM EDT [facility] Name Value Range Interpretation Code Description Data Ashley rce(s) Supporting Document(s) Laboratory test finding (navigational concept) 55 ug/dL 50-170 [facility] ([facility]) Laboratory test finding (navigational concept) 419 ug/dL 250-450 [facility] ([facility]) Laboratory test finding (navigational concept) 13 % 20-50 [facility] ([facility]) ID Date Data Source [id number] 06/11/2020 09:13:00 AM EDT [facility] Name Value Range Interpretation Code Description Data Ashley rce(s) Supporting Document(s) Ferritin [Mass/volume] in Serum or Plasma 24 ng/mL 8-252 [facility] ([facility]) FAX [phone] Rheumatoid factor [Units/volume] in Serum or Plasma Laboratory test result [facility] ([facility]) FAX [phone] Erythrocyte sedimentation rate by 2H Westergren method 7 mm/hr 0-2 0 [facility] FAX [phone] ID Date Data Source [id number] 06/12/2020 07:56:00 AM EDT [facility] [phone] Name Value Range Interpretation Code Description Data Ashley rce(s) Supporting Document(s) IRON 55 ug/dL 50-170 [facility] TIBC 419 ug/dL 250-450 [facility] % SATURATION 13 % 20-50 L [facility] ID Date Data Source [id number] 06/11/2020 10:21:00 AM EDT [facility] FAX [phone] Name Value Range Interpretation Code Description Data Ashley rce(s) Supporting Document(s) FERRITIN 24 ng/mL 8-252 [facility] ID Date Data Source [id number] 06/11/2020 10:46:00 AM EDT [facility] FAX [phone] Name Value Range Interpretation Code Description Data Ashley rce(s) Supporting Document(s) ERYTHROCYTE SEDIMENTATION RATE 7 mm/hr 0-20 [facility] ID Date Data Source [id number] 06/11/2020 10:28:00 AM EDT [facility] FAX [phone] Name Value Range Interpretation Code Description Data Ashley rce(s) Supporting Document(s) RHEUMATOID FACTOR SCREEN NEGATIVE NEGATIVE [facility] ID Date Data Source [id number] 06/13/2020 06:10:00 AM EDT [facility] Test(s) [id number]. B1, Whole Bloodwas d eveloped and its performance characteristicsdetermined by [facility]. It has not been cleared or approvedby the Food and Drug Administration. Name Value Range Interpretation Code Description Data Ashley rce(s) Supporting Document(s) MERCURY, BLOOD 1.0 ug/L 0.0-14.9 [facility] Environmental Ex posure: <15.0 Occupational Exposure: LAURA - Inorganic Mercury: 15.0 Detection Limit = 1.0Performed at: [address] [id number] Director: Talia Walden MD, Phone: [phone] ID Date Data Source [id number] 06/12/2020 12:09:00 PM EDT [facility] Test(s) [id number]. B1, Whole Bloodwas d eveloped and its performance characteristicsdetermined by [facility]. It has not been cleared or approvedby the Food and Drug Administration. Name Value Range Interpretation Code Description Data Ashley rce(s) Supporting Document(s) LEAD, BLOOD (ADULT) <1 ug/dL 0-4 [facility] Analysis by inductively coupled plasma/m assspectrometry (ICP/MS) Environmental Exposure: WHO Recommendation <20 Occupational Exposure: OSHA Lead Std 40 LAURA 30 Detection Limit = 1Performed at: [address] [id number] Director: Peg Booker MD, Phone: [phone] ID Date Data Source [id number] 06/14/2020 06:06:00 AM EDT [facility] Test(s) [id number]. B1, Whole Bloodwas d eveloped and its performance characteristicsdetermined by [facility]. It has not been cleared or approvedby the Food and Drug Administration. Name Value Range Interpretation Code Description Data Ashley rce(s) Supporting Document(s) COPPER, SERUM 116 ug/dL 72-166 [facility] Detectio n Limit = 5Performed at: [address] [id number] Director: Talia Walden MD, Phone: [phone] ID Date Data Source [id number] 06/12/2020 02:05:00 PM EDT [facility] Test(s) [id number]. B1, Whole Bloodwas d eveloped and its performance characteristicsdetermined by [facility]. It has not been cleared or approvedby the Food and Drug Administration. Name Value Range Interpretation Code Description Data Ashley rce(s) Supporting Document(s) MAT DIRECT Negative Negative [facility] Performed at: [address] [id number] Director: Peg Booker MD, Phone: [phone] ID Date Data Source [id number] 06/16/2020 06:10:00 AM EDT [facility] Test(s) [id number]. B1, Whole Bloodwas d eveloped and its performance characteristicsdetermined by [facility]. It has not been cleared or approvedby the Food and Drug Administration. Name Value Range Interpretation Code Description Data Ashley rce(s) Supporting Document(s) VIT. B1, WHOLE BLOOD 159.7 nmol/L 66.5-200.0 [facility] Performed at: [facility] - [facility] [id number] Director: Talia Walden MD, Phone: [phone] ID Date Data Source [id number] 06/14/2020 06:06:00 AM EDT [facility] [id number]. B1, Whole Bloodwas d eveloped and its performance characteristicsdetermined by [facility]. It has not been cleared or approvedby the Food and Drug Administration. Name Value Range Interpretation Code Description Data Ashley rce(s) Supporting Document(s) VITAMIN E(ALPHA TOCOPHEROL) 10.4 mg/L 7.0-25.1 [facility] ID Date Data Source [id number] 06/12/2020 08:06:00 PM EDT [facility]) [id number]. B1, Whole Bloodwas d eveloped and its performance characteristicsdetermined by [facility]. It has not been cleared or approvedby the Food and Drug Administration. Name Value Range Interpretation Code Description Data Ashley rce(s) Supporting Document(s) PROTEIN, TOTAL, SERUM 6.5 g/dL 6.0-8.5 [facility] spital ALBUMIN 3.8 g/dL 2.9-4.4 [facility] COLAK-2-EIJAXZIT 0.2 g/dL 0.0-0.4 [facility] GVSUX-7-GCSBZXHZ 0.9 g/dL 0.4-1.0 [facility] BETA GLOBULIN 1.1 g/dL 0.7-1.3 [facility] GAMMA GLOBULIN 0.5 g/dL 0.4-1.8 [facility] M-SPIKE Not Observed g/dL Not Observed [facility] pital GLOBULIN, TOTAL 2.7 g/dL 2.2-3.9 [facility] A/G RATIO 1.4 0.7-1.7 [facility] PLEASE NOTE: Comment . [facility] Protein electrophoresis scan will follow via computer,mail, or complaint evaluation supervisor delivery.Performed at: [place] - [facility] [address] [id number] Director: Peg Booker MD, Phone: [phone] ID Date Data Source [id number] 06/15/2020 08:05:00 PM EDT [facility] Test(s) [id number]. B1, Whole Bloodwas d eveloped and its performance characteristicsdetermined by [facility]. It has not been cleared or approvedby the Food and Drug Administration. Name Value Range Interpretation Code Description Data [facility](s) Supporting Document(s) VITAMIN B6 3.9 ug/L 2.0-32.8 [facility] Performed at: - [facility] [id number] Director: Talia Walden MD, Phone: [phone] ID Date Data Source [id number] 06/12/2020 08:09:00 AM EDT [facility] Test(s) [id number]-Zdt. B1, Whole Bloodwas d eveloped and its performance characteristicsdetermined by [facility]. It has not been cleared or approvedby the Food and Drug Administration. Name Value Range Interpretation Code Description Data [facility](s) Supporting Document(s) VITAMIN B12 514 pg/mL [phone] [facility] FOLATE (FOLIC ACID), SERUM 15.0 ng/mL >3.0 [facility] A serum folate concentration of less asaf n 3.1 ng/mL isconsidered to represent clinical deficiency. ID Date Data Source [id number] 06/12/2020 08:09:00 AM EDT [facility] Test(s) [id number]. B1, Whole Bloodwas d eveloped and its performance characteristicsdetermined by [facility]. It has not been cleared or approvedby the Food and Drug Administration. Name Value Range Interpretation Code Description Data [facility](s) Supporting Document(s) CERULOPLASMIN 28.3 mg/dL 19.0-39.0 [facility] Performed at: - [facility] [address] [id number] Director: Peg Booker MD, Phone: [phone] ID Date Data Source [id number] 06/12/2020 08:06:00 AM EDT [facility] Name Value Range Interpretation Code Description Data [facility](s) Supporting Document(s) Vitamin B12 514 pg/mL [id number] [facility] Folate (Folic Acid), Serum 15.0 ng/mL >3.0 [facility] A serum folate concentration of less asaf n 3.1 ng/mL isconsidered to represent clinical deficiency. ID Date Data Source [id number] 06/12/2020 12:05:00 PM EDT [facility] Name Value Range Interpretation Code Description Data Ashley rce(s) Supporting Document(s) Lead, Blood (Adult) 0-4 [facility] Analysis by inductively coupled plasma/m assspectrometry (ICP/MS) Environmental Exposure: WHO Recommendation <20 Occupational Exposure: OSHA Lead Std 40 LAURA 30 Detection Limit = 1 ID Date Data Source [id number] 06/12/2020 02:05:00 PM EDT [facility] Name Value Range Interpretation Code Description Data Ashley rce(s) Supporting Document(s) MAT Direct Negative Negative [facility] ID Date Data Source [id number] 06/12/2020 08:05:00 PM EDT [facility] Name Value Range Interpretation Code Description Data Ashley rce(s) Supporting Document(s) Protein, Total 6.5 g/dL 6.0-8.5 [facility] Albumin 3.8 g/dL 2.9-4.4 [facility] Mtbgg-6-Lverdspi 0.2 g/dL 0.0-0.4 [facility] Zskzx-5-Lvjceucs 0.9 g/dL 0.4-1.0 [facility] Beta Globulin 1.1 g/dL 0.7-1.3 [facility] Gamma Globulin 0.5 g/dL 0.4-1.8 [facility] M-Jorge Not Observed g/dL Not Observed [facility] Globulin, Total 2.7 g/dL 2.2-3.9 [facility] A/G Ratio 1.4 0.7-1.7 [facility] Please note: [facility] Protein electrophoresis scan will follow via computer, mail, orcourier delivery. PDF . [facility] ID Date Data Source [id number] 06/13/2020 06:05:00 AM EDT [facility] Name Value Range Interpretation Code Description Data Ashley rce(s) Supporting Document(s) Mercury, Blood 1.0 ug/L 0.0-14.9 [facility] E nvironmental Exposure: <15.0 Occupational Exposure: LAURA - Inorganic Mercury: 15.0 Detection Limit = 1.0 ID Date Data Source [id number] 06/14/2020 06:05:00 AM EDT [facility] Name Value Range Interpretation Code Description Data Ashley rce(s) Supporting Document(s) Vitamin E(Alpha Tocopherol) 10.4 mg/L 7.0-25.1 [facility] Vitamin E(Gamma Tocopherol) 1.9 mg/L 0.5-5.5 [facility] Reference intervals for alpha and gamma- tocopherol determined from[place] Health and Nutrition Examination Survey, [id number].Individuals with alpha- tocopherol levels less than 5.0 mg/L areconsidered vitamin E deficient. ID Date Data Source [id number] 06/15/2020 08:05:00 PM EDT [facility] Name Value Range Interpretation Code Description Data Ashley rce(s) Supporting Document(s) Vitamin B6 3.9 ug/L 2.0-32.8 [facility] ID Date Data Source [id number] 06/16/2020 06:05:00 AM EDT [facility] Name Value Range Interpretation Code Description Data Ashley rce(s) Supporting Document(s) Vit. B1, Whole Blood 159.7 nmol/L 66.5-200.0 [facility] ID Date Data Source [id number] 06/12/2020 08:06:00 AM EDT [facility] Name Value Range Interpretation Code Description Data Ashley rce(s) Supporting Document(s) Ceruloplasmin 28.3 mg/dL 19.0-39.0 [facility] ID Date Data Source [id number] 06/14/2020 06:05:00 AM EDT [facility] Name Value Range Interpretation Code Description Data Ashley rce(s) Supporting Document(s) Copper, Serum 116 ug/dL 72-166 [facility] Detection Limit = 5 ID Date Data Source [id number] 06/12/2020 08:09:00 AM EDT [facility] Name Value Range Interpretation Code Description Data Ashley rce(s) Supporting Document(s) VITAMIN D, 25-HYDROXY 25.1 ng/mL 30.0-100.0 [facility] Vitamin D deficiency has been defined by the [place] ofMedicine and an Endocrine Society practice guideline as alevel of serum 25-OH vitamin D less than 20 ng/mL (1,2).The Endocrine Society went on to further define vitamin Dinsufficiency as a level between 21 and 29 ng/mL (2).1. IOM ([place] of Medicine). 2010. Dietary reference intakes for calcium and D. Be [place]: The National Academies Press.2. Junior MF, Theresa HURST, Angel AKERS, et al. Evaluation, treatment, and prevention of vitamin D deficiency: an Endocrine Society clinical practice guideline. JCEM. 2010; 96(3):2841- 30.Performed at: RN - [facility] [address] [id number] Director: Peg Booker MD, Phone: [phone] ID Date Data Source [id number] 06/11/2020 10:06:00 AM EDT [facility] FAX [phone] Name Value Range Interpretation Code Description Data Ashley rce(s) Supporting Document(s) MAGNESIUM 1.6 mg/dL 1.8-2.4 [facility] ID Date Data Source [id number] 06/11/2020 10:06:00 AM EDT [facility] FAX [phone] Name Value Range Interpretation Code Description Data Ashley rce(s) Supporting Document(s) PHOSPHOROUS 3.8 mg/dL 2.5-4.9 [facility] ID Date Data Source [id number] 06/11/2020 10:06:00 AM EDT [facility] FAX [phone] Name Value Range Interpretation Code Description Data Ashley rce(s) Supporting Document(s) CHOLESTEROL 188 mg/dL 0-200 [facility] TRIGLYCERIDES 103 mg/dL 0-150 [facility] LDL CHOLESTEROL 113 mg/dL 0-100 H [facility] HDL CHOLESTEROL 54 mg/dL 40-60 [facility] CHOL/HDL RATIO 3.5 0.0-5.0 [facility] ID Date Data Source [id number] 06/12/2020 07:56:00 AM EDT [facility] FAX [phone] Name Value Range Interpretation Code Description Data Ashley rce(s) Supporting Document(s) GLUCOSE 215 mg/dL 74-106 H [facility] BLOOD UREA NITROGEN 14 mg/dL 7-18 [facility] ital CREATININE 0.7 mg/dL 0.6-1.0 [facility] SODIUM 138 mmol/L 136-145 [facility] POTASSIUM 4.6 mmol/L 3.5-5.1 [facility] CHLORIDE 101 mmol/L 98-107 [facility] CO2 26 mmol/L 21-32 [facility] CALCIUM 8.7 mg/dL 8.5-10.1 [facility] ANION GAP 11.0 mmol/L 5-12 [facility] GLOMERULAR FILTRATION RATE 89 mL/min [facility] GFR IS CALCULATED IN mL/min/1.73m2 RORY L FUNCTION: >90MILDLY DECREASED: 60-89MILDY TO MODERATELY DECREASED: 45-59 MODERATELY TO SEVERELY DECREASED: 30-44SEVERELY DECREASED: 15-29RENAL FAILURE: <15 AST 18 U/L 15-37 [facility] ALT 31 U/L 12-78 [facility] ALKALINE PHOSPHATASE 74 U/L 46-116 [facility] pital TOTAL BILIRUBIN 0.6 mg/dL 0.2-1.0 [facility] TOTAL PROTEIN 6.9 g/dl 6.4-8.2 [facility] ALBUMIN 4.0 gm/dL 3.4-5.0 [facility] ID Date Data Source [id number] 06/11/2020 10:27:00 AM EDT [facility] FAX [phone] Name Value Range Interpretation Code Description Data Ashley rce(s) Supporting Document(s) URINE MICROALBUMIN 2.3 mg/L 1.3-20.0 [facility] URINE CREATININE 57.7 mg/dL [facility] MICROALBUMIN/CREATININE RATIO 3 ug/mg [facility] ID Date Data Source [id number] 06/11/2020 10:23:00 AM [facility] FAX [phone] Name Value Range Interpretation Code Description Data Ashley rce(s) Supporting Document(s) URINE COLOR. [facility] URINE APPEARANCE CLEAR [facility] SPECIFIC GRAVITY,URINE 1.020 1.001-1.035 [facility] URINE LEUKOCYTE ESTERASE NEGATIVE NEGATIVE [facility] URINE NITRATE NEGATIVE NEGATIVE [facility] PH,URINE 5.5 5.0-9.0 [facility] URINE PROTEIN NEGATIVE mg/dL NEGATIVE [facility] URINE GLUCOSE (UA) NEGATIVE mg/dL NEGATIVE [facility] URINE KETONE NEGATIVE mg/dL NEGATIVE [facility] URINE UROBILINOGEN NORMAL(0.2-1) mg/dL 0-1 [facility] URINE BILIRUBIN NEGATIVE NEGATIVE [facility] URINE BLOOD NEGATIVE NEGATIVE [facility] ID Date Data Source [id number] 06/11/2020 10:21:00 AM EDT [facility] FAX [phone] Name Value Range Interpretation Code Description Data Ashley rce(s) Supporting Document(s) TSH 3.17 uIU/mL 0.36-3.74 [facility] ID Date Data Source [id number] 06/11/2020 09:38:00 AM EDT [facility] FAX [phone] Name Value Range Interpretation Code Description Data Ashley e(s) Supporting Document(s) WHITE BLOOD COUNT 7.2 K/mm3 4.0-10.0 [facility] RED [facility]LO[facility] COUNT 4.85 M/mm3 4.00-5.50 [facility] HEMOGLOBIN 13.8 gm/dL 12.0-16.0 [facility] HEMATOCRIT 39.8 % 36.0-48.8 [facility] MEAN CELL VOLUME 82.1 fl 80-96 [facility] MEAN CORPUSCULAR HEMOGLOBIN 28.5 pg 27.0-31.0 [facility] MEAN CORPUSCULAR HGB CONC 34.7 g/dl 32.0-36.0 [facility] RED CELL DISTRIBUTION WIDTH 13.4 % 10.0-14.5 [facility] PLATELET COUNT 254 K/mm3 172-450 [facility] MEAN PLATELET VOLUME 8.9 fl 9.0-13.0 L [facility] pital GRAN % 61.0 % 50-80.0 [facility] IG% 0.1 % 0.0-0.2 [facility] LYMPH % 32.5 % 25.0-50.0 [facility] MONO % 4.3 % 2.0-10.0 [facility] EOS % 1.7 % 0-5.0 [facility] BASO % 0.4 % 0.0-2.0 [facility] GRAN # 4.4 K/mm3 2.0-8.00 [facility] IG# 0.0 K/mm3 0.0-0.2 [facility] LYMPH # 2.3 K/mm3 1.0-5.0 [facility] MONO # 0.3 K/mm3 0.10-1.20 [facility] EOS # 0.1 K/mm3 0.0-0.5 [facility] BASO # 0.0 K/mm3 0.0-0.2 [facility] ID Date Data Source [id number] 06/16/2020 12:05:00 PM EDT [facility] Name Value Range Interpretation Code Description Data Ashley rce(s) Supporting Document(s) Vitamin D, 25-Hydroxy 25.1 ng/mL 30.0-100.0 Below low normal [facility] Vitamin D deficiency has been defined by the [place] of[place] and an Endocrine Society practice guideline as alevel of serum 25-OH vitamin D less than 20 ng/mL (1,2).The Endocrine Society went on to further define vitamin Dinsufficiency as a level between 21 and 29 ng/mL (2).1. IOM ([place] of [employer]). 2010. Dietary reference intakes for calcium and D. Be [place]: The National Academies Press.2. Junior MF, Theresa NC, Angel AKERS, et al. Evaluation, treatment, and prevention of vitamin D deficiency: an Endocrine Society clinical practice guideline. JCEM. 2010; 96(7):9071-30. ID Date Data Source [id number] 05/23/2020 12:00:00 AM EDT [facility] Radha Lovell MD Patient Name: MADHAVI DAVE [id number] Date of : 1970[place] [address] Date of Exam: 05/23/2020PH#: Fax: [phone] EXAM: CT BRAIN WITHOUT CONTRASTPROCEDURE INFORMATION:Exam: CT Head Without ContrastExam date and time: 05/23/2020 11:06 AM Age: 49 years oldClinical indication: Pain; Patient HX: Patient had a heart attack in April2020 and was put on blood thinners-now having headaches.TECHNIQUE: Imaging protocol: Computed tomography of the head withoutcontrast. Radiation optimization: All CT scans at this facility use atleast one of these dose optimization techniques: automated exposurecontrol; mA and/or kV adjustment per patient size (includes targeted examswhere dose is matched to clinical indication); or iterative reconstruction.COMPARISON: No relevant prior studies available.FINDINGS:Brain: Normal. No hemorrhage. Unremarkable white matter. No mass effect.Ventricles: Normal. No ventriculomegaly.Bones/joints: Unremarkable. No acute fracture.Sinuse s: Visualized sinuses are unremarkable. No fluid levels.Mastoid air cells: Visualized mastoid air cells are well aerated.Soft tissues: Unremarkable.IMPRESSION:No acute intracranial abnormality.Thank you for allowing us to participate in the care of your patient.Dictated and Authenticated by: Warren Bell DO 05/23/2020 4:33 PM [facility] ( & Lisa)VradV/rianacTtristen you for referring MADHAVI DAVE to our office. Electronically Signed - [facility] 05/26/20 8:46 Name Value Range Interpretation Code Description Data Ashley rce(s) Supporting Document(s) ID Date Data Source [id number] 04/16/2020 06:51:00 PM EDT [facility] Patient: MADHAVI DAVE Observation R e[facility] - [facility]VisitID: [id number] [place] [address] [phone], FRegistration Date/Time: 04/11/2020 06:06 Weight:86.1 kg (S). Height/Length:66 inches (S). BMI:30.7 Obs Start: 04/11/2020 13:01 Obs Dispo: 04/11/2020 16:23 Obs Duration: 4 hr 49 min Time Seen: (10:00), initial patient contact, received patient report. ED care transferred. Historian- patient. HISTORY OF PRESENT ILLNESSChief Complaint: CHEST PAIN. This started today This is a 49year old female with hx of D.M and very strong family history of heart disease occurring in young age (parents and sister), who presented to Emergency Department of [facility] with left sided chest pain that started about 90 min prior to her arrival during light activity(Brushing her teeth while getting ready for work,). The pain was located in left chest and radiated to her left arm and axilla. The pain was continuous , rated 6 out of 10 with no alleviating or aggravating factors, there was no shortness of breath no nausea or vomiting. The pain was described as sharp to dull to a sense of heaviness. It has been constant. Onset during light activity. It is described as dull and sharp and it is described as located in the left chest area and left arm and radiating to the left axilla and arm. At its maximum, severity de scribed as severe. When seen in the E.D., severity described as moderate. Modifying factors. Not worsened by anything. Not relieved by anything. No nausea, vomiting, difficulty breathing or diaphoresis. Similar symptoms previously. None. Recent medical care: Not recently seen/assessed. REVIEW OF SYSTEMSNo fever, chills, cough, pedal edema or calf pain. No fainting episodes, headache, sore throat, blurred vision or abdominal pain. No black stools, difficulty with urination, skin rash, enlarged lymph nodes or joint pain. All other systems reviewed and are negative. PAST HISTORYSee nurses no nidia. Hypertension. Diabetes mellitus. Hyperlipidemia. Cardioversion. Problems:COPD - Chronic Obstructive Pulmonary Disease [Chronic].Gastroesophageal Reflux Disease [Chronic].Intervertebral Disc Disease [Chronic].Asthma [Chronic].Depression [Chronic].Hypercholesterolemia [Chronic].Diabetes Mellitus [Chronic].Sciatica [Intermittent].Spinal Cord Compression [Intermittent].Lumbar Radiculopathy [Intermittent].Influenza [Resolved].Laceration [Recurrent]. Surgeries: No prior cardiac procedures. Medications:Methocarbamol Oral 750 mg, 3x a day, last dose 04/10/2020.traMADol HCl ER Oral (Capsule Extended Release 24 Hour 200 mg) 1 capsule, daily, last dose 04/10/2020.TiZANidine HCl Oral (Tablet 4 mg) 2 tablets, 3x a day, last dose 04/10/2020.Meloxicam Oral (Tablet 15 mg) 1 tablet, pm, last dose 04/10/2020.Gabapentin Oral (Tablet 600 mg) 1 tablet, 3x a day, last dose 04/10/2020.Ventolin HFA Inhalation 2 puffs, as needed, last dose 04/11/2020.One Daily Womens Oral, daily, last dose 04/10/2020.Vitamin D3 Oral (Tablet 50 MCG (2000 UT)), daily, last dose 04/10/2020.Potassium Chloride ER Oral (Capsule Extended Release 10 meq) 1 capsule, daily, last dose 04/10/2020.Acidophilus Oral 100 million organisms, daily, last dose 04/10/2020.Fluticasone-Salmeterol Inhalation (Aerosol Powder Breath Activated 100-50 mcg/dose), daily, last dose 04/10/2020.Neupro Transdermal (Patch 24 Hour 3 mg/24hr), daily, last dose currently wearing.Pantoprazole Sodium Oral 40 mg, daily, last dose 04/10/2020.GlyBURIDE Oral (Tablet 5 mg) 1 tablet, 2x a day, last dose 04/10/2020.fentaNYL Transdermal (Patch 72 Hour 12 mcg/hr), every 72 hours, last dose currently wearing.Diclofenac Sodium Oral 100 mg, daily, last dose 04/11/2020.MetFORMIN HCl Oral (Tablet 500 mg) 1-1/2 tablets, 3x a day, last dose 04/10/2020. Allergies:No Known Allergies. SOCIAL HISTORYCurrent every day smoker. No alcohol use. No recent travel. Is a local resident. FAMILY HISTORYFather: Coronary Artery Disease, Essential Hypertension, Diabetes Mellitus. Sister(s): Coronary Artery Disease, Essential Hypertension. ADDITIONAL NOTESThe nursing notes have been reviewed with agreement regarding the chief complaint, HPI, PMH and patient medications and allergies. PHYSICAL EXAMVital Signs: Have been reviewed. Appearance: Alert. Oriented X3. No acute distress. Eyes: Pupils equal, round and reactive to light. Eyes normal inspection. ENT: Ears normal. Nose normal. Pharynx normal. Neck: Normal inspection. Neck supple. CVS: Normal heart rate and rhythm. Heart sounds normal. Pulses normal. Respiratory: No respiratory distress. Breath sounds normal. Chest nontender. Abdomen: Soft and nontender. Bowel sounds normal. No organomegaly. No mass. Femoral pulses equal. Back: Normal external inspection. Skin: Skin warm and dry. Normal skin color. No rash. Normal skin turgor. Extremities: Extremities exhibit normal ROM. No lower extremity edema. Neuro: Oriented X 3. No motor deficit. No sensory deficit. Reflexes normal. LABS, X-RAYS, AND EKGEKG: Normal sinus rhythm. Rate: 71. Normal P waves. Normal GUILEL. Normal QRS complex. Normal axis. Normal ST and T waves. The EKG appears to be a good tracing. EKG #2: EKG time: 13:17 04/11/2020. Laboratory Tests: [facility] Respiratory Panel: (JESUS: 04/11/2020 14:35)( [facility] 04/11/2020 15:32) New Order TSYSORDER [id number] Test Result Flag Units (Reference)Adenovirus Not Detected Detected (Not) Coronavirus 229E Not Detected Detected (Not) Coronavirus HKU1 Not Detected Detected (Not) Coronavirus NL63 Not Detected Detected (Not) Coronavirus OC43 Not Detected Detected (Not) Sars Cov 2 Not Detected Detected (Not) Human Metapneumovirus Not Detected Detected (Not) Human Rhinovirus Not Detected Detected (Not) Influenza A Not Detected Detected (Not) Influenza B Not Detected Detected (Not) Parainfluenza Virus 1 Not Detected Detected (Not) Parainfluenza Virus 2 Not Detected Detected (Not) Parainfluenza Virus 3 Not Detected Detected (Not) Parainfluenza Virus 4 Not Detected Detected (Not) Respiratory Syncytial Virus Not Detected Detected (Not) Bordetella parapertus (TH0053) Not Detected Detected (Not) Bordetella pertussis (ptxP) Not Detected Detected (Not) Chlamydia pneumoniae Not Detected Detected (Not) Mycoplasma pneumoniae Not Detected Detected (Not) The Above results have been determined by using the [facility] system.[employer] is an automated in vitro diagnostic system thatutilizes nested multiplex Polymerase Chain Reaction (PCR)and high-resolution melting analysis to detect and identifymultiple nucleic acid targets from clinical specimens. Troponin-I: (JESUS: 04/11/2020 13:10)( [facility] 04/11/2020 13:53) New Order CALLED TO TIMMY 1352 Test Result Flag Units (Reference)TROPONIN I 1.106 *H ng/mL (0.0-0.056) Chest 1V: (JESUS: 04/11/2020 06:35)( MsgRcvd 04/11/2020 08:50) F Test Result Flag Units (Reference)CHEST 1 VIEW DATE OF EXA MINATION: 04/11/2020 6:39 EDT -- -- CHEST 1 VIEW -- HISTORY: Chest pain -- TECHNIQUE: Single frontal radiograph of chest -- -- -- FINDINGS: -- No evidence of focal consolidation, pneumothorax or large pleural effusion. Lungs are clear. Mediastinal structures are unremarkable. No aggressive osseous -- lesions. -- -- IMPRESSION: -- No focal consolidation. -- Electronically signed in PS360 by: Julia Garza M.D. 04/11/2020 8:44 EDT -- -- Dictated by: JULIA GARZA CBC w Diff: (JESUS: 04/11/2020 06:25)( MsgRcvd 04/11/2020 06:48) New Order TSYSORDER [id number] Test Result Flag Units (Reference)WHITE BLOOD COUNT 8.5 K/mm3 (4.0-10.0) RED BLOOD COUNT 5.44 M/mm3 (4.00-5.50) HEMOGLOBIN 15.4 gm/dL (12.0-16.0) HEMAT OCRIT 44.0 % (36.0- 48.8) MEAN CELL VOLUME 80.9 fl (80-96) MEAN CORPUSCULAR HEMOGLOBIN 28.3 pg (27.0-31.0) MEAN CORPUSCULAR HGB CONC 35.0 g/dl (32.0-36.0) RED CELL DISTRIBUTION WIDTH 12.3 % (10.0-14.5) PLATELET COUNT 291 K/mm3 (172-450) MEAN PLATELET VOLUME 8.8 L fl (9.0-13.0) GRAN % 58.5 % (50-80.0) IG% 0.1 % (0.0-0.2) LYMPH % 32.8 % (25.0-50.0) MONO % 6.2 % (2.0-10.0) EOS % 1.5 % (0-5.0) BASO % 0.9 % (0.0-2.0) GRAN # 5.0 K/mm3 (2.0-8.00) IG# 0.0 K/mm3 (0.0-0.2) LYMPH # 2.8 K/mm3 (1.0-5.0) MONO # 0.5 K/mm3 (0.10-1.20) EOS # 0.1 K/mm3 (0.0-0.5) BASO # 0.1 K/mm3 (0.0-0.2) PT with INR: (JESUS: 04/11/2020 06:25)( MsgRcvd 04/11/2020 07:06) New Order TSYSORDER [id number] SYSORDER [id number] Test Result Flag Units (Reference)PROTHROMBIN TIME (PATIENT) 9.8 SECONDS (9.2-11.6) INR 0.94 (0.87-1.06) PARTIAL THROMBOPLASTIN TIME 24.9 SECONDS (21.4-30.2) CMP: (JESUS: 04/11/2020 06:25)( MsgRcvd 04/11/2020 07:10) New Order TSYSORDER [id number] Test Result Flag Units (Reference)GLUCOSE 198 H mg/dL (74-106) BLOOD UREA NITROGEN 12 mg/dL (7-18) CREATININE 0.8 mg/dL (0.6-1.0) SODIUM 135 L mmol/L (136-145) POTASSIUM 4.2 mmol/L (3.5-5.1) CHLORIDE 99 mmol/L (98-107) CO2 24 mmol/L (21-32) CALCIUM 8.5 mg/dL (8.5-10.1) ANION GAP 12.0 mmol/L (5-12) GLOMERULAR FILTRATION RATE 77 mL/min GFR IS CALCULATED IN mL/min/1.41w6BEPUTV FUNCTION: > 90MILDLY DECREASED: 60-89MILDY TO MODERATELY DECREASED: 45-59 MODERATELY TO SEVERELY DECREASED: 30-44SEVERELY DECREASED: 15-29RENAL FAILURE: <15 AST 20 U/L (15-37) ALT 34 U/L (12-78) ALKALINE PHOSPHATASE 84 U/L (46-116) TOTAL BILIRUBIN 0.6 mg/dL (0.2-1.0) TOTAL PROTEIN 7.3 g/dl (6.4-8.2) ALBUMIN 4.1 gm/dL (3.4-5.0) TROPONIN I < 0.017 ng/mL (0.0-0.056) MAGNESIUM 1.0 L mg/dL (1.8-2.4) Lipid Profile: (JESUS: 04/11/2020 06:25)( MsgRcvd 04/11/2020 15:15) New Order TSYSORDER [id number] Test Result Flag Units (Reference)CHOLESTEROL 313 *H mg/dL (0-200) TRIGLYCERIDES 325 *H mg/dL (0-150) LDL CHOLESTEROL 209 H mg/dL (0-100) HDL CHOLESTEROL 39 L mg/dL (40-60) CHOL/HDL RATIO 8.0 H (0.0-5.0) . PROGRESS AND PROCEDURESCourse of Care: 10:00 am I met with Mrs Dave and discussed the plan. Also discussed the need for stress test as outpatient after discharge providing that everything is well . Patient is stable. Evaluation after repeat exam, cardiac monitoring and IV and oral medication. No chest pain, difficulty breathing, nausea, vomiting or palpitations. No dizziness or seizure. She is having anxiety. Physical exam findings are improved. Alert. Oriented X3. No acute distress. Breath sounds normal. No respiratory distress. Normal heart rate and rhythm. Heart sounds normal. Abdomen soft and nontender. Skin warm and dry. Oriented X 3. ( Second troponin came 1.106 ! Informed the patient of the result and patient will be transferred to [facility] for further treatment of NSTEMI). Critical care performed (95 minutes). Time is exclusive of separately billable procedures. Time includes: direct patient care, patient reassessment, coordination of patient care, interpretation of data (laboratory data, pulse oximetry, chest xrays and prior electrocardiograms), review of patient's medical records and documentation of patient care. Disposition: Benefits, risks and alternatives to transfer explained to patient. Transferred to [facility]. Summary of care (CCDA) provided to transport team, EMS, patient and transfer facility via paper and fax. CLINICAL IMPRESSIONNSTEMIChest PainDiabetes MellitusHyperlipidemia (severe and not treated). INSTRUCTIONSFollow a low cholesterol diet and diabetic diet. (Patient should be started on aggressive lipid lowering regimen. Her Diclofenac should be discontinued and aggressive diabetes treatment preferably without oral agents would be optimal.). Warnings: Further evaluation is necessary. Understanding of the discharge instructions verbalized. (Electronically signed by Shanique Kelly MD 04/11/2020 16:12) Weight:86.1 kg (S). Height/Length:66 inches (S). BMI:30.7 Obs Start: 04/11/2020 13:01 Obs Dispo: 04/11/2020 16:23 Obs Duration: 4 hr 49 min PAST HISTORYProblems:COPD - Chronic Obstructive Pulmonary Disease [Chronic].Gastroesophageal Reflux Disease [Chronic].Intervertebral Disc Disease [Chronic].Asthma [Chronic].Depression [Chronic].Hypercholesterolemia [Chronic].Diabetes Mellitus [Chronic].Lumbar Strain.Sciatica [Intermittent].Spinal Cord Compression [Intermittent].Lumbar Radiculopathy [Intermittent]. Additional Surgeries:Back Surgery.Carpal Tunnel Surgery.C- Section.Hysterectomy. (Partial). Medications:Methocarbamol Oral 750 mg, 3x a day, last dose 04/10/2020.traMADol HCl ER Oral (Capsule Extended Release 24 Hour 200 mg) 1 capsule, daily, last dose 04/10/2020.TiZANidine HCl Oral (Tablet 4 mg) 2 tablets, 3x a day, last dose 04/10/2020.Meloxicam Oral (Tablet 15 mg) 1 tablet, pm, last dose 04/10/2020.Gabapentin Oral (Tablet 600 mg) 1 tablet, 3x a day, last dose 04/10/2020.Ventolin HFA Inhalation 2 puffs, as needed, last dose 04/11/2020.One Daily Womens Oral, daily, last dose 04/10/2020.Vitamin D3 Oral (Tablet 50 MCG (2000 UT)), daily, last dose 04/10/2020.Potassium Chloride ER Oral (Capsule Extended Release 10 meq) 1 capsule, daily, last dose 04/10/2020.Acidophilus Oral 100 million organisms, daily, last dose 04/10/2020.Fluticasone-Salmeterol Inhalation (Aerosol Powder Breath Activated 100- 50 mcg/dose), daily, last dose 04/10/2020.Neupro Transdermal (Patch 24 Hour 3 mg/24hr), daily, last dose currently wearing.Pantoprazole Sodium Oral 40 mg, daily, last dose 04/10/2020.GlyBURIDE Oral (Tablet 5 mg) 1 tablet, 2x a day, last dose 04/10/2020.fentaNYL Transdermal (Patch 72 Hour 12 mcg/hr), every 72 hours, last dose currently wearing.Diclofenac Sodium Oral 100 mg, daily, last dose 04/11/2020.MetFORMIN HCl Oral (Tablet 500 mg) 1-1/2 tablets, 3x a day, last dose 04/10/2020. Allergies:No Known Allergies. FAMILY HISTORYFather: Coronary Artery Disease, Essential Hypertension, Diabetes Mellitus. Sister(s): Coronary Artery Disease, Essential Hypertension. (Electronically signed by Samy Esteban 04/13/2020 23:36) Weight:86.1 kg (S). Height/Length:66 inches (S). BMI:30.7 Obs Start: 04/11/2020 13:01 Obs Dispo: 04/11/2020 16:23 Obs Duration: 4 hr 49 min PAST HISTORYMedications:Methocarbamol Oral 750 mg, 3x a day, last dose 04/10/2020.traMADol HCl ER Oral (Capsule Extended Release 24 Hour 200 mg) 1 capsule, daily, last dose 04/10/2020.TiZANidine HCl Oral (Tablet 4 mg) 2 tablets, 3x a day, last dose 04/10/2020.Meloxicam Oral (Tablet 15 mg) 1 tablet, pm, last dose 04/10/2020.Gabapentin Oral (Tablet 600 mg) 1 tablet, 3x a day, last dose 04/10/2020.Ventolin HFA Inhalation 2 puffs, as needed, last dose 04/11/2020.One Daily Womens Oral, daily, last dose 04/10/2020.Vitamin D3 Oral (Tablet 50 MCG (2000 UT)), daily, last dose 04/10/2020.Potassium Chloride ER Oral (Capsule Extended Release 10 meq) 1 capsule, daily, last dose 04/10/2020.Acidophilus Oral 100 million organisms, daily, last dose 04/10/2020.Fluticasone-Salmeterol Inhalation (Aerosol Powder Breath Activated 100- 50 mcg/dose), daily, last dose 04/10/2020.Neupro Transdermal (Patch 24 Hour 3 mg/24hr), daily, last dose currently wearing.Pantoprazole Sodium Oral 40 mg, daily, last dose 04/10/2020.GlyBURIDE Oral (Tablet 5 mg) 1 tablet, 2x a day, last dose 04/10/2020.fentaNYL Transdermal (Patch 72 Hour 12 mcg/hr), every 72 hours, last dose currently wearing.Diclofenac Sodium Oral 100 mg, daily, last dose 04/11/2020.MetFORMIN HCl Oral (Tablet 500 mg) 1-1/2 tablets, 3x a day, last dose 04/10/2020. Allergies:No Known Allergies. FAMILY HISTORY(CAD, DM). (Electronically signed by Washington Mcneill PA-C 04/11/2020 06:49) Addenda for MADHAVI DAVE VisitID: [id number] Date: 04/11/2020 04/11/2020 16:4013:10 Discussed positive tropponin with the patient. Discussed the need for transfer to [facility] for further treatment. Started NSTEMI protocol.(Electronically signed by Shanique Kelly MD - 04/11/2020 16:40) 04/11/2020 16:4114:[address] Birch Hospitalist. Obtaining Resp Panel to streamline disposition.(Electronically signed by Shanique Kelly MD - 04/11/2020 16:41) 04/11/2020 16:44While awaiting for Covid 19 test result patient was started on Heparin Drip, received betablocker and Plavix. I discussed further plan with the patient. Added lipid profile that came with LDL of 202!.Will send the results to patient's PCP.(Electronically signed by Shanique Kramer MD - 04/11/2020 16:44) Name Value Range Interpretation Code Description Data Ashley rce(s) Supporting Document(s) ID Date Data Source [id number] 04/13/2020 02:54:53 PM EDT [facility] Name Value Range Interpretation Code Description Data Ashley rce(s) Supporting Document(s) CKMB 14.4 ng/mL (0.0-5.0) [facility] ALERTED CRITICAL RESULT [place]ONATALIA([id number]) [place] [address] ON 04/13/20 [place]47 [place] [address] CKMB RELATIVE INDEX 7.1 {index_val} (0.0-4.0) H [facility] ID Date Data Source [id number] 04/13/2020 02:22:23 PM EDT [facility] Name Value Range Interpretation Code Description Data Ashley rce(s) Supporting Document(s) CK 204 U/L (26-192) H [facility] ID Date Data Source [id number] 04/13/2020 12:43:58 PM EDT [facility] Name Value Range Interpretation Code Description Data Ashley rce(s) Supporting Document(s) POC NOVA GLU 196 mg/dL (70-99) H [facility] PERFORMED BY [facility] CLINICAL STAFF ID Date Data Source [id number] 04/13/2020 12:00:56 PM EDT [facility] NT INFORMATIONPatient MRN Name Date of Age Gend*PT [id number] Madhavi Dave 1970 49 years F IPPT Location Admission Date/Time Visit ID Attending [id number] 04/11/202003 --- Priyanka Bowser MD([id number]) EPI ID CSN Admitting Provider [id number] Fatou Silva MD([id number]) [facility] DISCHARGE SUMMARYPatient Name: Madhavi Dave of : 1970 Age 49 yearsPrimary Physician: Hakan Dixon NP PCP Pqjyvtirv Date: 04/11/2020 Discharge Date:She will be discharged from [facility] to [facility] Diagnoses:Principal Problem: Elevated troponinActive Problems: HTN (hypertension) DM (diabetes mellitus) HLD (hyperlipidemia) COPD (chronic obstructive pulmonary disease) GERD (gastroesophageal reflux disease) Tobacco abuse Chest pain Chronic pain Obesity (BMI 30-39.9) Acute non-ST segment elevation myocardial infarctionResolved Problems: * No resolved hospital problems. *Discharge Medications:Current Discharge Medication ListSTART taking these medications Detailsaspirin 81 MG chewable tablet Chew 1 tablet (81 mg total) dailyQty: 30 tablet, Refills: 11atorvastatin (LIPITOR) 80 MG tablet Take 1 tablet (80 mg total) by mouth dailyQty: 30 tablet, Refills: 0clopidogrel (PLAVIX) 75 MG tablet Take 1 tablet (75 mg total) by mouth dailyQty: 30 tablet, Refills: 11metoprolol tartrate (LOPRESSOR) 25 MG tablet Take 1 tablet (25 mg total) bymouth 2 (two) times a dayQty: 60 tablet, Refills: 0nitroglycerin (NITROSTAT) 0.[address] 1 tablet (0.4 mg total) underthe tongue every 5 (five) minutes as needed for chest painQty: 30 tablet, Refills: 0CONTINUE these medications which have CHANGED DetailsmetFORMIN (GLUCOPHAGE) 500 MG tablet Take 1.5 tablets (750 mg total) by mouth 3(three) times a dayCONTINUE these medications which have NOT CHANGED Detailsalbuterol (PROVENTIL HFA;VENTOLIN HFA) 108 (90 Base) MCG/ACT inhaler Inhale 2puffs every 4 (four) hours as needed for wheezingCholecalciferol 50 MCG (2000 UT) TABS Take 2,000 Units by mouth dailyfentaNYL (DURAGESIC) 12 MCG/HR Place 1 patch on the skin every third dayfluticasone-salmeterol (ADVAIR) 100-50 MCG/DOSE DISKUS Inhale 1 puff 2 (two)times a daygabapentin (NEURONTIN) 600 MG tablet Take 600 mg by mouth 3 (three) times a dayglyBURIDE (DIABETA) 5 MG tablet Take 5 mg by mouth 2 (two) times a day withmealsLactobacillus (ACIDOPHILUS) 100 MG CAPS Take by mouthmeloxicam (MOBIC) 15 MG tablet Take 15 mg by mouth dailymethocarbamol (ROBAXIN) 750 MG tablet Take 750 mg by mouth 3 (three) times a daymontelukast (SINGULAIR) 10 MG tablet Take 10 mg by mouth nightlypantoprazole (PROTONIX) 40 MG tablet Take 40 mg by mouth dailypotassium chloride SA (K-DUR,KLOR-CON) 10 MEQ tablet Take 10 mEq by mouth dailyRotigotine (NEUPRO) 3 MG/24HR PT24 Place 3 mg on the skin dailytiZANidine (ZANAFLEX) 4 MG tablet Take 8 mg by mouth 3 (three) times a daytraMADol (ULTRAM-ER) 200 MG 24 hr tablet Take 200 mg by mouth da ilyFollow Up Instructions:The patient was given an after visit summary.Patient will follow up with PCP in 3 to 5 daysFollow-up with your acute coordinator in 1 to 2 weeksItems needing special attention:Recommend holding metformin for 48 hours after cath before restarting themedicationAdvised regarding smoking cessationPatient blood sugar is not controlled properly a will need to f/u with her PCPBrief Hospital Course:49-year-old female with history of hypertension, hyperlipidemia, type 2 diabetesmellitus, COPD, GERD, tobacco abuse, chronic pain who was transferred from [facility] with elevated troponin. For details of her presentation please referto H&P done by Ryann Dubose NP on 04/12/20.On presentation to [facility] her initial troponin were negative howeverrepeat one was 1.1. She did not had EKG changes. She was loaded with aspirin,Plavix was started on heparin drip and was further transferred hereShe was evaluated by acute coordinator and recommended cardiac cath. She underwentcardiac cath on 04/12/2020 which showed mid right coronary artery stenosis andsevere proximal and mid LAD stenosis. Patient underwent successful drug-elutingstent. For details of her cath result please refer to the cath results asmentioned below.Patient was started on aspirin, DAPT high density statin,b blockers.She has poorly controlled diabetes her A1c 9.4 discussed with patient regardingproper blood s ugar control. She is currently on metformin which I have advisedher to stop for 48 hours after cath and she can resume it. However her A1c ishigh and she will benefit from insulin. She would want to discuss this with hercarteret health carery care doctor. She has a long history of smoking she used to smoke 2pack currently smoking 1 pack of cigarettes. Patient was advised regardingsmoking cessation and offered nicotine patch however patient does not want patchat this time and she would prefer to discuss this with her primary care doctor.She not had any overnight issues. At this time she is stable to be dischargedhome she will need to follow-up with her PCP and acute coordinator.Discharge Exam:Blood Pressure: BP: 129/74 Pulse: Heart Rate: 79Temperature: Temp: 98 F Respirations: Resp: 16Admission Weight: Weight: 85.8 kg (189 lb 1.6 oz) O2 Saturation: SpO2: 99 %Discharge Weight: Weight: 85.8 kg (189 lb 1.6 oz) BMI: Body mass index is 30.52kg/m .Physical Exam General alert, in no apparent distress HEENT Normal Lungs clear to auscultation Heart regular rate and rhythm Abdomen soft, non-tender, non-distended, no organomegaly or masses Musculoskeletal negative Neuro normal without focal findings, mental status, speech normal, alert andoriented x3 and PERLADiagnostics:Cardiac CatheterizationAddendum Date: 04/13/[id number] woman with uncontrolled diabetes and untreated dyslipidemiapresenting with non-Q wave myocardial infarction. 1. Critical hazy stenosis ofthe mid right coronary artery probably culprit of the current event status postsuccessful drug-eluting stent placement. 2. Severe proximal and mid LADstenosis with true bifurcation lesion to the diagonal and critical hazy lesionin the more distal LAD status post intervention with drug-eluting won ntplacement in [place] fashion involving the proximal diagonal and the proximaland mid LAD with final kissing balloon angioplasty. At the end of the procedurethere was slow flow to a small septal and complaints of chest pain. 3.Preserved left ventricular systolic function. 4. Right radial access. Becauseof the use of bifurcation stenting in a diabetic dual antiplatelet therapy forat least a year is indicated. No complications, estimated blood loss minimal.Us Carotid Doppler BilateralResult Date: 04/13/2020IMPRESSION: Less than 50% stenosis in the bilateral ICAs. Report electronicallysigned by: Rj Villanueva On 04/13/2020 11:35 AM Workstation ID: [id number]:Cardiac [id number] woman with uncontrolled diabetes and untreated dyslipidemiapresenting with non-Q wave myocardial infarction.1. Critical hazy stenosis of the mid right coronary artery probably culprit ofthe current event status post successful drug-eluting stent placement.2. Severe proximal and mid LAD stenosis with true bifurcation lesion to thediagonal and critical hazy lesion in the more distal LAD status postintervention with drug-eluting stent placement in acute locked fashion involvingthe proximal diagonal and the proximal and mid LAD with final kissing balloonangioplasty. At the end of the procedure there was slow flow to a small septaland complaints of chest pain.3. Preserved left ventricular systolic function.4. Right radial access. Because of the use of bifurcation stenting in a diabetic dual antiplatelettherapy for at least a year is indicated.Consultants:CardiologistRecent Labs:CBC without Diff:Lab ResultsComponent Value Date WBC 9.7 04/13/2020 RBC 5.07 04/13/2020 HGB 14.3 04/13/2020 HCT 42.5 04/13/2020 MCV 84.0 04/13/2020 MCH 28.3 04/13/2020 MCHC 33.7 04/13/2020 RDW 13.4 04/13/2020 PLT 284 04/13/2020 MPV 7.0 (L) 04/13/2020CMP:Lab ResultsComponent Value Date NA 139 04/13/2020 K 4.2 04/13/2020 CL 108 04/13/2020 CO2 23 04/13/2020 ANIONGAP 8 04/13/2020 BUN 10 04/13/2020 CREATININE 0.54 (L) 04/13/2020 BCR 18.5 04/13/2020 GLU 201 (H) 04/13/2020 CALCIUM 8.8 04/13/2020 ALBUMIN 3.6 04/11/2020 GLOB 3.2 04/11/2020 AGRC 1.1 04/11/2020 ALKPHOS 75 04/11/2020 LABBILI 0.4 04/11/2020 AST 23 04/11/2020 ALT 36 04/11/2020 GFRAA >60 04/13/2020 GFRNONAA >60 04/13/2020Priyanka Bowser MD10:06 AMTotal time spent for discharge on date of discharge: 40 minutes Name Value Range Interpretation Code Description Data Ashley rce(s) Supporting Document(s) ID Date Data Source [id number] 04/13/2020 11:59:[address] [facility] Name Value Range Interpretation Code Description Data Ashley rce(s) Supporting Document(s) &PDF [facility] JVMQRg4eGzUQDaYu31/XHGcfAIUbm0JiBQsdIQk3PEuuVZZjN1PmyFnxMDNITd8IVweXIC4TLWItGAHc pYy [file] zabjdjWlzxxaIchHcvy0odxiCxY/7CGR3tqee4f5A3 vx8xohey3cRJCiHEYDLBuQk8p15GaUhbGSPhEy1c61uhI+c6QlqkBpPlBM9wvuMP9K1Hr5z+kSuRovMF q6mR5QzhzxPO6lohuXvsBd/yk5LTaIKUo3GpAYBOkdxgByUII5M0ladrqEva3pLDGD1KoXztysyVehRM t9wkuWVdyxURfVoaCJQq9e5gt5m9zJNHxs4duzmm4P 0qkEXB84xP5GvcOXu9uKL0hLPp0872zSAacF7tbw1eZui0pqCPVYqj+IIiJWJifcV5tN6Ow632zdBp0v Z/2GRwrSK2lWKw3GFYzuTQCG5fPvq89DYC4PdfvubjNPMNbrGt/XORSrPlek+U0g3D7WN5EZGiROcz2x ovwYyd13iR4iUsWs9nxHueaR0pKEAbmJrOMzizpaft ANDRÉS+hjZj+bJdUTXJH1KslyubgZGHXXO1aKhSWRcp52TxmWau2ZyMOI4xohlo9Og84YUmXS5/WJw7Jhmd1 2AA6RozlbAy82q8e4PS5uM7wXR4q5mzP+RQvZtxGW07mQIed7gNqRSGedXN3teIWyhzm119HllLaADzW 41cIR/PBGE4OjnZvGH0kApMeYMYJxU82YeraGvmYO+ n6WYVqS1fzRQeNq7yqUDzUIAR3JOUcv6SqsoD8yL4rPyp6Q9E9t/PivhFkCYXJO1tuSvEDK0j3roNy0S WWFexApe1kKCsS7lstkt/8DhQgKX1CjcApYQumHn4MEiVOsjVd/0BR/5bHXbaC2vcX/ZOTed8m/XiOxu 2uZGbvQc28w6CmiyyWix5cQNu6osv9zIqr8b1A2GXj MWaxgnMmmG3Z3U6xPg/jXnxSXsbj+kespjN85+sRMxaesoF5xNPp4ISbY3RnOGHkPij06luJ2oxaPvrP fWj1D128fdj5PLI4/dOACm9D89Na1I0+ELBA/Akers/crGquS5vHbkkOeMpRffAr3Rw3L21bbz41moFzy7Zzf [file] SWCk7vULh3qshfMFNdivEU4mO8t2k7cNikj+Joslyn+Z1 Z6YiQKinFCoZhCA1R+PweBnL8bPJw8qAfqA5RwYLNjiSS6B+YkgZemXu6NIlKogD5lEeXWyxafniHRwc GJ7n6q++EePM6Tj+Aufrev1NeuTNaJ8k3cIs6ID46k7st6HxX7qjewZciKzLmzBJnZ5Qa7RF8kkReFfO L6xZGdmwGPfqltdF7tnutuXp9i6ClzP0RZdosHhlrd DaSgCXhvjcJDhcrW2H61KAyM9bRcnjTRsOinWbaFd780qJA3WyYMdkzQojfvReLZigY4AdOViNgPSEwx Y4DAAym1cbtqoxVvAQAV97qPlmLTA/x48jroqSJxIaAB9wI0e4k7zUPeWfRxU2FXgnDy860CzyeK0zlF 6F3e5GvqYr4d/HXc0uJXphmwFz9KgXm8eJs+qDteiL ddT8OT2RDWDIPBO9Ml0n+ai5yh4Jngxxd4KaxsS+b3ylV6OSW8JTXfCiuShiZxKQTajhurstnEcjcGVu xRFj6WHHAkO7ufwYDVyBEhIv+FbIf90/G520Eme/tRLyVbGwj2vUejQnvBEbhs6B5IFqGwa2v2wuR+24 TmjDHdu9UFFxCxos+MnJt3alg6u52HTz7/sWL9W+O1 4UKCsbMeMISFob5rdL8wOkAP9TC6Z/S5prpoknDjwHbd7VUPVkuv+0YLiffrQN1p8oelx9gMJaz8F/C[employer]TER [employer] WORKER [file] ICAgICAgICAgICAgICAgICAgICAgICAgICAgICAgIC AgICAgICAgICAgICAgICAgICAgICAgICAgICAgICAgICAgICAgICAgICAgICAgICAgICAgICAgICAgIC TsVD2IEGQoNGEwKZTeWCVgLCAmXZByEMJjGZXwPCKdVVDpFXXbTETpGXWsBAAmPWSkUTIjOXGzTPKoZE AgICAgICAgICAgICAgICAgICAgICAgICAgICAgICAg PPYgWANwPAGsVBFeTW7YMLCtWJDoKFGpJJMvRALvBYFtAQOfDFQmVZUzELQwAZSgXFZzRLXtUXSzXWAi YYQkYZAfBAEnWIHoCXWkHPOuKFSxBYOsUXZqNCBvRZGkSGSnPCImSOZcYXArIPUuROWfIUJuPH4IWTLd ICAgICAgICAgICAgICAgICAgICAgICAgICAgICAgIC AgICAgICAgICAgICAgICAgICAgICAgICAgICAgICAgICAgICAgICAgICAgICAgICAgICAgICAgICAgIC YdXNUfYX4YRMKsKOWzPFSaYICaMAXhVFCbTEZuIIXmTDIjBVBrWOBhUKZiMYPqYAXmGMXxTTMkYYAgJL AgICAgICAgICAgICAgICAgICAgICAgICAgICAgICAg ZFNdXCLdZVHeCEOpSLKbVK7BKTPhBWZcYRSvGQDdKFEcNWEkIOJvQMUvGNBjDINjZCEdMPUuRZZoBESb UGMqWMArIYTuLAMnUZOfESBmDPJcYMOrEKEqMSFhQWDiEZJbYIGwRTMjQJBbFGMzLHLjDKEeQWYzKY9B ICAgICAgICAgICAgICAgICAgICAgICAgICAgICAgIC AgICAgICAgICAgICAgICAgICAgICAgICAgICAgICAgICAgICAgICAgICAgICAgICAgICAgICAgICAgIC TtQUZnNQQsUR4MTKTrBOVmHKFiGMUfGAAxXGPbNHFsEOQlBZDgHKSpWPOfDPAmKGYgIMBeZDJpPWBtJP AgICAgICAgICAgICAgICAgICAgICAgICAgICAgICAg TOOoHTYtADJnHGIjARLrJHDgVM4EUIPxDEJkJXSwUQFfEMExGZKfVDRfAGWxAATeLGAjAOQvGLSnECKt ICAgICAgICAgICAgICAgICAgICAgICAgICAgICAgICAgICAgICAgICAgICAgICAgICAgICAgICAgICAg FC6PBQ93xMHnf7A7XKHlFH0yqbm/Uo5IJGcqfpRrzT RfHH7DIfWoXZ0mpo5MNhMlCI6jvd8WXYxYYqPqM3D8fXTiQLBvXWHEXwDoM81vPNgxMo23OUyoZQUkPq LhECu3Wj3GSpPbW6xhWBSpZqZ1TQFeWeL3AQOlAhP9ZCFrPuPhBWYgSLSpAMTeDPBFQMS5VHVnOdWfQj RmYOEqPU1ZUZQgV454ynIzHo0YCd2UVcUqGH5xau2C SqFlDPLxUcyKOzs0QGvvOA1SeIQbxCAzPDDdHEXALxEsJ2mtb8RiLgYoXGXWSDgnQN3Kz5EcfHAdDJh+ Tf6TRF4ls0IuCSreKDAzIU7vwj9VEFiPPnFtQ5DktPzzIRjerBupouSeFG6SIZIpOBOpvNCtBXpqGTSV VI3WHYrrIDJ5NbSvroJknWYsLJehGY0XDNCfleQcEi QgMCBSDQo+Yo5DPL5wy0GtJAutZaPpBS1coz6OJMvLVtSeM0E9oANpI4F2FZhsNx6WONFdZLAuZgJcOF AHRJgdYV8BTN9bovN7ZW1NlMCaXYJrWCEtgNOuFRh9U72jhAGsVUyeJK7JFHX+Frederick+Lu9CRZLzLMMmFD YuGqRqTJDUCfKgM8NxU2KSr4ChK5DzUG98aEotqhFb JGsaSZ4YVY2jNUGtGRTZBQ5ZnMPqkC7hcrJyCOKgCETJWePpN56whJPtAYPsVGOxDLRuDk9EASFnR5Ck hgSvhTqiviZaWGMeODJKYW5BHQeubpFzbZOatYlkBT12rHpxYR2NVu0MQtAsXQ4qno0SlGYoFo1QZOKb Zi7QQXAtXYPvHYZmIUV6IPQxWjNhYUmkCFKsQXEuTN X3BERiLDSpZB9RNnFdFWBpRVc3DSrpNOMzSOUbmo2XNRZiGIJ4FME0LKLaZNDpLTMmFGhjBAGkFZWwCX s9ALVhUEFfJA9UCsXbFVLkYYD0TvCuDEQhZGEdai7LYYOvUNBvZhO2LwJtHHZaRBVdSIeuVXYbEAK0LC jdTBBgEWUzFG1WUsCxDZHaQBNkZXVbYBIkXBIvhu1S KECgMAEzYjutLKRbAXYzJRVqSAbiLZDiNER2OWM3QBWsWESmES5YJeYmWYZuDBrnJXdbCTCiNNKxzq5K BTUpCVChGUDhPLJcEYBbWYBbPJlgCPPlXXKdZCM9QOEwZFMmUW7WYeXyQJNfONMfPQRjOKZxAFRvyk8U NQXhEWYhZeZ8EOOlSYKfRTXnNFveKYBrQLClGMK9IM NrWZSuPV9FXqPmKWHpTCI8CLbjRREaQIPzda0SMKNsFVBnAKt3ItSgEHZpMBLyTLxzQOSdDNS1JASdUP GcNYMwBI2PUlJjKIAoXHJkLPYvUUFrDUGsro3MBYRxFRIwYhIpJkMfVROrMQUxNQgeRFMuJQG8GopfYX VgUXYaBL6RPfQiLXBjGZz9WQIyUJDrAFObds8PGONf QDPmGvV3DqWuRYDgIKZgGPjkIVNsBRAeHqz5AZBjMGCaGX7JHmIxIGFwHhmeZdOpYVPrBMLgjz5MOKPg CRRmDMvgIaKrNZXsJTKqJWecHEDeEBY6NPutTVRyEVPbVF8KIxUlDEHdGsVkDWNlXSZnWFZxhy1LTGIt KYA0SXI4ZPPhALZoUFOqEWigJDUkZBk6TVF7QAGxUI LjAH8EAkTrWWPhRPq6MNFiDRTrBXCtxh0HQZUaBWL2YRDsJVQiCNUeZCZiMMcyETFuIHv5Vue6LEFvLA MdLN6MSyWgGYVzYRd4LHqnVYAbJARpel1HAVXdWRM4DLm5WdTkYYOeYDWiILe5qhCnrOVwXRf0AO1EV8 OkzhKzNoyAEu3Hi580CAU0VEZmVv1WQ4hwRc2xIJZc WFDUTx3RZSa9XNFfGoUvSLziWKwwClWsEuBiHRUqXuB8FjHiHVt9ONb+CJf5SgA5CfC0H1LbB0UxNSP2 TsKrUKRoSxLyVEF7JrwyLj1pJEXHAd7+YLsmhCVkxEopBJKZSqSiAHGvRL3RWYCLJ5KJUc== ID Date Data Source [id number] 04/13/2020 11:35:53 AM EDT [place], [place] [address]Patient Name: MADHAVI HURTADOB: 1970Sex: FOrdering Provider: JERILYN BATRESAuthojohn Prov: JERILYN Del [place] Provider: Procedure Performed: US CAROTID BILATERALExam Date: 04/13/2020 11:33MRN: [id number] Number: [id number] Class: InpatientAccount #: [id number] for Exam: carotid bruitTechnique: Duplex sonography was performed.Comparison: NoneFindings: The right and left carotid systems were examined by Doppler sonography. Carotid stenosis measurements were performed using the NASCET method.RIGHT CAROTID SYSTEM:Common Systolic Velocity 102 cm/s End-Diastolic Velocity 18 cm/sInternal Systolic Velocity 111 cm/s End-Diastolic Velocity 31 cm/sExternal Systolic Velocity 142cm/s End-Diastolic Velocity 12 cm/sVertebral Artery 71 cm/s Antegrade flowICA/CCA Systolic Ratio = 1.1 Internal Carotid Artery Stenosis: Less than 50%.LEFT CAROTID SYSTEM:Common Systolic Velocity 96 cm/s End-Diastolic Velocity 19 cm/sInternal Systolic Velocity 70 cm/s End-Diastolic Velocity 24 cm/sExternal Systolic Velocity 103 cm/s End-Diastolic Velocity 9 cm/sVertebral Artery 43 cm/s Antegrade flowICA/CCA Systolic Ratio = 0.7 Internal Carotid Artery Stenosis: Less than 50%.Mild atherosclerotic change of the bilateral proximal ICAs.IMPRESSION: Less than 50% stenosis in the bilateral ICAs.Report electronically signed by: Rj Villanueva On 04/13/2020 11:35 AMWorkstation ID: [id number] Name Value Range Interpretation Code Description Data Ashley rce(s) Supporting Document(s) ID Date Data Source [id number] 04/13/2020 08:39:57 AM EDT [facility] Name Value Range Interpretation Code Description Data Ashley rce(s) Supporting Document(s) POC NOVA GLU 277 mg/dL (70-99) H [facility] [place] [facility] CLINICAL STAFF ID Date Data Source [id number] 04/13/2020 08:49:37 AM EDT [facility] Name Value Range Interpretation Code Description Data Ashley rce(s) Supporting Document(s) CKMB 18.2 ng/mL (0.0-5.0) HH [facility] ALERTED CRITICAL [place] [id number] [place] [id number] ON 04/13/20 AT 8:48 [place] [id number] CKMB RELATIVE INDEX 7.4 {index_val} (0.0-4.0) H [facility] ID Date Data Source [id number] 04/13/2020 08:31:05 AM EDT [facility] Name Value Range Interpretation Code Description Data Ashley rce(s) Supporting Document(s) CK 245 U/L (26-192) H [facility] ID Date Data Source [id number] 04/13/2020 07:19:[address] [facility] Name Value Range Interpretation Code Description Data Ashley rce(s) Supporting Document(s) EKG [facility] SZRCMd9vBfPCApXoe2PmBlIoSHEpQU4lrxq7Q4Q5zFJtR1HdiRGfe7fvQ4AmJ5EiSJUsWZMJWG9DoSFo jb2 [file] ZyLR6w4wm+9UGMQkY9FKl02Ud1j9YH6sh/tool maker bench+E9lu fdi7+X0oNRSTfJ+vnIdhPkSowp2HlCf35YsW9QrCS03Twrr9OBHfsvRvwS++z87sV/iTGwaLN3LIJiCF M4CcuAUxXjkNGg6lIReXYrAfsLVYM5Iqj8joZ0ooSPIVtGgFfvSKTC6bgLTVyB1C0C+4J6up4Zzw4UVb 3W4fDIeSLTuVUzuZMpHDWkTPBujVE8/ei0T/SVxUqh BRm68jFyiRk8ahjIDzqWnVTcQ+kfuFq94N644/ndi/cT8uS+2pl8lad9CeSYVcBbTg70YoZp8B5M4qH0 xcVC5j4HJrkQEuYEUouybL/7R1Z4L/6UvRX/VEfMF4vR0AyoNiw/5d+++OQAFwT52heRkJu/KP8sic8c ryXIwrW19idzI0uYQjeikW4GtwiaE5+92kOtE+WF8q m5jHv8LXcAUd/sI6G69UZi2BWkWOr9aYEw6lm+4iHg3Sw0XwD1D3+aoHt8z1l//w5c3K1iCuejyL1bib 391DuP/aAQMBCNddsePkaKEDE903xiJN11daEd99e1kXzVP5/+fnwWlCs+g/OhiAkekJYk56jcAcS034 BbRqDTCmof1u7oMu+L+aeGwIuysmOA6x+L+kgU9IZk IR/nY+P9o/bnWe9G+iFyCg2G+o9r1d+Xn6brL+A0ibmOEu7J4khK9/7k6q0krkAdyxbwu/Jkf0yzXHsI LihXlBvKHWV1+dkRfCbKC+I8frAUDhPJ6c1ER2uka9kVMA+p9qK7cOhO7zrHd0D6SzMAmZnrfLUxuYaC 4j4yj9Qozd592W4/lF+XWWpD+F2hFq5AVabRzuS9jw oRFlGjc7YUKTjD9fokjycYVa0pRvqkPFBg29Pwvvol29H/ZbS3o5/tcotZz09uxwgDB9hx0+yQLLy5gH +U4/3NOWsCCvBGb1nTXt1vYDb8bk3f01KdBR+NL2YDfb00M2LMiajoiEnQqVJR2B7sb/ajlNzM44igHt /082pv/6+T4iu8zf71PwDF2B8rxdcaB3JT589rio7m [file] s6+PHSTJ+MPF44hsblwEZ5cr5fPEtSx0EFtIF002ronixCmg1n8gX3Y5nw8NM++PHzcX/g41v1BE/hair dresser [file] ID Date Data Source [id number] 04/13/2020 06:08:[address] [facility] Name Value Range Interpretation Code Description Data Ashley rce(s) Supporting Document(s) EKG [facility] AKGCHt3fFuMHXhXvs2YbQkIdMGScTU9udtd1F4Y1pHCxK2EtsKQwg8prD3RaE6QpXBNhZIVEAU8HpRPf jb2 [file] 8/X7A3riH1+zOo651z2uuSO7sz+0GOaya49/3Wi7j292/kNzwx6zioZFP69hd64+/Mn57njlc81++senior linux engineer [file] AvcqO4sgHbBoI7AEY1ArEoUM4N ID Date Data Source [id number] 04/13/2020 06:08:[address] [facility] Name Value Range Interpretation Code Description Data Ashley rce(s) Supporting Document(s) EKG [facility] YLACHj4rBiGDCeAyz7WeAgKdBJXrMC2gsed2T8O0uWPkW7JlnQHtd0ofU4WmM2MeEYRzVSFUUF1NvPXf jb2 [file] Kuy3+V+CERAMIC CHEMIST/yp0tct/gyzbGn0meI9EB2bpGhjIUoxOrnUan8AuLJEIonK4VS7kppEK6+9qg+yrxNofjG [file] IDUgMCBSCgo+DjuymBNwoNjkIGZCISRlNhiOMATCM0U= ID Date Data Source [id number] 04/13/2020 05:21:15 AM EDT [facility] Name Value Range Interpretation Code Description Data Ashley rce(s) Supporting Document(s) SODIUM 139 mmol/L (136-145) [facility] POTASSIUM 4.2 mmol/L (3.6-5.2) [facility] CHLORIDE 108 mmol/L (100-108) [facility] CO2 23 mmol/L (22-31) [facility] ANION GAP 8 mmol/L (7-16) [facility] UREA NITROGEN 10 mg/dL (7-24) [facility] CREATININE 0.54 mg/dL (0.60-1.00) L [facility] BUN/CREAT RATIO 18.5 RATIO (10.0-20.0) [facility] GLUCOSE 201 mg/dL (70-99) H [facility] CALCIUM 8.8 mg/dL (8.4-10.2) [facility] GFR >60 ml/min/1.73m2 (>59) [facility] GFR ( AMER) >60 ml/min/1.73m2 (>59) [facility] GFR INTERPRETATION [facility] --NORMAL KIDNEY FUNCTION OR MILD DISEASE - GFR >OR= 60CHRONIC KIDNEY DISEASE - GFR 15 - 59RENAL FAILURE - GFR <15 Est. GFR calculation based on the MDRDstudy equation, which assumes a steadystate for creatinine. Est. GFR should notbe used for medication dosing. ID Date Data Source [id number] 04/13/2020 04:51:59 AM EDT [facility] Name Value Range Interpretation Code Description Data Ashley rce(s) Supporting Document(s) WBC 9.7 10*3/uL (4.1-11.0) [facility] [place] RBC 5.07 10*6/uL (4.00-5.40) [facility] HGB 14.3 g/dL (12.0-16.0) [facility] HCT 42.5 % (36.0-47.0) [facility] MCV 84.0 fL (80.0-95.0) [facility] MCH 28.3 pg (27.0-32.0) [facility] MCHC 33.7 g/dL (32.0-36.0) [facility] RDW 13.4 % (10.5-14.5) [facility] PLT 284 10*3/uL (150-450) [facility] MPV 7.0 fL (7.1-10.7) L [facility] ID Date Data Source [id number] 04/12/2020 06:49:52 PM EDT [facility] Name Value Range Interpretation Code Description Data Ashley rce(s) Supporting Document(s) POC NOVA GLU 165 mg/dL (70-99) H [facility] [place] [facility] CLINICAL STAFF ID Date Data Source [id number] 04/12/2020 05:15:10 PM EDT [facility] Name Value Range Interpretation Code Description Data Ashley rce(s) Supporting Document(s) CKMB 6.4 ng/mL (0.0-5.0) H [facility] CKMB RELATIVE INDEX 4.9 {index_val} (0.0-4.0) H [facility] ID Date Data Source [id number] 04/12/2020 04:50:11 PM EDT [facility] Name Value Range Interpretation Code Description Data Ashley rce(s) Supporting Document(s) CK 130 U/L (26-192) [facility] ID Date Data Source [id number] 04/12/2020 03:28:33 PM EDT [facility] Name Value Range Interpretation Code Description Data Ashley rce(s) Supporting Document(s) POC NOVA GLU 174 mg/dL (70-99) H [facility] [place] [facility] CLINICAL STAFF ID Date Data Source [id number] 04/12/2020 01:47:48 PM EDT [facility] NT INFORMATIONPatient MRN Name Date of Age Gend*PT [id number] Madhavi Dave 1970 49 years F IPPT Location Admission Date/Time Visit ID Attending [id number] 04/11/202003 --- Fatou Silva MD([id number]) EPI ID CSN Admitting Provider [id number] Sergio Birch MD([id number]) Attestation signed by Sergio Birch MD at 04/12/2020 1:47 PMThe case was discussed with SALES AND MARKETING REPRESENTATIVE and agreed with plans. ------Inpatient History & PhysicalTammnikolas DaveMRN: [id number] and Plan:Principal Problem: Elevated troponinActive Problems: HTN (hypertension) DM (diabetes mellitus) HLD (hyperlipidemia) COPD (chronic obstructive pulmona ry disease) GERD (gastroesophageal reflux disease) Tobacco abuse Chest pain Chronic pain Obesity (BMI 30-39.9)1. Elevated troponin: initial trop negative, repeat >1.1. She was loaded withasa, plavix 600 mg, BB, and heparin. Cycle troponin, monitor tele. Continueheparin, BB, start statin. NPO for likely cath in am.2. HTN: lopressor BID3. HLD: not previously treated according to med list. Start statin. Patient maybenefit from dietitian consult.4. DM II: hold oral agents. Poorly controlled. A1C >9. Consult requested fordiabetic educator. Start frail SS and monitor.5. COPD: continue home regimen. Albuterol PRN. There are inspiratory andexpiratory wheezes bilaterally at the time of admission.6. Tobacco abuse: Cessation counseled. Patient does not plan to quit7. Chronic pain: Pt was drowsy on admission. She had been given her routinemedications prior to transfer as well as morphine and ativan. Hold musclerelaxer, meloxicam, and tramadol. Med rec requested.DVT px: Heparin gttPatient is FULL CODE verified by discussion with patient.D/W Dr. Birch. Please refer to attestation for additions.History of Present Illness: Madhavi is a 49 year old female with PMH of HTN, HLD,DM II, COPD, GERD, tobacco abuse, and chronic [facility]. The patient states that she was brushingher teeth this morning when she had sudden sharp pain in the center [facility]. She sat down to rest but the pain continued and radiated to her leftarm. She initially denied any other episodes of this, but later recalled asimilar episode a few weeks ago which was not nearly as severe. She deniedassociated N &V, diaphoresis, lightheadedness, and dizziness, but did endorsefeeling flushed. She denies any cardiac history but notes a strong familyhistory of CAD with both parents and all of her siblings. She has risk factorsof HLD, HTN, obesity, and tobacco abuse. [facility] abnormalities. Repeat troponin, however, was 1.1.She was given 600 mg of plavix, 3324 mg asa, lopressor, and started on heparindrip prior to transfer. On arrival to [facility], she was complaining of chestpressure but denied pain. She states that she is feeling much better than atthe time of symptom onset. She will be admitted to the medicine team withcardiology consultation for further workup and treatment.Past Medical History:Past Medical History:Diagnosis Date COPD (chronic obstructive pulmonary disease) Depression DM (diabetes mellitus) GERD (gastroesophageal reflux disease) HLD (hyperlipidemia) HTN (hypertension) Intervertebral disc disease Lumbar radiculopathy SciaticaPast Surgical History:Past Surgical History:Procedure Laterality Date CARPAL TUNNEL RELEASE SECTION HYSTERECTOMY SPINE SURGERYMedications:Medications Prior to AdmissionMedication Sig Dispense Refill Last Dose albuterol (PROVENTIL HFA;VENTOLIN HFA) 108 (90 Base) MCG/ACT inhaler Inhale 2puffs every 4 (four) hours as needed for wheezing cholecalciferol (VITAMIN D3) 25 MCG (1000 UT) capsule Take 2,000 Units bymouth daily diclofenac (VOLTAREN) 50 MG EC tablet Take 100 mg by mouth 2 (two) times a day fentaNYL (DURAGESIC) 12 MCG/HR Place 1 patch on the skin every third day fluticasone-salmeterol (ADVAIR) 100-50 MCG/DOSE DISKUS Inhale 1 puff 2 (two)times a day gabapentin (NEURONTIN) 600 MG tablet Take 600 mg by mouth 3 (three) times aday glyBURIDE (DIABETA) 2.5 MG tablet Take 5 mg by mouth 2 (two) times a day withmeals Lactobacillus (ACIDOPHILUS) 100 MG CAPS Take by mouth meloxicam (MOBIC) 7.5 MG tablet Take 15 mg by mouth daily metFORMIN (GLUCOPHAGE) 500 MG tablet Take 750 mg by mouth 2 (two) times a daywith meals methocarbamol (ROBAXIN) 500 MG tablet Take 750 mg by mouth 3 (three) times aday pantoprazole (PROTONIX) 40 MG tablet Take 40 mg by mouth daily potassium chloride (KLOR-CON) 20 MEQ packet Take 10 mEq by mouth 2 (two) timesa day Rotigotine (NEUPRO) 3 MG/24HR PT24 Place on the skin tiZANidine (ZANAFLEX) 4 MG tablet Take 8 mg by mouth 3 (three) times a da y traMADol (ULTRAM) 50 MG tablet Take 200 mg by mouth dailyAllergies:Patient has no known drug allergies.Family History:Family HistoryProblem Relation Age of Onset Coronary artery disease Mother Hypertension Mother Coronary artery disease Father Hypertension Father Diabetes Father Heart failure Sister Diabetes Sister Hyperlipidemia Sister COPD Brother Coronary artery disease BrotherSocial History:Social HistorySocioeconomic History Marital status: Not on file Spouse name: Not on file Number of children: Not on file Years of education: Not on file Highest education level: Not on fileOccupational History Not on fileSocial Needs Financial resource strain: Not on file Food insecurity: Worry: Not on file Inability: Not on file Transportation needs: Medical: Not on file Non-medical: Not on fileTobacco Use Smoking status: Current Every Day Smoker Packs/day: 2.00 Years: 30.00 Pack years: 60.00 Types: Cigarettes Smokeless tobacco: Never UsedSubstance and Sexual Activity Alcohol use: Not Currently Drug use: Not Currently Sexual activity: Not on fileLifestyle Physical activity: Days per week: Not on file Minutes per session: Not on file Stress: Not on fileRelationships Social connections: Talks on phone: Not on file Gets together: Not on file Attends yarsanism service: Not on file Active member of club or organization: Not on file Attends meetings of clubs or organizations: Not on file Relationship status: Not on file Intimate partner violence: Fear of current or ex partner: Not on file Emotionally abused: Not on file Physically abused: Not on file Forced sexual activity: Not on fileOther Topics Concern Not on fileSocial History Narrative Not on fileReview of SystemsConstitutional: Negative for activity change, chills, diaphoresis, fatigue andfever.HENT: Negative for sore throat and trouble swallowing.Respiratory: Positive for chest tightness. Negative for cough, choking,shortness of breath, wheezing and stridor.Cardiovascular: Positive for chest pain and leg swelling. Negative forpalpitations.Gastrointestinal: Negative for abdominal pain, constipation, diarrhea, nauseaand vomiting.Genitourinary: Negative for difficulty urinating.Musculoskeletal: Positive for arthralgias and back pain.Skin: Negative for rash and wound.Neurological: Positive for dizziness and headaches. Negative for syncope,weakness and light-headedness.Temp: [97.6 F-97.8 F] 97.6 FHeart Rate: [76-77] 77Resp: [18] 18BP: (128-133)/(70-83) 133/70Physical ExamConstitutional: She is oriented to person, place, and time. She appearswell- developed and well-nourished. No distress.Pt is drowsy but wakes easily with verbal stimulationHENT:Head: Normocephalic and atraumatic.Mouth/Throat: Oropharynx is clear and moist. No oropharyngeal exudate.Eyes: Pupils are equal, round, and reactive to light. EOM are normal.Neck: No JVD present.Cardiovascular: Normal rate and regular rhythm.No murmur heard.Peripheral Edema: no lower extremity edema.Pulmonary/Chest: Effort normal. She has wheezes (bilateral inspiratory andexpiratory). She has no rhonchi. She has no rales. She exhibits no tenderness.Abdominal: Soft. Bowel sounds are normal. She exhibits no distension. There isno tenderness.Neurological: She is oriented to person, place, and time. No cranial nervedeficit. Coordination normal.Slow to respond likely r/t polypharmacySkin: Skin is warm and dry. No rash noted. She is not diaphoretic. No erythema.Vitals reviewed.Labs, Imaging and Other Diagnostic Tests:Significant findings: [facility] from [facility] reviewed.Signature: Ryann Dubose, PRODUCT MANUFACTURING PROFESSIONAL-BCDate: April 12, 2020Time: 1:55 AM Name Value Range Interpretation Code Description Data Ashley rce(s) Supporting Document(s) ID Date Data Source [id number] 04/12/2020 10:32:28 AM EDT [facility] Name Value Range Interpretation Code Description Data Ashley rce(s) Supporting Document(s) POC NOVA GLU 141 mg/dL (70-99) H [facility] [place] [facility] CLINICAL STAFF ID Date Data Source [id number] 04/12/2020 09:27:13 AM EDT [facility]PAT[facility] NT INFORMATIONPatient MRN Name Date of Age Gend*PT [id number] Madhavi Dave 1970 49 years F IPPT Location Admission Date/Time Visit ID Attending ProviderD-[id number] 04/11/202003 --- Fatou Silva MD([id number]) EPI ID CSN Admitting Provider [id number] Sergio Birch MD([id number])Cardiology ConsultName: Madhavi Dave Gender: femaleDate of : 1970 Age: 49 yearsDate/Time of Admit: 04/11/2020 8:04 PM Code Status: Full CodePrimary Care ProviderReferring Physician: No primary care provider on file.BERE Worthingtonurrent HistoryReason for consultation: Elevated troponinChief Complaint: Elevated troponin with chest painHPI:This patient is a 49 years female with multiple risk factors including:HypertensionDiabetes mellitusHyperlipidemiaCOPD from chronic tobacco abuseTobacco useFamily history.Patient has had poorly controlled diabetes mellitus. She has an elevated A1c.She has not had her hyperlipidemia treated apparently. Statin was recentlystarted. She developed anterior chest discomfort and presented to the hospital.She has an elevated troponin.Review of Systems:Other than that noted above in the history of present illness, the patientdenies:GENERAL/CONSTITUTIONAL: The patient denies fever, fatigue, weakness, weight gainor weight loss.HEAD, EYES, EARS, NOSE AND THROAT: Eyes - The patient denies pain, loss ofvision, double or blurred vision, flashing lights or spots, Ears, nose, mouthand throat. The patient denies ringing in the ears, loss of hearing, nosebleeds,loss of sense of smell, dry sinuses, sinusitis, post nasal drip, sore tongue,bleeding gums, sores in the mouth, loss of sense of taste, dry mouth,hoarseness, waking up with acid or bitter fluid in the mouth or throat.CARDIOVASCULAR: The patient denies chest pain, irregular heartbeats, suddenchanges in heartbeat or palpitation, shortness of breath, difficulty breathingat night, swollen legs or feet, heart murmurs, high blood pressure, cramps inhis legs with walking, pain in his feet or toes at night or varicose veins.Please refer to HPI.RESPIRATORY: The patient denies chronic dry cough, hemoptysis, waking at nightcoughing or choking, repeated pneumonias, wheezing or night sweats. Pleaserefer to HPI.GASTROINTESTINAL: The patient denies decreased appetite, nausea, vomiting,vomiting blood or coffee ground material, heartburn, regurgitation, frequentbelching, stomach pain relieved by food, yellow jaundice, diarrhea,constipation, gas, blood in the stools, black tarry stools or hemorrhoids.Denies hematemesis, melena, hematochezia.GENITOURINARY: The patient denies change in urination, pain or burning withurination, blood in the urine, cloudy or smoky urine, frequent need to urinate,urgency, needing to urinate frequently at night, inability to hold the urine.MUSCULOSKELETAL: The patient denies arm or leg or buttock claudication. No jointor muscle pain. No muscle weakness or tenderness. No joint swelling, neck pain,back pain or major orthopedic injuries. Patient denies myalgias.SKIN: The patient denies easy bruising, skin redness, skin rash, hives,sensitivity to sun exposure, tightness, nodules or bumps, hair loss, colorchanges in the hands or feet with cold.BREAST: Patient denies breast disea se, masses, discharge or lumps.NEUROLOGIC: The patient denies headache, dizziness, fainting, loss ofconsciousness, sensitivity or pain in the hands and feet or memory loss.Patient denies visual changes, subjective visual loss, syncope, transientischemic attacks or CVAs.PSYCHIATRIC: The patient denies complaints.ENDOCRINE: The patient denies intolerance to hot or cold temperature, flushing,fingernail changes, increased thirst, increased salt intake or decreased sexualdesire. Patient denies polyuria, polydipsia, weight loss, weight gain, frequentillnesses, visual changes, orthostatic changes.HEMATOLOGI C/LYMPHATIC: The patient denies anemia, bleeding tendency or clottingtendency. Patient denies ecchymoses, lumps or bumpsALLERGIC/IMMUNOLOGIC: The patient denies rhinitis, asthma, skin sensitivity,latex allergies or sensitivity. Denies ALLERGY to shellfish or contrast orradiographic contrast.Past HistoryPast Medical History:Diagnosis Date COPD (chronic obstructive pulmonary disease) Depression DM (diabetes mellitus) GERD (gastroesophageal reflux disease) HLD (hyperlipidemia) HTN (hypertension) Intervertebral disc disease Lumbar radiculopathy SciaticaPast Surgical History:Procedure Laterality Date CARPAL TUNNEL RELEASE SECTION HYSTERECTOMY SPINE SURGERYFamily HistoryProblem Relation Age of Onset Coronary artery disease Mother Hypertension Mother Coronary artery disease Father Hypertension Father Diabetes Father Heart failure Sister Diabetes Sister Hyperlipidemia Sister COPD Brother Coronary artery disease BrotherSocial HistorySocioeconomic History Marital status: Not on file Spouse name: Not on file Number of children: Not on file Years of education: Not on file Highest education level: Not on fileOccupational History Not on fileSocial Needs Financial resource strain: Not on file Food insecurity: Worry: Not on file Inability: Not on file Transportation needs: Medical: Not on file Non-medical: Not on fileTobacco Use Smoking status: Current Every Day Smoker Packs/day: 2.00 Years: 30.00 Pack years: 60.00 Types: Cigarettes Smokeless tobacco: Never UsedSubstance and Sexual Activity Alcohol use: Not Currently Drug use: Not Currently Sexual activity: Not on fileLifestyle Physical activity: Days per week: Not on file Minutes per session: Not on file Stress: Not on fileRelationships Social connections: Talks on phone: Not on file Gets together: Not on file Attends yarsanism service: Not on file Active member of club or organization: Not on file Attends meetings of clubs or organizations: Not on file Relationship status: Not on file Intimate partner violence: Fear of current or ex partner: Not on file Emotionally abused: Not on file Physically abused: Not on file Forced sexual activity: Not on fileOther Topics Concern Not on fileSocial History Narrative Not on fileMedications and AllergiesALLERGIES/SENSITIVITIES: Patient has no known drug allergies.Medications Prior to AdmissionMedication Sig albuterol (PROVENTIL HFA;VENTOLIN HFA) 108 (90 Base) MCG/ACT inhaler Inhale 2puffs every 4 (four) hours as needed for wheezing cholecalciferol (VITAMIN D3) 25 MCG (1000 UT) capsule Take 2,000 Units bymouth daily diclofenac (VOLTAREN) 50 MG EC tablet Take 100 mg by mouth 2 (two) times a day fentaNYL (DURAGESIC) 12 MCG/HR Place 1 patch on the skin every third day fluticasone-salmeterol (ADVAIR) 100-50 MCG/DOSE DISKUS Inhale 1 puff 2 (two)times a day gabapentin (NEURONTIN) 600 MG tablet Take 600 mg by mouth 3 (three) times aday glyBURIDE (DIABETA) 2.5 MG tablet Take 5 mg by mouth 2 (two) times a day withmeals Lactobacillus (ACIDOPHILUS) 100 MG CAPS Take by mouth meloxicam (MOBIC) 7.5 MG tablet Take 15 mg by mouth daily metFORMIN (GLUCOPHAGE) 500 MG tablet Take 750 mg by mouth 2 (two) times a daywith meals methocarbamol (ROBAXIN) 500 MG tablet Take 750 mg by mouth 3 (three) times aday pantoprazole (PROTONIX) 40 MG tablet Take 40 mg by mouth daily potassium chloride (KLOR-CON) 20 MEQ packet Take 10 mEq by mouth 2 (two) timesa day Rotigotine (NEUPRO) 3 MG/24HR PT24 Place on the skin tiZANidine (ZANAFLEX) 4 MG tablet Take 8 mg by mouth 3 (three) times a day traMADol (ULTRAM) 50 MG tablet Take 200 mg by mouth dailyScheduled Meds: aspirin 81 mg Oral Daily atorvastatin 40 mg Oral Daily clopidogrel 75 mg Oral Daily fentaNYL 1 patch Transdermal Q72H gabapentin 600 mg Oral TID insulin lispro 1-6 Units Subcutaneous With meals sliding scale meloxicam 15 mg Oral Daily metoprolol tartrate 25 mg Oral BID mometasone-formoterol 2 puff Inhalation RTBID normal saline flush 3 mL Intravenous Q8H NORAH pantoprazole 40 mg Oral Daily rotigotine 1 patch Transdermal DailyContinuous Infusions: heparin (porcine) in NaCl 13.6 Units/kg/hr (04/12/20 0537)PRN Meds:.acetaminophen, albuterol, atropine sulfate, heparin (porcine),metoclopramide, nitroglycerin, ondansetronPhysicalBMI: Body mass index is 30.52 kg/m .Blood Pressure: BP: 117/63 Pulse: Heart Rate: 75Temperature: Temp: 97.8 F Respirations: Resp: 18Admission Weight: Weight: 85.8 kg (189 lb 1.6 oz) O2 Saturation: SpO2: 95 %I/O last 3 completed shifts:In: 425.1 [P.O.:240; I.V.:185.1]Out: 500 [Urine:500]Physical Exam:HEENT: Atraumatic, normocephalic. EOMs are full, pupils equal round reactive tolight and accommodate. Sclerae are anicteric and not injected.Neck: Trachea is midline, there is no JVD, there is a right carotid bruits.Range of motion is normal.Cardiac: S1, S2, physiologically split. Rhythm is regular. There is no S3. Thereis no S4. PMI is in the fourth LICS AAL. There is a 2/6 systolic ejection murmurheard best in the second left intercostal space left sternal border. There is a1 to 2/6 mitral insufficiency murmur heard best in the fourth left intercostalspace left sternal border radiating to the apex. There were no lifts, heaves,rubs or thrills.Lungs: Are clear to auscultation and percussion without rhonchi, rubs rales orwheezes.Abdomen: Is soft. There is no hepatosplenomegaly. Bowel sounds are present.Back: Is benign. There is no CVAT.Extremities: Are without erythema, cyanosis, clubbing or edema. Pulses are 2+and equal throughout.Vascular: Upper extremity pulses are 2+ and equal throughout. Lower extremitypulses are 2+ and equal throughout.Neurologic/psychiatric: Cranial nerves, strength, sensory, reflexes, cerebellum,orientation, mood and affect are unremarkable. A very cursory psychiatricexamination exhibits no obvious psychiatric issues.Skin: Is warm and dry.DiagnosticsLabResults from last 7 daysLab Units 04/12/200449 416358NEFFWT mmol/L 138 138POTASSIUM mmol/L 4.1 4.0CHLORIDE mmol/L 104 106CO2 mmol/L 27 24BUN mg/dL 11 11CREATININE mg/dL 0.58* 0.62GLUCOSE mg/dL 179* 136*CALCIUM mg/dL 7.9* 8.5Recent Labs 151 04/12/200449NA 138 138K 4.0 4.1CL 106 104CO2 24 27ANIONGAP 8 7GLU 136* 179*BUN 11 11CREATININE 0.62 0.58*GFRAA >60 >60GFRNONAA >60 >60CALCIUM 8.5 7.9*ALKPHOS 75 --ALT 36 --AST 23 --ALBUMIN 3.6 --Results from last 7 daysLab Units 04/12/2001TROPONIN I ng/mL 1.26* 1.44* 2.28*No components found for: BNP; 1HemoglobinDate Value Ref Range Ufqgpo0704/12/2020 14.6 12.0 - 16.0 g/dL Final No components found for: PLT;1 No components found for: CBC;1 No results foundfor: LDL, HDL No components found for: CK;1 No components found for: CRP;1 Nocomponents found for: DIGOXIN;1Results from last 7 daysLab Units TSH HIGH SENSITIVITY mIU/L 4.133Results from last 7 daysLab Units 04/12/200449 WBC 10*3/uL 7.5 7.1HEMOGLOBIN g/dL 14.6 15.0HEMATOCRIT % 43.9 43.2PLATELETS 10*3/uL 260 276NEUTROS PCT % -- 36.3MONOS PCT % -- 6.0Results from last 7 daysLab Units 04/12/200449 WBC 10*3/uL 7.5 7.1RBC 10*6/uL 5.22 5.27HEMOGLOBIN g/dL 14.6 15.0HEMATOCRIT % 43.9 43.2MCV fL 84.1 81.9MCH pg 28.0 28.5MCHC g/dL 33.3 34.8RDW % 13.1 13.3PLATELETS 10*3/uL 260 276MPV fL 6.8* 7.1LYMPHS PCT % -- 54.3*MONOS PCT % -- 6.0EOS PCT % -- 2.2BASOS PCT % -- 1.2NEUTRO ABS 10*3/uL -- 2.6MONO ABS 10*3/uL -- 0.4BASOS ABS 10*3/uL -- 0.1BMP:Lab ResultsComponent Value Date NA 138 04/12/2020 K 4.1 04/12/2020 CL 104 04/12/2020 CO2 27 04/12/2020 ANIONGAP 7 04/12/2020 CALCIUM 7.9 (L) 04/12/2020 GLU 179 (H) 04/12/2020 BUN 11 04/12/2020 CREATININE 0.58 (L) 04/12/2020 GFRAA >60 04/12/2020 GFRNONAA >60 04/12/2020Cardiac:Lab ResultsComponent Value Date TROPONINI 1.26 (HH) 04/12/2020 PROBNP 41 04/11/2020CBC Brief:Lab ResultsComponent Value Date WBC 7.5 04/12/2020 HGB 14.6 04/12/2020 HCT 43.9 04/12/2020 PLT 260 04/12/2020Results No results found for the last 336 hours. Imaging/Testing:None recentEKG: Sinus rhythm, normalAssessment & PlanPrincipal Problem: Elevated troponinActive Problems: HTN (hypertension) DM (diabetes mellitus) HLD (hyperlipidemia) COPD (chronic obstructive pulmonary disease) GERD (gastroesophageal reflux disease) Tobacco abuse Chest pain Chronic pain Obesity (BMI 30-39.9)Discussion and RecommendationsChest pain. Patient's chest pain sounds ischemic. She certainly has riskfactor profile for it with poorly controlled diabetes mellitus, untreatedhypertension, smoking with COPD. Her EKG is normal. Though her troponin iselevated. I do not think there is another source for her troponin, do notbelieve it is a pulmonary embolism, she does not sound like she has had that.She is to undergo cardiac catheterization today and is agreeable to plan andwishes to proceed. She is a bit anxious and I have tried to calm her concernsregarding the catheterization. I also informed her of the need for aggressiverisk factor modification including smoking cessation, better management of herdiabetes mellitus and taking her medications as recommended. She has beenplaced on atorvastatin which is a high intensity statin. She has also beenplaced on a beta-antwan and she has been placed on clopidogrel. She is on aheparin drip presently.Patient has a carotid bruit and a carotid ultrasound is reasonable and wouldrecommend ordering that.Signature: Christopher Brunnerman, FERNANDOate: April 12, 2020Time: 9:06 AM Name Value Range Interpretation Code Description Data Ashley rce(s) Supporting Document(s) ID Date Data Source [id number] 04/12/2020 06:31:[address] [facility] Name Value Range Interpretation Code Description Data Ashley rce(s) Supporting Document(s) EKG [facility] JDZXCi2nIgFCXgIyj8HjIlMmVNYbOA3bzel5D8N5zNNlE7QqsLAef4moB3RjZ4ElPOHeLREJLD8FoEIx jb2 [file] qVJsZM645fwencw4geBaBKBbvXkc7lu3Svfdco+pi357mP5Jh5/X3Wot/Jefferson+mH6UZAT3j/EQSSZ1xu4 B+pAkYWd46XlaQc5qMyreYcIs+TZ2eRZ4D7o7zjv8c q3rD61uVll01gE4y9o2Tq4C/Z4gjVR9IpGRtr87kZRdW00kHmrxHp1Fq5LnJh/44n4uJZHZKPbyLF0mg 39InmqfHdEF97SBjcxejZY23ckvK+p7ShvPxlM/udQQaS2vs7bB1kL2OZJQ/x9WqJOCJbWoltKI+qeto dtmYygpGlsilckR02DMe+o+4Fhfu15+Q3j9Gu0BBDE sm8t5XhvLzX68Lv6kK61VmVIoSiAXid69aVdPL7ahYp3vzWnYm3jVEXx8YnPz2Uv2dWDWKwkQYx49fW7 2ZQpCvqAj85d5JiqTF33+RACN9g+ab3a8aKJerOf3Ry+2mfAG2yZ/qDZJ/rv+PbrNrQWb/gugMa8iQno WN+1+Y5brDO5lamMGwYmBR8ryiXE6BOPN0Sm9Vy25Q YbThHgGY82noKqtjBmGtC+DgOKLe7LMea0AobF694iae/A126Lt4eXWcm7o9gw6Tfsg5uQ52kszkEn2E s6cTnzok3s0D+MHltrTTIp1oWf6WJu1s9E2NiKIKhNyGXGk9PFWk1boLj6jg+WXqBQOucTO+parts salesman+cTO3 Ovh94yxF/snE/kyp1GM1hUUarIOZuC2JCQ+zJp5ST1 YlnCwRsB0O5EH/xJc6IrUNzG6y1iGWImTNpRhlgVxe/nTp/H6KW2kSZkH+uR88Zkl6dhMbhn2LekbHS4 RqAFgxYMz+VT7vbq6Qf2/skNPXZtcXJvCWgYL8FWhoJRYBQWik0nCeC9kmUeAQqR1+VqU0X1ieWgvR/6 f8SRcZ8qiN+8rD1EfphVP8v4TTQx58afrWr7GjbdB+ RcUPo6WkurHPcS9qwOk/G34+MOagg2Fy+LFj3KouKJslI5C5AUbz9BJJloJBJCnvO1gJlFj29wBmyMAj LyRha8thEi/PmCvmvxVeNNa/ZMq7Dc5EQ1Lmk/xDUnGW4kWTPsgsLhMwHqi15IEPzwje0uVa5VtA5Av/ Ml0RizTB6cTj66NEvnelMtd/cx1Ux4CcM5Dh/7Wj7R 3SufeKESfBdOE+HCBfkOFYxQKjyx2sAPGdGr5BoQzAYNTG1wOrUrsRBVh2MwILxvO8Tk2qfnXjbYVO90 mBWUj2PvXe/I0IeLAUYBFpxCVj9NF202snwJht1c+HId/HYeA+zEX4KmuVJIdFAylPF01W+PffUU2BX3 C9qVk3TOBdt/VvHW8we0igNw01us/accgdEjUc2v3I yI563SRu5uTt7ZPUro37LHN6GZrsezO0RMXdomLjuPWh+3KLhHZo75uzT+peFG0asrpgw8mbhOF6no5v 38dFhexIO7FbQctpmZLuvW7tIyW3RWsHI7ni0E/mA+shT3HN5B4QJveTkWTX3UZ7DAKdXsdTlyfbkUqh YvInRxn9Q7AikIxSLMMmyRnC9en6sjatn13IOFrn33 1+M7I3iB1tca1HG/bt9Zi8+X8N0a0c+/bf9cW5J/cruz+f0p+F+G16wOikH8/hGJC8VwO3k9ilxkcju854 UC4o1/eapaGMegvqLRPlhfJ+y/Z54sja8jY/KzvZsGkPVqkp7glgd+cTKs5lsF2Ywhbq2wlMROU0v6Pi maW2mLpmmy6HJXGbBQElU/n5c62Hqsog3em6j36Hsf wgN9MvaxZZcLkq5oD0S+itaTwlpvw0aiNqaFty7fhL0is2J+qjtWfy9uo3OtL1IS/BzMuXcE8l99ebu9 1l71l9PXwzLx1y+Vhj95q1H69+A/NT7/tIG4ufJ+P8f2zcly/5p6T8qizGpol6ptv/fNRT2NUa48tyx2 K+13rox5R32sj802dxWt13s2Qcj4/iem3A9mw95vq9 [file] RpZq256u/6663kvq2fEe1jykOEKCrVIp03N5F590+W 13n4f5m5Eo1408XN96LD37/ZS3ic4leqq+qBfqsao3dmw2rJv90fmh9qWnb+ARy9qN098O2t4uuhv+fH d8+N093K1p3sdqr0gUi++OD98d+9JG6fyGe36Yv4c4+S137Z5y1pohk8dDm++EK46dQ974Tzm1mWvf+P Ba9hV023Z9q2tsiw/fHR++6x++6x++6x/89s0ttNO7 6qej6W44A0r89sW//5Tjs9wJU3zoJL/UoTFvnuGL/YBuB61P4g3HnxCmOU/Ec7XMM/frisian/nlyfJB/0Pyg 9NN8w2fi5V706y/23ZtnOH/KK4fDyty76nAv8n28V763wavLz9hANeKh/9h3/WPf/eQZNv/Yd/1j3/WP half-way/9t2bZ/aP8WuHm150g41HG/Zd/6u2s73cImuGSd [file] EAQNOyFYP4bNWICOfuB1PMjV13bYRk9wLsc597h753h117b377v425r5oYJo918odfYav7yjx869G35+ NtmOOfQuqZDH09aVMX654RmJRV97EtvCsLDNrnCNnNX5EgLC8LTBDX0DuByXPjaXp2vhnLKtIdBccWYh ERf1MJRsBVgiWyJgdL91AE7wCRSx1mvhcdN6/Uiq7g vsuEJy4JE/qC+6GeoeRxHpT6pQjELjY79fVaKT9npzK9eE8RmjnBU3SZKrWn+5S+AIl3bOSkpqV0Q9Vd IaaBRRIO0P7BtgFJL1/sKSI+Ehw3FklDKMm/SEVljZ7WKx6Z0ahAVSnXljrhUneiV57009OmpzePX3hc zEJpvCKBy3lFv5SWT164Y77Ho/CPO1xO+QY7uTQpwj /4ubEBofP3a/4IYjAx407VTEIzV/pGVPnCIodTo6ktni5k9p34i++3B6vP9oERLxYdpb5e3GmySsANH1 9QSd9FTEWqQ6LAGycYLliZAObwPRaoQZgf2DggC81j0zAKGxVfO2Ux1F/AUDJMxPM/OG/MQBHRoowUWQ mUBrHuzYn0NGdfjgO/smznf+AdqHiRnCUKGMlTUkWM NZJZbiDz7ivFqWTNPvh3Ueuy+mhqwY5vT6Zavv7lhI8lhze9u4JnO7DqjfOUi6DvCSHCsB7iyAd4GAbC YncBpbouyJbwiEtsuLvnsn9YrUu4ocOY0kugd9XvwKW0Cz6TydNG5Ed9X5LzKLSdpOeACNYBip74XUkT kgA3KjAHMkPkAJ84iEVzoQOQ2EPCa+half-way+gBC9cuMe xWoGANjpnsA3b2VQt+1DWQmCIeqQK57gOYDk6ptgL2uVyTI/TYTzURK6tLX2fAJ+BJY+RJY+xYm6vFHh pFZ5tT7sVjLBhKVBiSR4PHtRGXOHgBTX5pPASVu3WgtUnCwUXVznZoOKQe34kucBTsyA1i2aNNtHzRcj 2jUkSyMixF+i3jUvK+E0oGv3xzYEQJAkdpRAXFcAUA wPI/4VnHD5a1Zt+JZ5gRM27ivsJYPWQbnGjUMVtfxHIo8dQctLVq3GpBrQb1jVJUbwLBbToVJ9rQrOWt G4bqFz4erKa8aa2IHtwekmidz63OhEd+FmErs+e1vj+kWM7yKwnrUcDLKPvArOW5UdVrJFGLyeVRdTeO Bgg4WhWBtTMRbn4MnseuOkXX49OEOZv2xd/OXM/nDu Loli+Y5OPk+P9ogf4eU5RsvLqtEElD9mVEiM8ie0NMHaa6mnrROSnc39OmYWome9OMaGrdJM+2BTrQHvj [file] GJHUNSB2Z= ID Date Data Source [id number] 04/12/2020 06:53:56 AM EDT [facility] Name Value Range Interpretation Code Description Data Ashley rce(s) Supporting Document(s) AMPHETAMINES,URINE (NEG) [facility] BARBITURATES,URINE (NEG) [facility] BENZODIAZEPINE,URINE (NEG) [facility] CANNABINOIDS,URINE (NEG) [facility] COCAINE,URINE (NEG) [facility] OPIATES,URINE (NEG) [facility] NOTE: Oxycodone is not sufficientlydetec karey by this screening assay. A moresensitive assay is available upon request. PHENCYCLIDINE,URINE (NEG) [facility] PLEASE NOTE: [facility] ARE REPORTED POSITIVE WHEN THE RESULT SEXCEED THE THRESHOLD (CUTOFF) INDICATED. ALIST OF POTENTIAL INTERFERENCES FOR EACHMETHOD CAN BE MADE AVAILABLE UPON REQUEST.CONFIRMATION OF A POSITIVE SCREEN CAN BE PERFORMED BY A REFERENCE LABORATORY IFREQUEST IS MADE WITHIN 48 HRS. PERFORMEDBY [address] [place] [id number] ID Date Data Source [id number] 04/12/2020 05:45:45 AM EDT [facility] Name Value Range Interpretation Code Description Data Ashley rce(s) Supporting Document(s) TROPONIN I 1.26 ng/mL (<0.05) [facility] Less than 0.05: Myocardial injury unlike lyGreater than or equal to 0.05: Highly suggestive of myocardial injuryCorrelation with rise and/or fall ofserial troponins, clinical symptomsand ECG changes is necessary.ALERTED CRITICAL RESULT TOJU [id number] IN D3 [id number] ON 04.12.20 [place] 0544H [place] [id number] ID Date Data Source [id number] 04/12/2020 05:45:45 AM EDT [facility] Name Value Range Interpretation Code Description Data Ashley rce(s) Supporting Document(s) SODIUM 138 mmol/L (136-145) [facility] POTASSIUM 4.1 mmol/L (3.6-5.2) [facility] CHLORIDE 104 mmol/L (100-108) [facility] CO2 27 mmol/L (22-31) [facility] ANION GAP 7 mmol/L (7-16) [facility] UREA NITROGEN 11 mg/dL (7-24) [facility] CREATININE 0.58 mg/dL (0.60-1.00) L [facility] BUN/CREAT RATIO 19.0 RATIO (10.0-20.0) [facility] GLUCOSE 179 mg/dL (70-99) H [facility] CALCIUM 7.9 mg/dL (8.4-10.2) L [facility] GFR >60 ml/min/1.73m2 (>59) [facility] GFR ( AMER) >60 ml/min/1.73m2 (>59) [facility] GFR INTERPRETATION [facility] --NORMAL KIDNEY FUNCTION OR MILD DISEASE - GFR >OR= 60CHRONIC KIDNEY DISEASE - GFR 15 - 59RENAL FAILURE - GFR <15 Est. GFR calculation based on the MDRDstudy equation, which assumes a steadystate for creatinine. Est. GFR should notbe used for medication dosing. ID Date Data Source [id number] 04/12/2020 05:22:59 AM EDT [facility] Name Value Range Interpretation Code Description Data Ashley rce(s) Supporting Document(s) APTT 34.6 s (22.0-34.3) H [facility] ID Date Data Source [id number] 04/12/2020 05:12:54 AM EDT [facility] Name Value Range Interpretation Code Description Data Ashley rce(s) Supporting Document(s) WBC 7.5 10*3/uL (4.1-11.0) [facility] RBC 5.22 10*6/uL (4.00-5.40) [facility] HGB 14.6 g/dL (12.0-16.0) [facility] HCT 43.9 % (36.0-47.0) [facility] MCV 84.1 fL (80.0-95.0) [facility] MCH 28.0 pg (27.0-32.0) [facility] MCHC 33.3 g/dL (32.0-36.0) [facility] RDW 13.1 % (10.5-14.5) [facility] PLT 260 10*3/uL (150-450) [facility] MPV 6.8 fL (7.1-10.7) L [facility] ID Date Data Source [id number] 04/12/2020 02:40:59 AM EDT [facility] Name Value Range Interpretation Code Description Data Ashley rce(s) Supporting Document(s) TROPONIN I 1.44 ng/mL (<0.05) [facility] Less than 0.05: Myocardial injury unlike lyGreater than or equal to 0.05: Highly suggestive of myocardial injuryCorrelation with rise and/or fall ofserial troponins, clinical symptomsand ECG changes is necessary.ALERTED CRITICAL RES[place] [id number] [place] [id number] ON 04/12/20 AT 2:40 [place] [id number] ID Date Data Source [id number] 04/12/2020 09:45:39 AM EDT [facility] Name Value Range Interpretation Code Description Data Ashley rce(s) Supporting Document(s) DIRECT LDL @ 177 mg/dL (<130) H [facility] PER NCEP ATP III GUIDELINES: OPTIMAL < 100 NEAR OPTIMAL 100 - 129BORDERLINE HIGH 130 - 159 HIGH 160 - 189 VERY HIGH > 189 ID Date Data Source [id number] 04/12/2020 09:22:22 AM EDT [facility] Name Value Range Interpretation Code Description Data Ashley rce(s) Supporting Document(s) CHOLESTEROL @ 281 mg/dL (0-200) H [facility] TRIGLYCERIDE @ 494 mg/dL (30-200) H [facility] HDL CHOLESTEROL @ 35 mg/dL (>40) L [facility] PER NCEP ATP III GUIDELINES:RESULTS LOWE R THAN 40 MG/DL ARE SUGGESTIVEOF INCREASED RISK FOR CORONARY ARTERYDISEASE. RESULTS > OR = TO 60 MG/DL ARECONSIDERED A NEGATIVE RISK FACTOR. CHOL/HDL RATIO 8.0 RATIO [facility] INTERPRETATION OF CHOL-HDL RATIO CHD RISK FEMALE MALEVERY HIGH >8.3 >14.3HIGH 5.6- 8.3 6.7- 14.3AVERAGE 3.7- 5.6 4.0- 6.7BELOW AVERAGE 2.5- 3.7 2.7- 4.0PROTECTED <2.5 <2.7 LDL CHOL (CALC) (<130) [facility] INTERFERENCE FROM ELEVATED TRIGLYCERIDES (GREATER THAN 300 MG/DL). SEE RESULTFOR DIRECT LDL. ID Date Data Source [id number] 04/11/2020 11:19:14 PM EDT [facility] Name Value Range Interpretation Code Description Data Ashley rce(s) Supporting Document(s) HEMOGLOBIN A1C @ 9.4 % (4.0-6.0) H [facility] Performed using Siemens [place] immunoassa y.Care must be taken when interpreting [place] in patients with a hemoglobin variantor decreased erythrocyte lifespan. Values 5.7 - 6.4% suggest prediabetes.Values >=6.5% are diagnostic for diabetes.REFERENCE: DIABETES CARE 2018: 41(S13-S27).PERFORMED AT [address] [place] [id number] EST AVERAGE GLUCOSE 223 mg/dL [facility] ID Date Data Source [id number] 04/11/2020 11:18:49 PM EDT [facility] Name Value Range Interpretation Code Description Data Ashley rce(s) Supporting Document(s) HCG, QUAL. SERUM (NEG) [facility] ID Date Data Source [id number] 04/11/2020 11:10:38 PM EDT [facility] Name Value Range Interpretation Code Description Data Ashley rce(s) Supporting Document(s) TSH,ULTRASENSITIVE @ 4.133 mIU/L (0.360-4.170) [facility] PERFORMED AT [address] [place] [id number] ID Date Data Source [id number] 04/11/2020 11:10:38 PM EDT [facility] Name Value Range Interpretation Code Description Data Ashley rce(s) Supporting Document(s) NT PRO BNP 41 pg/mL (0-125) [facility] ID Date Data Source [id number] 04/11/2020 11:10:38 PM EDT [facility] Name Value Range Interpretation Code Description Data Ashley rce(s) Supporting Document(s) SODIUM 138 mmol/L (136-145) [facility] POTASSIUM 4.0 mmol/L (3.6-5.2) [facility] CHLORIDE 106 mmol/L (100-108) [facility] CO2 24 mmol/L (22-31) [facility] ANION GAP 8 mmol/L (7-16) [facility] UREA NITROGEN 11 mg/dL (7-24) [facility] CREATININE 0.62 mg/dL (0.60-1.00) [facility] BUN/CREAT RATIO 17.7 RATIO (10.0-20.0) [facility] GLUCOSE 136 mg/dL (70-99) H [facility] CALCIUM 8.5 mg/dL (8.4-10.2) [facility] TOTAL PROTEIN 6.8 g/dL (6.4-8.2) [facility] ALBUMIN 3.6 g/dL (3.5-4.6) [facility] GLOBULIN 3.2 g/dL (2.7-4.3) [facility] ALB/GLOB RATIO 1.1 RATIO [facility] ALKALINE PHOSPHATASE 75 U/L (45-117) [facility] BILIRUBIN,TOTAL 0.4 mg/dL (0.0-1.0) [facility] PLEASE NOTE:Total bilirubin results may be falselyelevated in patients taking Eltrombopag. AST (SGOT) 23 U/L (11-39) [facility] ALT (SGPT) 36 U/L (12-78) [facility] GFR >60 ml/min/1.73m2 (>59) [facility] GFR ( AMER) >60 ml/min/1.73m2 (>59) [facility] GFR INTERPRETATION [facility] --NORMAL KIDNEY FUNCTION OR MILD DISEASE - GFR >OR= 60CHRONIC KIDNEY DISEASE - GFR 15 - 59RENAL FAILURE - GFR <15 Est. GFR calculation based on the MDRDstudy equation, which assumes a steadystate for creatinine. Est. GFR should notbe used for medication dosing. ID Date Data Source [id number] 04/11/2020 11:10:38 PM EDT [facility] Name Value Range Interpretation Code Description Data Ashley rce(s) Supporting Document(s) TROPONIN I 2.28 ng/mL (<0.05) HH [facility] Less than 0.05: Myocardial injury unlike lyGreater than or equal to 0.05: Highly suggestive of myocardial injuryCorrelation with rise and/or fall ofserial troponins, clinical symptomsand ECG changes is necessary.ALERTED CRITICAL RESULT [place] [id number] AT [id number] ON 04/11/20 AT 23:10 [place] [id number] ID Date Data Source [id number] 04/11/2020 10:50:38 PM EDT [facility] Name Value Range Interpretation Code Description Data Ashley rce(s) Supporting Document(s) APTT 30.3 s (22.0-34.3) [facility] ID Date Data Source [id number] 04/11/2020 10:33:12 PM EDT [facility] Name Value Range Interpretation Code Description Data Ashley rce(s) Supporting Document(s) WBC 7.1 10*3/uL (4.1-11.0) [facility] RBC 5.27 10*6/uL (4.00-5.40) [facility] HGB 15.0 g/dL (12.0-16.0) [facility] HCT 43.2 % (36.0-47.0) [facility] MCV 81.9 fL (80.0-95.0) [facility] MCH 28.5 pg (27.0-32.0) [facility] MCHC 34.8 g/dL (32.0-36.0) [facility] RDW 13.3 % (10.5-14.5) [facility] PLT 276 10*3/uL (150-450) [facility] MPV 7.1 fL (7.1-10.7) [facility] NEUT % 36.3 % (35.0-75.0) [facility] LYMPH % 54.3 % (16.0-52.0) H [facility] MONO % 6.0 % (0.0-8.0) [facility] EOS % 2.2 % (0.0-5.0) [facility] BASO % 1.2 % (0.0-4.0) [facility] NEUT # 2.6 10*3/uL (1.8-7.7) [facility] LYMPH # 3.9 10*3/uL (1.2-4.8) [facility] MONO # 0.4 10*3/uL (0.0-0.8) [facility] Eosinophils [#/volume] in Blood by Automated count 0.2 10*3/uL (0.0-0 .5) [facility] BASO # 0.1 10*3/uL (0.0-0.2) [facility] ID Date Data Source [id number] 04/11/2020 03:31:00 PM EDT [facility] [id number] Name Value Range Interpretation Code Description Data Ashley rce(s) Supporting Document(s) Adenovirus Not Detected Detected [facility] Coronavirus 229E [facility]ed [facility] Coronavirus HKU1 Not Detected Detected Not [facility] Coronavirus NL63 Not Detected Detected [facility] Coronavirus OC43 Not Detected Detected Not [facility] Sars Cov 2 Not Detected Detected Not [facility] Human Metapneumovirus Not Detected Detected Not [facility] Human Rhinovirus Not Detected Detected Not [facility] Influenza A Not Detected Detected [facility] Influenza B Not Detected Detected Not [facility] Parainfluenza Virus 1 Not Detected Detected Not [facility] Parainfluenza Virus 2 Not Detected Detected Not [facility] Parainfluenza Virus 3 Not Detected Detected Not [facility] Parainfluenza Virus 4 Not Detected Detected Not [facility] Respiratory Syncytial Virus Not Detected Detected Not [facility] Bordetella parapertus ([id number]) Not Detected Detected Not [facility] Bordetella pertussis (ptxP) Not Detected Detected Not [facility] Chlamydia pneumoniae Not Detected Detected Not [facility] Mycoplasma pneumoniae Not Detected Detected Not [facility] The Above results have been determined b y using [facility].[employer] is an automated in vitro diagnostic system thatutilizes nested multiplex Polymerase Chain Reaction (PCR)and high-resolution melting analysis to detect and identifymultiple nucleic acid targets from clinical specimens. ID Date Data Source [id number] 04/11/2020 04:21:00 PM EDT [facility] TSYSORDER [id number] Name Value Range Interpretation Code Description Data Ashley rce(s) Supporting Document(s) MAGNESIUM 1.7 mg/dL 1.8-2.4 L [facility] ID Date Data Source [id number] 04/11/2020 01:52:00 PM EDT [facility] l CALLED TO TIMMY 1352 Name Value Range Interpretation Code Description Data Ashley rce(s) Supporting Document(s) TROPONIN I 1.106 ng/mL 0.0-0.056 *H [facility] ID Date Data Source [id number] 04/11/2020 08:50:00 AM EDT [facility] DATE OF EXAMINATION: 04/11/2020 6:39 EDT CHEST 1 VIEW HISTORY: Chest pain TECHNIQUE: Single frontal radiograph of chest FINDINGS: No evidence of focal consolidation, pneumothorax or large pleural effusion.Lungs are clear. Mediastinal structures are unremarkable. No aggressive osseouslesions. IMPRESSION: No focal consolidation. Electronically signed in PS360 by: Julia Garza M.D. 04/11/2020 8:44 EDT Name Value Range Interpretation Code Description Data Ashley rce(s) Supporting Document(s) ID Date Data Source [id number] 04/11/2020 03:15:00 PM EDT [facility] TSYSORDER [id number] Name Value Range Interpretation Code Description Data Ashley rce(s) Supporting Document(s) CHOLESTEROL 313 mg/dL 0-200 *H [facility] TRIGLYCERIDES 325 mg/dL 0-150 *H [facility] LDL CHOLESTEROL 209 mg/dL 0-100 H [facility] HDL CHOLESTEROL 39 mg/dL 40-60 L [facility] CHOL/HDL RATIO 8.0 0.0-5.0 H [facility] ID Date Data Source [id number] 04/11/2020 07:09:00 AM EDT [facility] TSYSORDER [id number] Name Value Range Interpretation Code Description Data Ashley rce(s) Supporting Document(s) MAGNESIUM 1.0 mg/dL 1.8-2.4 L [facility] ID Date Data Source [id number] 04/11/2020 07:09:00 AM EDT [facility] [id number] Name Value Range Interpretation Code Description Data Ashley rce(s) Supporting Document(s) TROPONIN I < 0.017 ng/mL 0.0-0.056 [facility] ID Date Data Source [id number] 04/11/2020 07:09:00 AM T [facility] l TSYSORDER [id number] Name Value Range Interpretation Code Description Data Ashley rce(s) Supporting Document(s) GLUCOSE 198 mg/dL 74-106 H [facility] BLOOD UREA NITROGEN 12 mg/dL 7-18 [facility] ital CREATININE 0.8 mg/dL 0.6-1.0 [facility] SODIUM 135 mmol/L 136-145 L [facility] POTASSIUM 4.2 mmol/L 3.5-5.1 [facility] CHLORIDE 99 mmol/L 98-107 [facility] CO2 24 mmol/L 21-32 [facility] CALCIUM 8.5 mg/dL 8.5-10.1 [facility] ANION GAP 12.0 mmol/L 5-12 [facility] GLOMERULAR FILTRATION RATE 77 mL/min [facility] GFR IS CALCULATED IN mL/min/1.73m2 RORY L FUNCTION: >90MILDLY DECREASED: 60-89MILDY TO MODERATELY DECREASED: 45-59 MODERATELY TO SEVERELY DECREASED: 30-44SEVERELY DECREASED: 15-29RENAL FAILURE: <15 AST 20 U/L 15-37 [facility] ALT 34 U/L 12-78 [facility] ALKALINE PHOSPHATASE 84 U/L 46-116 [facility] TOTAL BILIRUBIN 0.6 mg/dL 0.2-1.0 [facility] TOTAL PROTEIN 7.3 g/dl 6.4-8.2 [facility] ALBUMIN 4.1 gm/dL 3.4-5.0 [facility] ID Date Data Source [id number] 04/11/2020 07:05:00 AM EDT [facility] TSYSORDER [id number] Name Value Range Interpretation Code Description Data Ashley rce(s) Supporting Document(s) PARTIAL THROMBOPLASTIN TIME 24.9 SECONDS 21.4-30.2 [facility] ID Date Data Source [id number] 04/11/2020 07:05:00 AM EDT [facility] TSYSORDER [id number] Name Value Range Interpretation Code Description Data Ashley rce(s) Supporting Document(s) PROTHROMBIN TIME (PATIENT) 9.8 SECONDS 9.2-11.6 [facility] INR 0.94 0.87-1.06 [facility] ID Date Data Source [id number] 04/11/2020 06:46:00 AM EDT [facility] TSYSORDER [id number] Name Value Range Interpretation Code Description Data Ashley rce(s) Supporting Document(s) WHITE BLOOD COUNT 8.5 K/mm3 4.0-10.0 [facility] RED BLOOD COUNT 5.44 M/mm3 4.00-5.50 [facility] HEMOGLOBIN 15.4 gm/dL 12.0-16.0 [facility] HEMATOCRIT 44.0 % 36.0-48.8 [facility] MEAN CELL VOLUME 80.9 fl 80-96 [facility] MEAN CORPUSCULAR HEMOGLOBIN 28.3 pg 27.0-31.0 [facility] MEAN CORPUSCULAR HGB CONC 35.0 g/dl 32.0-36.0 [facility] RED CELL DISTRIBUTION WIDTH 12.3 % 10.0-14.5 [facility] PLATELET COUNT 291 K/mm3 172-450 [facility] MEAN PLATELET VOLUME 8.8 fl 9.0-13.0 L [facility] pital GRAN % 58.5 % 50-80.0 [facility] IG% 0.1 % 0.0-0.2 [facility] LYMPH % 32.8 % 25.0-50.0 [facility] MONO % 6.2 % 2.0-10.0 [facility] EOS % 1.5 % 0-5.0 [facility] BASO % 0.9 % 0.0-2.0 [facility] GRAN # 5.0 K/mm3 2.0-8.00 [facility] IG# 0.0 K/mm3 0.0-0.2 [facility] LYMPH # 2.8 K/mm3 1.0-5.0 [facility] MONO # 0.5 K/mm3 0.10-1.20 [facility] EOS # 0.1 K/mm3 0.0-0.5 [facility] BASO # 0.1 K/mm3 0.0-0.2 [facility] ID Date Data Source [id number] 12/11/2019 09:21:00 AM EST [facility] FAX [phone] Name Value Range Interpretation Code Description Data Ashley rce(s) Supporting Document(s) TSH 4.61 uIU/mL 0.36-3.74 H [facility] ID Date Data Source [id number] 11/23/2019 08:07:00 AM EST [facility] Name Value Range Interpretation Code Description Data Ashley rce(s) Supporting Document(s) Vitamin D, 25-Hydroxy 14.9 ng/mL 30.0-100.0 Below low normal [facility] Vitamin D deficiency has been defined by the [place] of[employer] and an Endocrine Society practice guideline as alevel of serum 25-OH vitamin D less than 20 ng/mL (1,2).The Endocrine Society went on to further define vitamin Dinsufficiency as a level between 21 and 29 ng/mL (2).1. IOM ([place] of [employer]). 2010. Dietary reference intakes for calcium and D. Be [place]: The National Academies Press.2. Junior MF, Theresa NC, Angel AKERS, et al. Evaluation, treatment, and prevention of vitamin D deficiency: an Endocrine Society clinical practice guideline. JCEM. 2010; 96(7):1911-30. ID Date Data Source [id number] 11/23/2019 08:06:00 AM EST [facility] Name Value Range Interpretation Code Description Data Ashley rce(s) Supporting Document(s) VITAMIN D, 25-HYDROXY 14.9 ng/mL 30.0-100.0 [facility] Vitamin D deficiency has been defined by the [place] of[employer] and an Endocrine Society practice guideline as alevel of serum 25-OH vitamin D less than 20 ng/mL (1,2).The Endocrine Society went on to further define vitamin Dinsufficiency as a level between 21 and 29 ng/mL (2).1. IOM ([place] of [employer]). 2010. Dietary reference intakes for calcium and D. Be [place]: The National Academies Press.2. Junior MF, Theresa HURST, Angel AKERS, et al. Evaluation, treatment, and prevention of vitamin D deficiency: an Endocrine Society clinical practice guideline. JCEM. 2010; 96(7):1911- 30.Performed at: RN - [facility] [place] [id number] Director: Peg Booker MD, Phone: [phone] ID Date Data Source [id number] 11/22/2019 10:48:00 AM [facility] FAX [phone] Name Value Range Interpretation Code Description Data Ashley rce(s) Supporting Document(s) GLUCOSE 247 mg/dL 74-106 H [facility] BLOOD UREA NITROGEN 13 mg/dL 7-18 [facility] ital CREATININE 0.5 mg/dL 0.6-1.0 L [facility] SODIUM 135 mmol/L 136-145 L [facility] POTASSIUM 4.8 mmol/L 3.5-5.1 [facility] CHLORIDE 96 mmol/L 98-107 L [facility] CO2 25 mmol/L 21-32 [facility] CALCIUM 8.9 mg/dL 8.5-10.1 [facility] ANION GAP 14.0 mmol/L 5-12 H [facility] GLOMERULAR FILTRATION RATE >90 mL/min [facility] GFR IS CALCULATED IN mL/min/1.73m2 RORY L FUNCTION: >90MILDLY DECREASED: 60-89MILDY TO MODERATELY DECREASED: 45-59 MODERATELY TO SEVERELY DECREASED: 30-44SEVERELY DECREASED: 15-29RENAL FAILURE: <15 AST 17 U/L 15-37 [facility] ALT 32 U/L 12-78 [facility] ALKALINE PHOSPHATASE 77 U/L 46-116 [facility] pital TOTAL BILIRUBIN 0.4 mg/dL 0.2-1.0 [facility] TOTAL PROTEIN 6.7 g/dl 6.4-8.2 [facility] ALBUMIN 3.5 gm/dL 3.4-5.0 [facility] ID Date Data Source [id number] 11/22/2019 10:48:00 AM [facility] FAX [phone] Name Value Range Interpretation Code Description Data Ashley rce(s) Supporting Document(s) CHOLESTEROL 278 mg/dL 0-200 H [facility] TRIGLYCERIDES 643 mg/dL 0-150 *H [facility] CALCULATED LDL MAY NOT BE VALID WHEN TRI GLYCERIDE IS GREATERTHAN 400 MG/dL. LDL CHOLESTEROL 112 mg/dL 0-100 H [facility] HDL CHOLESTEROL 37 mg/dL 40-60 L [facility] CHOL/HDL RATIO 7.5 0.0-5.0 H [facility] ID Date Data Source [id number] 11/22/2019 10:48:00 AM [facility] FAX [phone] Name Value Range Interpretation Code Description Data Ashley rce(s) Supporting Document(s) MAGNESIUM 1.4 mg/dL 1.8-2.4 [facility] ID Date Data Source [id number] 11/22/2019 10:42:00 AM [facility] FAX [phone] Name Value Range Interpretation Code Description Data Ashley rce(s) Supporting Document(s) URINE MICROALBUMIN 3.7 mg/L 1.3-20.0 [facility] URINE CREATININE 106.6 mg/dL [facility] MICROALBUMIN/CREATININE RATIO 3 ug/mg [facility] ID Date Data Source [id number] 11/22/2019 10:15:00 AM [facility] FAX [phone] Name Value Range Interpretation Code Description Data Ashley rce(s) Supporting Document(s) URINE COLOR. DARK YELLOW [facility] URINE APPEARANCE CLEAR [facility] .@Manual entry verification SPECIFIC GRAVITY,URINE 1.025 1.001-1.035 [facility] URINE LEUKOCYTE ESTERASE NEGATIVE NEGATIVE [facility] URINE NITRATE NEGATIVE NEGATIVE [facility] PH,URINE 5.5 5.0-9.0 [facility] URINE PROTEIN NEGATIVE mg/dL NEGATIVE [facility] URINE GLUCOSE (UA) 500 mg/dL NEGATIVE H [facility] URINE KETONE 15(SMALL) mg/dL NEGATIVE [facility] URINE UROBILINOGEN NORMAL(0.2-1) mg/dL 0-1 [facility] URINE BILIRUBIN NEGATIVE NEGATIVE [facility] URINE BLOOD NEGATIVE NEGATIVE [facility] ID Date Data Source [id number] 11/22/2019 09:51:00 AM EST [facility] FAX [phone] Name Value Range Interpretation Code Description Data Ashley rce(s) Supporting Document(s) TSH 8.64 uIU/mL 0.36-3.74 H [facility] ID Date Data Source [id number] 11/22/2019 09:12:00 AM EST [facility] FAX [phone] Name Value Range Interpretation Code Description Data Ashley rce(s) Supporting Document(s) WHITE BLOOD COUNT 7.8 K/mm3 4.0-10.0 [facility] RED BLOOD COUNT 5.21 M/mm3 4.00-5.50 [facility] HEMOGLOBIN 15.2 gm/dL 12.0-16.0 [facility] HEMATOCRIT 42.7 % 36.0-48.8 [facility] MEAN CELL VOLUME 82.0 fl 80-96 [facility] MEAN CORPUSCULAR HEMOGLOBIN 29.2 pg 27.0-31.0 [facility] MEAN CORPUSCULAR HGB CONC 35.6 g/dl 32.0-36.0 [facility] RED CELL DISTRIBUTION WIDTH 12.9 % 10.0-14.5 [facility] PLATELET COUNT 272 K/mm3 172-450 [facility] MEAN PLATELET VOLUME 9.0 fl 9.0-13.0 [facility] pital GRAN % 48.8 % 50-80.0 L [facility] IG% 0.3 % 0.0-0.2 H [facility] LYMPH % 42.0 % 25.0-50.0 [facility] MONO % 6.5 % 2.0-10.0 [facility] EOS % 1.5 % 0-5.0 [facility] BASO % 0.9 % 0.0-2.0 [facility] GRAN # 3.8 K/mm3 2.0-8.00 [facility] IG# 0.0 K/mm3 0.0-0.2 [facility] LYMPH # 3.3 K/mm3 1.0-5.0 [facility] MONO # 0.5 K/mm3 0.10-1.20 [facility] EOS # 0.1 K/mm3 0.0-0.5 [facility] BASO # 0.1 K/mm3 0.0-0.2 [facility] ID Date Data Source [id number] 10/29/2019 01:39:00 PM EST [facility] DATE OF EXAM: 10/29/2019Lumbar spine fou r views Indication: Lower back pain. Comparison: None Findings:There are five nonrib-bearing lumbar type vertebral bodies. Normal sagittal alignment on neutral, flexion, and extension views. Vertebral body heights are maintained. Mild to moderate L5-S1 and mild L4-5 disc space narrowing. Minimal L3-4 disc space narrowing. Mild endplate osteophytes at L3-4 through L5-S1. Facet joint degenerative changes are greatest at L5-S1. Calcifications are seen within the distal abdominal aorta. The bilateral sacroiliac joints are unremarkable. Impression:Mild L5-S1 greater than L4-5 degenerative disc changes. Professional interpretation performed by [facility] End of diagnostic report for accession: [id number] Interpreted: Saleem Arteaga MDTranscribed: 10/29/2019 01:38 PMSigned: 10/29/2019 01:39 PM Saleem Arteaga MD ------ [facility] # [id number] BILL # [id number] [place] Name Value Range Interpretation Code Description Data Ashley rce(s) Supporting Document(s) ID Date Data Source [id number] 10/29/2019 01:37:00 PM EST [facility] DATE OF EXAM: 10/29/2019Cervical spine f our views Indication: Cervicalgia. Comparison: None Findings:Normal sagittal alignment on neutral, flexion, and extension views. Vertebral body heights are maintained. Minimal C4-5 disc space narrowing. The atlantodens interval is intact. No prevertebral soft tissue swelling. Impression:Minimal C4-5 disc space narrowing. Normal alignment. Professional interpretation performed by [facility] End of diagnostic report for accession: [id number] Interpreted: Saleem Arteaga MDTranscribed: 10/29/2019 01:36 PMSigned: 10/29/2019 01:37 PM Saleem Ar[address] [facility] # [id number] BILL # [id number] [place] Name Value Range Interpretation Code Description Data Ashley rce(s) Supporting Document(s) ID Date Data Source [id number] 10/24/2019 12:52:00 PM [facility] Name: MADHAVI DAVE : 1970 A ge/Sex: 49F Ordering Provider: Lucas Le MD Med Rec #: [id number] Reg Status: REG REF Room #: Date of Service: 10/24/19 Report Number: [id number] cc:Hakan Dixon NP; Lucas Le MD Send Report To: [id number] MRI/MRI Lum Spine No Contrast Reason for exam: BULGING LUMBAR DISC FINDINGS: There is normal alignment and position of the bones. No signs of any fractures or osseous lesions noted. The L1/2 disc space level demonstrates a left paracentral disc protrusion projecting posteriorly by 4mm and effacing the left half of the thecal sac and lateral recess in a moderate fashion. The L2/3 disc space level is within normal limits. At L3/4 there is a left paracentral to central disc herniation projecting posteriorly by 4.7mm indenting the left half of the thecal sac and that appears to be having an effect on the descending lef tL4 nerve root. The L4/5 disc space level demonstrates mild bulging. L5/S1 demonstrates disc bulging with previous left hemilaminectomy. No other significant findings. IMPRESSION: Moderate size left paracentral disc herniation at the L3/4 level resulting in some compression of the left lateral thecal sac and likely effect on the descending left L4 nerve root. Left paracentral disc herniation also identified at the L1/2 disc space level. Fluoroscopy time in seconds: Number of Exposures: Time Portable Image Performed: Contrast Agent in ml: Method of Administration: REPORT SIGNATURE ON FILE Reported By: Bruce Wang MD <Electronically signed by Rachael Wang MD> 10/24/19 1415 Dictation Date/Time: 10/24/19 1123 Transcribed Date/Time: 10/24/19 1252 Ladle Operator: ANA Name Value Range Interpretation Code Description Data Ashley rce(s) Supporting Document(s) ID Date Data Source [id number] 10/02/2019 01:45:00 PM [facility] Patient: MADHAVI DAVE [facility] [facility] [employer] [facility]VisitID: [id number] [place] [address] [phone], FRegistration Date/Time: 10/02/2019 11:47 Weight:86.1 kg (S). Height/Length:66 inches (S). BMI:30.7 PAST HISTORYProblems:Edema.Cough.Sciatica.Myalgias.Skin Rash.Sick Contact.Lung Disease.Lumbar Strain.Depression.Diabetes Mellitus.Back Injury.Asthma.COPD - Chronic Obstructive Pulmonary Disease.Back Pain.Chest Wall Pain.Gastroesophageal Reflux Disease.Intervertebral Disc Disease.Hypercholesterolemia.Joint Effusion.Influenza [Resolved].Laceration [Recurrent]. Additional Surgeries:Back Surgery.Carpal Tunnel Surgery..Hysterectomy. Medications:Potassium Chloride ER Oral (Capsule Extended Release 10 meq) 1 cap andre, daily, last dose today.Diclofenac Sodium Oral 100 mg, daily, last dose today.Methocarbamol Oral 750 mg, 3x a day, last dose today.Gabapentin Oral (Tablet 600 mg) 1 tablet, 3x a day, last dose TODAY.Tramadol HCL Oral 50 mg, daily, last dose UNK (OUT OF SCRIPT).Escitalopram Oxalate Oral 20 mg, daily, last dose yesterday.GlyBURIDE Oral (Tablet 5 mg) 1 tablet, 2x a day, last dose yesterday.Ibuprofen Oral 800 mg, as needed, last dose unk.Lasix Oral (Tablet 20 mg) 1-2 tablets , daily as needed, last dose unk.Meloxicam Oral (Tablet 15 mg) 1 tablet, pm, last dose yesterday.MetFORMIN HCl Oral (Tablet 500 mg) 1- 1/2 tablets, 2x a day, last dose yesterday.Pantoprazole Sodium Oral 40 mg, daily, last dose yesterday.TiZANidine HCl Oral (Tablet 4 mg) 2 tablets, 3x a day, last dose yesterday.Ventolin HFA Inhalation 1 puff, as needed, last dose yesterday. Allergies:No Known Allergies. FAMILY HISTORYNo significant family medical history. (Electronically signed by Baljit Davis, PNatan 10/02/2019 13:41) Name Value Range Interpretation Code Description Data Ashley rce(s) Supporting Document(s) ID Date Data Source [id number] 10/02/2019 12:52:00 PM [facility] DATE OF EXAMINATION: 10/02/2019 12:25 ES T L SPINE W/O IV CONTRAST HISTORY: Pain and numbness TECHNIQUE: This CT exam was performed using the following dose reduction techniques:automated exposure control, adjustment of mA and/or kV according to thepatient's size, and use of iterative reconstruction technique. Standard contiguous axial spiral imaging of the lumbar spine was obtained withsagittal/coronal reformatting. FINDINGS: Lumbar vertebra are well- mineralized and properly aligned. Moderate degenerativechanges are seen mainly at L4-5 and L5-S1 with diminished disc height. There ismoderate posterior broad- based disc bulging at L3-4 to a lesser extent L4-5 andL5-S1 with indentation of thecal sac. There is no fracture or subluxation. IMPRESSION: Moderate degenerative disc disease most pronounced at L4-5 and L5-S1 withdiminished disc height. Moderate-sized posterior disc bulging at L3-4 and L5-S1 and to a lesser extentat L4-5 with indentation of thecal sac. Moderate bilateral facet hypertrophy at L4-5 and L5-S1. Electronically signed in PS360 by: Julia Garza M.D. 10/02/2019 12:46 EST Name Value Range Interpretation Code Description Data Ashley rce(s) Supporting Document(s) Procedure Social History Code Duration Value Status Description Data Source(s ) Alcohol intake 09/05/2020 12:00:00 AM EDT Not Currently completed [facility] Cigarette pack-years 09/05/2020 12:00:00 AM EDT UNK completed [facility] Cigarettes smoked current (pack per day) - Reported 09/05/20 12:00:00 AM EDT UNK completed [facility] Smoking 09/05/2020 12:00:00 AM EDT Current every day smoker co mpleted Current every day smoker [facility] Smoking 08/20/2020 12:00:00 AM EDT Current Smoker completed Curre nt Smoker eCW1 ([facility]) Smoking 08/20/2020 12:00:00 AM EDT Current Smoker completed Curre nt Smoker eCW1 ([facility]) Smoking 08/20/2020 12:00:00 AM EDT Current Smoker completed Curre nt Smoker eCW1 ([facility]) Smoking 08/20/2020 12:00:00 AM EDT Current Smoker completed Curre nt Smoker eCW1 ([facility]) Alcohol intake 04/11/2020 12:00:00 AM EDT Not Currently completed [facility] Cigarette pack-years 04/11/2020 12:00:00 AM EDT UNK completed [facility] Cigarettes smoked current (pack per day) - Reported 04/11/20 12:00:00 AM EDT UNK completed [facility] Smoking 04/11/2020 12:00:00 AM EDT Current every day smoker co mpleted Current every day smoker [facility] 01/08/2020 12:00:00 AM EST Heavy tobacco smoker (more than 10 cigarettes/day) completed Heavy tobacco smoker (more than 10 cigarettes/day) MED ENT ([facility]) Vital Signs ID Date Data Source UNK Name Value Range Interpretation Code Description Data Source(s) Heart rate 71 /min 71 /min [facility] Diastolic blood pressure 73 mm[Hg] 73 mm[Hg] [facility] Systolic blood pressure 122 mm[Hg] 122 mm[Hg] S [facility] Oxygen saturation in Arterial blood by Pulse oximetry 98 % 98 % [facility] Respiratory rate 17 /min 17 /min [facility] Body temperature 36.78 Tig[facility] 36.78 Tigist [facility] Body mass index (BMI) [Ratio] 30.70 kg/m2 30.70 kg/m2 [facility] Body weight 86.[address] [facility] Body height 167.[address] [facility] Diastolic blood pressure 80 mm[Hg] 80 mm[Hg] eCW1 ([facility]) Systolic blood pressure 140 mm[Hg] 140 mm[Hg] e CW1 ([facility]) Oxygen saturation in Arterial blood by Pulse oximetry 97 % 97 % [facility] ([facility]) Respiratory rate 18 /min 18 /min eCW1 ([facility]) Heart rate 81 /min 81 /min eCW1 ([facility]) Body weight 84.37 kg 84.37 kg eCW1 ([facility]) Body weight 186 [lb_av] 186 [lb_av] eCW1 ([facility] [place] body weight 130 [lb_av] 130 [lb_av] MEDEN T ([facility], ) Body mass index (BMI) [Ratio] 28.7 kg/m2 28.7 k g/m2 MEDENT ([facility], ) Body weight 178.00 [lb_av] 178.00 [lb_av] MEDEN T ([facility], ) Body height 66 [in_i] 66 [in_i] MEDENT ([facility], ) 5'6" Respiratory rate 14 /min 14 /min MEDENT ( [facility]) Heart rate 66 /min 66 /min [facility] ([facility] ) Diastolic blood pressure 70 mm[Hg] 70 mm[Hg] MEDENT ([facility], ) Systolic blood pressure 120 mm[Hg] 120 mm[facility] Oxygen saturation in Arterial blood by Pulse oximetry 98 % 98 % [facility] Body temperature 36.61 [facility] 36.61 [facility] Heart rate 73 /min 73 /min [facility] Diastolic blood pressure 83 mm[Hg] 83 mm[Hg] [facility] [facility] Sy[facility] blood pressure 127 mm[Hg] 127 mm[Hg] [facility] Respiratory rate 16 /min 16 /min [facility] Body mass index (BMI) [Ratio] 30.52 kg/m2 30.52 kg/m2 [facility] Body weight 85.[address] [facility] Body height 167.[address] [facility] Respiratory rate 18 /min 18 /min [facility] ( [facility]) Heart rate 78 /min 78 /min [facility] ([facility]) Diastolic blood pressure 86 mm[Hg] 86 mm[Hg] [facility] ([facility]) Systolic blood pressure 143 mm[Hg] 143 mm[Hg] [facility] ([facility]) Body mass index (BMI) [Ratio] 31.3 kg/m2 31.3 k g/m2 [facility] ([facility]) Body weight 194.00 [lb_av] 194.00 [lb_av] MEDEN T ([facility]) Body height 66 [in_i] 66 [in_i] [facility] ([facility]) 5'6" Respiratory rate 18 /min 18 /min [facility] ( [facility]) Body temperature 36.7 Tigist 36.7 Tigist [facility] ( [facility]) Body temperature 98.0 [degF] 98.0 [degF] [facility] ([facility]) Heart rate 84 /min 84 /min [facility] ([facility]) Diastolic blood pressure 84 mm[Hg] 84 mm[Hg] [facility] ([facility]) Systolic blood pressure 137 mm[Hg] 137 mm[Hg] M EDENT ([facility]) Body mass index (BMI) [Ratio] 30.7 kg/m2 30.7 k g/m2 [facility] ([facility]) Body weight 190.00 [lb_av] 190.00 [lb_av] [facility] T ([facility]) Body height 66 [in_i] 66 [in_i] [facility] ([facility]) 5'6" Heart rate 96 /min 96 /min [facility] ([facility]) Diastolic blood pressure 78 mm[Hg] 78 mm[Hg] [facility] ([facility]) Systolic blood pressure 120 mm[Hg] 120 mm[Hg] M EDENT ([facility]) Body mass index (BMI) [Ratio] 30.3 kg/m2 30.3 k g/m2 [facility] ([facility]) Body weight 188.00 [lb_av] 188.00 [lb_av] [facility] T ([facility]) Body height 66 [in_i] 66 [in_i] [facility] ([facility]) 5'6" ID Date Data Source [id number] 11/02/2019 08:30:00 AM EST [facility] Hospital Name Value Range Interpretation Code Description Data Source(s) Weight 3040 3040 [facility] Temperature 97.5 97.5 [facility] Respiratory Rate 16 16 [facility] Pulse Rate 86 86 [facility] Height 66 66 [facility] Blood Pressure 128/81 128/81 [facility] Weight 3040 3040 [facility] Temperature 97.5 97.5 [facility] Respiratory Rate 16 16 [facility] Pulse Rate 86 86 [facility] Height 66 66 [facility] Blood Pressure 128/81 128/81 [facility] ID Date Data Source [id number] 10/01/2019 07:28:00 AM EST [facility] Name Value Range Interpretation Code Description Data Source(s) Weight 3040 3040 [facility] Height 66 66 [facility] Weight 3040 3040 [facility] Height 66 66 [facility] Weight 3040 3040 [facility] pital Temperature 98.4 98.4 [facility] Respiratory Effort 1 1 [facility] Respiratory Rate 16 16 [facility] Pulse Rate 82 82 [facility] pital Height 66 66 [facility] pital Blood Pressure 134/86 134/86 [facility] Weight 3040 3040 [facility] pital Temperature 98.4 98.4 [facility] Effort 1 1 [facility] Respiratory Rate 16 16 [facility] Pulse Rate 82 82 [facility] pital Height 66 66 [facility] pital Blood Pressure 134/86 134/86 [facility] Weight 3040 3040 [facility] pital Height 66 66 [facility] pital Patient Treatment Plan of Care Planned Activity Planned Date Details Description Data Source (s) 12 HR ranolazine 500 MG Extended Release Oral Tablet 020 12:00:[address] [facility] Metoprolol Tartrate 25 MG Oral Tablet 05/19/2020 12:00:[address] [facility] atorvastatin 80 MG Oral Tablet 05/19/2020 12:00:[address] [facility] gabapentin 600 MG Oral Tablet 04/22/2020 12:00:[address] [facility] Metformin hydrochloride 500 MG Oral Tablet 04/15/2020 12:00:[address] [facility] clopidogrel 75 MG Oral Tablet 04/14/2020 12:00:[address] [facility] Aspirin 81 MG Chewable Tablet 04/14/2020 12:00:[address] [facility] Nitroglycerin 0.4 MG Sublingual Tablet 04/13/2020 12:00:[address] [facility] Metoprolol Tartrate 25 MG Oral Tablet 04/13/2020 12:00:[address] [facility] atorvastatin 80 MG Oral Tablet 04/13/2020 12:00:[address] [facility] Albuterol 0.83 MG/ML Inhalant Solution 03/12/2020 12:00:[address] [facility] Levothyroxine Sodium 0.1 MG Oral Tablet 03/11/2020 12:00:[address] [facility] 24 HR Metformin hydrochloride 750 MG Extended Release Oral Tablet 02/25/2020 12:00:00 AM EDT [facility] buspirone hydrochloride 10 MG Oral Tablet 09/28/2016 12:00:[address] [facility] 24 HR Rotigotine 0.125 MG/HR Transdermal Patch [facility] tramadol hydrochloride [address] [facility] potassium chloride (KLOR-CON) [address] [facility] Metformin hydrochloride [address] [facility] Diclofenac Sodium 50 MG Delayed Release Oral Tablet [facility]
[2020-11-28 12:29] LABS: BASO # 0.1 10^3/uL (0.0-0.2); BASO % 1.2 % (0.0-1.0); EOS # 0.1 10^3/uL (0.0-0.5); EOS % 1.7 % (0.0-3.0); HEMATOCRIT 44.3 % (36.0-47.0); HEMOGLOBIN 14.9 g/dl (12.0-15.5); LYMPH # 2.9 10^3/uL (1.5-5.0); LYMPH % 43.7 % (24.0-44.0); MEAN CORPUSCULAR HGB CONC 33.6 g/dl (32.0-36.5); MEAN CORPUSCULAR VOLUME 86.4 fl (80.0-96.0); MONO # 0.5 10^3/uL (0.0-0.8); MONO % 7.1 % (0.0-5.0); NEUTROPHILS # 3.1 10^3/uL (1.5-8.5); PLATELET COUNT, AUTOMATED 270 10^3/uL (150-450); RED BLOOD COUNT 5.13 10^6/uL (4.00-5.40); WHITE BLOOD COUNT 6.6 10^3/uL (4.0-10.0)
[2020-11-28 12:53] LABS: INR 0.89; PROTHROMBIN TIME 12.2 SECONDS (12.5-14.3)
[2020-11-28 12:54] LABS: PARTIAL THROMBOPLASTIN TIME 25.8 SECONDS (24.2-38.5)
[2020-11-28 13:01] LABS: ALBUMIN 3.8 GM/DL (3.2-5.2); ALT/SGPT 31 U/L (12-78); BILIRUBIN,DIRECT < 0.1 MG/DL (0.0-0.2); BILIRUBIN,TOTAL 0.7 MG/DL (0.2-1.0); BLOOD UREA NITROGEN 11 MG/DL (7-18); CALCIUM LEVEL 8.9 MG/DL (8.5-10.1); CARBON DIOXIDE LEVEL 22 MEQ/L (21-32); CHLORIDE LEVEL 104 MEQ/L (98-107); CREATININE FOR GFR 0.73 MG/DL (0.55-1.30); GLOMERULAR FILTRATION RATE > 60.0 (>58); GLUCOSE, FASTING 255 MG/DL (70-100); LIPASE 94 U/L (73-393); POTASSIUM SERUM 5.8 MEQ/L (3.5-5.1); SODIUM LEVEL 135 MEQ/L (136-145); TOTAL PROTEIN 7.1 GM/DL (6.4-8.2)
[2020-11-28] MEDS ORDERED: ISOVUE-370 76% 100ML VIAL As Ordered ONE (13:15)
--- NOTE | 2020-11-28 13:41 | REP ---
INDICATION: right sided abdominal pain. COMPARISON: None. TECHNIQUE: Helical scanning was acquired and 4 mm axial images are re-formatted. Coronal and sagittal MPR images were generated and reviewed. The contrast enhancement dose is 100 mL of intravenous Isovue 370. 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 The lung bases are clear on axial CT images except for the presence of a calcified granuloma in the right lower lobe. No pleural effusion or upper abdominal ascites is seen. There is mild to moderate diffuse fatty infiltration of the liver. No focal liver lesion is seen. The spleen is normal in size homogeneous in texture. Normal adrenals are observed bilaterally. No abnormality is noted in the pancreas. Gallbladder is unremarkable. The kidneys enhance symmetrically and are felt to be morphologically intact. There is some vascular calcification in the distal aorta which is normal in caliber. Bilateral common iliac artery vascular calcification is observed. No retroperitoneal mass or adenopathy is seen. There is moderate stool throughout the colon. No obstructive lesion is seen. A normal appendix is noted in the right lower quadrant. There is no evidence of free intraperitoneal air or abnormal fluid collection. No abdominal wall defect is seen. The uterus is surgically absent. No pelvic mass or adenopathy is seen. IMPRESSION: Moderate stool throughout the large bowel. No obstructive lesion 99 seen. Normal appendix. Hysterectomy. Fatty infiltration of the liver. Otherwise negative. <Electronically signed by Mehrdad Granados > 11/28/20 [id number]
[2020-11-28] MEDS ORDERED: MIRA3350 PO (14:06)
[2020-11-28 14:18] VITALS: BP 150/79
== END 2020-11-28 14:21 | disposition home or self-care (01) ==
LOC: M ED 11:14
DX: K59.00 Constipation, unspecified (principal); K76.0 Fatty (change of) liver, not elsewhere classified; K21.9 Gastro-esophageal reflux disease without esophagitis; I10 Essential (primary) hypertension; E11.9 Type 2 diabetes mellitus without complications; J44.9 Chronic obstructive pulmonary disease, unspecified; F17.200 Nicotine dependence, unspecified, uncomplicated
CPT/HCPCS: 36415; 74177; 80048; 80076; 81001; 83690; 85025; 85610; 85730; 99284; Q9967

== ENCOUNTER 2024-06-14 09:47 | Emergency (ER) | payer OTHER ==
[~2024-06-14] VITALS: Ht 167.6 cm; Wt 78.8 kg
[~2024-06-14 09:47] MED LIST changes: -LISI2.5T2 PO; +LISI2.5T9 PO; +MIRA3350 PO; -MONT10TA10 PO; +MONT10TA97 PO; -POTA10CA32; +POTA10CA70; +TIZA10TA; -TIZA4TAB4
[2024-06-14] MEDS ORDERED: PROCHLORPERAZINE 10MG 2ML VIAL IV PRN (11:45)
[2024-06-14] MEDS: diphenhydrAMINE 50MG/ML VIAL IV STA (12:01)
[2024-06-14] MEDS: NS 1,000 ML IV ONE (12:01)
[2024-06-14] MEDS: ACETAMINOPHEN *IV* 1,000 MG in IV 1 EA IV ONE (12:02)
[2024-06-14 12:22] LABS: BASO # 0.1 10^3/uL (0.0-0.2); BASO % 1.1 % (0.0-1.0); EOS # 0.1 10^3/uL (0.0-0.5); EOS % 1.6 % (0.0-3.0); HEMATOCRIT 44.2 % (36.0-47.0); HEMOGLOBIN 15.2 g/dl (12.0-15.5); LYMPH # 3.1 10^3/uL (1.5-5.0); LYMPH % 41.6 % (24.0-44.0); MEAN CORPUSCULAR HEMOGLOBIN 29.1 pg (27.0-33.0); MEAN CORPUSCULAR HGB CONC 34.4 g/dl (32.0-36.5); MEAN CORPUSCULAR VOLUME 84.5 fl (80.0-96.0); MONO # 0.4 10^3/uL (0.0-0.8); MONO % 5.6 % (2.0-8.0); NEUTROPHILS # 3.7 10^3/uL (1.5-8.5); NEUTROPHILS % 49.8 % (36.0-66.0); PLATELET COUNT, AUTOMATED 268 10^3/uL (150-450); RED BLOOD COUNT 5.23 10^6/uL (4.00-5.40); WHITE BLOOD COUNT 7.4 10^3/uL (4.0-10.0)
[2024-06-14 12:46] LABS: ERYTHROCYTE SEDIMENTATION RATE 18 mm/hr (0-30)
[2024-06-14 12:49] LABS: C REACTIVE PROTEIN QUANTITATIV < 0.40 MG/DL (<1.0)
[2024-06-14 12:50] LABS: BLOOD UREA NITROGEN 13 MG/DL (9-23); CALCIUM LEVEL 9.2 MG/DL (8.5-10.1); CARBON DIOXIDE LEVEL 24 MMOL/L (20-31); CHLORIDE LEVEL 106 MMOL/L (98-107); CREATININE FOR GFR 0.55 MG/DL (0.55-1.30); GLOMERULAR FILTRATION RATE > 60.0 (>51); GLUCOSE, FASTING 195 MG/DL (60-100); POTASSIUM SERUM 4.6 MMOL/L (3.5-5.1); SODIUM LEVEL 137 MMOL/L (136-145)
[2024-06-14 13:40] VITALS: BP 101/69; TEMP 98; O2SAT 99
== END 2024-06-14 13:46 | disposition home or self-care (01) ==
LOC: M ED 09:47
DX: R51.9 Headache, unspecified (principal); I25.2 Old myocardial infarction; E11.9 Type 2 diabetes mellitus without complications; I10 Essential (primary) hypertension; J44.9 Chronic obstructive pulmonary disease, unspecified; F17.210 Nicotine dependence, cigarettes, uncomplicated; Z91.018 Allergy to other foods; Z79.51 Long term (current) use of inhaled steroids; Z79.2 Long term (current) use of antibiotics; Z79.84 Long term (current) use of oral hypoglycemic drugs; Z79.899 Other long term (current) drug therapy
CPT/HCPCS: 70450; 80048; 85025; 85652; 86140; 96365; 96374; 99284; J0131; J1200

== ENCOUNTER 2025-05-20 11:07 | Inpatient (IN) | payer OTHER ==
[~2025-05-20] VITALS: Ht 167.6 cm; Wt 79.0 kg
[~2025-05-20 11:07] MED LIST changes: +DICL-442; -DICL100T89; +GABA-1172 PO; +GABA-1490; -GABA-282 PO; -GABA600T4
[2025-05-20 14:59] LABS: BASO # 0.1 10^3/uL (0.0-0.2); BASO % 0.9 % (0.0-1.0); EOS # 0.1 10^3/uL (0.0-0.5); EOS % 1.8 % (0.0-3.0); LYMPH # 3.1 10^3/uL (1.5-5.0); LYMPH % 39.5 % (24.0-44.0); MONO # 0.4 10^3/uL (0.0-0.8); MONO % 4.8 % (2.0-8.0); NEUTROPHILS # 4.2 10^3/uL (1.5-8.5); NEUTROPHILS % 52.4 % (36.0-66.0); PLATELET COUNT, AUTOMATED 597 10^3/uL (150-450)
[2025-05-20] MEDS ORDERED: LEXA1TAB2 PO (15:05)
[2025-05-20] MEDS ORDERED: LEVO100T5 PO (15:05)
[2025-05-20] MEDS ORDERED: METF-838 PO (15:05)
[2025-05-20] MEDS ORDERED: CLIN-250 PO (15:05)
[2025-05-20] MEDS ORDERED: PRAM0.5T4 PO (15:05)
[2025-05-20] MEDS ORDERED: FLUC150T9 PO (15:05)
[2025-05-20] MEDS ORDERED: FAMO40TA3 PO (15:05)
[2025-05-20] MEDS ORDERED: AMOX875T2 PO (15:05)
[2025-05-20] MEDS ORDERED: PRAM1TAB7 PO (15:05)
[2025-05-20] MEDS ORDERED: OXYC10TA12 PO (15:05)
[2025-05-20] MEDS ORDERED: POTA-151 PO (15:05)
[2025-05-20] MEDS ORDERED: PERI12LIQ SSP (15:05)
[2025-05-20] MEDS ORDERED: ALBU8.5H INH (15:05)
[2025-05-20] MEDS ORDERED: SEMA2PEN INJ (15:05)
[2025-05-20] MEDS ORDERED: INCR1INH INH (15:06)
[2025-05-20] MEDS ORDERED: EZET10TA21 PO (15:06)
[2025-05-20] MEDS ORDERED: ASPI81TA26 PO (15:07)
[2025-05-20] MEDS ORDERED: HOME MED LIST COMPLETE! XX SCH (15:10)
[2025-05-20 16:20] LABS: CALCIUM LEVEL 8.7 MG/DL (8.5-10.1); CARBON DIOXIDE LEVEL 27 MMOL/L (20-31); CHLORIDE LEVEL 104 MMOL/L (98-107); CREATININE FOR GFR 0.46 MG/DL (0.55-1.30); GLOMERULAR FILTRATION RATE > 90.0 (>51); POTASSIUM SERUM 4.5 MMOL/L (3.5-5.1); SODIUM LEVEL 140 MMOL/L (136-145)
[2025-05-20] MEDS: PERCOCET 5MG/325MG TAB PO ONE (16:36)
[2025-05-20] MEDS ORDERED: ISOVUE-370 76% 100 ML VIAL As Ordered ONE (17:13)
[2025-05-20] MEDS: PRAMIPEXOLE 1 MG TAB PO ONE (17:19)
[2025-05-20] MEDS: AMPICILLIN SOD/SULBACTAM SOD 3 GM in DEXTROSE 5% (D5W) MINI-BAG PLU 100 ML IV ONE (19:49)
[2025-05-20] MEDS ORDERED: MOM 30 ML SUSPENSION UDC PO PRN (19:50)
[2025-05-20] MEDS ORDERED: ALBUTEROL 90 MCG/ACT 8 GM HFA INHALER INH PRN (19:50)
[2025-05-20] MEDS ORDERED: BISACODYL 10 MG SUPP PR PRN (19:50)
[2025-05-20] MEDS: DOCUSATE SODIUM 100 MG CAPSULE PO SCH (21:21)
[2025-05-20] MEDS: LR 1,000 ML IV SCH (21:21)
[2025-05-20] MEDS: PIPERACILLIN/TAZOBACTAM SOD 3.375 GM in DEXTROSE 5% (D5W) ADV/MINI-BAG 50 ML IV SCH (21:29)
[2025-05-20] MEDS: VANCOMYCIN HCL 1,500 MG, VIAL MATE ADAPTER 1 EACH in NS 500 ML IV ONE (22:36)
[2025-05-20] MEDS: MORPHINE 2 MG/ML 1 ML VIAL IV PRN (22:44)
[2025-05-20] MEDS ORDERED: DEXTROSE 50% 50 ML SYRINGE IV PRN (23:05)
[2025-05-20] MEDS ORDERED: GLUCAGON INJ 1 MG VIAL SC PRN (23:05)
[2025-05-20] MEDS ORDERED: GLUCOSE 4 GM CHEW PO PRN (23:05)
[2025-05-21] VITALS (11 sets, daily range): BP systolic 136–187; BP diastolic 66–85; TEMP 97–98.6; O2SAT 96–98
[2025-05-21] MEDS: KETOROLAC 30 MG/ML 1 ML VIAL IV PRN (00:57)
[2025-05-21] MEDS: VANCOMYCIN HCL 1,000 MG, VIAL MATE ADAPTER 1 EACH in NS 250 ML IV SCH (05:42)
[2025-05-21] MEDS ORDERED: MIDAZOLAM INJ 2 MG/2 ML VIAL As Ordered ONE (06:01)
[2025-05-21] MEDS ORDERED: LIDOCAINE 2% 100 MG/5 ML SDV (FOR ANES.) As Ordered ONE (06:03)
[2025-05-21] MEDS ORDERED: ROCURONIUM BROMIDE 50MG/5ML VIAL As Ordered ONE (06:06)
[2025-05-21] MEDS ORDERED: dexAMETHasone 4 MG/ML 1 ML VIAL As Ordered ONE (06:07)
[2025-05-21] MEDS ORDERED: ONDANSETRON 4MG 2ML VIAL As Ordered ONE (06:07)
[2025-05-21] MEDS ORDERED: SUGAMMADEX SODIUM 500 MG/5 ML VIAL As Ordered ONE (06:08)
[2025-05-21] MEDS ORDERED: dexmedeTOMIDine (4 MCG/ML) 200 MCG/50 ML BTL As Ordered ONE (06:09)
[2025-05-21] MEDS ORDERED: ACETAMINOPHEN 1000MG/100ML IV BAG As Ordered ONE (06:43)
[2025-05-21] MEDS ORDERED: SEVOFLURANE INHAL SOLN 250 ML BTL As Ordered ONE (06:51)
[2025-05-21] MEDS: LIDOCAINE W/EPINEPHrine 1% 20 ML VIAL As Ordered ONE (06:55)
[2025-05-21] MEDS ORDERED: LR 1,000 ML IV SCH (07:55)
[2025-05-21] MEDS ORDERED: GLUCAGON INJ 1 MG VIAL SC PRN (07:55)
[2025-05-21] MEDS ORDERED: DEXTROSE 50% 50 ML SYRINGE IV PRN (07:55)
[2025-05-21] MEDS ORDERED: GLUCOSE 4 GM CHEW PO PRN (07:55)
[2025-05-21] MEDS ORDERED: PROMETHAZINE 25MG/ML 1ML VIAL IV PRN (07:55)
[2025-05-21] MEDS ORDERED: INSULIN LISPRO (NovoLOG) PER UNIT SC PRN (07:55)
[2025-05-21] MEDS ORDERED: ONDANSETRON 4MG 2ML VIAL IV PRN (07:55)
[2025-05-21] MEDS ORDERED: HYDROMORPHONE HCL 0.5 MG/0.5 ML SYRINGE IV PRN (07:55)
[2025-05-21] MEDS: INSULIN LISPRO (NovoLOG) PER UNIT SC SCH ×2 (09:00→23:07)
[2025-05-21] MEDS: LEVOTHYROXINE 100 MCG TABLET (0.1 MG) PO SCH (09:45)
[2025-05-21] MEDS: ESCITALOPRAM OXALATE 10 MG TABLET PO SCH (09:46)
[2025-05-21] MEDS: EZETIMIBE 10 MG TABLET PO SCH (09:46)
[2025-05-21] MEDS: HEPARIN SOD 5000 UNITS/ML 1 ML VIAL/SYRINGE SC SCH (09:46)
[2025-05-21] MEDS: PANTOPRAZOLE 40MG VIAL IV SCH (09:47)
[2025-05-21 11:17] LABS: BASO # 0.1 10^3/uL (0.0-0.2); BASO % 0.4 % (0.0-1.0); EOS # 0.0 10^3/uL (0.0-0.5); EOS % 0.0 % (0.0-3.0); LYMPH # 1.0 10^3/uL (1.5-5.0); LYMPH % 6.5 % (24.0-44.0); MONO # 0.1 10^3/uL (0.0-0.8); MONO % 0.7 % (2.0-8.0); NEUTROPHILS # 13.7 10^3/uL (1.5-8.5); NEUTROPHILS % 91.5 % (36.0-66.0); PLATELET COUNT, AUTOMATED 539 10^3/uL (150-450)
[2025-05-21 11:37] LABS: C REACTIVE PROTEIN QUANTITATIV 0.99 MG/DL (<1.0)
[2025-05-21 11:38] LABS: CALCIUM LEVEL 8.4 MG/DL (8.5-10.1); CARBON DIOXIDE LEVEL 24 MMOL/L (20-31); CHLORIDE LEVEL 102 MMOL/L (98-107); CREATININE FOR GFR 0.54 MG/DL (0.55-1.30); GLOMERULAR FILTRATION RATE > 90.0 (>51); POTASSIUM SERUM 4.8 MMOL/L (3.5-5.1); SODIUM LEVEL 138 MMOL/L (136-145)
[2025-05-21] MEDS: CHLORHEXIDINE GLUCONATE 0.12% 15 ML UDC SSP SCH (12:14)
[2025-05-21] MEDS ORDERED: PERCOCET 5MG/325MG TAB PO PRN (14:25)
[2025-05-21] MEDS: PERCOCET 5MG/325MG TAB PO PRN (15:10)
[2025-05-21] MEDS: PIPERACILLIN/TAZOBACTAM SOD 3.375 GM in NS MINI-BAG PLUS 50 ML IV SCH (15:56)
[2025-05-21] MEDS ORDERED: AMPICILLIN SOD/SULBACTAM SOD 3 GM in DEXTROSE 5% (D5W) MINI-BAG PLU 100 ML IV SCH (16:00)
[2025-05-21] MEDS: FAMOTIDINE 20 MG TAB PO SCH (20:20)
[2025-05-21] MEDS ORDERED: PRAMIPEXOLE 0.25 MG TAB PO PRN (21:00)
[2025-05-22] VITALS (7 sets, daily range): BP systolic 114–151; BP diastolic 57–72; TEMP 96.2–98.6; O2SAT 96–98
[2025-05-22 07:18] LABS: BASO # 0.1 10^3/uL (0.0-0.2); BASO % 0.5 % (0.0-1.0); EOS # 0.0 10^3/uL (0.0-0.5); EOS % 0.1 % (0.0-3.0); LYMPH # 2.4 10^3/uL (1.5-5.0); LYMPH % 23.8 % (24.0-44.0); MONO # 0.5 10^3/uL (0.0-0.8); MONO % 5.3 % (2.0-8.0); NEUTROPHILS # 7.1 10^3/uL (1.5-8.5); NEUTROPHILS % 69.9 % (36.0-66.0); PLATELET COUNT, AUTOMATED 558 10^3/uL (150-450)
[2025-05-22 08:05] LABS: CALCIUM LEVEL 8.3 MG/DL (8.5-10.1); CARBON DIOXIDE LEVEL 24 MMOL/L (20-31); CHLORIDE LEVEL 100 MMOL/L (98-107); CREATININE FOR GFR 0.61 MG/DL (0.55-1.30); GLOMERULAR FILTRATION RATE > 90.0 (>51); MAGNESIUM LEVEL 1.7 MG/DL (1.8-2.4); POTASSIUM SERUM 4.7 MMOL/L (3.5-5.1); SODIUM LEVEL 136 MMOL/L (136-145)
[2025-05-22] MEDS: LanTUS (INSULIN GLARGINE INJ) 1 UNITS/0.01 ML SC SCH (08:49)
[2025-05-22] MEDS ORDERED: LanTUS (INSULIN GLARGINE INJ) 1 UNITS/0.01 ML SC SCH (09:00)
[2025-05-22] MEDS: MAGNESIUM OXIDE 400 MG TAB PO SCH (09:42)
[2025-05-22] MEDS: amLODIPine 10 MG TAB PO SCH (09:49)
[2025-05-22] MEDS: HumuLIN R (REGULAR) INSULIN (NovoLIN R) **100 U/ML** PER UNIT IV STA (10:50)
[2025-05-22 11:52] LABS: ESTIMATED AVERAGE GLUCOSE 194.0 MG/DL (60-110)
[2025-05-22] MEDS: INSULIN LISPRO (NovoLOG) PER UNIT SC SCH (12:36)
[2025-05-22] MEDS: NS (Normal Saline) 0.9% 1,000 ML IV SCH (13:35)
[2025-05-23 04:00] VITALS: BP 124/68; TEMP 96; O2SAT 99
[2025-05-23] MEDS: INSULIN LISPRO (NovoLOG) PER UNIT SC SCH (07:18)
[2025-05-23 08:00] VITALS: BP 124/66; TEMP 97.2; O2SAT 98
[2025-05-23 08:17] LABS: PLATELET COUNT, AUTOMATED 455 10^3/uL (150-450)
[2025-05-23 08:36] LABS: CALCIUM LEVEL 8.0 MG/DL (8.5-10.1); CARBON DIOXIDE LEVEL 26 MMOL/L (20-31); CHLORIDE LEVEL 102 MMOL/L (98-107); CREATININE FOR GFR 0.60 MG/DL (0.55-1.30); GLOMERULAR FILTRATION RATE > 90.0 (>51); MAGNESIUM LEVEL 1.7 MG/DL (1.8-2.4); POTASSIUM SERUM 4.4 MMOL/L (3.5-5.1); SODIUM LEVEL 137 MMOL/L (136-145)
[2025-05-23 08:43] LABS: ATYPICAL LYMPH 2 % (0-5); BASOPHILS 2 % (0-1); EOSINOPHILS 2 % (0-3); LYMPHOCYTES 35 % (16-44); MONOCYTES 1 % (0-5); MYELOCYTES 1 % (0-0); NEUTROPHILS 57 % (28-66); PLATELET ESTIMATE NORMAL (NORMAL)
[2025-05-23] MEDS: amLODIPine 10 MG TAB PO SCH (09:24)
[2025-05-23] MEDS: PRAMIPEXOLE 0.25 MG TAB PO SCH (14:52)
[2025-05-23 17:00] VITALS: BP 112/67; TEMP 97.3; O2SAT 98
[2025-05-23 20:40] VITALS: BP 134/71; TEMP 97.4; O2SAT 97
[2025-05-24] VITALS: BP 123/64; TEMP 97; O2SAT 97
[2025-05-24 06:38] LABS: BASO # 0.1 10^3/uL (0.0-0.2); BASO % 1.0 % (0.0-1.0); EOS # 0.2 10^3/uL (0.0-0.5); EOS % 1.9 % (0.0-3.0); LYMPH # 3.6 10^3/uL (1.5-5.0); LYMPH % 40.2 % (24.0-44.0); MONO # 0.6 10^3/uL (0.0-0.8); MONO % 6.3 % (2.0-8.0); NEUTROPHILS # 4.5 10^3/uL (1.5-8.5); NEUTROPHILS % 50.4 % (36.0-66.0); PLATELET COUNT, AUTOMATED 455 10^3/uL (150-450)
[2025-05-24 07:04] LABS: CALCIUM LEVEL 8.3 MG/DL (8.5-10.1); CARBON DIOXIDE LEVEL 30 MMOL/L (20-31); CHLORIDE LEVEL 100 MMOL/L (98-107); CREATININE FOR GFR 0.62 MG/DL (0.55-1.30); GLOMERULAR FILTRATION RATE > 90.0 (>51); MAGNESIUM LEVEL 1.9 MG/DL (1.8-2.4); POTASSIUM SERUM 4.8 MMOL/L (3.5-5.1); SODIUM LEVEL 139 MMOL/L (136-145)
[2025-05-24] MEDS: INSULIN LISPRO (NovoLOG) PER UNIT SC SCH ×2 (08:13→21:06)
[2025-05-24 08:25] VITALS: BP 142/67; TEMP 97.1; O2SAT 96
[2025-05-24] MEDS ORDERED: amLODIPine 5 MG TAB PO SCH (09:00)
[2025-05-24] MEDS: DOXYCYCLINE HYCLATE 100 MG TABLET PO SCH (16:07)
[2025-05-24 21:00] VITALS: BP 143/67; TEMP 98.1; O2SAT 99
[2025-05-25 01:00] VITALS: BP 146/70; TEMP 97.6; O2SAT 97
[2025-05-25 06:33] LABS: CALCIUM LEVEL 8.5 MG/DL (8.5-10.1); CARBON DIOXIDE LEVEL 29 MMOL/L (20-31); CHLORIDE LEVEL 100 MMOL/L (98-107); CREATININE FOR GFR 0.62 MG/DL (0.55-1.30); GLOMERULAR FILTRATION RATE > 90.0 (>51); MAGNESIUM LEVEL 1.8 MG/DL (1.8-2.4); POTASSIUM SERUM 4.7 MMOL/L (3.5-5.1); SODIUM LEVEL 140 MMOL/L (136-145)
[2025-05-25] MEDS: INSULIN LISPRO (NovoLOG) PER UNIT SC SCH (07:03)
[2025-05-25 07:55] VITALS: BP 144/71; TEMP 97; O2SAT 97
[2025-05-25] MEDS: amLODIPine 5 MG TAB PO SCH (08:33)
[2025-05-25] MEDS: LanTUS (INSULIN GLARGINE INJ) 1 UNITS/0.01 ML SC SCH (08:42)
[2025-05-25 12:15] VITALS: BP 137/64; TEMP 97.6; O2SAT 99
[2025-05-25 13:59] VITALS: BP 155/74; TEMP 97.2; O2SAT 96
[2025-05-25] MEDS: MORPHINE 2 MG/ML 1 ML VIAL IV PRN (14:55)
[2025-05-25 16:00] VITALS: BP 123/60; TEMP 97.9; O2SAT 99
[2025-05-25 21:00] VITALS: BP 143/75; TEMP 98.3; O2SAT 96
[2025-05-26 01:00] VITALS: BP 154/70; TEMP 97.6; O2SAT 96
[2025-05-26 04:30] VITALS: BP 138/66; TEMP 97.1; O2SAT 97
[2025-05-26 07:09] LABS: CALCIUM LEVEL 9.1 MG/DL (8.5-10.1); CARBON DIOXIDE LEVEL 31 MMOL/L (20-31); CHLORIDE LEVEL 97 MMOL/L (98-107); CREATININE FOR GFR 0.66 MG/DL (0.55-1.30); GLOMERULAR FILTRATION RATE > 90.0 (>51); MAGNESIUM LEVEL 1.6 MG/DL (1.8-2.4); POTASSIUM SERUM 4.8 MMOL/L (3.5-5.1); SODIUM LEVEL 137 MMOL/L (136-145)
[2025-05-26 07:50] VITALS: BP 144/75; TEMP 97.4; O2SAT 97
[2025-05-26] MEDS: MORPHINE 2 MG/ML 1 ML VIAL IV ONE (07:56)
[2025-05-26] MEDS: FLUCONAZOLE 50 MG TABLET PO ONE (10:55)
[2025-05-26] MEDS: INSULIN LISPRO (NovoLOG) PER UNIT SC SCH (12:19)
[2025-05-26] MEDS: MORPHINE 2 MG/ML 1 ML VIAL IV PRN (13:58)
[2025-05-26] MEDS: MAGNESIUM OXIDE 400 MG TAB PO SCH (15:39)
[2025-05-26 16:00] VITALS: BP 123/80; TEMP 97.8; O2SAT 97
[2025-05-26 20:30] VITALS: BP 134/74; TEMP 97.4; O2SAT 98
[2025-05-27 01:45] VITALS: BP 123/65; TEMP 97.5; O2SAT 97
[2025-05-27 06:51] LABS: CALCIUM LEVEL 9.0 MG/DL (8.5-10.1); CARBON DIOXIDE LEVEL 29 MMOL/L (20-31); CHLORIDE LEVEL 98 MMOL/L (98-107); CREATININE FOR GFR 0.71 MG/DL (0.55-1.30); GLOMERULAR FILTRATION RATE > 90.0 (>51); MAGNESIUM LEVEL 1.8 MG/DL (1.8-2.4); POTASSIUM SERUM 5.0 MMOL/L (3.5-5.1); SODIUM LEVEL 138 MMOL/L (136-145)
[2025-05-27 08:30] VITALS: BP 119/56; TEMP 97.2; O2SAT 98
[2025-05-27] MEDS: LanTUS (INSULIN GLARGINE INJ) 1 UNITS/0.01 ML SC SCH (09:00)
[2025-05-27 17:45] VITALS: BP 113/58; TEMP 98.5; O2SAT 98
[2025-05-27] MEDS: INSULIN LISPRO (NovoLOG) PER UNIT SC SCH ×2 (17:53→21:00)
[2025-05-27 20:00] VITALS: BP 139/71; TEMP 98.6; O2SAT 96
[2025-05-27] MEDS ORDERED: metFORMIN 500 MG TAB PO SCH (21:00)
[2025-05-28 04:00] VITALS: BP 115/56; TEMP 97.6; O2SAT 95
[2025-05-28 07:52] LABS: CALCIUM LEVEL 8.5 MG/DL (8.5-10.1); CARBON DIOXIDE LEVEL 28 MMOL/L (20-31); CHLORIDE LEVEL 100 MMOL/L (98-107); CREATININE FOR GFR 0.53 MG/DL (0.55-1.30); GLOMERULAR FILTRATION RATE > 90.0 (>51); MAGNESIUM LEVEL 1.7 MG/DL (1.8-2.4); POTASSIUM SERUM 4.4 MMOL/L (3.5-5.1); SODIUM LEVEL 138 MMOL/L (136-145)
[2025-05-28 08:15] VITALS: BP 114/58; TEMP 97; O2SAT 99
[2025-05-28] MEDS: LanTUS (INSULIN GLARGINE INJ) 1 UNITS/0.01 ML SC SCH (08:55)
[2025-05-28 12:00] VITALS: BP 107/58; TEMP 97.8; O2SAT 97
[2025-05-28 16:00] VITALS: BP 106/52; TEMP 98.2; O2SAT 99
[2025-05-28 22:00] VITALS: BP 141/66; TEMP 98.1; O2SAT 99
[2025-05-29 00:59] VITALS: BP 130/67; TEMP 97.8; O2SAT 96
[2025-05-29 06:50] LABS: PLATELET COUNT, AUTOMATED 451 10^3/uL (150-450)
[2025-05-29 07:03] LABS: ALT/SGPT 20 U/L (7.0-40); AST/SGOT 21 U/L (<34); C REACTIVE PROTEIN QUANTITATIV 1.80 MG/DL (<1.0); CALCIUM LEVEL 9.0 MG/DL (8.5-10.1); CARBON DIOXIDE LEVEL 28 MMOL/L (20-31); CHLORIDE LEVEL 103 MMOL/L (98-107); CREATININE FOR GFR 0.54 MG/DL (0.55-1.30); GLOMERULAR FILTRATION RATE > 90.0 (>51); POTASSIUM SERUM 4.6 MMOL/L (3.5-5.1); SODIUM LEVEL 141 MMOL/L (136-145)
[2025-05-29 07:41] LABS: ATYPICAL LYMPH 2 % (0-5); BASOPHILS 2 % (0-1); EOSINOPHILS 3 % (0-3); LYMPHOCYTES 41 % (16-44); MONOCYTES 5 % (0-5); NEUTROPHILS 47 % (28-66)
[2025-05-29 07:43] LABS: PLATELET ESTIMATE NORMAL (NORMAL)
[2025-05-29 08:25] VITALS: BP 103/56
[2025-05-29 08:34] VITALS: BP 103/56; TEMP 97.8; O2SAT 98
[2025-05-29 12:36] VITALS: BP 113/56; TEMP 98.1; O2SAT 98
[2025-05-29] MEDS ORDERED: PERCOCET PO (13:16)
[2025-05-29] MEDS ORDERED: DOXY100T PO (13:16)
[2025-05-29] MEDS ORDERED: INSULANT SC (13:16)
[2025-05-29] MEDS ORDERED: METR-265 PO (13:16)
== END 2025-05-29 13:43 | disposition home or self-care (01) | DRG 364 ==
LOC: M ED 11:07 → M ED INP 19:48 → M PED 05-21 02:14
PROVIDERS: ADMIT Student in an Organized Health Care Education/Training Program; ATTEND Family Medicine
PROC: 0J950ZZ Drainage of Left Neck Subcutaneous Tissue and Fascia, Open Approach (ICD-10-PCS; principal; 2025-05-21)
DX: L02.11 Cutaneous abscess of neck (principal); E11.65 Type 2 diabetes mellitus with hyperglycemia; I10 Essential (primary) hypertension; E78.5 Hyperlipidemia, unspecified; L03.221 Cellulitis of neck; I25.10 Atherosclerotic heart disease of native coronary artery without angina pectoris; J45.909 Unspecified asthma, uncomplicated; J44.9 Chronic obstructive pulmonary disease, unspecified; K21.9 Gastro-esophageal reflux disease without esophagitis; E03.9 Hypothyroidism, unspecified; F32.A Depression, unspecified; Z79.82 Long term (current) use of aspirin; Z79.890 Hormone replacement therapy; Z79.84 Long term (current) use of oral hypoglycemic drugs; Z79.899 Other long term (current) drug therapy; Z91.018 Allergy to other foods